=== PATIENT | male | born 1950 | race Caucasian/White ===

== ENCOUNTER 2023-09-19 11:48 | Outpatient (OUT) | payer MEDICARE, OTHER, SELFPAY ==
[2023-09-19 12:26] LABS: Basophils Absolute Auto 0.1 10^3/uL (0.0-0.1); Basophils Percent Auto 1.2 % (0.2-2.0); Eosinophils Absolute Auto 0.4 10^3/uL (0.0-0.7); Eosinophils Percent Auto 6.8 % (0.9-7.0); Hematocrit 43.1 % (42.0-54.0); Hemoglobin 13.2 g/dL (14.0-18.0); Lymphocytes Absolute Auto 1.8 10^3/uL (1.2-3.8); Lymphocytes Percent Auto 29.6 % (20.5-60.0); Mean Corpuscular HGB Conc 30.6 g/dL (29.9-35.2); Mean Corpuscular Hemoglobin 27.6 pg (25.9-34.0); Mean Corpuscular Volume 90.2 fL (80.0-94.0); Mean Platelet Volume 9.7 fL (9.5-13.5); Monocytes Absolute Auto 0.6 10^3/uL (0.3-0.8); Monocytes Percent Auto 10.3 % (1.7-12.0); Neutrophils Absolute Auto 3.1 10^3/uL (1.4-6.5); Neutrophils Percent Auto 52.1 % (43.0-75.0); Platelet Count 245 10^3/uL (150-450); Red Blood Count 4.78 10^6/uL (4.70-6.10); Red Cell Distribution Width 12.5 % (11.0-15.0); White Blood Count 5.9 10^3/uL (4.0-11.0)
[2023-09-19 13:07] LABS: Estimated Average Glucose 123 mg/dL; Glycohemoglobin A1C 5.9 % (4.5-6.2)
[2023-09-19 13:17] LABS: Anion Gap 7.8; Carbon Dioxide 31.6 mmol/L (21.0-32.0); Chloride 99 mmol/L (98-107); Glucose 104 mg/dL (74-106); Potassium 4.4 mmol/L (3.5-5.1); Sodium 134 mmol/L (136-145)
[2023-09-19 13:18] LABS: Alanine Aminotransferase 34 U/L (16-63); Alkaline Phosphatase 82 U/L (46-116); Aspartate Amino Transferase 20 U/L (15-37); BUN Creatinine Ratio 15.8; Bilirubin Direct 0.1 mg/dL (0.0-0.2); Bilirubin Total 0.6 mg/dL (0.2-1.0); Estimated GFR (African America >60 (>=60); Estimated GFR (Non-African Ame >60 (>=60)
[2023-09-19 13:19] LABS: Albumin Level 3.5 g/dL (3.4-5.0); Chol HDL Ratio 2.1; Cholesterol 135 mg/dL (<=200); Globulin 3.5 g/dL; HDL Cholesterol 63 mg/dL (40-60); Triglycerides 47 mg/dL (<=150); VLDL CHOLESTEROL 9.4 mg/dL
[2023-09-19 13:32] LABS: Prostate Specific Antigen Scrn 3.68 ng/mL (<=4.00)
== END 2023-09-19 11:49 | disposition home or self-care (01) ==
LOC: LAB 11:53
PROVIDERS: PCP Family Medicine; Visit Provider Family Medicine
DX: E83.42 Hypomagnesemia (principal); I10 Essential (primary) hypertension; Z79.899 Other long term (current) drug therapy; E78.5 Hyperlipidemia, unspecified; Z12.5 Encounter for screening for malignant neoplasm of prostate; R73.03 Prediabetes
CPT/HCPCS: 36415; 80048; 80061; 80076; 83036; 83735; 85025; G0103

== ENCOUNTER 2024-10-01 07:02 | Outpatient (OUT) | payer MEDICARE, OTHER, SELFPAY ==
--- OUTSIDE RECORDS SUMMARY | 2024-10-01 07:06 | XMS_ITS | CCD ---
Author Organization [facility] Care Team Providers Care Real Estate Transaction Coordinator Name Role Phone Ayad Lawrence Unavailable Carter Fitzpatrick Primary Care Provider [phone] No, Referral Unavailable Unavailable Jose Cruz RUSSELL, Wai Dorantes Unavailable AMARI, DR CARTER Quintanilla Admitting Unavailable NADERER, DR CARTER Quintanilla Attending Unavailable NADERER, DR CARTER Quintanilla Consulting Unavailable NADERER, DR CARTER Quintanilla Primary Care Unavailable ALLEN ., DR ETHAN Nunes Admitting Unavailable ALLEN ., DR ETHAN Nunes Attending Unavailable NADERER, DR CARTER Quintanilla Primary Care Unavailable NADERER, DR CARTER Quintanilla Consulting Unavailable LAKSHMIPATHY ., CARLOS Attending Ofelia vailable ALLEN ., DR ETHAN Nunes Consulting Unavailable LAKSHMIPATHY ., CARLOS Admitting Ofelia vailable NADERER, DR CARTER Quintanilla Primary Care Unavailable LAKSHMIPATHY ., CARLOS Consulting Ofelia vailable FAWWAD, BECKETT H Admitting Unavailable FAWWAD, BECKETT H Attending Unavailable PARKERSBURG, DR MARSHAL Tanner Consulting Unavailable NADERER, DR CARTER Quintanilla Primary Care Unavailable FAWWAD, BECKETT H Consulting Unavailable ALLEN ., DR ETHAN Nunes Attending Unavailable ALLEN ., DR ETHAN Nunes Admitting Unavailable ALLEN ., DR ETHAN Nunes Consulting Unavailable NADEREVashti, DR CARTER Quintanilla Primary Care Unavailable ALLEN ., DR ETHAN Nunes Attending Unavailable ALLEN ., DR ETHAN Nunes Consulting Unavailable ALLEN ., DR ETHAN Nunes Admitting Unavailable NADERER, DR CARTER Quintanilla Primary Care Unavailable ALLEN ., DR ETHAN Nunes Attending Unavailable ALLEN ., DR ETHAN Nunes Admitting Unavailable NADERER, DR CARTER Quintanilla Primary Care Unavailable LAKSHMIPATHY ., CARLOS Admitting Ofelia vailable LAKSHMIPATHY ., CARLOS Attending Ofelia vailable LAKSHMIPATHY ., CARLOS Consulting Ofelia vailable NADEREVashti, DR CARTER Quintanilla Primary Care Unavailable ALLEN ., DR ETHAN Nunes Admitting Unavailable ALLEN ., DR ETHAN Nunes Attending Unavailable ALLEN ., DR ETHAN Nunes Consulting Unavailable NADERER, DR CARTER Quintanilla Primary Care Unavailable ALLEN ., DR ETHAN Nunes Admitting Unavailable ALLEN ., DR ETHAN Nunes Attending Unavailable ALLEN ., DR ETHAN Nunes Consulting Unavailable NADERER, DR CARTER Quintanilla Primary Care Unavailable POMPABRANDON CHARLTON Consulting Unavailable ALLEN ., DR ETHAN Nunes Consulting Unavailable ALLEN ., DR ETHAN Nunes Attending Unavailable ALLEN ., DR ETHAN Nunes Admitting Unavailable NADERER, DR CARTER Quintanilla Primary Care Unavailable TAL URIAS Consulting Unavailable LAKSHMIPATHY ., NARENDLALITOATH Admitting Ofelia vailable LAKSHMIPATHY ., CARLOS Attending Ofelia vailable LAKSHMIPATHY ., CARLOS Consulting Ofelia vailable NADCHARLIE, DR CARTER Quintanilla Primary Care Unavailable BRANDON POMPA Consulting Unavailable ALLEN ., DR ETHAN Nunes Attending Unavailable ALLEN ., DR ETHAN Nunes Admitting Unavailable NADERER, DR CARTER Quintanilla Primary Care Unavailable ALLEN ., DR ETHAN Nunes Attending Unavailable ALLEN ., DR ETHAN Nunes Consulting Unavailable ALLEN ., DR ETHAN Nunes Admitting Unavailable NADERER, DR CARTER Quintanilla Primary Care Unavailable NADERER, DR CARTER Quintanilla Primary Care Unavailable LAKSHMIPATHY ., NARSASHA Admitting Ofelia vailable LAKSHMIPATHY ., CARLOS Attending Ofelia vailable ALLEN ., DR ETHAN Nunes Attending Unavailable ALLEN ., DR ETHAN Nunes Consulting Unavailable ALLEN ., DR ETHAN Nunes Admitting Unavailable NADERER, DR CARTER Quintanilla Primary Care Unavailable NADERER, DR CARTER Quintanilla Admitting Unavailable NADERER, DR CARTER Quintanilla Attending Unavailable WEST, DR MARSHAL Tanner Consulting Unavailable NADERER, DR CARTER Quintanilla Primary Care Unavailable ZIEBER, DR JONO Kingston Consulting Unavailable NADERER, DR CARTER Quintanilla Consulting Unavailable NADERER, DR CARTER Quintanilla Primary Care Unavailable GRECHNY ., ELIU MAHONEY Consulting Unavailabl e MARKER ., DR SALAS Admitting Unavailable MARKER ., DR SALAS Attending Unavailable MARKER ., DR SALAS Consulting Unavailable SHILOH, LAITH Consulting Unavailable Jass, Marshal Consulting Unavailable LUDMILA, DR MAICOL Kingston Consulting Unavailable LUDMILA, DR MAICOL Kingston Admitting Unavailable LUDMILA, DR MAICOL Kingston Attending Unavailable NADERER, DR CARTER Quintanilla Primary Care Unavailable JACOB DUKE Consulting Unavailable TORRES, DR MAICOL Kingston Admitting Unavailable LUDMILA, DR MAICOL Kingston Consulting Unavailable LUDMILA, DR MAICOL Kingston Attending Unavailable NADERER, DR CARTER Quintanilla Primary Care Unavailable LUCIAN NG Consulting Unavailable ANDREWS THOMPSON Consulting Unavailable NADERER, DR CARTER Quintanilla Admitting Unavailable NADERER, DR CARTER Quintanilla Attending Unavailable NADERER, DR CARTER Quintanilla Primary Care Unavailable NADERER, DR CARTER Quintanilla Consulting Unavailable ALLEN ., DR ETHAN Nunes Admitting Unavailable ALLEN ., DR ETHAN Nunes Attending Unavailable NADERER, DR CARTER Quintanilla Primary Care Unavailable NADERER, DR CARTER Quintanilla Consulting Unavailable ALLEN ., DR ETHAN Nunes Consulting Unavailable No, Referral Unavailable Unavailable Wai Billingsley MD Unavailable [phone] NADCHARLIE, CARTER Quintanilla Primary Care Unavailable AUBREY KO Attending Unavailable WAI BILLINGSLEY Attending Unavailable WAI BILLINGSLEY Referring Unavailable AMARI, CARTER Quintanilla Primary Care Unavailable WAI BILLINGSLEY Referring Unavailable AMARI, CARTER Quintanilla Primary Care Unavailable WAI BILLINGSLEY Referring Unavailable KHUSHBOO LACKEY Attending Unavailable NADEREVashti, CARTER Quintanilla Primary Care Unavailable NADEREVashti, CARTER Quintanilla Primary Care Unavailable WAI BILLINGSLEY Referring Unavailable Carter Fitzpatrick Primary Care Provider Carter Fitzpatrick MD Primary Care Provider [phone] CARTER FITZPATRICK Attending Unavailable CINTHIA PRECIADO Attending Unavailable NADEREVashti, CARTER Attending Unavailable Carter Fitzpatrick MD Primary Care Provider [phone] Allergies Allergy Classification Reported Allergen(s) Allergy Type Date of Onset Reaction(s) Facility (1 source) penicillAMINE Drug Allergy Unknown [facility] Other (19 sources) Penicillin; Translations: [PENICILLIN] Drug Allergy 11-01-20 17 Unknown [facility] (19 sources) Thiazides; Translations: [THIAZIDES] Drug Intolerance 02-04-20 19 GI Upset [facility] Work Phone: (2 sources) Penicillins Drug allergy (disorder) 11-17-20 16 [facility] (2 sources) cefdinir Drug Allergy 03-26-20 24 [facility] (2 sources) Penicillin G Drug Allergy 11-01-20 17 Hives, Unknown [facility] (2 sources) Other Propensity to adverse reactions 02-04-20 19 GI intolerance [facility] Medications Current Medications Medication Drug Class(es) Dates Sig (Normalized) Sig (Original) amLODIPine 2.5 mg oral tablet (20 sources) Dihydropyridine Calcium Channel Edwar Start: 12-30-2021 End: 09-17-2024 take 1 tablet by mouth in the morning amLODIPine (Norvasc) 2.5 MG tablet Take 2.5 mg by mouth in the morning. 12/17/2023 Active amLODIPine Besyl ate 2.5 MG Oral for 60 Active Comment on above: Take 1 tablet by césar th once daily. Take 1 tablet by césar th once daily Aspirin (4 sources) Platelet Aggregation Inhibitor, Nonsteroidal Anti-inflammatory Drug aspirin (ASPIR-81 OR AL) Take by mouth. Active aspirin (ASPIR-8 1 ORAL) Take by mouth. 0 Active Comment on above: Take by mouth. atorvastatin 10 mg oral tablet (20 sources) HMG-CoA Reductase Inhibitor Start: 03-04-20 take 1 tablet by mouth at bedtime atorvastatin (Lipitor) 10 MG tablet Indications: Dyslipidemia ([facility]) Take 1 tablet (10 mg) by mouth at bedtime 90 tablet 3 03/04/2024 Active Comment on above: Take 10 mg by mouth once daily. LORazepam 0.5 mg oral tablet (20 sources) Benzodiazepine Start: 09-18-20 take 1 tablet by mouth three times daily as needed LORazepam (Ativan) 0.5 MG tablet Indications: BAN (generalized anxiety disorder) ([facility]) Take 1 tablet by mouth three times daily as needed 90 tablet 2 09/18/2024 Active Start: 07-04-2024 End: 09-18-2024 take 1 tablet by mouth three times daily as needed LORazepam (Ativan) 0.5 MG tablet Indications: BAN (generalized anxiety disorder) ([facility]) Take 1 tablet by mouth three times daily as needed 90 tablet 1 07/04/2024 09/18/2024 Discontinued Comment on above: Take 0.5 mg by mouth three times daily as needed. 0.25mg in the morning and afternoon and 0.5mg in the evening lutein 20 mg oral capsule (2 sources) take 1 capsule by mouth once daily Lutein 20 MG capsule Take 20 mg by mouth Daily Active Magnesium glycinate (2 sources) Magnesium Glycin ate powder 200 mg Daily Active 24 hr metoprolol succinate 50 mg extended release oral tablet (20 sources) beta-Adrenergic Edwar Start: 10-29-2023 take 1 tablet by mouth twice daily metoprolol succinate XL (Toprol-XL) 50 MG 24 hr tablet Indications: Hypertension, unspecified type (CMS/HCC) Take 1 tablet by mouth twice daily 180 tablet 3 10/29/2023 Active Start: 11-23-2022 End: 02-21-2023 take 1 tablet by mouth twice daily metoprolol succinate XL (Toprol-XL) 50 MG 24 hr tablet Indications: Hypertension, unspecified type (CMS/HCC) Take 1 tablet by mouth twice daily 180 tablet 3 10/29/2023 Active Start: 11-16-2022 End: 11-16-2022 take 2 tablets by mouth twice daily metoprolol succinate ER (TOPROL XL) 25 mg 24 hr tablet Take 2 tablets by mouth twice daily. Taking 1 1/2 in morning and 25 mg at night 0 11/16/2022 Active Metoprolol Succi smiley ER 25 MG Oral for 90 Active Comment on above: Take 25 mg by mouth twice daily. Taking 1 1/2 in morning and 25 mg at night Take 2 tablets by mo uth twice daily. Taking 1 1/2 in morning and 25 mg at night Take 1 tablet by césar th twice daily. Multiple Vitamin (multivitamin) tablet (2 sources) take 1 tablet by mouth once daily Multiple Vitamin (multivitamin) tablet Take 1 tablet by mouth Daily Active multivitamin tablet (18 sources) take 1 tablet by mouth once daily multivitamin tablet Take 1 tablet by mouth once daily. With 18 mg iron Active take 1 tablet by mouth once leslie y multivitamin tablet Take 1 tablet by mouth once daily. With 18 mg iron 0 Active Comment on above: Take 1 tablet by césar th once daily. With 18 mg iron 125 ml sodium chloride 9 mg/ml prefilled syringe (20 sources) Start: 11-06-2022 End: 10-23-2024 sodium chloride 0.9 % (flush) 10 mL (BD POSIFLUSH) ZEAXANTHIN, BULK, MISC (18 sources) ZEAXANTHIN, BULK , MISC 20 mg once daily. Active ZEAXANTHIN, BULK , MISC 20 mg once daily. 0 Active Comment on above: 20 mg once daily. Completed/Discontinued Medications Medication Drug Class(es) Dates Sig (Normalized) Sig (Original) perflutren lipid microspheres 1.3 mL in NaCl (PF) 0.9% 10 mL injection (DEFINITY) (20 sources) Start: 07-25-2023 End: 12-27-2023 perflutren lipid microspheres 1.3 mL in NaCl (PF) 0.9% 10 mL injection (DEFINITY) Start: 07-25-2023 End: 10-23-2024 perflutren lipid microsphere s 1.3 mL in NaCl (PF) 0.9% 10 mL injection (DEFINITY) Start: 11-15-2022 End: 12-27-2023 perflutren lipid microsphere s 1.3 mL in NaCl (PF) 0.9% 10 mL injection (DEFINITY) Start: 11-15-2022 End: 02-14-2024 perflutren lipid microsphere s 1.3 mL in NaCl (PF) 0.9% 10 mL injection (DEFINITY) Start: 11-06-2022 End: 12-27-2023 perflutren lipid microsphere s 1.3 mL in NaCl (PF) 0.9% 10 mL injection (DEFINITY) Start: 11-06-2022 End: 02-05-2024 perflutren lipid microsphere s 1.3 mL in NaCl (PF) 0.9% 10 mL injection (DEFINITY) Problems Active Problems Problem Classification Problem Date Documented Da te Episodic/Chronic Anxiety disorders (6 sources) Anxiety disorder, unspecified; Translations: [Generalized anxiety disorder] Onset: 11-07-2022 03-04-2024 Chronic Cardiac dysrhythmias (1 source) Unspecified atrial fibrillation; Translations: [UNSPECIFIED ATRIAL FIBRILLATION] Onset: 10-31-2022 Chronic Disorders of lipid metabolism (4 sources) Hyperlipidemia, unspecified; Translations: [Pure hypercholesterolemi a, unspecified] Onset: 10-31-2022 03-04-2024 Chronic Essential hypertension (6 sources) Essential hypertension; Translations: [Essential (primary) hypertension] Onset: 11-07-2022 Chronic Headache; including migraine (3 sources) Migraine, unspecified, not intractable, without status migrainosus; 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] Onset: 09-25-2022 03-26-2024 Chronic Headache; including migraine (1 source) Headache; including migraine; Translations: [HEADACHE UNSPECIFIED] Onset: 11-05-2022 Heart valve disorders (4 sources) Mitral valve regurgitation; Translations: [Nonrheumatic mitral (valve) insufficiency] Onset: 12-27-2023 Chronic Other aftercare (5 sources) Other strategic communications manager (current) drug therapy; Translations: [OTH LONGTERM CURRENT DRUG THERAPY] Onset: 11-07-2022 Episodic Other aftercare (1 source) Long-term current use of drug therapy; Translations: [Other strategic communications manager (current) drug therapy] Onset: 09-08-2024 09-08-2024 Episodic Other connective tissue disease (1 source) Myalgia, unspecified site; Translations: [MYALGIA UNSPECIFIED SITE] Onset: 01-17-2023 Episodic Other nervous system disorders (1 source) Polyneuropathy; Translations: [Polyneuropathy, unspecified] Chronic Other nervous system disorders (1 source) Ulnar neuropathy; Translations: [Lesion of ulnar nerve, bilateral upper limbs] Chronic Other nervous system disorders (5 sources) Other chronic pain; Translations: [OTHER CHRONIC PAIN] Onset: 01-17-2023 Chronic Other nervous system disorders (1 source) Other specified mononeuropathies; Translations: [OTHER SPECIFIED MONONEUROPATHIES] Onset: 01-25-2023 Chronic Other non-traumatic joint disorders (4 sources) Pain in left hip; Translations: [PAIN IN LEFT HIP] Onset: 01-11-2023 Episodic Other nutritional; endocrine; and metabolic disorders (2 sources) Hypomagnesemia; Translations: [Hypomagnesemia] Onset: 03-04-2024 03-04-2024 Chronic Other screening for suspected conditions (not mental disorders or infectious disease) (2 sources) Encounter for screening for malignant neoplasm of prostate; Translations: [Patient encounter status] Onset: 06-24-2022 09-08-2024 Episodic Residual codes; unclassified (2 sources) Obstructive sleep apnea syndrome; Translations: [Obstructive sleep apnea (adult) (pediatric)] Onset: 03-04-2024 03-04-2024 Chronic Residual codes; unclassified (2 sources) Hypersomnia; Translations: [Hypersomnia, unspecified] Onset: 03-26-2024 03-26-2024 Chronic Residual codes; unclassified (1 source) Treatment not available; Translations: [Procedure and treatment not carried out for other reasons] Episodic Spondylosis; intervertebral disc disorders; other back problems (10 sources) Lumbar spondylosis; Translations: [Spondylosis without myelopathy or radiculopathy, lumbar region] Onset: 10-21-2022 Chronic Spondylosis; intervertebral disc disorders; other back problems (8 sources) Chronic low back pain; Translations: [Lumbago with sciatica, left side] Onset: 09-12-2022 Episodic Unclassified (4 sources) LOW BACK PAIN, UNSPECIFIED; Translations: [LOW BACK PAIN, UNSPECIFIED] Onset: 10-01-2022 Unclassified (1 source) CONTACT W/AND (SUSP) EXPOS COVID-19; Translations: [CONTACT W/AND (SUSP) EXPOS COVID-19] Onset: 11-29-2022 Past or Other Problems Problem Classification Problem Date Documented Date Episodic/Chronic Abdominal hernia (2 sources) Gastroesophageal reflux disease with hiatal hernia; Translations: [Diaphragmatic hernia without obstruction or gangrene] Onset: 03-04-2024 03-04-2024 Episodic Cardiac dysrhythmias (20 sources) Palpitations; Translations: [Palpitations] Onset: 04-22-2019 04-22-2019 Episodic Conditions associated with dizziness or vertigo (4 sources) Dizziness and giddiness; Translations: [DIZZINESS AND GIDDINESS] Onset: 11-01-2022 Episodic Diabetes mellitus without complication (2 sources) Prediabetes; Translations: [Prediabetes] Onset: 03-04-2024 03-04-2024 Episodic Headache; including migraine (2 sources) Headache; Translations: [Head ache] Onset: 03-04-2024 03-04-2024 Episodic Malaise and fatigue (3 sources) Weakness; Translations: [Right hemiparesis] Onset: 11-05-2022 03-04-2024 Episodic Nonspecific chest pain (1 source) Other chest pain; Translations: [OTHER CHEST PAIN] Onset: 09-25-2022 Episodic Other circulatory disease (1 source) Personal history of transient ischemic attack (TIA), and cerebral infarction without residual deficits; Translations: [PERS HX TIA AND CI NO RESID DEFICIT] Onset: 10-31-2022 Episodic Other connective tissue disease (1 source) Facial weakness; Translations: [FACIAL WEAKNESS] Onset: 11-05-2022 Episodic Other connective tissue disease (4 sources) Trochanteric bursitis, left hip; Translations: [TROCHANTERIC BURSITIS LEFT HIP] Onset: 10-18-2022 Episodic Other nervous system disorders (4 sources) Anesthesia of skin; Translations: [ANESTHESIA OF SKIN] Onset: 11-05-2022 Episodic Other nervous system disorders (4 sources) Paresthesia of skin; Translations: [PARESTHESIA OF SKIN] Onset: 09-21-2022 Episodic Other nervous system disorders (2 sources) Facial paresthesia; Translations: [Paresthesia of skin] Onset: 03-26-2024 03-26-2024 Episodic Other non-traumatic joint disorders (2 sources) Chronic pain of left upper limb; Translations: [Pain in left shoulder] Onset: 03-04-2024 03-04-2024 Episodic Unclassified (1 source) LOW BACK PAIN, UNSPECIFIED; Translations: [LOW BACK PAIN, UNSPECIFIED] Onset: 09-26-2022 Results Test Name Value Interpretation Reference Range Facility [facility] 12-27-2023 CNOV Office Visit (NADIA ) MARSHAL GARRISON ([id number]) 1950 M Date Time Provider Department 12/27/23 3:00 PM WAI BILLINGSLEY During your visit today, we recorded the following information about you: Pulse Blood pressure Weight Height 64/minute 152/72 80.3 kg 1.83 m Wai Billingsley MD 12/27/2023 5:04 PM [facility] Department of Cardiovascular Medicine SECTION OF CARDIOVASCULAR IMAGING OUTPATIENT VISIT DATE December 27, 2023 OUTPATIENT VISIT TYPE ESTABLISHED PRIMARY CARE PHYSICIAN: Carter Fitzpatrick MD ([facility]) [address] [place] [address] REFERRING PHYSICIAN: Katerin Billingsley [id number] [facility] [id number] CHIEF COMPLAINT: Follow up HISTORY OF PRESENT ILLNESS: Mr. Garrison is a 73 year old male who presents today for follow-up visit . Since his last visit, he states that he is doing well. He is remodeling his house. He denies chest pain, shortness of breath, orthopnea, cough, edema, palpitations, PND, lightheadedness or syncope. PAST CARDIAC HISTORY: He has been seen in the past for mitral regurgitation. Katerin Billingsley MD PAST MEDICAL HISTORY Diagnosis Date Anxiety Chest pain negative stress in 2016 Hyperlipidemia Hypertension Palpitations Panic attacks Sleep apnea on CPAP PAST SURGICAL HISTORY Procedure Laterality Date NONE SOCIAL HISTORY Social History Tobacco Use Smoking status: Former Packs/day: 1.00 Years: 5.00 Additional pack years: 0.00 Total pack years: 5.00 Types: Cigarettes Quit date: 11/19/1977 Years since quittin.1 Smokeless tobacco: Never Substance Use Topics Alcohol use: Not Currently Drug use: No FAMILY HISTORY Problem Relation Age of Onset Colon Cancer Mother Ischemic Heart Disease Father 65 s/p CABG x 4 Alzheimer's Disease Father Hyperlipidemia Brother Hypertension Brother Heart disease Brother heart infection Ischemic Heart Disease Brother 71 s/p CABG ALLERGIES: ALLERGIES Allergen Reactions Hctz [Thiazides] GI Upset Nausea Penicillin Unknown MEDICATIONS: aspirin (ASPIR-81 ORAL)Take by mouth.Disp: Rfl: amLODIPine (NORVASC) 2.5 mg tabletTake 1 tablet by mouth once dailyDisp: 90 tabletRfl: 0 metoprolol succinate ER (TOPROL XL) 50 mg 24 hr tabletTake 1 tablet by mouth twice daily.Disp: 180 tabletRfl: 0 LORazepam (ATIVAN) 0.5 mgTake 0.5 mg by mouth three times daily as needed. 0.25mg in the morning and afternoon and 0.5mg in the evening Disp: Rfl: atorvastatin (LIPITOR) 10 mg tabletTake 10 mg by mouth once daily.Disp: Rfl: ZEAXANTHIN, BULK, MISC20 mg once daily.Disp: Rfl: multivitamin tabletTake 1 tablet by mouth once daily. With 18 mg iron Disp: Rfl: REVIEW OF SYSTEMS: See HPI. PHYSICAL EXAMINATION: BP 152/72 Pulse 64 Ht 183 cm (6' 0.05 ) Wt 80.3 kg (177 lb) SpO2 97% BMI 23.97 kg/m? General: Well appearing, in no acute distress, speaking in complete sentences. Neck: No jugular venous distention, no carotid bruits, carotids have a normal upstroke, no palpable thyromegaly. Lungs: Clear to auscultation bilaterally, no wheezing or rhonchi. Heart: Regular rhythm, PMI not displaced, S1, S2 normal, no S3, no S4, no heaves, no rub and 3/6 mid to late systolic apical murmur. Abdomen: Soft, nontender, bowel sounds normal, no palpable organomegaly, no bruits. Extremities: No peripheral edema . Grade 2/4 distal pulses bilaterally. Neuro: Oriented to person, place and time, alert, cooperative, gait coordinated. CARDIOVASCULAR MEDICINE TESTING: I have personally reviewed the Echocardiogram. Last ECHO Result Conclusion ECHO Collected: 12/27/2023 1:06 PM (Final result) Impression: CONCLUSIONS: - Exam indication: Mitral Valve Prolapse - The left ventricle is normal in size. Left ventricular systolic function is normal. EF = 56 ? 5% (2D biplane) Normal left ventricular diastolic function. - The right ventricle is normal in size. Right ventricular systolic function is normal. - Mild (1-2+) MR due to anterior leaflet prolapse with posteriorly direct jet. - Estimated right ventricular systolic pressure is 22 mmHg consistent with normal pulmonary artery pressures. Estimated right atrial pressure is 3 mmHg based on IVC assessment. - Exam was compared with the prior echocardiographic exam performed on 11/16/2022. No significant changes. * * * Final * * * Last EKG Result Conclusion ECG COMPLETE Collected: 03/05/2023 1:18 PM (Final result) Impression: NORMAL SINUS RHYTHM NORMAL ECG Confirmed by BILLIE CALLES MD ([id number]) on 03/07/2023 9:46:24 AM IMPRESSION: Mr. Garrison is a 73 year old male with multiple + stable mild to moderate mitral regurgitation. Active (more content not included)... Normal [facility] ECHOon 12-27-2023 Echocardiography Echocardiography Report: Transthoracic Echo [facility] [id number] Date of service: 12/27/2023 1:06:51 PM RESOURCE OFFICER Ordering physician: WAI BILLINGSLEY Indication: Mitral Valve Prolapse Technologist: Mckenna Olivas Fellow: Paul Lock MD Interpreting physician: Andrews Foreman MD PATIENT: Name: MARSHAL GARRISON : 1950 Age: 73 years Gender: M Primary rhythm: sinus. Height: 182.90 cm BSA: 2.05 m Weight: 82.56 kg BMI: 24.7 kg/m Heart rate 66 bpm Blood pressure 150/69 mmHg Color Doppler was utilized to interrogate the cardiac valves assessed and spectral Doppler was utilized to determine the flow velocities and pressure gradients reported in this exam. MEASUREMENTS: Value Indexed Normal Max aortic dimension 3.2 cm Ao < 3.8 Left atrial volume 52 ml (biplane A-L) 25 ml/m Pro <= 34 LV ID (diastole) 4.1 cm (2D) 2.00 cm/m LV ID (systole) 2.5 cm (2D) 1.24 cm/m IVS, leaflet tips 0.9 cm (2D) Posterior wall thickness 0.9 cm (2D) Left ventricular mass 115 g (2D) 56 g/m LV stroke volume 46 ml (2D biplane) LV end diastolic volume 82 ml (2D biplane) 40.1 ml/m 34<=EDVi<75 LV end systolic volume 36 ml (2D biplane) 17.5 ml/m Ejection Fraction 56 % (2D biplane) EF > 52 FINDINGS: LEFT VENTRICLE The left ventricle is normal in size. Left ventricular systolic function is normal. Normal left ventricular diastolic function. Mitral annular lateral E/e': 6.3. Mitral annular septal E/e': 8.1. Wall Motion: All scored segments are normal. RIGHT VENTRICLE The right ventricle is normal in size. Right ventricular systolic function is normal. RV systolic tissue Doppler velocity is 19.4 cm/s. Tricuspid annular displacement is 2.4 cm. Estimated right ventricular systolic pressure is 22 mmHg consistent with normal pulmonary artery pressures. Estimated right atrial pressure is 3 mmHg based on IVC assessment. LEFT ATRIUM The left atrial cavity is normal in size. Pulmonary Veins: The pulmonary venous pattern showed normal systolic flow. RIGHT ATRIUM The right atrial cavity is normal in size. Inferior Vena Cava: The inferior vena cava appears normal measuring 1.4 cm. The vessel decreases greater than 50 percent with inspiration. MITRAL VALVE There is mild (1+ - 2+) mitral valve regurgitation due to prolapse. There is a posteriorly directed regurgitant jet. There is mild thickening. There is mild prolapse of the anterior mitral leaflet. Regurgitant orifice area (PISA) is 0.11 cm . The pressure half time is 59 msec. The peak mitral E/A ratio is 1.10. The average mitral E/e' ratio is 7.2. The mitral flow deceleration time is 204 msec. TRICUSPID VALVE The tricuspid valve leaflets are structurally normal. There is trace (trace - 1+) tricuspid valve regurgitation. The hepatic venous pattern showed normal systolic flow. AORTIC VALVE The aortic valve cusps are structurally normal. There is trace aortic valve regurgitation. Tricuspid aortic valve. PULMONIC VALVE The pulmonic valve cusps are structurally normal. There is trace pulmonic valve regurgitation. AORTA The visualized aorta is normal in size. Measurements - Sinus: 3.2 cm. Mid ascending aorta 2.9 cm. PULMONARY ARTERIES The pulmonary arteries are normal. INTERVENTRICULAR SEPTUM There is no flow through the interventricular septum as detected by Doppler. PERICARDIUM There is no pericardial effusion. CONCLUSIONS: - Exam indication: Mitral Valve Prolapse - The left ventricle is normal in size. Left ventricular systolic function is normal. EF = 56 5% (2D biplane) Normal left ventricular diastolic function. - The right ventricle is normal in size. Right ventricular systolic function is normal. - Mild (1-2+) MR due to anterior leaflet prolapse with posteriorly direct jet. - Estimated right ventricular systolic pressure is 22 mmHg consistent with normal pulmonary artery pressures. Estimated right atrial pressure is 3 mmHg based on IVC assessment. - Exam was compared with the prior echocardiographic exam performed on 11/16/2022. No significant changes. * * * Final * * * [employer] Medical Image : [id number] Normal [facility] CNOVon 03-05-2023 CNOV Office Visit (CARIMN ) MARSHAL GARRISON ([id number]) 1950 M Date Time Provider Department 03/05/23 2:00 PM KHUSHBOO LACKEY During your visit today, we recorded the following information about you: Pulse Blood pressure Weight Height 76/minute 150/69 82.6 kg 1.829 m Khushboo Lackey APRN.WET END TESTER 03/05/2023 1:48 PM Signed [facility] Department of Cardiovascular Medicine SECTION OF CARDIOVASCULAR IMAGING OUTPATIENT VISIT DATE February 28, 2023 OUTPATIENT VISIT TYPE ESTABLISHED PRIMARY CARE PHYSICIAN: Carter Fitzpatrick MD ([facility]) [address] [place] [address] REFERRING PHYSICIAN: Katerin Billingsley [address] [address] CHIEF COMPLAINT: Follow up HISTORY OF PRESENT ILLNESS: Mr. Garrison is a 72 year old male who presents today for follow-up visit. Since his last visit, he states that he feels tired but well and he denies any chest pain, shortness of breath, PND, orthopnea, palpitations, presyncope, syncope, dizziness, or peripheral edema. PAST CARDIAC HISTORY: He has been seen in the past for hypertension and MVP.. He was last seen on 11/16/[address] Billingsley.. PAST MEDICAL HISTORY Diagnosis Date Anxiety Chest pain negative stress in 2016 Hyperlipidemia Hypertension Palpitations Panic attacks Sleep apnea on CPAP PAST SURGICAL HISTORY Procedure Laterality Date NONE SOCIAL HISTORY Social History Tobacco Use Smoking status: Former Packs/day: 1.00 Years: 5.00 Pack years: 5.00 Types: Cigarettes Quit date: 11/19/1977 Years since quittin.3 Smokeless tobacco: Never Substance Use Topics Alcohol use: Not Currently Drug use: No FAMILY HISTORY Problem Relation Age of Onset Colon Cancer Mother Ischemic Heart Disease Father 65 s/p CABG x 4 Alzheimer's Disease Father Hyperlipidemia Brother Hypertension Brother Heart disease Brother heart infection Ischemic Heart Disease Brother 71 s/p CABG ALLERGIES: ALLERGIES Allergen Reactions Hctz [Thiazides] GI Upset Nausea Penicillin Unknown MEDICATIONS: amLODIPine (NORVASC) 2.5 mg tabletTake 1 tablet by mouth once daily.Disp: 90 tabletRfl: 3 metoprolol succinate ER (TOPROL XL) 50 mg 24 hr tabletTake 1 tablet by mouth twice daily.Disp: 180 tabletRfl: 0 LORazepam (ATIVAN) 0.5 mgTake 0.5 mg by mouth three times daily as needed. 0.25mg in the morning and afternoon and 0.5mg in the evening Disp: Rfl: atorvastatin (LIPITOR) 10 mg tabletTake 10 mg by mouth once daily.Disp: Rfl: ZEAXANTHIN, BULK, MISC20 mg once daily.Disp: Rfl: multivitamin tabletTake 1 tablet by mouth once daily. With 18 mg iron Disp: Rfl: REVIEW OF SYSTEMS: Positive in Red GENERAL: Negative for: Weight loss or gain, Fever or Chills, Weakness and Sleep difficulties. HEENT: Negative for: Headache, Impaired Vision, Glasses, Hearing Impairment, Ringing in Ears, Nosebleeds, Poor Dental Care, Bleeding Gums and Dentures. NECK: Negative for: Swelling, Pain, Stiffness RESPIRATORY: Negative for: Cough, Blood in Sputum, Shortness of breath, Wheezing, Apnea GASTROINTESTINAL: Negative for: Trouble swallowing, Heartburn, Change in bowel habits, Blood in stool, Dark black stools MUSCULOSKELETAL: Negtive for: Muscle or joint pain, stiffness, Joint swelling. Back pain NEUROLOGIC/PSYCHIATRIC : Negative for: Weakness, Paralysis, Numbness, Tingling, Tremor, Nervousness or anxiety, Depressed mood, Memory loss SKIN: Negative for: Rash, Itching HEMATOLOGICAL/LYMPHATI C: Negative for: Easy bruising, Easy bleeding ENDOCRINE: Negative for: Heat or Cold Intolerance, Excessive Sweating, Frequent Urination, Frequent Thirst PHYSICAL EXAMINATION: BP 150/69 Pulse 76 Ht 182.9 cm (6') Wt 82.6 kg (182 lb) SpO2 98% BMI 24.68 kg/m? General: Well appearing., In no acute distress. Skin: Warm, dry Eyes: Non-icteric sclerae Neck: no jugular venous distention, Lungs: Clear to auscultation bilaterally, no wheezing or rhonchi Heart: Regular rhythm, no murmur Abdomen: Soft, nontender Extremities: No peripheral edema, 2+ distal pulses bilaterally Neuro: Oriented to person, place and time, alert, cooperative CARDIOVASCULAR MEDICINE TESTING: Last ECHO Result Conclusion ECHO Collected: 11/16/2022 10:46 AM (Final result) Impression: CONCLUSIONS: - Technically difficult exam due to body habitus. - Exam indication: Palpitations - The left ventricle is normal in size. Left ventricular systolic function is normal. EF = 63 ? 5% (2D biplane) - The right ventricle is normal in size. Right ventricular systolic function is normal. - Mild mitral valve prolapse, with 1-2+ posterior and laterally directed jet of MR. Could be slightly underestimated based on short axis views, but does not appear to be more than 2+ in sev (more content not included)... Normal [facility] ECG COMPLETEon 03-05-2023 ECG COMPLETE Ventricular Rate : 7 2 BPM Atrial Rate : 72 BPM P-R Interval : 172 ms QRS Duration : 88 ms Q-T Interval : 380 ms QTC Calculation(Bazett) : 416 ms Calculated P Electra : 47 degrees Calculated R Electra : 37 degrees Calculated T Electra : 71 degrees NORMAL SINUS RHYTHM NORMAL ECG Confirmed by BILLIE CALLES MD ([id number]) on 03/07/2023 9:46:24 AM NAME : MARSHAL GARRISON PID : [id number] : 1950 Gender : Male Race : ORD : [id number] Procedure Date : Mar 05 2023 13:18:35 Edit Date : Mar 07 2023 09:46:27 Diagnosis: NORMAL SINUS RHYTHM NORMAL ECG Confirmed by BILLIE CALLES MD ([id number]) on 03/07/2023 9:46:24 AM Test Reason : Location : 314 : J14 J1-4 Overread By : BILLIE CALLES MD Edited By : BILLIE CALLES MD Referred By : WAI BILLINGSLEY Acquired by : MENA CEJA [facility] CNOVon 01-16-2023 CNOV Office Visit (SPNMMN ) MARSHAL GARRISON ([id number]) 1950 M Date Time Provider Department 01/16/23 12:00 PM AUBREY KO SPNMMN During your visit today, we recorded the following information about you: Pulse Respiration Blood pressure Weight 71/minute 16/minute 144/57 82.6 kg Height 1.829 m Aubrey Ko MD 01/16/2023 1:35 PM Signed [facility] Low Back Pain - Chronic (> 12 weeks) Initial Exam SUBJECTIVE HISTORY OF PRESENT ILLNESS: Marshal Garrison is a 72 year old male who presents with a chief complaint of low back pain. Chronic axial low back pain dating back multiple years Followed by pain management physician at [facility] S/P bilateral L2, L3, L4 MB and L5 DR RFA approximately 8 weeks ago Significant improvement in axial low back pain following his RFA Following RFA, biggest area of concern was his left low back/buttock which was present prior to RFAB but not any better. 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 Left lower limb pain has mostly resolved, isolated to buttock currently Pain worse with ambulation, climbing stairs, sitting Pain improves with rest and lying down Does not take any medications for pain Denies lower limb weakness Reports chronic bilateral foot numbness/neuropathy Denies radicular leg pain, no issues with balance, no bowel/bladder dysfunction PAIN EVALUATION 01/16/2023 1141 Pain Level: 7 Pain Location: Back-Lower Description: Aching;Sharp Duration Amount of Time: 6 Duration Units: Months Frequency: Intermittent Intervention/Comfort measure: Medication;Therapeutic techniques-CPRP;Exerci se;Emotional Support/Reassurance;He at;Reposition Prior Therapy: Physical therapy prior to RFA, no benefit Trying HEP at home with some benefit Litigation: No Workers' Compensation: No YELLOW AND BLUE FLAGS No-Neg Attitude; Back Pain is Disabling No-Avoiding Activity (for Fear of Pain) No-Depression or Anxiety Disorders No-Social Problems No-Substance Use Disorder No-Job Dissatisfaction No-Financial Disincentives ACTIVE PROBLEM LIST Palpitations PAST MEDICAL HISTORY Diagnosis Date Anxiety Chest pain negative stress in 2016 Hyperlipidemia Hypertension Palpitations Panic attacks Sleep apnea on CPAP PAST SURGICAL HISTORY Procedure Laterality Date NONE Social History Tobacco Use Smoking status: Former Packs/day: 1.00 Years: 5.00 Pack years: 5.00 Types: Cigarettes Quit date: 11/19/1977 Years since quittin.1 Smokeless tobacco: Never Substance Use Topics Alcohol use: Not Currently Drug use: No FAMILY HISTORY Problem Relation Age of Onset Colon Cancer Mother Ischemic Heart Disease Father 65 s/p CABG x 4 Alzheimer's Disease Father Hyperlipidemia Brother Hypertension Brother Heart disease Brother heart infection Ischemic Heart Disease Brother 71 s/p CABG ALLERGIES Allergen Reactions Hctz [Thiazides] GI Upset Nausea Penicillin Unknown CURRENT MEDICATIONS: amLODIPine (NORVASC) 2.5 mg tabletTake 1 tablet by mouth once daily.Disp: 90 tabletRfl: 3 metoprolol succinate ER (TOPROL XL) 50 mg 24 hr tabletTake 1 tablet by mouth twice daily.Disp: 180 tabletRfl: 0 LORazepam (ATIVAN) 0.5 mgTake 0.5 mg by mouth three times daily as needed. 0.25mg in the morning and afternoon and 0.5mg in the evening Disp: Rfl: atorvastatin (LIPITOR) 10 mg tabletTake 10 mg by mouth once daily.Disp: Rfl: ZEAXANTHIN, BULK, MISC20 mg once daily.Disp: Rfl: multivitamin tabletTake 1 tablet by mouth once daily. With 18 mg iron Disp: Rfl: REVIEW OF SYSTEMS: Denies bowel/bladder incontinence, denies fever, denies night pain, denies unintentional weight loss, denies clumsiness of feet/tripping/fallings . Denies any constitutional or myelopathic symptomatology. OBJECTIVE: PHYSICAL EXAM BP 144/57 Pulse 71 Resp 16 Ht 182.9 cm (6') Wt 82.6 kg (182 lb) SpO2 97% BMI 24.68 kg/m? General: Pleasant individual in NAD Mental Status: Oriented to person place and time. Displays appropriate mood and affect. GAIT: Independent with ambulation, gait pattern is normal Gross Motor: Able to stand on tip toes and heels, balance intact Strength Testing: Bilateral upper and lower extremity strength is normal and symmetric. No atrophy or tone abnormalities are noted. Sensation: No loss of sensation is noted Peripheral Vascular: No obvious extremity swelling in all 4 extremities. Appearance of Skin: Skin inspection of the trunk, bilateral upper and lower extremities is unremarkable Neuro: Bilateral upper and lower extremity coordination an (more content not included)... Normal [facility] CBC AUTO DIFFon 12-29-2022 BASO # 0.1 103/ul Normal 0.0-0.[address] [facility] Comment on above: Performed By: #### C BC #### [facility] [address] [address] [address] Abhay Farr Basophils/100 WBC (Bld) 0.6 % Normal 0.2-2.[address] [facility] Comment on above: Performed By: #### C BC #### [facility] [address] [place] [address] Dr. Abhay Farr EO # 0.2 103/ul Normal 0.0-0.[address] [facility] Comment on above: Performed By: #### C BC #### [facility] [address] [place] [address] Dr. Abhay Farr Eosinophils/100 WBC (Bld) 2.5 % Normal 0.9-7.[address] [facility] Comment on above: Performed By: #### C BC #### [facility] [address] [place] [address] Dr. Abhay Farr Erythrocyte distribution width (RBC) [Ratio] 12.6 % Normal 11.0-15.[address] [facility] Comment on above: Performed By: #### C BC #### [facility] [address] [place] [address] Dr. Abhay Farr Hematocrit (Bld) [Volume fraction] 43.1 % Normal 42.0-54.[address] [facility] Comment on above: Performed By: #### C BC #### [facility] [address] [place] [address] Dr. Abhay Farr Hemoglobin (Bld) [Mass/Vol] 13.6 g/dL Critically low 14.0-18.[address] [facility] Comment on above: Performed By: #### C BC #### [facility] [address] [place] [address] Dr. Abhay Farr IG # 0.02 10e3/ul Normal 0.00-0.[address] [facility] Comment on above: Performed By: #### C BC #### [facility] [address] [place] [address] Dr. Abhay Farr IG % 0.2 % Normal 0.0-0.[address] [facility] Comment on above: Performed By: #### C BC #### [facility] [address] [place] [address] Dr. Abhay Farr LYMPH # 2.0 103/ul Normal 1.2-3.[address] [facility] Comment on above: Performed By: #### C BC #### [facility] [address] [place] [address] Dr. Abhay Farr Lymphocytes/100 WBC (Bld) 24.4 % Normal 20.5-60.[address] [facility] Comment on above: Performed By: #### C BC #### [facility] [address] [place] [address] Dr. Abhay Farr MANUAL DIFF REQ NO Normal [facility] Comment on above: Performed By: #### C BC #### [facility] [address] [place] [address] Dr. Abhay Farr MCH (RBC) [Entitic mass] 27.9 pg Normal 25.9-34.[address] [facility] Comment on above: Performed By: #### C BC #### [facility] [address] [place] [address] Dr. Abhay Farr MCHC (RBC) [Mass/Vol] 31.6 g/dL Normal 29.9-35.[address] [facility] Comment on above: Performed By: #### C BC #### [facility] [address] [place] [address] Dr. Abhay Farr MCV (RBC) [Entitic vol] 88.5 fL Normal 80.0-94.[address] [facility] Comment on above: Performed By: #### C BC #### [facility] [address] [place] [address] Dr. Abhay Farr MONO # 0.8 103/ul Normal 0.3-0.[address] [facility] Comment on above: Performed By: #### C BC #### [facility] [address] [place] [address] Dr. Abhay Farr Monocytes/100 WBC (Bld) 9.5 % Normal 1.7-12.[address] [facility] Comment on above: Performed By: #### C BC #### [facility] [address] [place] [address] Dr. Abhay Farr NEUT # 5.1 103/ul Normal 1.4-6.[address] [facility] Comment on above: Performed By: #### C BC #### [facility] [address] [place] [address] Dr. Abhay Farr Neutrophils/100 WBC (Bld) 62.8 % Normal 43.0-75.[address] [facility] Comment on above: Performed By: #### C BC #### [facility] [address] [place] [address] Dr. Abhay Farr Platelet mean volume (Bld) [Entitic vol] 9.2 fL Critically low 9.5-13.[address] [facility] Comment on above: Performed By: #### C BC #### [facility] [address] [place] [address] Dr. Abhay Farr PLT 272 103/ul Normal 150-450 [facility] Comment on above: Performed By: #### C BC #### [facility] [address] [place] [address] Dr. Abhay Farr RBC 4.87 106/ul Normal 4.70-6.10 [facility] Comment on above: Performed By: #### C BC #### [facility] [address] [place] [address] Dr. Abhay Farr WBC 8.0 103/ul Normal 4.0-11.0 [facility] Comment on above: Performed By: #### C BC #### [facility] [address] [place] [address] Dr. Abhay Farr MAGNESIUMon 12-29-2022 Magnesium [Mass/Vol] 2.0 mg/dL Normal 1.8-2.[address] [facility] Comment on above: Performed By: #### M G, BMP #### [facility] [address] [address] [address] Abhay Farr PROF CHEM 8 (BAS METB)on Anion gap [Moles/Vol] 11.4 mmol/L Normal [facility] Comment on above: Performed By: #### M G, BMP #### [facility] [address] [place] [address] Dr. Abhay Farr Calcium [Mass/Vol] 8.9 mg/dL Normal 8.5-10.1 [facility] Comment on above: Performed By: #### M G, BMP #### [facility] [address] [place] [address] Dr. Abhay Farr Chloride [Moles/Vol] 98 mmol/L Normal 98-[address] [facility] Comment on above: Performed By: #### Festus Kim, BMP #### [facility] [address] [place] [address] Dr. Abhay Farr CO2 [Moles/Vol] 30.1 mmol/L Normal 21.0-32.0 [facility] Comment on above: Performed By: #### Festus Kim, BMP #### [facility] [address] [place] [address] Dr. Abhay Farr Creatinine [Mass/Vol] 0.94 mg/dL Normal 0.70-1.[address] [facility] Comment on above: Performed By: #### Festus Kim, BMP #### [facility] [address] [place] [address] Dr. Abhay Farr EGFR-AF IRANIAN >60 Normal >=60 [facility] Comment on above: Performed By: #### Festus G, BMP #### [facility] [address] [place] [address] Dr. Abhay Farr EGFR-NON AF IRANIAN >60 Normal >=[address] [facility] Comment on above: Performed By: #### Festus G, BMP #### [facility] [address] [place] [address] Dr. Abhay Farr Glucose [Mass/Vol] 108 mg/dL Critically high 74-106 T [facility] Comment on above: Performed By: #### M G, BMP #### [facility] [address] [place] [address] Dr. Abhay Farr Potassium [Moles/Vol] 4.5 mmol/L Normal 3.5-5.[address] [facility] Comment on above: Performed By: #### M G, BMP #### [facility] [address] [place] [address] Dr. Abhay Farr Sodium [Moles/Vol] 135 mmol/L Critically low 136-145 Th [facility] Comment on above: Performed By: #### M G, BMP #### [facility] [address] [place] [address] Dr. Abhay Farr Urea nitrogen [Mass/Vol] 15.0 mg/dL Normal 7.0-18.[address] [facility] Comment on above: Performed By: #### M G, BMP #### [facility] [address] [place] [address] Dr. Abhay Farr Urea nitrogen/Creatinine [Mass ratio] 16.0 mg/mg Normal [facility] Comment on above: Performed By: #### M G, BMP #### [facility] [address] [place] [address] Dr. Abhay Farr Covid-19 PCR ([facility])on SARS-CoV-2 (COVID-19) RNA FARIHA+probe Ql (Unsp spec) Not detected Normal NOT DETECTED [facility] Comment on above: Result Comment: This test is not yet approved or cleared by the [place] FDA. When there are no FDA-approved or cleared tests available, and other criteria are met, FDA can make tests available under an emergency access mechanism called an Emergency Use Authorization (EUA). The EUA for this test is supported by the [place] of Health and Human Service's (HHS's) declaration that circumstances exist to justify the emergency use of in vitro diagnostics for the detection and/or diagnosis of the virus that causes COVID-19. This EUA will remain in effect (meaning this test can be used) for the duration of the COVID-19 declaration justifying emergency of IVDs, unless it is terminated or revoked by FDA (after which the test may no longer be used). When diagnostic testing is negative, the possibility of a false negative should be considered in the context of a patient's recent exposures and the presence of clinical signs and symptoms consistent with SARS-CoV-2. Performed By: #### C VDTB #### [facility] [address] [place] [address] Dr. Abhay Farr ECG COMPLETEon 11-17-2022 Atrial Rate 76 BPM [facility] Calculated P Electra 63 degrees [facility] Calculated R Electra 38 degrees [facility] Calculated T Electra 65 degrees [facility] P-R Interval 174 ms [facility] QRS Duration 84 ms [facility] QT Interval 362 ms [facility] QTC Calculation (Bazett) 407 ms [facility] Ventricular Rate 76 BPM [facility] ECHOon 11-16-2022 [facility] CBC AUTO DIFFon 11-05-2022 BASO # 0.1 103/ul Normal 0.0-0.[address] [facility] Comment on above: Performed By: #### C BC #### [facility] [address] [place] [address] Dr. Abhay Farr Basophils/100 WBC (Bld) 0.8 % Normal 0.2-2.0 [facility] Comment on above: Performed By: #### C BC #### [facility] [address] [place] [address] Dr. Abhay Farr EO # 0.4 103/ul Normal 0.0-0.7 [facility] Comment on above: Performed By: #### C BC #### [facility] [address] [place] [address] Dr. Abhay Farr Eosinophils/100 WBC (Bld) 4.8 % Normal 0.9-7.0 [facility] Comment on above: Performed By: #### C BC #### [facility] [address] [place] [address] Dr. Abhay Farr Erythrocyte distribution width (RBC) [Ratio] 12.9 % Normal 11.0-15.[address] [facility] Comment on above: Performed By: #### C BC #### [facility] [address] [place] [address] Dr. Abhay Farr Hematocrit (Bld) [Volume fraction] 42.6 % Normal 42.0-54.[address] [facility] Comment on above: Performed By: #### C BC #### [facility] [address] [place] [address] Dr. Abhay Farr Hemoglobin (Bld) [Mass/Vol] 13.7 g/dL Critically low 14.0-18.[address] [facility] Comment on above: Performed By: #### C BC #### [facility] [address] [place] [address] Dr. Abhay Farr IG # 0.01 10e3/ul Normal 0.00-0.[address] [facility] Comment on above: Performed By: #### C BC #### [facility] [address] [place] [address] Dr. Abhay Farr IG % 0.1 % Normal 0.0-0.[address] [facility] Comment on above: Performed By: #### C BC #### [facility] [address] [place] [address] Dr. Abhay Farr LYMPH # 2.0 103/ul Normal 1.2-3.8 [facility] Comment on above: Performed By: #### C BC #### [facility] [address] [place] [address] Dr. Abhay Farr Lymphocytes/100 WBC (Bld) 27.5 % Normal 20.5-60.[address] [facility] Comment on above: Performed By: #### C BC #### [facility] [address] [place] [address] Dr. Abhay Farr MANUAL DIFF REQ NO Normal [facility] Comment on above: Performed By: #### C BC #### [facility] [address] [place] [address] Dr. Abhay Farr MCH (RBC) [Entitic mass] 27.5 pg Normal 25.9-34.[address] [facility] Comment on above: Performed By: #### C BC #### [facility] [address] [place] [address] Dr. Abhay Farr MCHC (RBC) [Mass/Vol] 32.2 g/dL Normal 29.9-35.2 [facility] Comment on above: Performed By: #### C BC #### [facility] [address] [place] [address] Dr. Abhay Farr MCV (RBC) [Entitic vol] 85.4 fL Normal 80.0-94.[address] [facility] Comment on above: Performed By: #### C BC #### [facility] [address] [place] [address] Dr. Abhay Farr MONO # 0.7 103/ul Normal 0.3-0.[address] [facility] Comment on above: Performed By: #### C BC #### [facility] [address] [place] [address] Dr. Abhay Farr Monocytes/100 WBC (Bld) 9.5 % Normal 1.7-12.[address] [facility] Comment on above: Performed By: #### C BC #### [facility] [address] [place] [address] Dr. Abhay Farr NEUT # 4.2 103/ul Normal 1.4-6.[address] [facility] Comment on above: Performed By: #### C BC #### [facility] [address] [place] [address] Dr. Abhay Farr Neutrophils/100 WBC (Bld) 57.3 % Normal 43.0-75.0 [facility] Comment on above: Performed By: #### C BC #### [facility] [address] [place] [address] Dr. Abhay Farr Platelet mean volume (Bld) [Entitic vol] 8.9 fL Critically low 9.5-13.5 [facility] Comment on above: Performed By: #### C BC #### [facility] [address] [place] [address] Dr. Abhay Farr PLT 252 103/ul Normal 150-450 [facility] Comment on above: Performed By: #### C BC #### [facility] [address] [place] [address] Dr. Abhay Farr RBC 4.99 106/ul Normal 4.70-6.[address] [facility] Comment on above: Performed By: #### C BC #### [facility] [address] [place], [place] [address] Dr. Abhay Farr WBC 7.3 103/ul Normal 4.0-11.[address] [facility] Comment on above: Performed By: #### C BC #### [facility] [address] [place], [place] [address] STROKE HEAD WOon 11-05-[address] STROKE HEAD WO EXAM: CT STROKE HEAD WO CLINICAL INDICATION: Altered mental status COMPARISON: None TECHNIQUE: Axial CT images of the brain were obtained without contrast. Dose reduction techniques were achieved by using automated exposure control and/or adjustment of mA and/or kV according to patient size and/or use of iterative reconstruction technique. FINDINGS: Brain parenchyma: No mass effect or midline shift is seen. Reddy-white differentiation is maintained. No findings suspicious for intracranial hemorrhage. No findings suggesting acute stroke. Periventricular hypoattenuation / patchy white matter hypodensities are statistically most often related to small vessel ischemic disease. Stable chronic lacunar infarct noted within the right basal ganglia region. Ventricles and extra-axial spaces: Ventricles are concordant with sulci. No findings suggesting hydrocephalus. Visualized paranasal sinuses: No findings suggesting acute sinusitis. Mastoid air cells: Clear. Included portions of the orbits:Included portions of the orbits with no evidence of fracture or other acute pathology. Bones: No fracture is seen. Impression: No intracranial hemorrhage. No mass effect or midline shift. Stable chronic lacunar infarct within the right basal ganglia region. No findings suspicious for acute stroke by noncontrast head CT. If there is high suspicion for acute intracranial pathology, please note that magnetic resonance imaging or other additional evaluation may be more sensitive than noncontrast head CT. Findings relayed to Dr. Torres over telephone by Dr. Duke at 11:27 PM on 11/04/2022. Electronically authenticated by: JACOB DUKE Date: 2022-11-04 23:27 Normal [facility] PROF 14(COMP METB)on 022 Albumin [Mass/Vol] 3.6 g/dL Normal 3.4-5.0 [facility] Comment on above: Performed By: #### U MICRO, ERUR #### [facility] [address] [place] [address] [address] Abhay Farr Albumin/Globulin [Mass ratio] 1.0 {ratio} Normal [facility] Comment on above: Performed By: #### U MICRO, ERUR #### [facility] [address] [place] [address] [address] Abhay Farr ALP [Catalytic activity/Vol] 92 U/L Normal 46-[address] [facility] Comment on above: Performed By: #### U MICRO, ERUR #### [facility] [address] [place] [address] [address] Abhya Farr ALT [Catalytic activity/Vol] 53 U/L Normal 16-[address] [facility] Comment on above: Performed By: #### U MICRO, ERUR #### [facility] [address] [place] [address] [address] Abhay Farr Anion gap [Moles/Vol] 10.1 mmol/L Normal [facility] Comment on above: Performed By: #### U MICRO, ERUR #### [facility] [address] [place] [address] [address] Abhay Farr AST [Catalytic activity/Vol] 24 U/L Normal 15-[address] [facility] Comment on above: Performed By: #### U MICRO, ERUR #### [facility] [address] [place] [address] [address] Abhay Farr Bilirubin [Mass/Vol] 0.5 mg/dL Normal 0.2-1.[address] [facility] Comment on above: Performed By: #### U MICRO, ERUR #### [facility] [address] [place] [address] [address] Abhay Farr Calcium [Mass/Vol] 8.9 mg/dL Normal 8.5-10.1 [facility] Comment on above: Performed By: #### U MICRO, ERUR #### [facility] [address] [place] [address] [address] Abhay Farr Chloride [Moles/Vol] 98 mmol/L Normal 98-[address] [facility] Comment on above: Performed By: #### U MICRO, ERUR #### [facility] [address] [place] [address] [address] Abhay Farr CO2 [Moles/Vol] 27.7 mmol/L Normal 21.0-32.0 [facility] Comment on above: Performed By: #### U MICRO, ERUR #### [facility] [address] [place] [address] [address] Abhay Farr Creatinine [Mass/Vol] 0.91 mg/dL Normal 0.70-1.[address] [facility] Comment on above: Performed By: #### U MICRO, ERUR #### [facility] [address] [place] [address] [address] Abhay Farr EGFR-AF IRANIAN >60 Normal >=60 [facility] Comment on above: Performed By: #### U MICRO, ERUR #### [facility] [address] [place] [address] [address] Abhay Farr EGFR-NON AF IRANIAN >60 Normal >=[address] [facility] Comment on above: Performed By: #### U MICRO, ERUR #### [facility] [address] [place] [address] [address] Abhay Farr Globulin (S) [Mass/Vol] 3.6 g/dL Normal [facility] Comment on above: Performed By: #### U MICRO, ERUR #### [facility] [address] [place] [address] [address] Abhay Farr Glucose [Mass/Vol] 108 mg/dL Critically high 74-106 [facility] Comment on above: Performed By: #### U MICRO, ERUR #### [facility] [address] [place] [address] [address] Abhay Farr Potassium [Moles/Vol] 3.8 mmol/L Normal 3.5-5.[address] [facility] Comment on above: Performed By: #### U MICRO, ERUR #### [facility] [address] [address] [address] Abhay Farr Protein [Mass/Vol] 7.2 g/dL Normal 6.4-8.2 [facility] Comment on above: Performed By: #### U MICRO, ERUR #### [facility] [address] [place], [place] [address] Dr. Abhay Farr Sodium [Moles/Vol] 132 mmol/L Critically low 136-145 [facility] Comment on above: Performed By: #### U MICRO, ERUR #### [facility] [address] [place], [place] [address] Dr. Abhay Farr Urea nitrogen [Mass/Vol] 13.0 mg/dL Normal 7.0-18.[address] [facility] Comment on above: Performed By: #### U MICRO, ERUR #### [facility] [address] [place], [place] [address] Dr. Abhay Farr Urea nitrogen/Creatinine [Mass ratio] 14.3 mg/mg Normal [facility] Comment on above: Performed By: #### U MICRO, ERUR #### [facility] [address] [address] [address] Abhay Farr MRI BRAIN WO W CONon 022 MRI BRAIN WO W CON EXAMINATION: MRI BRA IN WO W CON HISTORY: Asthenia ; follow-up right side weakness COMPARISON: CT head 10/28/2022, 09/21/2022 TECHNIQUE: A variety of imaging planes and parameters were utilized for visualization of suspected pathology. Images were performed without and with Dotarem contrast. FINDINGS: CEREBRUM: Metallic musa artifact within anterior right cerebrum from a subcutaneous small metallic foreign body overlying right frontal bone. Multiple small T2 hyperintensities within the deep white matter favoring chronic small vessel ischemic changes. No edema, hemorrhage, mass, acute infarction, or inappropriate atrophy. CEREBELLUM: No edema, hemorrhage, mass, acute infarction, or inappropriate atrophy. BRAINSTEM: No edema, hemorrhage, mass, acute infarction, or inappropriate atrophy. CSF SPACES: Ventricles, cisterns, and sulci are appropriate for age. No hydrocephalus, subarachnoid hemorrhage, or mass. SKULL: No mass or other significant visible lesion. SINUSES: Limited views demonstrate no significant mucosal thickening or fluid. ORBITS: Limited views are unremarkable. OTHER: No abnormal meningeal or parenchymal enhancement. IMPRESSION: 1. No evidence of acute or subacute ischemia. 2. Age consistent mild atrophy and mild chronic small vessel ischemic changes. Electronically authenticated by: JONO TRINIDAD Date: 2022-11-03 08:[address] [facility] US CAROTID ART BILon 11-02-2 022 US CAROTID ART ARNIE EXAMINATION: US CAROTID ART ARNIE HISTORY: Dizziness and giddiness COMPARISON: No relevant comparison available. TECHNIQUE: Duplex Doppler ultrasound analysis of carotid and vertebral arteries. . Bilateral carotid arterial duplex examination was performed using B-mode, color flow and spectral analysis. Carotid stenosis is reported according to validated velocity parameters, similar to NASCET criteria. FINDINGS: RIGHT CAROTID ARTERY Minimal atherosclerotic plaque Subclavian: PSV: 94.4 cm/s cm/s EDV: 11.6 cm/s cm/s CCA: Prox: PSV: 126.3 cm/s cm/s EDV: 9.8 cm/s cm/s Mid: PSV: 119.8 cm/s cm/s EDV: 11.1 cm/s cm/s Distal: PSV: 101.7 cm/s cm/s EDV: 11.1 cm/s cm/s BULB: PSV: 59.2 cm/s cm/s EDV: 13.1 cm/s cm/s ICA: Prox: PSV: 90.8 cm/s cm/s EDV: 13.8 cm/s cm/s Mid: PSV: 86.4 cm/s cm/s EDV: 14.9 cm/s cm/s Distal: PSV: 97.8 cm/s cm/s EDV: 17.6 cm/s cm/s ECA: PSV: 128.6 cm/s cm/s EDV: 7.4 cm/s cm/s VERTEBRAL: PSV: 52.3 cm/s cm/s EDV: 9.5 cm/s cm/s ICA/CCA ratio: PSV: 1.0 EDV: 1.6 LEFT CAROTID ARTERY Minimal atherosclerotic plaque Subclavian: PSV: 111.3 cm/s cm/s EDV: 11.5 cm/s CCA: Prox: PSV: 143.2 cm/s cm/s EDV: 13.9 cm/s Mid: PSV: 117.3 cm/s cm/s EDV: 15.5 cm/s Distal: PSV: 91.3 cm/s cm/s EDV: 13.7 cm/s BULB: PSV: 81.0 cm/s cm/s EDV: 12.4 cm/s ICA: Prox: PSV: 127.0 cm/s cm/s EDV: 20.4 cm/s Mid: PSV: 117.3 cm/s cm/s EDV: 23.6 cm/s Distal: PSV: 125.4 cm/s cm/s EDV: 30.1 cm/s ECA: PSV: 128.1 cm/s cm/s EDV: 6.9 cm/s VERTEBRAL: PSV: 60.0 cm/s cm/s EDV: 8.4 cm/s ICA/CCA ratio: PSV: 1.4 EDV: 1.5 IMPRESSION: 0-49% flow stenosis bilateral internal carotid arteries Spectral Doppler US Thresholds (Reference: David EG, et al. Radiology 2000; 214:247-252) Stenosis (%) PSV (cm/sec) VICA/VCCA 0-49 <150 <2.5 50-69 150-225 2.5-4.0 >70 >225 >4.0 Electronically authenticated by: MARSHAL VELÁSQUEZ Date: 2022-11-02 09:[address] [facility] CT STROKE HEAD WOon 10-29-[address] STROKE HEAD WO INDICATION: 71 years old; Male. Weakness. TECHNIQUE: CT Head (ax/cor/sag reformats). Ionizing radiation dose reduced via iterative reconstruction/FBP blend and body size kV/mA adjustment. Comparison: CT dated 09/21/2022. FINDINGS: POSTOPERATIVE CHANGES: None. BRAIN PARENCHYMA: No focal lesion. No mass effect. No midline shift or herniation. There is low-density in the anterior limb of the right internal capsule which is unchanged as compared to the prior study. No intraparenchymal or extra-axial hemorrhage is seen. Patchy low-density throughout the white matter without mass effect consistent with small vessel ischemic change. VENTRICLES/EXTRA-AXIAL SPACES: Multiple for patient's age. SINUSES/MASTOIDS: Lizeth sinuses are clear. Mastoid air cells are clear. MSK: No skull fractures. OTHER: No hyperdense intraluminal thrombus is seen. Vascular calcifications are noted in the anterior and posterior circulation. IMPRESSION: 1. No acute intracranial abnormality. No hemorrhage or mass effect. 2. Old lacunar infarction anterior limb right internal capsule unchanged from prior study. 3. Small vessel ischemic changes. 4. Vascular calcification. Recommend follow-up with MRI including diffusion imaging. A telephone call regarding the findings in examination was made to and acknowledged by Dr. Torres in the emergency department at 10:38 PM on 10/28/2022. Electronically authenticated by: ANDREWS THOMPSON Date: 2022-10-28 22:41 Normal [facility] XR CHEST 1 Von 10-29-2022 XR CHEST 1 V EXAMINATION: XR CHES T 1 V, , 10/28/2022 9:43 PM EST INDICATION: CHEST PAIN, UNSPECIFIED HISTORY: Ordering Provider Reason for Exam: Technologist Note: Additional: COMPARISON: Chest x-ray dated 09/21/2022. TECHNIQUE: Chest x-ray: One view. FINDINGS: No pneumothorax, pleural effusion or focal airspace consolidation. Mild left lung base atelectasis is seen. Heart is normal in size. Bony thorax is unremarkable. IMPRESSION: Mild left lung base atelectasis. Electronically authenticated by: LUCIAN NG Date: 2022-10-28 22:[address] [facility] CBC AUTO DIFFon 10-28-2022 BASO # 0.1 103/ul Normal 0.0-0.[address] [facility] Comment on above: Performed By: #### C BC #### [facility] [address] [place] [address] Dr. Abhay Farr Basophils/100 WBC (Bld) 0.7 % Normal 0.2-2.[address] [facility] Comment on above: Performed By: #### C BC #### [facility] [address] [place] [address] Dr. Abhay Farr EO # 0.4 103/ul Normal 0.0-0.[address] [facility] Comment on above: Performed By: #### C BC #### [facility] [address] [address] [address] Abhay Farr Eosinophils/100 WBC (Bld) 4.2 % Normal 0.9-7.[address] [facility] Comment on above: Performed By: #### C BC #### [facility] [address] [place] [address] Dr. Abhay Farr Erythrocyte distribution width (RBC) [Ratio] 12.9 % Normal 11.0-15.[address] [facility] Comment on above: Performed By: #### C BC #### [facility] [address] [place] [address] Dr. Abhay Farr Hematocrit (Bld) [Volume fraction] 42.4 % Normal 42.0-54.[address] [facility] Comment on above: Performed By: #### C BC #### [facility] [address] [place] [address] Dr. Abhay Farr Hemoglobin (Bld) [Mass/Vol] 13.4 g/dL Critically low 14.0-18.[address] [facility] Comment on above: Performed By: #### C BC #### [facility] [address] [place] [address] Dr. Abhay Farr IG # 0.03 10e3/ul Normal 0.00-0.[address] [facility] Comment on above: Performed By: #### C BC #### [facility] [address] [place] [address] Dr. Abhay Farr IG % 0.3 % Normal 0.0-0.[address] [facility] Comment on above: Performed By: #### C BC #### [facility] [address] [place] [address] Dr. Abhay Farr LYMPH # 2.3 103/ul Normal 1.2-3.[address] [facility] Comment on above: Performed By: #### C BC #### [facility] [address] [place] [address] Dr. Abhay Farr Lymphocytes/100 WBC (Bld) 26.4 % Normal 20.5-60.[address] [facility] Comment on above: Performed By: #### C BC #### [facility] [address] [place] [address] Dr. Abhay Farr MANUAL DIFF REQ NO Normal [facility] Comment on above: Performed By: #### C BC #### [facility] [address] [place] [address] Dr. Abhay Farr MCH (RBC) [Entitic mass] 27.3 pg Normal 25.9-34.[address] [facility] Comment on above: Performed By: #### C BC #### [facility] [address] [address] [address] Abhay Farr MCHC (RBC) [Mass/Vol] 31.6 g/dL Normal 29.9-35.[address] [facility] Comment on above: Performed By: #### C BC #### [facility] [address] [address] [address] Abhay Farr MCV (RBC) [Entitic vol] 86.5 fL Normal 80.0-94.[address] [facility] Comment on above: Performed By: #### C BC #### [facility] [address] [address] [address] Abhay Farr MONO # 0.8 103/ul Normal 0.3-0.[address] [facility] Comment on above: Performed By: #### C BC #### [facility] [address] [place] [address] Dr. Abhay Farr Monocytes/100 WBC (Bld) 9.5 % Normal 1.7-12.[address] [facility] Comment on above: Performed By: #### C BC #### [facility] [address] [address] [address] Abhay Farr NEUT # 5.1 103/ul Normal 1.4-6.[address] [facility] Comment on above: Performed By: #### C BC #### [facility] [address] [place] [address] Dr. Abhay Farr Neutrophils/100 WBC (Bld) 58.9 % Normal 43.0-75.[address] [facility] Comment on above: Performed By: #### C BC #### [facility] [address] [place] [address] Dr. Abhay Farr Platelet mean volume (Bld) [Entitic vol] 10.2 fL Normal 9.5-13.5 [facility] Comment on above: Performed By: #### C BC #### [facility] [address] [place] [address] Dr. Abhay Farr PLT 160 103/ul Normal 150-450 [facility] Comment on above: Result Comment: no p lt clumps found Performed By: #### C BC #### [facility] [address] [place] [address] Dr. Abhay Farr RBC 4.90 106/ul Normal 4.70-6.[address] [facility] Comment on above: Performed By: #### C BC #### [facility] [address] [place] [address] Dr. Abhay Farr WBC 8.7 103/ul Normal 4.0-11.[address] [facility] Comment on above: Performed By: #### C BC #### [facility] [address] [place] [address] Dr. Abhay Farr PROF 14(COMP METB)on 022 Albumin [Mass/Vol] 3.6 g/dL Normal 3.4-5.0 [facility] Comment on above: Performed By: #### U MICRO, ERUR #### [facility] [address] [place] [address] Dr. Abhay Farr Albumin/Globulin [Mass ratio] 1.0 {ratio} Normal [facility] Comment on above: Performed By: #### U MICRO, ERUR #### [facility] [address] [place] [address] Dr. Abhay Farr ALP [Catalytic activity/Vol] 88 U/L Normal 46-[address] [facility] Comment on above: Performed By: #### U MICRO, ERUR #### [facility] [address] [place] [address] Dr. Abhay Farr ALT [Catalytic activity/Vol] 47 U/L Normal 16-[address] [facility] Comment on above: Performed By: #### U MICRO, ERUR #### [facility] [address] [place] [address] Dr. Abhay Farr Anion gap [Moles/Vol] 11.5 mmol/L Normal [facility] Comment on above: Performed By: #### U MICRO, ERUR #### [facility] [address] [place] [address] Dr. Abhay Farr AST [Catalytic activity/Vol] 24 U/L Normal 15-[address] [facility] Comment on above: Performed By: #### U MICRO, ERUR #### [facility] [address] [address] [address] Abhay Farr Bilirubin [Mass/Vol] 0.6 mg/dL Normal 0.2-1.[address] [facility] Comment on above: Performed By: #### U MICRO, ERUR #### [facility] [address] [address] [address] Abhay Farr Calcium [Mass/Vol] 9.1 mg/dL Normal 8.5-10.1 [facility] Comment on above: Performed By: #### U MICRO, ERUR #### [facility] [address] [address] [address] Abhay Farr Chloride [Moles/Vol] 97 mmol/L Critically low 98-[address] [facility] Comment on above: Performed By: #### U MICRO, ERUR #### [facility] [address] [address] [address] Abhay Farr CO2 [Moles/Vol] 27.6 mmol/L Normal 21.0-32.0 [facility] Comment on above: Performed By: #### U MICRO, ERUR #### [facility] [address] [address] [address] Abhay Farr Creatinine [Mass/Vol] 0.95 mg/dL Normal 0.70-1.[address] [facility] Comment on above: Performed By: #### U MICRO, ERUR #### [facility] [address] [address] [address] Abhay Farr EGFR-AF IRANIAN >60 Normal >=60 [facility] Comment on above: Performed By: #### U MICRO, ERUR #### [facility] [address] [address] [address] Abhay Farr EGFR-NON AF IRANIAN >60 Normal >=[address] [facility] Comment on above: Performed By: #### U MICRO, ERUR #### [facility] [address] [address] [address] Abhay Farr Globulin (S) [Mass/Vol] 3.5 g/dL Normal [facility] Comment on above: Performed By: #### U MICRO, ERUR #### [facility] [address] [address] [address] Abhay Farr Glucose [Mass/Vol] 109 mg/dL Critically high 74-106 T [facility] Comment on above: Performed By: #### U MICRO, ERUR #### [facility] [address] [address] [address] Abhay Farr Potassium [Moles/Vol] 4.1 mmol/L Normal 3.5-5.[address] [facility] Comment on above: Performed By: #### U MICRO, ERUR #### [facility] [address] [address] [address] Abhay Farr Protein [Mass/Vol] 7.1 g/dL Normal 6.4-8.2 [facility] Comment on above: Performed By: #### U MICRO, ERUR #### [facility] [address] [address] [address] Abhay Farr Sodium [Moles/Vol] 132 mmol/L Critically low 136-145 Th [facility] Comment on above: Performed By: #### U MICRO, ERUR #### [facility] [address] [address] [address] Abhay Farr Urea nitrogen [Mass/Vol] 19.0 mg/dL Critically high 7.0-18.[address] [facility] Comment on above: Performed By: #### U MICRO, ERUR #### [facility] [address] [address] [address] Abhay Farr Urea nitrogen/Creatinine [Mass ratio] 20.0 mg/mg Normal [facility] Comment on above: Performed By: #### U MICRO, ERUR #### [facility] [address] [place] [address] Dr. Abhay Farr TROPONIN, HIGH SENSITIVITYon 10-28-2022 HSTROP 5.0 pg/mL Normal 4.0-76.[address] [facility] Comment on above: Result Comment: CUT- OFF POINTS HAVE BEEN ESTABLISHED BASED ON THE FOURTH UNIVERSAL DEFINITIONS OF MYOCARDIAL INFARCTION. THE UPPER REFERENCE LIMIT (URL) OF TROPONIN, DEFINED THE 99TH PERCENTILE OF cTnI DISTRIBUTION IN A REFERENCE POPULATION, HAS BEEN CONFIRMED THE DECISION THRESHOLD FOR ME DIAGNOSIS. Performed By: #### U MICRO, ERUR #### [facility] [address] [place] [address] Dr. Abhay Farr Covid-19 PCR ([facility])on SARS-CoV-2 (COVID-19) RNA FARIHA+probe Ql (Unsp spec) Not detected Normal NOT DETECTED [facility] Comment on above: Result Comment: When diagnostic testing is negative, the possibility of a false negative should be considered in the context of a patient's recent exposures and the presence of clinical signs and symptoms consistent with SARS-CoV-2. This test is not yet approved or cleared by the [place] FDA. When there are no FDA-approved or cleared tests available, and other criteria are met, FDA can make tests available under an emergency access mechanism called an Emergency Use Authorization (EUA). The EUA for this test is supported by the [place] of Health and Human Service's declaration that circumstances exist to justify the emergency use of in vitro diagnostics for the detection and/or diagnosis of the virus that causes COVID-19. This EUA will remain in effect for the duration of the COVID-19 declaration justifying emergency of IVDs, unless it is terminated or revoked by the FDA (after which the test may no longer be used). Performed By: #### M G, BMP #### [facility] [address] [place] [address] Dr. Abhay Farr CBC AUTO DIFFon 09-22-2022 BASO # 0.1 103/ul Normal 0.0-0.[address] [facility] Comment on above: Performed By: #### C BC #### [facility] [address] [place] [address] Dr. Abhay Farr Basophils/100 WBC (Bld) 0.6 % Normal 0.2-2.0 [facility] Comment on above: Performed By: #### C BC #### [facility] [address] [place] [address] Dr. Abhay Farr EO # 0.1 103/ul Normal 0.0-0.[address] [facility] Comment on above: Performed By: #### C BC #### [facility] [address] [place] [address] Dr. Abhay Farr Eosinophils/100 WBC (Bld) 1.4 % Normal 0.9-7.[address] [facility] Comment on above: Performed By: #### C BC #### [facility] [address] [place] [address] Dr. Abhay Farr Erythrocyte distribution width (RBC) [Ratio] 12.5 % Normal 11.0-15.[address] [facility] Comment on above: Performed By: #### C BC #### [facility] [address] [place] [address] Dr. Abhay Farr Hematocrit (Bld) [Volume fraction] 39.2 % Critically low 42.0-54.[address] [facility] Comment on above: Performed By: #### C BC #### [facility] [address] [place] [address] Dr. Abhay Farr Hemoglobin (Bld) [Mass/Vol] 12.6 g/dL Critically low 14.0-18.[address] [facility] Comment on above: Performed By: #### C BC #### [facility] [address] [place] [address] Dr. Abhay Farr IG # 0.02 10e3/ul Normal 0.00-0.[address] [facility] Comment on above: Performed By: #### C BC #### [facility] [address] [place] [address] Dr. Abhay Farr IG % 0.3 % Normal 0.0-0.5 [facility] Comment on above: Performed By: #### C BC #### [facility] [address] [place] [address] Dr. Abhay Farr LYMPH # 1.4 103/ul Normal 1.2-3.8 [facility] Comment on above: Performed By: #### C BC #### [facility] [address] [place] [address] Dr. Abhay Farr Lymphocytes/100 WBC (Bld) 18.7 % Critically low 20.5-60.[address] [facility] Comment on above: Performed By: #### C BC #### [facility] [address] [place] [address] Dr. Abhay Farr MANUAL DIFF REQ NO Normal [facility] Comment on above: Performed By: #### C BC #### [facility] [address] [place] [address] Dr. Abhay Farr MCH (RBC) [Entitic mass] 27.5 pg Normal 25.9-34.[address] [facility] Comment on above: Performed By: #### C BC #### [facility] [address] [place] [address] Dr. Abhay Farr MCHC (RBC) [Mass/Vol] 32.1 g/dL Normal 29.9-35.[address] [facility] Comment on above: Performed By: #### C BC #### [facility] [address] [place] [address] Dr. Abhay Farr MCV (RBC) [Entitic vol] 85.4 fL Normal 80.0-94.[address] [facility] Comment on above: Performed By: #### C BC #### [facility] [address] [place] [address] Dr. Abhay Farr MONO # 0.7 103/ul Normal 0.3-0.[address] [facility] Comment on above: Performed By: #### C BC #### [facility] [address] [place] [address] Dr. Abhay Farr Monocytes/100 WBC (Bld) 8.8 % Normal 1.7-12.[address] [facility] Comment on above: Performed By: #### C BC #### [facility] [address] [place] [address] Dr. Abhay Farr NEUT # 5.4 103/ul Normal 1.4-6.5 [facility] Comment on above: Performed By: #### C BC #### [facility] [address] [place] [address] Dr. Abhay Farr Neutrophils/100 WBC (Bld) 70.2 % Normal 43.0-75.[address] [facility] Comment on above: Performed By: #### C BC #### [facility] [address] [address] [address] Abhay Farr Platelet mean volume (Bld) [Entitic vol] 9.2 fL Critically low 9.5-13.[address] [facility] Comment on above: Performed By: #### C BC #### [facility] [address] [address] [address] Abhay Farr PLT 249 103/ul Normal 150-[address] [facility] Comment on above: Performed By: #### C BC #### [facility] [address] [address] [address] Abhay Farr RBC 4.59 106/ul Critically low 4.70-6.10 [facility] Comment on above: Performed By: #### C BC #### [facility] [address] [place] [address] Dr. Abhay Farr WBC 7.7 103/ul Normal 4.0-11.[address] [facility] Comment on above: Performed By: #### C BC #### [facility] [address] [place] [address] Dr. Abhay Farr PROF 14(COMP METB)on 022 Albumin [Mass/Vol] 3.3 g/dL Critically low 3.4-5.0 [facility] Comment on above: Performed By: #### U MICRO, ERUR #### [facility] [address] [place] [address] Dr. Abhay Farr Albumin/Globulin [Mass ratio] 1.1 {ratio} Normal [facility] Comment on above: Performed By: #### U MICRO, ERUR #### [facility] [address] [place] [address] Dr. Abhay Farr ALP [Catalytic activity/Vol] 77 U/L Normal 46-116 [facility] Comment on above: Performed By: #### U MICRO, ERUR #### [facility] [address] [place] [address] Dr. Abhay Farr ALT [Catalytic activity/Vol] 52 U/L Normal 16-[address] [facility] Comment on above: Performed By: #### U MICRO, ERUR #### [facility] [address] [address] [address] Abhay Farr Anion gap [Moles/Vol] 7.6 mmol/L Normal [facility] Comment on above: Performed By: #### U MICRO, ERUR #### [facility] [address] [address] [address] Abhay Farr AST [Catalytic activity/Vol] 18 U/L Normal 15-37 [facility] Comment on above: Performed By: #### U MICRO, ERUR #### [facility] [address] [address] [address] Abhay Farr Bilirubin [Mass/Vol] 0.4 mg/dL Normal 0.2-1.[address] [facility] Comment on above: Performed By: #### U MICRO, ERUR #### [facility] [address] [place] [address] Dr. Abhay Farr Calcium [Mass/Vol] 8.2 mg/dL Critically low 8.5-10.1 [facility] Comment on above: Performed By: #### U MICRO, ERUR #### [facility] [address] [address] [address] Abhay Farr Chloride [Moles/Vol] 101 mmol/L Normal 98-[address] [facility] Comment on above: Performed By: #### U MICRO, ERUR #### [facility] [address] [place] [address] Dr. Abhay Farr CO2 [Moles/Vol] 28.4 mmol/L Normal 21.0-32.0 [facility] Comment on above: Performed By: #### U MICRO, ERUR #### [facility] [address] [address] [address] Abhay Farr Creatinine [Mass/Vol] 0.79 mg/dL Normal 0.70-1.[address] [facility] Comment on above: Performed By: #### U MICRO, ERUR #### [facility] [address] [place] [address] Dr. Abhay Farr EGFR-AF IRANIAN >60 Normal >=60 [facility] Comment on above: Performed By: #### U MICRO, ERUR #### [facility] [address] [address] [address] Abhay Farr EGFR-NON AF IRANIAN >60 Normal >=[address] [facility] Comment on above: Performed By: #### U MICRO, ERUR #### [facility] [address] [address] [address] Abhay Farr Globulin (S) [Mass/Vol] 3.1 g/dL Normal [facility] Comment on above: Performed By: #### U MICRO, ERUR #### [facility] [address] [address] [address] Abhay Farr Glucose [Mass/Vol] 104 mg/dL Normal 74-106 [facility] Comment on above: Performed By: #### U MICRO, ERUR #### [facility] [address] [place] [address] Dr. Abhay Farr Potassium [Moles/Vol] 4.0 mmol/L Normal 3.5-5.[address] [facility] Comment on above: Performed By: #### U MICRO, ERUR #### [facility] [address] [address] [address] Abhay Farr Protein [Mass/Vol] 6.4 g/dL Normal 6.4-8.[address] [facility] Comment on above: Performed By: #### U MICRO, ERUR #### [facility] [address] [place] [address] Dr. Abhay Farr Sodium [Moles/Vol] 133 mmol/L Critically low 136-145 [facility] Comment on above: Performed By: #### U MICRO, ERUR #### [facility] [address] [address] [address] Abhay Farr Urea nitrogen [Mass/Vol] 20.0 mg/dL Critically high 7.0-18.[address] [facility] Comment on above: Performed By: #### U MICRO, ERUR #### [facility] [address] [place] [address] Dr. Abhay Farr Urea nitrogen/Creatinine [Mass ratio] 25.3 mg/mg Normal [facility] Comment on above: Performed By: #### U MICRO, ERUR #### [facility] [address] [place] [address] Dr. Abhay Farr PROTIMEon 09-22-2022 INR Coag (PPP) [Relative time] 0.97 {INR} Normal [facility] Comment on above: Performed By: #### M G, BMP #### [facility] [address] [place] [address] Dr. Abhay Farr INR GUIDELINES SEE BELOW Normal [facility] Comment on above: Result Comment: YOLANDE RED INR: 2.0 - 3.0 CONDITIONS NOT LISTED BELOW 2.5 - 3.5 FOR PROSTHETIC HEART VALVE REPLACEMENT 2.5 - 3.5 RECURRENT THROMBOSIS Performed By: #### M G, BMP #### [facility] [address] [place] [address] Dr. Abhay Farr PT Coag (PPP) [Time] 10.5 s Normal 9.0-11.6 [facility] Comment on above: Performed By: #### M G, BMP #### [facility] [address] [place] [address] Dr. Abhay Farr PTTon 09-22-2022 aPTT Coag (Bld) [Time] 26.8 s Normal 22.3-36.2 [facility] Comment on above: Performed By: #### M G, BMP #### [facility] [address] [place] [address] Dr. Abhay Farr TROPONIN, HIGH SENSITIVITYon 09-22-2022 HSTROP 8.2 pg/mL Normal 4.0-76.1 [facility] Comment on above: Result Comment: CUT- OFF POINTS HAVE BEEN ESTABLISHED BASED ON THE FOURTH UNIVERSAL DEFINITIONS OF MYOCARDIAL INFARCTION. THE UPPER REFERENCE LIMIT (URL) OF TROPONIN, DEFINED THE 99TH PERCENTILE OF cTnI DISTRIBUTION IN A REFERENCE POPULATION, HAS BEEN CONFIRMED THE DECISION THRESHOLD FOR ME DIAGNOSIS. Performed By: #### U MICRO, ERUR #### [facility] [address] [place] [address] Dr. Abhay Farr TSHon 09-22-2022 TSH 2.215 uIU/mL Normal 0.358-3.740 [facility] Comment on above: Performed By: #### U MICRO, ERUR #### [facility] [address] [address] [address] STROKE HEAD WOon 09-21-[address] STROKE HEAD WO NONCONTRAST CT SCAN OF THE HEAD CT STROKE HEAD WO HISTORY:: 71-year-old male with numbness and tingling to the right side of his face with speech difficulty and a headache. Facial numbness lasting for 15 minutes. The headache was 1 hour ago but has resolved. TECHNIQUE: Multiple axial images are taken from the level the vertex down to the base of the skull without the use of IV contrast. Images were then reconstructed in the sagittal and coronal planes. This exam was performed according to our departmental dose-optimization program which includes use of Automated Exposure Control, adjustment of the mA and/or kV according to patient size and/or use of iterative reconstruction technique. COMPARISON: None. FINDINGS: Brain Parenchyma: There is global, diffuse atrophy with periventricular decreased white matter attenuation. No intracranial mass. No intracranial hemorrhage. Posterior fossa: Normal. Midline shift: None Extra-axial fluid collection: None Ventricles: Normal. Mastoid air cells: Normal. Sinuses: Normal. Cranium: No depressed skull fracture. Soft tissues: Normal. Orbits: Normal. IMPRESSION: 1. Chronic small vessel ischemic change. 2. In the setting of hyperacute stroke, findings may not be readily visualized on a noncontrast CT. Please correlate clinically. If there is any clinical concern for hyperacute stroke, MRI with diffusion-weighted imaging would help better delineate. Electronically authenticated by: LAITH MATAMOROS Date: 2022-09-21 21:23 Normal [facility] ER URINE PROFILEon 2 Bilirubin Ql (U) Negative Normal NEGATIVE [facility] Comment on above: Performed By: #### U MICRO, ERUR #### [facility] [address] [address] [address] Abhay Farr Clarity (U) CLEAR Normal CLEAR [facility] Comment on above: Performed By: #### U MICRO, ERUR #### [facility] [address] [address] [address] Abhay Farr Color (U) LT. YELLOW Normal YELLOW [facility] Comment on above: Performed By: #### U MICRO, ERUR #### [facility] [address] [address] [address] Abhay HANNA A micrscopic examination will be performed if indicated. Normal [facility] Comment on above: Performed By: #### U MICRO, ERUR #### [facility] [address] [address] [address] Abhay Farr Glucose Ql (U) Negative Normal NEGATIVE [facility] Comment on above: Performed By: #### U MICRO, ERUR #### [facility] [address] [address] [address] Abhay Farr Hemoglobin Ql (U) TRACE-INTACT Abnormal NEGATIVE [facility] Comment on above: Performed By: #### U MICRO, ERUR #### [facility] [address] [place] [address] Dr. Abhay Farr Ketones Ql (U) Negative Normal NEGATIVE [facility] Comment on above: Performed By: #### U MICRO, ERUR #### [facility] [address] [place] [address] Dr. Abhay Farr LEUKOCYTES Negative Normal NEGATIVE [facility] Comment on above: Performed By: #### U MICRO, ERUR #### [facility] [address] [address] [address] Abhay Farr Nitrite Ql (U) Negative Normal NEGATIVE [facility] Comment on above: Performed By: #### U MICRO, ERUR #### [facility] [address] [address] [address] Abhay Farr pH (U) 5.5 [pH] Normal 5-[address] [facility] Comment on above: Performed By: #### U MICRO, ERUR #### [facility] [address] [address] [address] Abhay Farr SPEC GRAVITY 1.010 Normal 1.005-<=1.025 [facility] Comment on above: Performed By: #### U MICRO, ERUR #### [facility] [address] [place] [address] Dr. Abhay Farr UA PROTEIN Negative Normal NEGATIVE/ TRACE [facility] Comment on above: Performed By: #### U MICRO, ERUR #### [facility] [address] [address] [address] Abhay Farr UR MICRO IND INDICATED Normal [facility] Comment on above: Performed By: #### U MICRO, ERUR #### [facility] [address] [address] [address] Abhay Farr Urobilinogen Qn (U) 0.2 {Rafy'U}/dL Normal 0.2 - 1. 0 [facility] Comment on above: Performed By: #### U MICRO, ERUR #### [facility] [address] [address] [address] Abhay Farr URINE MICROSCOPIC ONLYon BACTERIA TRACE Abnormal NONE SEEN [facility] Comment on above: Performed By: #### U MICRO, ERUR #### [facility] [address] [place] [address] Dr. Abhay Farr Bacteria identified Cx Nom (U) NOT INDICATED Normal [facility] Comment on above: Performed By: #### U MICRO, ERUR #### [facility] [address] [place] [address] Dr. Abhay Farr CAST NONE SEEN Normal NONE SEEN [facility] Comment on above: Performed By: #### U MICRO, ERUR #### [facility] [address] [place] [address] Dr. Abhay Farr Crystals LM Nom (Urine sed) NONE SEEN Normal NONE SEEN [facility] Comment on above: Performed By: #### U MICRO, ERUR #### [facility] [address] [place] [address] Dr. Abhay Farr Epithelial cells LM Ql (Urine sed) NONE SEEN Normal NONE SEEN /RARE [facility] Comment on above: Performed By: #### U MICRO, ERUR #### [facility] [address] [place] [address] Dr. Abhay Farr MUCOUS NONE SEEN Normal NONE SEEN [facility] Comment on above: Performed By: #### U MICRO, ERUR #### [facility] [address] [place] [address] Dr. Abhay Farr RBC NONE SEEN Abnormal 0-2 [facility] Comment on above: Performed By: #### U MICRO, ERUR #### [facility] [address] [place] [address] Dr. Abhay Farr WBC NONE SEEN Normal NONE SEEN [facility] Comment on above: Performed By: #### U MICRO, ERUR #### [facility] [address] [place] [address] Dr. Abhay Farr XR CHEST 1 Von 09-21-2022 XR CHEST 1 V EXAM: XR CHEST 1 V HISTORY: Altered mental status COMPARISON: Chest x-rays 04/05/2021 TECHNIQUE: Portable chest FINDINGS: The lung parenchyma is free of consolidation or infiltrate. No pneumothorax or pleural effusion. The cardiac, mediastinal and hilar contours are unremarkable. No acute osseous abnormality. IMPRESSION: No acute abnormality Electronically authenticated by: MARSHAL SALAS Date: 2022-09-21 21:44 Normal [facility] XR LSPINE 2_3 VIEWSon 2021 XR LSPINE 2_3 VIEWS EXAMINATION: XR LSPI NE 2_3 VIEWS HISTORY: Low back pain COMPARISON: 10/18/2021 FINDINGS: BONES: Normal alignment with no acute fracture or spondylolisthesis. Minimal degenerative spondylosis. [id number] facet osteoarthropathy most significant at L5-S1 DISC SPACES: Moderate to severe disc space narrowing L5-S1 with endplate sclerosis and vacuum disc PARASPINOUS: Negative. No paraspinous abnormality is seen. OTHER: Negative. IMPRESSION: Degenerative changes most significant at L5-S1 Electronically authenticated by: MARSHAL VELÁSQUEZ Date: 2022-08-15 18:09 Normal [facility] CBC AUTO DIFFon 06-20-2022 BASO # 0.1 103/ul Normal 0.0-0.[address] [facility] Comment on above: Performed By: #### M G, BMP #### [facility] [address] [place] [address] Dr. Abhay Farr Basophils/100 WBC (Bld) 0.9 % Normal 0.2-2.[address] [facility] Comment on above: Performed By: #### M G, BMP #### [facility] [address] [place] [address] Dr. Abhay Farr EO # 0.3 103/ul Normal 0.0-0.7 [facility] Comment on above: Performed By: #### M G, BMP #### [facility] [address] [place] [address] Dr. Abhay Farr Eosinophils/100 WBC (Bld) 3.8 % Normal 0.9-7.0 [facility] Comment on above: Performed By: #### M G, BMP #### [facility] [address] [place] [address] Dr. Abhay Farr Erythrocyte distribution width (RBC) [Ratio] 12.5 % Normal 11.0-15.0 [facility] Comment on above: Performed By: #### M G, BMP #### [facility] [address] [place] [address] Dr. Abhay Farr Hematocrit (Bld) [Volume fraction] 43.2 % Normal 42.0-54.[address] [facility] Comment on above: Performed By: #### M G, BMP #### [facility] [address] [place] [address] Dr. Ahbay Farr Hemoglobin (Bld) [Mass/Vol] 13.5 g/dL Critically low 14.0-18.[address] [facility] Comment on above: Performed By: #### M G, BMP #### [facility] [address] [place] [address] Dr. Abhay Farr IG # 0.01 10e3/ul Normal 0.00-0.03 [facility] Comment on above: Performed By: #### M G, BMP #### [facility] [address] [place] [address] Dr. Abhay Farr IG % 0.1 % Normal 0.0-0.5 [facility] Comment on above: Performed By: #### M G, BMP #### [facility] [address] [place] [address] Dr. Abhay Farr LYMPH # 1.9 103/ul Normal 1.2-3.8 [facility] Comment on above: Performed By: #### M G, BMP #### [facility] [address] [place] [address] Dr. Abhay Farr Lymphocytes/100 WBC (Bld) 24.8 % Normal 20.5-60.0 [facility] Comment on above: Performed By: #### M G, BMP #### [facility] [address] [place] [address] Dr. Abhay Farr MANUAL DIFF REQ NO Normal [facility] Comment on above: Performed By: #### M G, BMP #### [facility] [address] [place] [address] Dr. Abhay Farr MCH (RBC) [Entitic mass] 27.3 pg Normal 25.9-34.0 [facility] Comment on above: Performed By: #### M G, BMP #### [facility] [address] [place] [address] Dr. Abhay Farr MCHC (RBC) [Mass/Vol] 31.3 g/dL Normal 29.9-35.2 [facility] Comment on above: Performed By: #### M G, BMP #### [facility] [address] [place] [address] Dr. Abhay Farr MCV (RBC) [Entitic vol] 87.4 fL Normal 80.0-94.[address] [facility] Comment on above: Performed By: #### M G, BMP #### [facility] [address] [place] [address] Dr. Abhay Farr MONO # 0.6 103/ul Normal 0.3-0.8 [facility] Comment on above: Performed By: #### M G, BMP #### [facility] [address] [place] [address] Dr. Abhay Farr Monocytes/100 WBC (Bld) 8.0 % Normal 1.7-12.0 [facility] Comment on above: Performed By: #### M G, BMP #### [facility] [address] [place] [address] Dr. Abhay Farr NEUT # 4.7 103/ul Normal 1.4-6.5 [facility] Comment on above: Performed By: #### M G, BMP #### [facility] [address] [address] [address] Abhay Farr Neutrophils/100 WBC (Bld) 62.4 % Normal 43.0-75.[address] [facility] Comment on above: Performed By: #### M G, BMP #### [facility] [address] [address] [address] Abhay Farr Platelet mean volume (Bld) [Entitic vol] 9.9 fL Normal 9.5-13.[address] [facility] Comment on above: Performed By: #### M G, BMP #### [facility] [address] [place] [address] Dr. Abhay Farr PLT 265 103/ul Normal 150-[address] [facility] Comment on above: Performed By: #### M G, BMP #### [facility] [address] [place] [address] Dr. Abhay Farr RBC 4.94 106/ul Normal 4.70-6.[address] [facility] Comment on above: Performed By: #### M G, BMP #### [facility] [address] [place] [address] Dr. Abhay Farr WBC 7.5 103/ul Normal 4.0-11.[address] [facility] Comment on above: Performed By: #### M G, BMP #### [facility] [address] [place] [address] Dr. Abhay Farr LIPID PROFILEon 06-20-2022 CHOL-HDL RATIO NORM SEE BELOW Normal [facility] Comment on above: Result Comment: 3.3 - 4.4 LOW RISK 4.4 - 7.1 AVERAGE RISK 7.1 - 11.0 MODERATE RISK >11.0 HIGH RISK Performed By: #### M G, BMP #### [facility] [address] [place] [address] Dr. Abhay Farr Cholesterol [Mass/Vol] 129 mg/dL Normal <=[address] [facility] Comment on above: Performed By: #### M G, BMP #### [facility] [address] [place] [address] Dr. Abhay Farr Cholesterol in HDL [Mass/Vol] 60 mg/dL Normal 40-[address] [facility] Comment on above: Performed By: #### M G, BMP #### [facility] [address] [address] [address] Abhay Farr Cholesterol in LDL [Mass/Vol] 58.2 mg/dL Normal [facility] Comment on above: Performed By: #### M G, BMP #### [facility] [address] [address] [address] Abhay Farr Cholesterol.total/Cho lesterol in HDL [Mass ratio] 2.2 {ratio} Normal [facility] Comment on above: Performed By: #### M G, BMP #### [facility] [address] [place] [address] Dr. Abhay Farr HDL NORMAL > or = 60 mg/dl - LO W CARDIOVASCULAR RISK <40 mg/dl - HIGH CARDIOVASCULAR RISK Normal [facility] Comment on above: Performed By: #### Festus G, BMP #### [facility] [address] [place] [address] Dr. Abhay Farr LDL CALC NORMAL SEE BELOW Normal [facility] Comment on above: Result Comment: <100 mg/dl OPTIMAL 100 - 129 mg/dl NEAR OR ABOVE OPTIMAL 130 - 159 mg/dl BORDERLINE HIGH 160 - 189 mg/dl HIGH >190 mg/dl VERY HIGH Performed By: #### M G, BMP #### [facility] [address] [place] [address] Dr. Abhay Farr Triglyceride [Mass/Vol] 54 mg/dL Normal <=[address] [facility] Comment on above: Performed By: #### M G, BMP #### [facility] [address] [place] [address] Dr. Abhay Farr VLDL CALC 10.8 mg/dL Normal [facility] Comment on above: Performed By: #### M G, BMP #### [facility] [address] [place] [address] Dr. Abhay Farr PROF CHEM 8 (BAS METB)on Anion gap [Moles/Vol] 10.7 mmol/L Normal [facility] Comment on above: Performed By: #### M G, BMP #### [facility] [address] [address] [address] Abhay Farr Calcium [Mass/Vol] 9.0 mg/dL Normal 8.5-10.[address] [facility] Comment on above: Performed By: #### M G, BMP #### [facility] [address] [address] [address] Abhay Farr Chloride [Moles/Vol] 102 mmol/L Normal 98-107 [facility] Comment on above: Performed By: #### M G, BMP #### [facility] [address] [place] [address] Dr. Abhay Farr CO2 [Moles/Vol] 29.4 mmol/L Normal 21.0-32.0 [facility] Comment on above: Performed By: #### M G, BMP #### [facility] [address] [place] [address] Dr. Abhay Farr Creatinine [Mass/Vol] 1.09 mg/dL Normal 0.70-1.30 [facility] Comment on above: Performed By: #### M G, BMP #### [facility] [address] [place] [address] Dr. Abhay Farr EGFR-AF IRANIAN >60 Normal >=60 [facility] Comment on above: Performed By: #### M G, BMP #### [facility] [address] [place] [address] Dr. Abhay Farr EGFR-NON AF IRANIAN >60 Normal >=60 [facility] Comment on above: Performed By: #### M G, BMP #### [facility] [address] [place] [address] Dr. Abhay Farr Glucose [Mass/Vol] 102 mg/dL Normal 74-[address] [facility] Comment on above: Performed By: #### M G, BMP #### [facility] [address] [place] [address] Dr. Abhay Farr Potassium [Moles/Vol] 4.1 mmol/L Normal 3.5-5.1 [facility] Comment on above: Performed By: #### M G, BMP #### [facility] [address] [address] [address] Abhay Farr Sodium [Moles/Vol] 138 mmol/L Normal 136-145 [facility] Comment on above: Performed By: #### M G, BMP #### [facility] [address] [address] [address] Abhay Farr Urea nitrogen [Mass/Vol] 18.0 mg/dL Normal 7.0-18.[address] [facility] Comment on above: Performed By: #### M G, BMP #### [facility] [address] [address] [address] Abhay Farr Urea nitrogen/Creatinine [Mass ratio] 16.5 mg/mg Normal [facility] Comment on above: Performed By: #### M G, BMP #### [facility] [address] [place] [address] Dr. Abhay Rose 06-20-2022 AST [Catalytic activity/Vol] 18 U/L Normal 15-[address] [facility] Comment on above: Performed By: #### A LT, BMP, AST, LIPID #### [facility] [address] [address] [address] Abhay Condon 06-20-2022 ALT [Catalytic activity/Vol] 37 U/L Normal 16-[address] [facility] Comment on above: Performed By: #### M G, BMP #### [facility] [address] [place] [address] Dr. Abhay Farr Vital Signs Date Time Vital Sign Value Performing Clinician Faci lity 12-27-2023 14:37-0500 Diastolic blood pressure 72 mm[Hg] Wai Billingsley MD Work Phone: [facility] 12-27-2023 14:37-0500 Heart rate 64 /min Wai Billingsley MD Work Phone: [facility] 12-27-2023 14:37-0500 Systolic blood pressure 152 mm[Hg] Wai Billingsley MD Work Phone: [facility] 12-27-2023 14:33-0500 Body height 183 cm Wai Billingsley MD Work Phone: [facility] 12-27-2023 14:33-0500 Body weight 80.29 kg Wai Billingsley MD Work Phone: [facility] 12-27-2023 14:33-0500 SaO2% (BldA) [Mass fraction] 97 % Wai Billingsley MD Work Phone: [facility] 03-05-2023 13:36-0400 Body height 182.9 cm Khushboo Laffey [employer].WET END TESTER Work Phone: [facility] 03-05-2023 13:36-0400 Body weight 82.56 kg Khushboo Laffey [employer] MECH[employer]IC.WET END TESTER Work Phone: [facility] 03-05-2023 13:36-0400 Diastolic blood pressure 69 mm[Hg] Khushboo Laffey [employer] MECH[employer]IC.WET END TESTER Work Phone: [facility] 03-05-2023 13:36-0400 Heart rate 76 /min Khushboo Laffey [employer] MECH[employer]IC.WET END TESTER Work Phone: [facility] 03-05-2023 13:36-0400 SaO2% (BldA) [Mass fraction] 98 % Khushboo Laffey [employer] MECH[employer]IC.WET END TESTER Work Phone: [facility] 03-05-2023 13:36-0400 Systolic blood pressure 150 mm[Hg] Khushboo Laffey [employer] MECH[employer]IC.WET END TESTER Work Phone: [facility] 01-16-2023 11:43-0500 Body height 182.9 cm Aubrey Ko MD Work Phone: [facility] 01-16-2023 11:43-0500 Body weight 82.56 kg Aubrey Ko MD Work Phone: [facility] 01-16-2023 11:43-0500 Diastolic blood pressure 57 mm[Hg] Aubrey Ko MD Work Phone: [facility] 01-16-2023 11:43-0500 Heart rate 71 /min Aubrey Ko MD Work Phone: [facility] 01-16-2023 11:43-0500 Respiratory rate 16 /min Aubrey Ko MD Work Phone: [facility] 01-16-2023 11:43-0500 SaO2% (BldA) [Mass fraction] 97 % Aubrey Ko MD Work Phone: [facility] 01-16-2023 11:43-0500 Systolic blood pressure 144 mm[Hg] Aubrey Ko MD Work Phone: [facility] 11-16-2022 12:12-0500 Body height 182.9 cm Wai Billingsley MD Work Phone: [facility] 11-16-2022 12:12-0500 Body weight 78.02 kg Wai Billingsley MD Work Phone: [facility] 11-16-2022 12:12-0500 Diastolic blood pressure 76 mm[Hg] Wai Billingsley MD Work Phone: [facility] 11-16-2022 12:12-0500 Heart rate 90 /min Wai Billingsley MD Work Phone: [facility] 11-16-2022 12:12-0500 SaO2% (BldA) [Mass fraction] 97 % Wai Billingsley MD Work Phone: [facility] 11-16-2022 12:12-0500 Systolic blood pressure 119 mm[Hg] Wai Billingsley MD Work Phone: [facility] 11-06-2022 12:24-0500 Body weight 81.19 kg Denice Black MITA.WET END TESTER Work Phone: [facility] 11-06-2022 12:24-0500 Diastolic blood pressure 74 mm[Hg] Denice Black [employer] MECH[employer]IC.WET END TESTER Work Phone: [facility] 11-06-2022 12:24-0500 Heart rate 81 /min Denice Black [employer] MECH[employer]IC.WET END TESTER Work Phone: [facility] 11-06-2022 12:24-0500 SaO2% (BldA) [Mass fraction] 99 % Denice Carey APRN.WET END TESTER Work Phone: [facility] 11-06-2022 12:24-0500 Systolic blood pressure 150 mm[Hg] Denice Carey APRN.WET END TESTER Work Phone: [facility] Encounters Encounter Date Encounter Type Care Provider Facility Start: 09-17-2024 End: 09-18-2024 Refill Carter Fitzpatrick MD Work Phone: [facility] Comment on above: BAN (generalized anx iety disorder) ([facility] Start: 09-16-2024 End: 09-17-2024 Refill Wai Billingsley MD Work Phone: Cardiology Comment on above: Refill Request Start: 09-08-2024 End: 09-08-2024 Bamboo flowsheet Carter Fitzpatrick MD Work Phone: [facility] Start: 09-08-2024 End: 09-08-2024 Bamboo flowsheet Carter Fitzpatrick MD Work Phone: [facility] Start: 09-08-2024 End: 09-08-2024 ambulatory CARTER FITZPATRICK Not Available Start: 06-23-2024 Refill Wai shukla MD Work Phone: Cardiology Comment on above: Refill Request Start: 03-26-2024 End: 03-26-2024 ambulatory CINTHIA PRECIADO Not Available Start: 03-04-2024 End: 03-04-2024 Refill Denice Carey APRN.WET END TESTER Work Phone: Cardiology Comment on above: Refill Request Start: 12-27-2023 End: 12-28-2023 ambulatory WAI BILLINGSLEY Facility:[facility] Start: 12-27-2023 End: 12-27-2023 Patient encounter procedure Wai Billingsley MD Work Phone: Cardiology Comment on above: Mitral valve insuffi ciency, unspecified etiology (Primary Dx) Start: 12-16-2023 Refill Denice SAGASTUME RN.WET END TESTER Work Phone: Cardiology Comment on above: Refill Request Start: 07-19-2023 Orders Only Wai shukla MD Work Phone: Cardiology Comment on above: Mitral valve insuffi ciency, unspecified etiology (Primary Dx) Start: 03-05-2023 End: 03-06-2023 ambulatory WAI BILLINGSLEY Facility:[facility] Start: 03-05-2023 End: 03-05-2023 Patient encounter procedure Khushboo Lackey APRN.WET END TESTER Work Phone: Cardiology Comment on above: Essential hypertensi on (Primary Dx); Palpitations; Mitral valve insufficiency, unspecified etiology Start: 02-20-[address] CARTER FITZPATRICK Facil ity:[facility] Start: 02-13-2023 ambulatory NARENDRANATH LAKSHMIPATHY . Facility:[facility] Start: 01-23-2023 End: 01-24-2023 ambulatory NARENDRANATH LAKSHMIPATHY . 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 Facility:[facility] Start: 12-29-2022 End: 12-30-[address] CARTER FITZPATRICK Facility:[facility] Start: 12-07-2022 ambulatory Wai shukla MD Work Phone: Cardiology Comment on above: 81 aspirin and fluox etine Start: 12-05-2022 Refill Denice SAGASTUME RN.WET END TESTER Work Phone: Cardiology Comment on above: Refill Request Start: 11-29-2022 Encounter for preprocedural laboratory examination DR ETHAN ALLEN . [facility] Start: 11-28-2022 End: 11-28-[address] ETHAN ALLEN . Facility:[facility] Start: 11-24-2022 End: [address] ETHAN ALLEN . Facility:[facility] Start: 11-24-2022 End: 2022 Encounter for preprocedural laboratory examination DR ETHAN ALLEN . Facility:[facility] Start: 11-16-2022 End: 11-16-2022 Orders Only Wai Billingsley MD Work Phone: Cardiology Comment on above: Palpitations (Primar y Dx) Start: 11-15-2022 Telephone encounter Khushboo Lackey APRN.WET END TESTER Work Phone: Cardiology Comment on above: Results (Holter Resu lts) Palpitations (Primar y Dx) Start: 11-06-2022 End: 11-06-2022 Patient encounter procedure Denice Carey APRN.WET END TESTER Work Phone: Cardiology Comment on above: Palpitations (Primar y Dx); Essential hypertension Palpitations (Primar y Dx) Start: 11-06-2022 End: 11-06-2022 ambulatory [facility] Work Phone: Cardiology Comment on above: Holter Monitor Appli cation (48 hour ) Start: 11-05-2022 End: 11-05-[address] MAICOL TORRES Facility:[facility] Start: 11-01-2022 End: 11-02-[address] CARTER FITZPATRICK Facility:[facility] Start: 10-31-[address] ETHAN ALLEN . Faci lity:[facility] Start: 10-30-2022 End: 10-30-2022 ambulatory Alvarez Berry APRN.WET END TESTER Work Phone: Telemedicine Comment on above: Treatment not availa ble (Primary Dx) Start: 10-30-2022 End: 10-30-2022 Telemedicine consultation with patient Alvarez Berry [employer] MECH[employer]IC.WET END TESTER Work Phone: [facility] Start: 10-28-2022 End: 10-29-[address] MAICOL TORRES Facility:[facility] Start: 10-27-2022 End: 10-28-[address] ETHAN ALLEN . Facility:[facility] Start: 10-18-2022 End: 10-19-2022 ambulatory BRANDON POMPA Facility:[facility] Start: 10-03-2022 End: 10-03-[address] ETHAN ALLEN . Facility:[facility] Start: 09-26-2022 End: 09-27-[address] ETHAN ALLEN . Facility:[facility] Start: 09-21-2022 End: 09-22-[address] CARTER FITZPATRICK Facility:[facility] Start: 09-19-2022 End: 09-19-[address] ETHAN ALLEN . Facility:[facility] Start: 09-12-2022 End: 09-13-[address] ETHAN ALLEN . Facility:[facility] Start: 08-15-2022 End: 08-16-2022 ambulatory BECKETT H FAY Facility:[facility] Start: 06-20-2022 End: 06-21-[address] CARTER FITZPATRICK Facility:[facility] Start: 12-16-2021 End: 12-16-2021 ambulatory Ayad Lawrence Other [employer] Other Start: 12-16-2021 Telephone encounter Ayad Lawrence [employer] Artist Procedures Date Procedure Procedure Detail Performing Clinician Start: 06-20-[address] CARTER CATHERINE Comment on above: Performed By: #### M G, BMP #### [facility] [address] [place] [address] Dr. Abhay Farr Start: 05-12-2019 Lipid 1996 panel - S isabella or Plasma Denice Carey [employer] MECH[employer]IC.WET END TESTER Work Phone: Start: 02-24-2019 Colonoscopy Alvarez auguste [employer] MECH[employer]IC.WET END TESTER Work Phone: Plan of Treatment Date Care Activity Detail Author Start: 02-24-2029 Screening for malign ant neoplasm of colon [facility] Start: 09-08-2025 Medicare Annual Well ness (AWV) Medicare Annual Wellness (AWV) [facility] Start: 04-21-2025 End: 04-21-2025 Patient encounter procedure 04/21/2025 12:30 PM EDT Office Visit [facility] [address] [place] [phone] Cinthia Preciado, [address] [place] [address] [facility] [address] [address] Start: 03-09-2025 End: 03-09-2025 Patient encounter procedure 03/09/2025 10:30 AM EDT Office Visit [facility] [address] [place] [phone] Carter Fitzpatrick MD [address] [place] [phone] [facility] Start: 09-08-2024 End: 09-08-2024 Patient encounter procedure 09/08/2024 10:00 AM EDT Office Visit [facility] [address] [place] [phone] Carter Fitzpatrick MD [address] [place] [phone] Arrived [facility] Comment on above: Arrived Start: 07-20-2024 Covid-19 Vaccine () Covid-19 Vaccine () [facility] Start: 07-20-2024 Influenza vaccination C [facility] Start: 05-12-2024 Lipid panel Lipid Screening [facility] Start: 05-12-2024 LIPID SCREEN LIPID SCREEN [facility] Start: 2023 RSV Vaccine (1 - 1-d ose 75+ series) RSV Vaccine (1 - 1-dose 75+ series) [facility] Start: 11-19-2023 Advance Directive Discussion Advance Directive Discussion [facility] Start: 11-19-2023 Behavioral Health Screening Behavioral Health Screening [facility] Start: 11-19-2023 Depression Assessment Depression Ass essment [facility] Start: 11-16-2023 BP CONTROLLED (<130/80) BP CONTROLLE D (<130/80) [facility] Start: 07-20-2023 Covid-19 Vaccine () Covid-19 Vaccine () [facility] Start: 07-20-2023 Influenza vaccination C [facility] Start: 11-19-2022 ADVANCE DIRECTIVE DISCUSSION ADVANCE DIRECTIVE DISCUSSION [facility] Start: 11-19-2022 DEPRESSION ASSESSMENT DEPRESSION ASS ESSMENT [facility] Start: 11-06-2022 End: 11-06-2023 HOLTER MONITOR 48 HOUR HOLTER MONITOR 48 HOUR ECG Routine Palpitations Expected: 11/06/2022, Expires: 11/06/2023 [facility] Work Phone: Comment on above: Expected: 11/06/2022 , Expires: 11/06/2023 Start: 07-20-2022 Influenza vaccination INFLUENZA (#1) [facility] Start: 02-24-2022 Diabetes Screening Diabetes Screenin g [facility] Start: 02-03-2022 DIABETES SCREEN DIABETES SCREEN [facility] Start: 11-29-2021 COVID-19 VACCINE (4 - Booster for Pfizer series) COVID-19 VACCINE (4 - Booster for Pfizer series) [facility] Start: 11-29-2021 COVID-19 VACCINE (4 - Pfizer series) COVID-19 VACCINE (4 - Pfizer series) [facility] Start: 11-19-2021 ADVANCE DIRECTIVE DISCUSSION ADVANCE DIRECTIVE DISCUSSION [facility] Start: 11-19-2021 DEPRESSION ASSESSMENT DEPRESSION ASS ESSMENT [facility] Start: 04-08-2021 Screening for malign ant neoplasm of colon [facility] Start: 02-25-2020 Colonoscopy COLONOSCOPY [facility] Start: 02-25-2020 COLORECTAL CANCER SCREENING COLORECTAL CANCER SCREENING [facility] Start: 02-25-2020 Screening for malign ant neoplasm of colon [facility] Start: 2013 Pneumococcal Vaccine : 65+ (1 of 1 - PCV) Pneumococcal Vaccine: 65+ (1 of 1 - PCV) [facility] Start: 2013 Pneumococcal Vaccine : 65+ Years (1 of 1 - PCV) Pneumococcal Vaccine: 65+ Years (1 of 1 - PCV) [facility] Start: 2013 PNEUMOCOCCAL: 65+ (1 - PCV) PNEUMOCOCCAL: 65+ (1 - PCV) [facility] Start: 2008 RSV Vaccine (1 - 1-d ose 60+ series) RSV Vaccine (1 - 1-dose 60+ series) [facility] Start: 1998 SHINGRIX VACCINE (1 of 2) MICHEL GRIX VACCINE (1 of 2) [facility] Start: 1993 COLOGUARD (FIT-DNA) COLOGUARD (FIT-D NA) [facility] Start: [address] COLONOGRAPHY [facility] Start: 1993 FECAL OCCULT BLOOD FECAL OCCULT BLOO D [facility] Start: 1993 Screening for malign ant neoplasm of colon [facility] Start: 1993 SIGMOIDOSCOPY SIGMOIDOSCOPY [facility] Start: 1967 Urine microalbumin profile [facility] Start: 1966 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 SELVIN DISEASE VISIT ANNUAL PCP TEAM CHRONIC DISEASE VISIT [facility] Start: 1966 Anxiety Screening Anxiety Screening [facility] Start: 1966 BP CONTROLLED (<130/80) BP CONTROLLE D (<130/80) [facility] Start: 1966 Depression Screening Depression Scre ening [facility] Start: 1966 HEPATITIS C SCREENING HEPATITIS C SC [facility] Start: 1966 Hepatitis C screening Hepatitis C Sc [facility] Start: 1948 ABDOMINAL AORTIC ANE URYSM SCREENING ABDOMINAL AORTIC ANEURYSM SCREENING [facility] Start: 1948 Abdominal aortic ane urysm screening Abdominal Aortic Aneurysm Screening [facility] Start: 1948 Medicare Annual Well ness (AWV) Medicare Annual Wellness (AWV) [facility] Start: 1948 Screening for malign ant neoplasm of colon [facility] End: 11-06-2023 ECG COMPLETE ECG COMPLETE ECG Routine Palpitations 1 Occurrences starting 11/06/2022 until 11/06/2023 [facility] Work Phone: Comment on above: 1 Occurrences starti ng 11/06/2022 until 11/06/2023 End: 11-16-2023 ECG COMPLETE ECG COMPLETE ECG Routine Palpitations 1 Occurrences starting 11/16/2022 until 11/16/2023 [facility] Work Phone: Comment on above: 1 Occurrences starti ng 11/16/2022 until 11/16/2023 End: 12-27-2024 ECG COMPLETE ECG COMPLETE ECG Routine Mitral valve insufficiency, unspecified etiology 1 Occurrences starting 12/27/2023 until 12/27/2024 [facility] Work Phone: Comment on above: 1 Occurrences starti ng 12/27/2023 until 12/27/2024 End: 11-06-2023 Echocardiography ECHO Cardiology Routine Palpitations 1 Occurrences starting 11/06/2022 until 11/06/2023 [facility] Work Phone: Comment on above: 1 Occurrences starti ng 11/06/2022 until 11/06/2023 End: 07-19-2024 Echocardiography ECHO Cardiology Routine Mitral valve insufficiency, unspecified etiology 1 Occurrences starting 07/25/2023 until 07/19/2024 [facility] Work Phone: Comment on above: 1 Occurrences starti ng 07/25/2023 until 07/19/2024 End: 12-27-2024 Echocardiography ECHO Cardiology Routine Mitral valve insufficiency, unspecified etiology 1 Occurrences starting 12/27/2023 until 12/27/2024 [facility] Work Phone: Comment on above: 1 Occurrences starti ng 12/27/2023 until 12/27/2024 [facility] Immunizations Immunization Date Immunization Notes Care Provider Trey mendoza 08-21-2020 influenza virus vacc ine, unspecified formulation Denice Carey APRN.WET END TESTER Work Phone: [facility] Payers Date Payer Category Payer Private Health Insurance [facility] [place] [id number] 5 2019 Unknown [facility] MEDICARE SUPPLEMENT [id number] 2019-Present [phone] [address] [place] [address] Indemnity [id number] 2013 Medicare [id number] [id number] .[id number] 1959 Medicare [id number] [id number] 1959 Unknown [id number] 2.16.840.1.986406.19 1948 Unknown [id number] 2.16.840.1.875835.3.579 .2.593 1948 Unknown [id number] 2.16.840.1.314872.3.579 .2.593 1948 Unknown [id number] 2.16.840.1.989186.3.579 .2.593 1948 Unknown [id number] 2.16.840.1.514246.3.579 .2.593 1948 Unknown [id number] 2.16.840.1.748638.3.579 .2.593 1948 Unknown [id number] 2.16.840.1.095340.3.579 .2.593 1948 Unknown [id number] 2.16.840.1.604702.3.579 .2.593 1948 Unknown [id number] 2.16.840.1.439858.3.579 .2.593 1948 Unknown [id number] 2.16.840.1.045402.3.579 .2.593 1948 Unknown [id number] 2.16.840.1.133427.3.579 .2.593 1948 Unknown [id number] 2.16.840.1.705241.3.579 .2.593 1948 Unknown [id number] 2.16.840.1.659554.3.579 .2.593 1948 Unknown [id number] 2.16.840.1.472698.3.579 .2.593 1948 Unknown [id number] 2.16.840.1.797959.3.579 .2.593 1948 Unknown [id number] 2.16.840.1.172413.3.579 .2.593 1948 Unknown [id number] 2.16.840.1.235810.3.579 .2.593 1948 Unknown [id number] 2.16.840.1.929630.3.579 .2.593 1948 Unknown [id number] 2.16.840.1.978546.3.579 .2.593 1948 Unknown [id number] 2.16.840.1.150812.3.579 .2.593 1948 Unknown [id number] 2.16.840.1.704904.3.579 .2.593 1948 Unknown [id number] 2.16.840.1.597931.3.579 .2.593 1948 Unknown [id number] 2.16.840.1.008416.3.579 .2.593 1948 Unknown [id number] 2.16.840.1.218306.3.579 .2.1259 1948 Unknown [id number] 2.16.840.1.480138.3.579 .2.1259 1948 Unknown [id number] 2.16.840.1.505947.3.579 .2.1259 Social History Date Type Detail Facility Start: 01-16-2023 End: 09-08-2024 Sex Assigned At [facility] Start: 11-01-2017 End: 11-16-2022 Tobacco smoking status NHIS Ex-smoker [facility] Work Phone: Start: 11-19-1972 End: 11-19-1977 History of tobacco use Current smoker [facility] Work Phone: Start: 11-19-1972 End: 11-19-1977 History of tobacco use Cigarette Smoker [facility] Work Phone: Start: 11-01-2017 End: 09-08-2024 Cigarettes smoked current (pack per day) - Reported 1 [facility] Start: 11-01-2017 End: 03-04-2024 Tobacco use and exposure Smokeless tobacco non-user [facility] Work Phone: Start: 12-20-2020 Alcohol intake Current non-drinker of alcohol (finding) [facility] Start: 1950 Sex Assigned At Not on file [facility] Start: 11-16-2022 End: 12-27-2023 Alcohol intake Ex-drinker (finding) [facility] National Score (1-10 0), lower number is lower risk 88 [facility] Start: 07-07-2021 Sexual orientation Heterosexual (finding) [facility] Start: 03-04-2024 Tobacco smoking status OHIS Never smoked tobacco [facility] Start: 03-26-2024 End: 09-08-2024 Alcoholic beverage intake Lifetime non-drinker (finding) [facility] Start: 03-26-2024 Alcohol Comment caffeine: none [facility] Clinical Notes 09-12-2022 to 09-16-2024 Telephone Encounter - Coco Samaniego - 09/16/2024 11:12 AM EDTTelephone Encounter - Coco Samaniego - 09/16/2024 11:12 AM EDTTelephone Encounter - Vidya Pedersen - 06/23/2024 8:55 AM EDT Note Date & Type Note Facility 09-16-2024 Telephone encounter Note Call from pharmacy requesting refill. Requested Prescriptions Pending Prescriptions Disp Refills amLODIPine (NORVASC) 2.5 mg tablet [Pharmacy Med Name: amLODIPine Besylate 2.5 MG Oral Tablet] 90 tablet 0 Sig: Take 1 tablet by mouth once daily Patient last seen 12/27/23 Coco Samaniego [facility] 09-16-2024 Miscellaneous Notes Call from pharmacy requesting refill. Requested Prescriptions Pending Prescriptions Disp Refills amLODIPine (NORVASC) 2.5 mg tablet [Pharmacy Med Name: amLODIPine Besylate 2.5 MG Oral Tablet] 90 tablet 0 Sig: Take 1 tablet by mouth once daily Patient last seen 12/27/23 Coco Samaniego documented in this encounter [facility] 06-23-2024 Telephone encounter Note Call from patient requesting refill. Requested Prescriptions Pending Prescriptions Disp Refills amLODIPine (NORVASC) 2.5 mg tablet 90 tablet 0 Sig: Take 1 tablet by mouth once daily. Patient last seen 12/27/2023 Vidya Pedersen [facility] 06-23-2024 Miscellaneous Notes Call from patient requesting refill. Requested Prescriptions Pending Prescriptions Disp Refills amLODIPine (NORVASC) 2.5 mg tablet 90 tablet 0 Sig: Take 1 tablet by mouth once daily. Patient last seen 12/27/2023 Vidya Pedersen documented in this encounter [facility] 12-27-2023 Note HNO ID: [id number] Author: WAI BILLINGSLEY MD Service: ? Author Type: Physician Type: Progress Notes Filed: 12/27/2023 17:04 Note Text: [facility] Department of Cardiovascular Medicine SECTION OF CARDIOVASCULAR IMAGING OUTPATIENT VISIT DATE December 27, 2023 OUTPATIENT VISIT TYPE ESTABLISHED PRIMARY CARE PHYSICIAN: Carter Fitzpatrick MD ([facility]) [address] [place] [address] REFERRING PHYSICIAN: Katerin Billingsley [address] [address] CHIEF COMPLAINT: Follow up HISTORY OF PRESENT ILLNESS: Mr. Garrison is a 73 year old male who presents today for follow-up visit . Since his last visit, he states that he is doing well. He is remodeling his house. He denies chest pain, shortness of breath, orthopnea, cough, edema, palpitations, PND, lightheadedness or syncope. PAST CARDIAC HISTORY: He has been seen in the past for mitral regurgitation. Katerin Billingsley MD PAST MEDICAL HISTORY Diagnosis Date Anxiety Chest pain negative stress in 2016 Hyperlipidemia Hypertension Palpitations Panic attacks Sleep apnea on CPAP PAST SURGICAL HISTORY Procedure Laterality Date NONE SOCIAL HISTORY Social History Tobacco Use Smoking status: Former Packs/day: 1.00 Years: 5.00 Additional pack years: 0.00 Total pack years: 5.00 Types: Cigarettes Quit date: 11/19/1977 Years since quittin.1 Smokeless tobacco: Never Substance Use Topics Alcohol use: Not Currently Drug use: No FAMILY HISTORY Problem Relation Age of Onset Colon Cancer Mother Ischemic Heart Disease Father 65 s/p CABG x 4 Alzheimer's Disease Father Hyperlipidemia Brother Hypertension Brother Heart disease Brother heart infection Ischemic Heart Disease Brother 71 s/p CABG ALLERGIES: ALLERGIES Allergen Reactions Hctz [Thiazides] GI Upset Nausea Penicillin Unknown MEDICATIONS: aspirin (ASPIR-81 ORAL)Take by mouth.Disp: Rfl: amLODIPine (NORVASC) 2.5 mg tabletTake 1 tablet by mouth once dailyDisp: 90 tabletRfl: 0 metoprolol succinate ER (TOPROL XL) 50 mg 24 hr tabletTake 1 tablet by mouth twice daily.Disp: 180 tabletRfl: 0 LORazepam (ATIVAN) 0.5 mgTake 0.5 mg by mouth three times daily as needed. 0.25mg in the morning and afternoon and 0.5mg in the evening Disp: Rfl: atorvastatin (LIPITOR) 10 mg tabletTake 10 mg by mouth once daily.Disp: Rfl: ZEAXANTHIN, BULK, MISC20 mg once daily.Disp: Rfl: multivitamin tabletTake 1 tablet by mouth once daily. With 18 mg iron Disp: Rfl: REVIEW OF SYSTEMS: See HPI. PHYSICAL EXAMINATION: BP 152/72 Pulse 64 Ht 183 cm (6' 0.05 ) Wt 80.3 kg (177 lb) SpO2 97% BMI 23.97 kg/m? General: Well appearing, in no acute distress, speaking in complete sentences. Neck: No jugular venous distention, no carotid bruits, carotids have a normal upstroke, no palpable thyromegaly. Lungs: Clear to auscultation bilaterally, no wheezing or rhonchi. Heart: Regular rhythm, PMI not displaced, S1, S2 normal, no S3, no S4, no heaves, no rub and 3/6 mid to late systolic apical murmur. Abdomen: Soft, nontender, bowel sounds normal, no palpable organomegaly, no bruits. Extremities: No peripheral edema . Grade 2/4 distal pulses bilaterally. Neuro: Oriented to person, place and time, alert, cooperative, gait coordinated. CARDIOVASCULAR MEDICINE TESTING: I have personally reviewed the Echocardiogram. Last ECHO Result Conclusion ECHO Collected: 12/27/2023 1:06 PM (Final result) Impression: CONCLUSIONS: - Exam indication: Mitral Valve Prolapse - The left ventricle is normal in size. Left ventricular systolic function is normal. EF = 56 ? 5% (2D biplane) Normal left ventricular diastolic function. - The right ventricle is normal in size. Right ventricular systolic function is normal. - Mild (1-2+) MR due to anterior leaflet prolapse with posteriorly direct jet. - Estimated right ventricular systolic pressure is 22 mmHg consistent with normal pulmonary artery pressures. Estimated right atrial pressure is 3 mmHg based on IVC assessment. - Exam was compared with the prior echocardiographic exam performed on 11/16/2022. No significant changes. * * * Final * * * Last EKG Result Conclusion ECG COMPLETE Collected: 03/05/2023 1:18 PM (Final result) Impression: NORMAL SINUS RHYTHM NORMAL ECG Confirmed by BILLIE CALLES MD ([id number]) on 03/07/2023 9:46:24 AM IMPRESSION: Mr. Garrison is a 73 year old male with multiple + stable mild to moderate mitral regurgitation. Active, asymptomatic. PLAN AND RECOMMENDATIONS: Continue same medications. Follow-up in 1 year with an echocardiogram. CONTACT INFORMATION: Katerin Billingsley MD [facility] 02-08-2024 History of Present illness Narrative Images from the original note were not included. [facility] Department of Cardiovascular Medicine SECTION OF CARDIOVASCULAR IMAGING OUTPATIENT VISIT DATE December 27, 2023 OUTPATIENT VISIT TYPE ESTABLISHED PRIMARY CARE PHYSICIAN: Carter Fitzpatrick MD ([facility]) [address] [place] [address] REFERRING PHYSICIAN: Katerin Billingsley [address] [facility] [address] CHIEF COMPLAINT: Follow up HISTORY OF PRESENT ILLNESS: Mr. Garrison is a 73 year old male who presents today for follow-up visit . Since his last visit, he states that he is doing well. He is remodeling his house. He denies chest pain, shortness of breath, orthopnea, cough, edema, palpitations, PND, lightheadedness or syncope. PAST CARDIAC HISTORY: He has been seen in the past for mitral regurgitation. Katerin Billingsley MD PAST MEDICAL HISTORY Diagnosis Date Anxiety Chest pain negative stress in 2016 Hyperlipidemia Hypertension Palpitations Panic attacks Sleep apnea on CPAP PAST SURGICAL HISTORY Procedure Laterality Date NONE SOCIAL HISTORY Social History Tobacco Use Smoking status: Former Packs/day: 1.00 Years: 5.00 Additional pack years: 0.00 Total pack years: 5.00 Types: Cigarettes Quit date: 11/19/1977 Years since quittin.1 Smokeless tobacco: Never Substance Use Topics Alcohol use: Not Currently Drug use: No FAMILY HISTORY Problem Relation Age of Onset Colon Cancer Mother Ischemic Heart Disease Father 65 s/p CABG x 4 Alzheimer's Disease Father Hyperlipidemia Brother Hypertension Brother Heart disease Brother heart infection Ischemic Heart Disease Brother 71 s/p CABG ALLERGIES: ALLERGIES Allergen Reactions Hctz [Thiazides] GI Upset Nausea Penicillin Unknown MEDICATIONS: aspirin (ASPIR-81 ORAL)^Take by mouth.^Disp: ^Rfl: amLODIPine (NORVASC) 2.5 mg tablet^Take 1 tablet by mouth once daily^Disp: 90 tablet^Rfl: 0 metoprolol succinate ER (TOPROL XL) 50 mg 24 hr tablet^Take 1 tablet by mouth twice daily.^Disp: 180 tablet^Rfl: 0 LORazepam (ATIVAN) 0.5 mg^Take 0.5 mg by mouth three times daily as needed. 0.25mg in the morning and afternoon and 0.5mg in the evening ^Disp: ^Rfl: atorvastatin (LIPITOR) 10 mg tablet^Take 10 mg by mouth once daily.^Disp: ^Rfl: ZEAXANTHIN, BULK, MISC^20 mg once daily.^Disp: ^Rfl: multivitamin tablet^Take 1 tablet by mouth once daily. With 18 mg iron ^Disp: ^Rfl: REVIEW OF SYSTEMS: See HPI. PHYSICAL EXAMINATION: BP 152/72 Pulse 64 Ht 183 cm (6' 0.05 ) Wt 80.3 kg (177 lb) SpO2 97% BMI 23.97 kg/m General: Well appearing, in no acute distress, speaking in complete sentences. Neck: No jugular venous distention, no carotid bruits, carotids have a normal upstroke, no palpable thyromegaly. Lungs: Clear to auscultation bilaterally, no wheezing or rhonchi. Heart: Regular rhythm, PMI not displaced, S1, S2 normal, no S3, no S4, no heaves, no rub and 3/6 mid to late systolic apical murmur. Abdomen: Soft, nontender, bowel sounds normal, no palpable organomegaly, no bruits. Extremities: No peripheral edema . Grade 2/4 distal pulses bilaterally. Neuro: Oriented to person, place and time, alert, cooperative, gait coordinated. CARDIOVASCULAR MEDICINE TESTING: I have personally reviewed the Echocardiogram. Last ECHO Result Conclusion ECHO Collected: 12/27/2023 1:06 PM (Final result) Impression: CONCLUSIONS: - Exam indication: Mitral Valve Prolapse - The left ventricle is normal in size. Left ventricular systolic function is normal. EF = 56 5% (2D biplane) Normal left ventricular diastolic function. - The right ventricle is normal in size. Right ventricular systolic function is normal. - Mild (1-2+) MR due to anterior leaflet prolapse with posteriorly direct jet. - Estimated right ventricular systolic pressure is 22 mmHg consistent with normal pulmonary artery pressures. Estimated right atrial pressure is 3 mmHg based on IVC assessment. - Exam was compared with the prior echocardiographic exam performed on 11/16/2022. No significant changes. * * * Final * * * Last EKG Result Conclusion ECG COMPLETE Collected: 03/05/2023 1:18 PM (Final result) Impression: NORMAL SINUS RHYTHM NORMAL ECG Confirmed by BILLIE CALLES MD ([id number]) on 03/07/2023 9:46:24 AM IMPRESSION: Mr. Garrison is a 73 year old male with multiple + stable mild to moderate mitral regurgitation. Active, asymptomatic. PLAN AND RECOMMENDATIONS: Continue same medications. Follow-up in 1 year with an echocardiogram. CONTACT INFORMATION: Katerin Billingsley MD documented in this encounter [facility] 03-05-2023 Note HNO ID: [id number] Author: Khushboo Lackey APRN.WET END TESTER Service: ? Author Type: Nurse Practitioner Type: Progress Notes Filed: 03/05/2023 1:48 PM Note Text: [facility] Department of Cardiovascular Medicine SECTION OF CARDIOVASCULAR IMAGING OUTPATIENT VISIT DATE February 28, 2023 OUTPATIENT VISIT TYPE ESTABLISHED PRIMARY CARE PHYSICIAN: Carter Fitzpatrick MD ([facility]) [address] [place] [address] REFERRING PHYSICIAN: Katerin Billingsley [address] [address] CHIEF COMPLAINT: Follow up HISTORY OF PRESENT ILLNESS: Mr. Garrison is a 72 year old male who presents today for follow-up visit. Since his last visit, he states that he feels tired but well and he denies any chest pain, shortness of breath, PND, orthopnea, palpitations, presyncope, syncope, dizziness, or peripheral edema. PAST CARDIAC HISTORY: He has been seen in the past for hypertension and MVP.. He was last seen on 11/16/[address] Billingsley.. PAST MEDICAL HISTORY Diagnosis Date Anxiety Chest pain negative stress in 2016 Hyperlipidemia Hypertension Palpitations Panic attacks Sleep apnea on CPAP PAST SURGICAL HISTORY Procedure Laterality Date NONE SOCIAL HISTORY Social History Tobacco Use Smoking status: Former Packs/day: 1.00 Years: 5.00 Pack years: 5.00 Types: Cigarettes Quit date: 11/19/1977 Years since quittin.3 Smokeless tobacco: Never Substance Use Topics Alcohol use: Not Currently Drug use: No FAMILY HISTORY Problem Relation Age of Onset Colon Cancer Mother Ischemic Heart Disease Father 65 s/p CABG x 4 Alzheimer's Disease Father Hyperlipidemia Brother Hypertension Brother Heart disease Brother heart infection Ischemic Heart Disease Brother 71 s/p CABG ALLERGIES: ALLERGIES Allergen Reactions Hctz [Thiazides] GI Upset Nausea Penicillin Unknown MEDICATIONS: amLODIPine (NORVASC) 2.5 mg tabletTake 1 tablet by mouth once daily.Disp: 90 tabletRfl: 3 metoprolol succinate ER (TOPROL XL) 50 mg 24 hr tabletTake 1 tablet by mouth twice daily.Disp: 180 tabletRfl: 0 LORazepam (ATIVAN) 0.5 mgTake 0.5 mg by mouth three times daily as needed. 0.25mg in the morning and afternoon and 0.5mg in the evening Disp: Rfl: atorvastatin (LIPITOR) 10 mg tabletTake 10 mg by mouth once daily.Disp: Rfl: ZEAXANTHIN, BULK, MISC20 mg once daily.Disp: Rfl: multivitamin tabletTake 1 tablet by mouth once daily. With 18 mg iron Disp: Rfl: REVIEW OF SYSTEMS: Positive in Red GENERAL: Negative for: Weight loss or gain, Fever or Chills, Weakness and Sleep difficulties. HEENT: Negative for: Headache, Impaired Vision, Glasses, Hearing Impairment, Ringing in Ears, Nosebleeds, Poor Dental Care, Bleeding Gums and Dentures. NECK: Negative for: Swelling, Pain, Stiffness RESPIRATORY: Negative for: Cough, Blood in Sputum, Shortness of breath, Wheezing, Apnea GASTROINTESTINAL: Negative for: Trouble swallowing, Heartburn, Change in bowel habits, Blood in stool, Dark black stools MUSCULOSKELETAL: Negtive for: Muscle or joint pain, stiffness, Joint swelling. Back pain NEUROLOGIC/PSYCHIATRIC: Negative for: Weakness, Paralysis, Numbness, Tingling, Tremor, Nervousness or anxiety, Depressed mood, Memory loss SKIN: Negative for: Rash, Itching HEMATOLOGICAL/LYMPHATIC: Negative for: Easy bruising, Easy bleeding ENDOCRINE: Negative for: Heat or Cold Intolerance, Excessive Sweating, Frequent Urination, Frequent Thirst PHYSICAL EXAMINATION: BP 150/69 Pulse 76 Ht 182.9 cm (6') Wt 82.6 kg (182 lb) SpO2 98% BMI 24.68 kg/m? General: Well appearing., In no acute distress. Skin: Warm, dry Eyes: Non-icteric sclerae Neck: no jugular venous distention, Lungs: Clear to auscultation bilaterally, no wheezing or rhonchi Heart: Regular rhythm, no murmur Abdomen: Soft, nontender Extremities: No peripheral edema, 2+ distal pulses bilaterally Neuro: Oriented to person, place and time, alert, cooperative CARDIOVASCULAR MEDICINE TESTING: Last ECHO Result Conclusion ECHO Collected: 11/16/2022 10:46 AM (Final result) Impression: CONCLUSIONS: - Technically difficult exam due to body habitus. - Exam indication: Palpitations - The left ventricle is normal in size. Left ventricular systolic function is normal. EF = 63 ? 5% (2D biplane) - The right ventricle is normal in size. Right ventricular systolic function is normal. - Mild mitral valve prolapse, with 1-2+ posterior and laterally directed jet of MR. Could be slightly underestimated based on short axis views, but does not appear to be more than 2+ in severity. - Exam was compared with the prior echocardiographic exam performed on 10/22/2017. Mild increase in MR. * * * Final * * * Last EKG Result Conclusion (more content not included)... [facility] 03-05-2023 History of Present illness Narrative Images from the original note were not included. [facility] Department of Cardiovascular Medicine SECTION OF CARDIOVASCULAR IMAGING OUTPATIENT VISIT DATE February 28, 2023 OUTPATIENT VISIT TYPE ESTABLISHED PRIMARY CARE PHYSICIAN: Carter Fitzpatrick MD ([facility]) [address] [place] [address] REFERRING PHYSICIAN: Katerin Billingsley [address] [facility] [address] CHIEF COMPLAINT: Follow up HISTORY OF PRESENT ILLNESS: Mr. Garrison is a 72 year old male who presents today for follow-up visit. Since his last visit, he states that he feels tired but well and he denies any chest pain, shortness of breath, PND, orthopnea, palpitations, presyncope, syncope, dizziness, or peripheral edema. PAST CARDIAC HISTORY: He has been seen in the past for hypertension and MVP.. He was last seen on 11/16/[address] Billingsley.. PAST MEDICAL HISTORY Diagnosis Date Anxiety Chest pain negative stress in 2016 Hyperlipidemia Hypertension Palpitations Panic attacks Sleep apnea on CPAP PAST SURGICAL HISTORY Procedure Laterality Date NONE SOCIAL HISTORY Social History Tobacco Use Smoking status: Former Packs/day: 1.00 Years: 5.00 Pack years: 5.00 Types: Cigarettes Quit date: 11/19/1977 Years since quittin.3 Smokeless tobacco: Never Substance Use Topics Alcohol use: Not Currently Drug use: No FAMILY HISTORY Problem Relation Age of Onset Colon Cancer Mother Ischemic Heart Disease Father 65 s/p CABG x 4 Alzheimer's Disease Father Hyperlipidemia Brother Hypertension Brother Heart disease Brother heart infection Ischemic Heart Disease Brother 71 s/p CABG ALLERGIES: ALLERGIES Allergen Reactions Hctz [Thiazides] GI Upset Nausea Penicillin Unknown MEDICATIONS: amLODIPine (NORVASC) 2.5 mg tablet^Take 1 tablet by mouth once daily.^Disp: 90 tablet^Rfl: 3 metoprolol succinate ER (TOPROL XL) 50 mg 24 hr tablet^Take 1 tablet by mouth twice daily.^Disp: 180 tablet^Rfl: 0 LORazepam (ATIVAN) 0.5 mg^Take 0.5 mg by mouth three times daily as needed. 0.25mg in the morning and afternoon and 0.5mg in the evening ^Disp: ^Rfl: atorvastatin (LIPITOR) 10 mg tablet^Take 10 mg by mouth once daily.^Disp: ^Rfl: ZEAXANTHIN, BULK, MISC^20 mg once daily.^Disp: ^Rfl: multivitamin tablet^Take 1 tablet by mouth once daily. With 18 mg iron ^Disp: ^Rfl: REVIEW OF SYSTEMS: Positive in Red GENERAL: Negative for: Weight loss or gain, Fever or Chills, Weakness and Sleep difficulties. HEENT: Negative for: Headache, Impaired Vision, Glasses, Hearing Impairment, Ringing in Ears, Nosebleeds, Poor Dental Care, Bleeding Gums and Dentures. NECK: Negative for: Swelling, Pain, Stiffness RESPIRATORY: Negative for: Cough, Blood in Sputum, Shortness of breath, Wheezing, Apnea GASTROINTESTINAL: Negative for: Trouble swallowing, Heartburn, Change in bowel habits, Blood in stool, Dark black stools MUSCULOSKELETAL: Negtive for: Muscle or joint pain, stiffness, Joint swelling. Back pain NEUROLOGIC/PSYCHIATRIC: Negative for: Weakness, Paralysis, Numbness, Tingling, Tremor, Nervousness or anxiety, Depressed mood, Memory loss SKIN: Negative for: Rash, Itching HEMATOLOGICAL/LYMPHATIC: Negative for: Easy bruising, Easy bleeding ENDOCRINE: Negative for: Heat or Cold Intolerance, Excessive Sweating, Frequent Urination, Frequent Thirst PHYSICAL EXAMINATION: BP 150/69 Pulse 76 Ht 182.9 cm (6') Wt 82.6 kg (182 lb) SpO2 98% BMI 24.68 kg/m General: Well appearing., In no acute distress. Skin: Warm, dry Eyes: Non-icteric sclerae Neck: no jugular venous distention, Lungs: Clear to auscultation bilaterally, no wheezing or rhonchi Heart: Regular rhythm, no murmur Abdomen: Soft, nontender Extremities: No peripheral edema, 2+ distal pulses bilaterally Neuro: Oriented to person, place and time, alert, cooperative CARDIOVASCULAR MEDICINE TESTING: Last ECHO Result Conclusion ECHO Collected: 11/16/2022 10:46 AM (Final result) Impression: CONCLUSIONS: - Technically difficult exam due to body habitus. - Exam indication: Palpitations - The left ventricle is normal in size. Left ventricular systolic function is normal. EF = 63 5% (2D biplane) - The right ventricle is normal in size. Right ventricular systolic function is normal. - Mild mitral valve prolapse, with 1-2+ posterior and laterally directed jet of MR. Could be slightly underestimated based on short axis views, but does not appear to be more than 2+ in severity. - Exam was compared with the prior echocardiographic exam performed on 10/22/2017. Mild increase in MR. * * * Final * * * Last EKG Result Conclusion ECG COMPLETE Collected: 03/05/2023 1:18 PM (Preliminary result) Impression: NORMAL SINUS RHYTHM NORMAL ECG Holter Monitor: 10/2022 IMPRESSION: Mr. Garrison is a 72 year old male with a history of hypertension, palpitations, and mitral valve prolapse/2+ mitral regurgitation who presents today for follow up visit. Today's ekg with normal sinus rhythm. At last visit Metoprolol was increased to 50 mg/bid and patient states he has had symptom improvement and has not had fast heart rate or heart pounding , today's BP 150, home BP in the 120s. Patient is feeling well overall. PLAN AND RECOMMENDATIONS: Continue current medications Use CPAP nightly Encouraged patient to eat heart healthy diet and get 150 minutes of aerobic exercise weekly Follow up with Dr. Billingsley per below- Future Appointments Date Time Provider Department Center 03/05/2023 2:00 PM Khushboo Lackey APRN.APOORVA [facility] 05/07/2023 12:45 PM [id number] MAIN [id number] [facility] 05/07/2023 1:30 PM ECHO J1-5 CARD MAIN CAFLMN [facility] 05/07/2023 2:45 PM MD NADIA [facility] I personally interviewed, confirmed and edited the above information if obtained by others. CONTACT INFORMATION: Khushboo Lackey, KALIN, STENOGRAPHIC COURT REPORTER Desk J1-[id number] [address] phone [phone] fax [facility] Cardiovascular Medicine, Section of Cardiac Imaging Heart and Vascular [place] documented in this encounter [facility] 01-23-2023 Note CONSULTATION CONSULTATION DATE: 01/23/2023 TO: Dr. Fitzpatrick HISTORY OF PRESENT ILLNESS: Patient returns today complaining of 5-7/10 pain, sharp in character in his left low back pain, left hip area, left buttock area. Describes also having sensitivity in light touch in this area as well. Pain, in general, seems to increase with activities such as standing, walking and performing transitioning maneuvers. He feels most comfortable in the semi-recumbent position. EXAM: Notable for the patient having dysesthesia and hypoesthesia overlying the distribution of the left lateral cutaneous branch of the iliohypogastric nerve. Patient had myofascial spasm of the lumbar paravertebral muscles as well as the gluteus richelle on the left side. 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 RECOMMENDATIONS: I recommend aquatic therapy for his pain with lumbar spondylosis where there is still a residual, and the myofascial spasm. I have gone over the details of proceeding with the patient. All of his questions were answered. He agrees to proceed with the outlined plan. [facility] 01-16-2023 Note HNO ID: [id number] Author: Aubrey Ko MD Service: ? Author Type: Physician Type: Progress Notes Filed: 01/16/2023 1:35 PM Note Text: Spine Care Path Low Back Pain - Chronic (> 12 weeks) Initial Exam SUBJECTIVE HISTORY OF PRESENT ILLNESS: Marshal Garrison is a 72 year old male who presents with a chief complaint of low back pain. Chronic axial low back pain dating back multiple years Followed by pain management physician at [facility] S/P bilateral L2, L3, L4 MB and L5 DR RFA approximately 8 weeks ago Significant improvement in axial low back pain following his RFA Following RFA, biggest area of concern was his left low back/buttock which was present prior to RFAB but not any better. 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 Left lower limb pain has mostly resolved, isolated to buttock currently Pain worse with ambulation, climbing stairs, sitting Pain improves with rest and lying down Does not take any medications for pain Denies lower limb weakness Reports chronic bilateral foot numbness/neuropathy Denies radicular leg pain, no issues with balance, no bowel/bladder dysfunction PAIN EVALUATION 01/16/2023 1141 Pain Level: 7 Pain Location: Back-Lower Description: Aching;Sharp Duration Amount of Time: 6 Duration Units: Months Frequency: Intermittent Intervention/Comfort measure: Medication;Therapeutic techniques-CPRP;Exercise;Emotio nal Support/Reassurance;Heat;Reposi tion Prior Therapy: Physical therapy prior to RFA, no benefit Trying HEP at home with some benefit Litigation: No Workers' Compensation: No YELLOW AND BLUE FLAGS No-Neg Attitude; Back Pain is Disabling No-Avoiding Activity (for Fear of Pain) No-Depression or Anxiety Disorders No-Social Problems No-Substance Use Disorder No-Job Dissatisfaction No-Financial Disincentives ACTIVE PROBLEM LIST Palpitations PAST MEDICAL HISTORY Diagnosis Date Anxiety Chest pain negative stress in 2016 Hyperlipidemia Hypertension Palpitations Panic attacks Sleep apnea on CPAP PAST SURGICAL HISTORY Procedure Laterality Date NONE Social History Tobacco Use Smoking status: Former Packs/day: 1.00 Years: 5.00 Pack years: 5.00 Types: Cigarettes Quit date: 11/19/1977 Years since quittin.1 Smokeless tobacco: Never Substance Use Topics Alcohol use: Not Currently Drug use: No FAMILY HISTORY Problem Relation Age of Onset Colon Cancer Mother Ischemic Heart Disease Father 65 s/p CABG x 4 Alzheimer's Disease Father Hyperlipidemia Brother Hypertension Brother Heart disease Brother heart infection Ischemic Heart Disease Brother 71 s/p CABG ALLERGIES Allergen Reactions Hctz [Thiazides] GI Upset Nausea Penicillin Unknown CURRENT MEDICATIONS: amLODIPine (NORVASC) 2.5 mg tabletTake 1 tablet by mouth once daily.Disp: 90 tabletRfl: 3 metoprolol succinate ER (TOPROL XL) 50 mg 24 hr tabletTake 1 tablet by mouth twice daily.Disp: 180 tabletRfl: 0 LORazepam (ATIVAN) 0.5 mgTake 0.5 mg by mouth three times daily as needed. 0.25mg in the morning and afternoon and 0.5mg in the evening Disp: Rfl: atorvastatin (LIPITOR) 10 mg tabletTake 10 mg by mouth once daily.Disp: Rfl: ZEAXANTHIN, BULK, MISC20 mg once daily.Disp: Rfl: multivitamin tabletTake 1 tablet by mouth once daily. With 18 mg iron Disp: Rfl: REVIEW OF SYSTEMS: Denies bowel/bladder incontinence, denies fever, denies night pain, denies unintentional weight loss, denies clumsiness of feet/tripping/fallings. Denies any constitutional or myelopathic symptomatology. OBJECTIVE: PHYSICAL EXAM BP 144/57 Pulse 71 Resp 16 Ht 182.9 cm (6') Wt 82.6 kg (182 lb) SpO2 97% BMI 24.68 kg/m? General: Pleasant individual in NAD Mental Status: Oriented to person place and time. Displays appropriate mood and affect. GAIT: Independent with ambulation, gait pattern is normal Gross Motor: Able to stand on tip toes and heels, balance intact Strength Testing: Bilateral upper and lower extremity strength is normal and symmetric. No atrophy or tone abnormalities are noted. Sensation: No loss of sensation is noted Peripheral Vascular: No obvious extremity swelling in all 4 extremities. Appearance of Skin: Skin inspection of the trunk, bilateral upper and lower extremities is unremarkable Neuro: Bilateral upper and lower extremity coordination and muscle stretch reflexes are physiologic and symmetric. Plantar response are downgoing. Spine Range of Motion: +pain with lumbar extension Provocative Maneuvers: Negative tenderness to PSIS Single leg extension testing positive for left buttock/SI joint pain MAYO testing negat (more content not included)... [facility] 01-16-2023 History of Present illness Narrative Spine Care Path Low Back Pain - Chronic (> 12 weeks) Initial Exam SUBJECTIVE HISTORY OF PRESENT ILLNESS: Marshal Garrison is a 72 year old male who presents with a chief complaint of low back pain. Chronic axial low back pain dating back multiple years Followed by pain management physician at [facility] S/P bilateral L2, L3, L4 MB and L5 DR RFA approximately 8 weeks ago Significant improvement in axial low back pain following his RFA Following RFA, biggest area of concern was his left low back/buttock which was present prior to RFAB but not any better. 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 Left lower limb pain has mostly resolved, isolated to buttock currently Pain worse with ambulation, climbing stairs, sitting Pain improves with rest and lying down Does not take any medications for pain Denies lower limb weakness Reports chronic bilateral foot numbness/neuropathy Denies radicular leg pain, no issues with balance, no bowel/bladder dysfunction PAIN EVALUATION 01/16/2023 1141 Pain Level: 7 Pain Location: Back-Lower Description: Aching;Sharp Duration Amount of Time: 6 Duration Units: Months Frequency: Intermittent Intervention/Comfort measure: Medication;Therapeutic techniques-CPRP;Exercise;Emotio nal Support/Reassurance;Heat;Reposi tion Prior Therapy: Physical therapy prior to RFA, no benefit Trying HEP at home with some benefit Litigation: No Workers' Compensation: No YELLOW & BLUE FLAGS No-Neg Attitude; Back Pain is Disabling No-Avoiding Activity (for Fear of Pain) No-Depression or Anxiety Disorders No-Social Problems No-Substance Use Disorder No-Job Dissatisfaction No-Financial Disincentives ACTIVE PROBLEM LIST Palpitations PAST MEDICAL HISTORY Diagnosis Date Anxiety Chest pain negative stress in 2016 Hyperlipidemia Hypertension Palpitations Panic attacks Sleep apnea on CPAP PAST SURGICAL HISTORY Procedure Laterality Date NONE Social History Tobacco Use Smoking status: Former Packs/day: 1.00 Years: 5.00 Pack years: 5.00 Types: Cigarettes Quit date: 11/19/1977 Years since quittin.1 Smokeless tobacco: Never Substance Use Topics Alcohol use: Not Currently Drug use: No FAMILY HISTORY Problem Relation Age of Onset Colon Cancer Mother Ischemic Heart Disease Father 65 s/p CABG x 4 Alzheimer's Disease Father Hyperlipidemia Brother Hypertension Brother Heart disease Brother heart infection Ischemic Heart Disease Brother 71 s/p CABG ALLERGIES Allergen Reactions Hctz [Thiazides] GI Upset Nausea Penicillin Unknown CURRENT MEDICATIONS: amLODIPine (NORVASC) 2.5 mg tablet^Take 1 tablet by mouth once daily.^Disp: 90 tablet^Rfl: 3 metoprolol succinate ER (TOPROL XL) 50 mg 24 hr tablet^Take 1 tablet by mouth twice daily.^Disp: 180 tablet^Rfl: 0 LORazepam (ATIVAN) 0.5 mg^Take 0.5 mg by mouth three times daily as needed. 0.25mg in the morning and afternoon and 0.5mg in the evening ^Disp: ^Rfl: atorvastatin (LIPITOR) 10 mg tablet^Take 10 mg by mouth once daily.^Disp: ^Rfl: ZEAXANTHIN, BULK, MISC^20 mg once daily.^Disp: ^Rfl: multivitamin tablet^Take 1 tablet by mouth once daily. With 18 mg iron ^Disp: ^Rfl: REVIEW OF SYSTEMS: Denies bowel/bladder incontinence, denies fever, denies night pain, denies unintentional weight loss, denies clumsiness of feet/tripping/fallings. Denies any constitutional or myelopathic symptomatology. OBJECTIVE: PHYSICAL EXAM BP 144/57 Pulse 71 Resp 16 Ht 182.9 cm (6') Wt 82.6 kg (182 lb) SpO2 97% BMI 24.68 kg/m General: Pleasant individual in NAD Mental Status: Oriented to person place and time. Displays appropriate mood and affect. GAIT: Independent with ambulation, gait pattern is normal Gross Motor: Able to stand on tip toes and heels, balance intact Strength Testing: Bilateral upper and lower extremity strength is normal and symmetric. No atrophy or tone abnormalities are noted. Sensation: No loss of sensation is noted Peripheral Vascular: No obvious extremity swelling in all 4 extremities. Appearance of Skin: Skin inspection of the trunk, bilateral upper and lower extremities is unremarkable Neuro: Bilateral upper and lower extremity coordination and muscle stretch reflexes are physiologic and symmetric. Plantar response are downgoing. Spine Range of Motion: +pain with lumbar extension Provocative Maneuvers: Negative tenderness to PSIS Single leg extension testing positive for left buttock/SI joint pain MAYO testing negative Gaenslen's maneuver positive on left Thigh thrust positive on left Left PSIS non tender to palpation Left GTB nontender to palpation, tender on the R but not area f pain Seated straight leg raise mildly positive for left buttock pain Slump testing positive for radicular leg pain Supine SLR is postive Data Review: MRI lumbar spine 10/21/21 independent reviewed-images and report Degenerative changes most significant at L4-5 and L5-S1 with mild foraminal stenosis at L4-5. No high grade central stenosis XR lumbar spine 08/15/22 No fractures or spondylolisthesis Moderate facet arthropathy at L5-S1 Moderate to severe disc space narrowing at L5-S1 with vacuum disc ASSESSMENT/PLAN DIAGNOSIS: M54.42, G89.29 Chronic bilateral low back pain with left-sided sciatica (primary encounter diagnosis) M54.16 Lumbar radiculitis M51.36 Degeneration of lumbar intervertebral disc 72 y/o male with chronic low back pain with radiation into the left buttock Hx of axial low back pain that has improved significantly with bilateral L2,L3, L4 MB and L5 DR GABRIEL 8 weeks ago Had an episode of 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 If no improvement after epidural steroid injection, would recommend obtaining updated MRI lumbar spine Patient would like to continue his care with his pain management team at [facility], however if he would like to transition care to [facility] for injections he was encouraged to contact our office The above plan and management options were discussed at length with patient. Patient is in agreement with the above and verbalized understanding. Patient instructed to call/seek urgent medical care with worsening of symptoms or change of neurological status. Patient provided with office contact. Todd Arce DO Spine Medicine Fellow Staff note: I saw and examined the patient with the fellow. I reviewed the fellow's note and agree with the fellow's documentation of the [place] historical and physical findings. I discussed the case with the fellow and agree with the plans as outlined in the note. Aubrey Ko MD documented in this encounter [facility] 01-11-2023 Note PAIN MANAGEMENT CONS ULTATION CONSULTATION DATE: 01/11/2023 TO: Dr. Fitzpatrick CHIEF COMPLAINT: Left hip pain. HISTORY OF PRESENT ILLNESS: Patient has undergone RFA of his left L4-5, L5-S1 facet joints with denervation at L2, 3, 4 and 5. He reports the pain had improved dramatically in certain areas, but has resumed pain in other areas. His main complaint now is pain in his left hip area, described at 5-7/10 pain, sharp in character, increased with activities such as climbing stairs. He also reports burning pain over the gluteal area as well, which increases with sometimes even light touch. He reports feeling most relief in the semi-recumbent position with the application of heat, at times. EXAM: Notable for patient having dysesthesia and hypoesthesia along the distribution of the lateral branch iliohypogastric nerve on the left side. Patient has tenderness overlying the left SI joint, positive left sided Gaenslen's maneuver and FABERs sign, as well as pelvic compression test. Had no signs consistent with radiculopathy involving his lower extremities. No clinical signs of myelopathy involving his lower extremities. IMPRESSION: Patient with pain, secondary to residual SI joint dysfunction on the left side, possible neuritis involving the iliohypogastric nerve on the left side as well and myofascial dysfunction. RECOMMENDATIONS: I have recommended to him to contact our office after follow up with the [facility] in regards to his above mentioned pain complaints, and we will follow up with the patient after his consultation there to discuss further options. [facility] 12-05-2022 Miscellaneous Notes SCr drawn in 09/2022 at OSH. Scanned into [employer]. Normal value. Refill provided. Roselia Nolasco APRN.CNP documented in this encounter [facility] 11-16-2022 History of Present illness Narrative Images from the original note were not included. Heart and Vascular [place] Dionicio Armando Department of Cardiovascular Medicine SECTION OF CARDIOVASCULAR IMAGING OUTPATIENT VISIT DATE November 16, 2022 OUTPATIENT VISIT TYPE ESTABLISHED PRIMARY CARE PHYSICIAN: Carter Fitzpatrick MD ([facility]) [address] [place] [address] REFERRING PHYSICIAN: Katerin Billingsley [address] [address] CHIEF COMPLAINT: Follow up HISTORY OF PRESENT ILLNESS: Mr. Garrison is a 71 year old male who presents today for follow-up visit. Since his last visit, he states that he is concerned about his HR that sometimes wakes him up. He has recorded some tracings with his watch. He is anxious with panic attacks. He is having a lot of back pain. BP sometimes is high. PAST CARDIAC HISTORY: He has been seen in the past for HTN, MVP and anxiety. Katerin Billingsley MD PAST MEDICAL HISTORY Diagnosis Date Anxiety Chest pain negative stress in 2016 Hyperlipidemia Hypertension Palpitations Panic attacks Sleep apnea on CPAP PAST SURGICAL HISTORY Procedure Laterality Date NONE SOCIAL HISTORY Social History Tobacco Use Smoking status: Former Packs/day: 1.00 Years: 5.00 Pack years: 5.00 Types: Cigarettes Quit date: 11/19/1977 Years since quittin.0 Smokeless tobacco: Never Substance Use Topics Alcohol use: Not Currently Drug use: No FAMILY HISTORY Problem Relation Age of Onset Colon Cancer Mother Ischemic Heart Disease Father 65 s/p CABG x 4 Alzheimer's Disease Father Hyperlipidemia Brother Hypertension Brother Heart disease Brother heart infection Ischemic Heart Disease Brother 71 s/p CABG ALLERGIES: ALLERGIES Allergen Reactions Hctz [Thiazides] GI Upset Nausea Penicillin Unknown MEDICATIONS: amLODIPine (NORVASC) 2.5 mg tablet^Take 1 tablet by mouth once daily.^Disp: 90 tablet^Rfl: 3 LORazepam (ATIVAN) 0.5 mg^Take 0.5 mg by mouth three times daily as needed. 0.25mg in the morning and afternoon and 0.5mg in the evening ^Disp: ^Rfl: metoprolol succinate ER (TOPROL XL) 25 mg 24 hr tablet^Take 25 mg by mouth twice daily. Taking 1 1/2 in morning and 25 mg at night ^Disp: ^Rfl: atorvastatin (LIPITOR) 10 mg tablet^Take 10 mg by mouth once daily.^Disp: ^Rfl: ZEAXANTHIN, BULK, MISC^20 mg once daily.^Disp: ^Rfl: multivitamin tablet^Take 1 tablet by mouth once daily. With 18 mg iron ^Disp: ^Rfl: REVIEW OF SYSTEMS: See HPI. PHYSICAL EXAMINATION: BP 119/76 Pulse 90 Ht 182.9 cm (6') Wt 78 kg (172 lb) SpO2 97% BMI 23.33 kg/m General: Well appearing, in no acute distress, speaking in complete sentences. Lungs: Clear to auscultation bilaterally, no wheezing or rhonchi. Heart: Regular rhythm, PMI not displaced, S1, S2 normal, no S3, no S4, no heaves, no rub and faint systolic apical murmur. Abdomen: Soft, nontender, bowel sounds normal, no palpable organomegaly, no bruits. Extremities: No peripheral edema . Grade 2/4 distal pulses bilaterally. Neuro: Oriented to person, place and time, alert, cooperative, gait coordinated. CARDIOVASCULAR MEDICINE TESTING: Echocardiogram: - The left ventricle is normal in size. Left ventricular systolic function is normal. EF = 63 5% (2D biplane) - The right ventricle is normal in size. Right ventricular systolic function is normal. - Mild mitral valve prolapse, with 1-2+ posterior and laterally directed jet of MR. Could be slightly underestimated based on short axis views, but does not appear to be more than 2+ in severity. - Exam was compared with the prior echocardiographic exam performed on 10/22/2017. Overall stable. I have personally reviewed the Electrocardiogram and Echocardiogram. Last EKG Result Conclusion ECG COMPLETE Collected: 11/16/2022 11:26 AM (Preliminary result) Impression: NORMAL SINUS RHYTHM NORMAL ECG IMPRESSION: Mr. Garrison is a 71 year old male with Hx of HTN, palpitations, MVP. Minimal changes in mitral regurgitation in 5 years. I reviewed the tracings obtained at home and it is normal sinus rhythm with maximal HR in the low 100's. Holter PAC and PVC's. PLAN AND RECOMMENDATIONS: Increase metoprolol to 50 mg bid. It will improve palpitations and BP. F/u in 3 months with mid level to assess response to treatment. CONTACT INFORMATION: Katerin Billingsley MD documented in this encounter [facility] 11-15-2022 Miscellaneous Notes Images from the original note were not included. Spoke with patient regarding Holter results (in Epic), advised patient to continue taking Metoprolol. He is feeling well from a cardiac standpoint. Answered patient's questions and encouraged to call with any further questions or concerns. Khushboo Lackey APRN.APOORVA Holter Monitor documented in this encounter [facility] 11-06-2022 History of Present illness Narrative HOLTER MONITOR APPLICATION Patient Name: Marshal Garrison [facility] Number: [id number] Chest is cleansed with alcohol Skin prep applied Electrodes place on chest and stress loops secured with tape Fresh battery inserted in monitor Holter monitor secured to patient with waist or shoulder straps Patient instructed 1.) Diary documentation 2.) Usage of event button 3.) Maintenance and care of monitor 4.) Safety issues with monitor 5.) Return unit in 24 hours or 48 hours 6.) Call with problems [phone] OR [phone] Patient expresses good verbal understanding of instructions Laine ADKINS documented in this encounter [facility] 11-06-2022 Instructions Denice Carey APRN.CNP - 11/06/2022 12:35 PM EST 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 Heart and Vascular [place] Dionicio Armando Department of Cardiovascular Medicine SECTION OF CARDIOVASCULAR IMAGING OUTPATIENT VISIT DATE November 06, 2022 OUTPATIENT VISIT TYPE ESTABLISHED PRIMARY CARE PHYSICIAN: Carter Fitzpatrick MD ([facility]) [address] [place] [address] REFERRING PHYSICIAN: Denice Carey [id number] Desk J1-5 [facility] [id number] CHIEF COMPLAINT: Increased heart rate HISTORY OF PRESENT ILLNESS: Mr. Garrison is a 71 year old male with a history of HTN, HPL, palpitations, MVP, anxiety, who presents today for follow-up visit. He follows with Dr. Billingsley and was last seen on 07/13/21 by myself. At that time, he was having some episodes of tachycardia associated with anxiety and panic. He presents today with his daughter. Since his last visit, he states that he has had issues with back pain. Few weeks ago, was supposed to have nerve block for disc compression in his low back. He noted having face numbness and tingling, this has occurred 3x over the past few weeks. He also notes right hand numbness as well. It subsided within half hour. The episodes occurred at night while trying to go to bed. He had an MRI of his head, and carotid US he notes was normal. He has had a couple episodes of his HR racing , Has watch readings that reassuringly shows no Afib. Not very mobile lately due to back issues. He is not taking any kind of antiinflammatory as he doesn't want to be taking a lot of medications. He remains with high anxiety due to the above issues. He is taking Lorazepam TID BP has been a bit elevated at home, lowest SBP 123 - 150 at the highest. He denies abdominal distention, chest pain, shortness of breath, orthopnea, cough, edema, PND, lightheadedness or syncope. PAST MEDICAL HISTORY Diagnosis Date Anxiety Chest pain negative stress in 2016 Hyperlipidemia Hypertension Palpitations Panic attacks Sleep apnea on CPAP PAST SURGICAL HISTORY Procedure Laterality Date NONE SOCIAL HISTORY Social History Tobacco Use Smoking status: Former Packs/day: 1.00 Years: 5.00 Pack years: 5.00 Types: Cigarettes Quit date: 11/19/1977 Years since quittin.9 Smokeless tobacco: Never Substance Use Topics Alcohol use: No Drug use: No FAMILY HISTORY Problem Relation Age of Onset Colon Cancer Mother Ischemic Heart Disease Father 65 s/p CABG x 4 Alzheimer's Disease Father Hyperlipidemia Brother Hypertension Brother Heart disease Brother heart infection Ischemic Heart Disease Brother 71 s/p CABG ALLERGIES: ALLERGIES Allergen Reactions Hctz [Thiazides] GI Upset Nausea Penicillin Unknown MEDICATIONS: amLODIPine (NORVASC) 2.5 mg tablet Take 1 tablet by mouth once daily. LORazepam (ATIVAN) 0.5 mg tab Take 0.5 mg by mouth three times daily as needed. 0.25mg in the morning and afternoon and 0.5mg in the evening metoprolol succinate ER (TOPROL XL) 25 mg 24 hr tablet Take 25 mg by mouth twice daily. Taking 1 1/2 in morning and 25 mg at night atorvastatin (LIPITOR) 10 mg tablet Take 10 mg by mouth once daily. ZEAXANTHIN, BULK, MISC 20 mg once daily. multivitamin tablet Take 1 tablet by mouth once daily. With 18 mg iron REVIEW OF SYSTEMS: Positives in bold GENERAL: Negative for: Weight loss or gain, Fever or Chills, Weakness and Sleep difficulties. HEENT: Negative for: Headache, Impaired Vision, Glasses, Hearing Impairment, Ringing in Ears, Nosebleeds, Poor dental care, Bleeding Gums, Dentures NECK: Negative for: Swelling, Pain, Stiffness RESPIRATORY: Negative for: Cough, Blood in Sputum, Shortness of breath, Wheezing, Apnea GASTROINTESTINAL: Negative for: Trouble swallowing, Heartburn, Change in bowel habits, Blood in stool, Dark black stools MUSCULOSKELETAL: Negative for: Muscle or joint pain, Stiffness , Joint swelling NEUROLOGIC/PSYCHIATRIC: Negative for: Weakness, Paralysis, Numbness, Tingling, Tremor, Nervousness, Depressed mood, Memory loss SKIN: Negative for: Rashes, Itching HEMATOLOGICAL/LYMPHATIC: Negative for: Easy bruising , Easy bleeding ENDOCRINE: Negative for: Heat or cold intolerance, Excessive sweating, Frequent urination, Frequent thirst PHYSICAL EXAMINATION: BP 150/74 Pulse 81 Wt 81.2 kg (179 lb) SpO2 99% BMI 23.62 kg/m General: Well appearing, in no acute distress, speaking in complete sentences. Skin: Warm, dry Eyes: Non-icteric sclerae Neck: No jugular venous distention, no carotid bruits, carotids have a normal upstroke, no palpable thyromegaly. Lungs: Clear to auscultation bilaterally, no wheezing or rhonchi. Heart: Regular rhythm, PMI not displaced, S1, S2 normal, no S3, no S4, no heaves, no rub and no murmur. Abdomen: Soft, nontender, bowel sounds normal, no palpable organomegaly, no bruits. Extremities: No peripheral edema . Grade 2/4 distal pulses bilaterally. Neuro: Oriented to person, place and time, alert, cooperative, gait coordinated. CARDIOVASCULAR MEDICINE TESTING: EKG 11/06/22 IMPRESSION: Mr. Garrison is a 71 year old male with history of HTN, HPL, palpitations, MVP, anxiety. He has had back issues since last following up in 2020. He was going to be getting a nerve block but he had noted right side facial numbness and numbness to his right hand happening 3x while he was trying to lay down to sleep. MRI head and carotid US was negative. He noted unrelated to those times, an increase in heart rate that is concerning to him. [employer] print outs show NSR and EKG today shows NSR. Otherwise no other cardiac complaints. He has heightened anxiety due to all of this and he has not been very active with his increased back pain. PLAN AND RECOMMENDATIONS: -Holter monitor to assess if any arrhythmias are present that have not yet been captured -Continue to monitor blood pressure, if consistently >130/80, can increase amlodipine to 5mg daily -Encouraged him to take antiinflammatory medication (Tylenol and/or Ibuprofen) to help alleviate some back pain -Encouraged follow up with PCP regarding increased overall anxiety -Advised him to reach out for any sooner questions or concerns I personally interviewed, confirmed and edited the above information if obtained by others. CONTACT INFORMATION: Denice Carey APRN.CNP documented in this encounter [facility] 10-30-2022 History of Present illness Narrative Patient reports he experienced right sided facial numbness along with right arm numbness recently. He went to ER and reports by the time he got there symptoms had improved and his work up was negative. He was told he probably needs MRI of head. He indicates he is S/S free at this point. Explained this is not appropriate level of care. As long as he is asymptomatic recommended he continue to try and reach out to PCP (who is outside [facility]). If he becomes symptomatic again, recommended he return to ER as what was likely a TIA could develop into CVA. documented in this encounter [facility] 10-18-2022 Note CONSULTATION PROCEDURE DATE: 10/18/2022 PREOPERATIVE DIAGNOSIS: Left greater trochanteric bursitis. POSTOPERATIVE DIAGNOSIS: Left greater trochanteric bursitis. PROCEDURE: Left greater trochanteric bursa injection. Subsequent to obtaining informed consent, the patient was placed in the upright standing forward flexion position. Alcohol prep was used to sterilize the site. A 25 gauge needle with 0.125% Marcaine and 20 mg of Kenalog was used and placed to rest inside the bursa. Negative heme. Medication was injected in a slow pattern and patient tolerated the procedure well. He will be followed up in the clinic. [facility] 10-18-2022 Note CONSULTATION CONSULTATION DATE: 10/18/2022 HISTORY OF PRESENT ILLNESS: This is a pleasant, 71-year-old gentleman who returns to the clinic status post #2 bilateral MBB of L2, L3 and L4, L5 completed on 10/03/2022. The patient reports moderate relief with this injection; however, state it was not as beneficial as his first one. He has increased functionality, as he is able to stand and walk for longer endurance with a more upright posture. Today, his pain is back to baseline. He describes it as a 7/10 across his belt line in the lower back, as well as his left hip and thigh. He reports all activities are aggravating factors. Lying down and the use of heat decreases his pain. He does take multivitamin and magnesium, as well as lorazepam three times a day for anxiety. Patient has not noticed any vasomotor changes. Patient's REVIEW OF SYSTEMS / PAST MEDICAL HISTORY / ALLERGIES and IMAGES have been reviewed and they are noted on the chart. PHYSICAL EXAM: VITAL SIGNS: Blood pressure 168/78, heart rate is 89. Temperature is 97.1. He is 6' tall and weighs 83.4 kg. GENERAL IMPRESSION: Pleasant, appropriate, no acute distress. is at chair side. FOCUSED EXAM -BACK: Range of motion is guarded in lateral rotation and flexion/extension. Paravertebral muscles are taut. Tahir's point mildly tender to the left with pain non-radiating. Upon compression of the lower lumbar facets, pain is reproduced along the L2, L3 and L4, L5 indicative of facet arthropathy, lumbar spondylosis. FABERs and compression tests are negative. MUSCULOSKELETAL: Slight muscle atrophy noted diffusely bilateral lower extremities. Patient walks with a steady gait, does not use an assistive device. Compression along the left greater trochanteric bursa produces a jump response and reproduces the pain symptomatology to that area. NEUROLOGICALLY: Patient is cognitively intact, slightly anxious. Intact bilateral reflexes +2. DIAGNOSIS: Left greater trochanteric bursitis, lumbar degenerative disc disease, lumbar spondylosis and spinal axial lower back pain. PLAN: Patient will receive a left greater trochanteric bursa injection in the office, which he does consent to. We will proceed with bilateral radiofrequency ablation of L2, L3 and L4, L5 under sedation. Patient does agree to this plan of care, and he will be followed up in the office thereafter. [facility] 09-26-2022 Note CONSULTATION CONSULTATION DATE: 09/26/2022 CHIEF COMPLAINT: Low back pain. HISTORY OF PRESENT ILLNESS: This is a very pleasant, 71-year-old gentleman who is here for a follow up subsequent to the initial diagnostic lumbar medial branch block at the level of L2-3 and 4-5, which afforded the patient 90+% improvement for a few hours. Subsequent to that, the pain is starting to return in a gradual manner. The patient reports the pain as a 6/10. Activities such as twisting, pushing, standing, walking, lifting aggravate the patient's pain. Sitting down, at times, can increase the pain; however, this is in a different area. Heat mitigates the patient's pain. The patient currently takes lorazepam 0.5 mg b.i.d. The patient has attended physical therapy in the past, stopped approximately three weeks ago. The patient's PAST MEDICAL HISTORY / SURGICAL HISTORY / REVIEW OF SYSTEMS are noted on the chart, along with the MEDICATION LIST / ALLERGIES and RADIOLOGICAL IMAGES. PHYSICAL EXAMINATION: Upon physical examination, this is a very pleasant, cooperative gentleman who does not appear to be any acute distress. The patient is accompanied by his . VITAL SIGNS: Stable and noted on to the chart at 161/70 with a heart rate of 80. At a height of 6', the patient weighs 182 pounds. HEAD: Atraumatic, normocephalic. NECK: No crepitus is noted. HEART: Regular rate. LUNGS: Normal expansion. Non-labored breathing. ABDOMEN: Soft, non-distended. BACK: Extension, compression, direct palpation aggravate the patient's pain concordant with facet arthropathy, lumbar spondylosis. EXTREMITIES: Atrophy of the lower extremities noted. PSYCHIATRICALLY: Affect is appropriate. The patient does suffer from anxiety. IMPRESSION: Chronic low back pain, lumbar spondylosis, lumbar degenerative disc disease. PLAN: We will schedule the patient for #2 diagnostic medial branch block under fluoroscopy. The patient also has an appointment at [facility] with regards to cardiac in October. [facility] 09-12-2022 Note CONSULTATION PROCEDURE DATE: 09/12/2022 PREOPERATIVE DIAGNOSIS: Lumbar paravertebral spasm. POSTOPERATIVE DIAGNOSIS: Lumbar paravertebral spasm. PROCEDURE: Lumbar trigger point injection x3. Subsequent to obtaining informed consent, the patient was placed in the prone position. Alcohol prep was used to sterilize the site. A 25 gauge needle was advanced and it comes to rest along the trigger points marked prior; two on the left hand side, one on the right hand side. Marcaine 0.125% along with Kenalog 10 mg is injected in equal doses for a total volume of 4 cc. Negative heme. The patient tolerates the procedure well without any overt complication. Post procedurally, reports having mitigation in his pain symptomatology. [facility] 09-12-2022 Note CONSULTATION CONSULTATION DATE: 09/12/2022 CHIEF COMPLAINT: Chronic low back pain. HISTORY OF PRESENT ILLNESS: This is a 71-year-old gentleman who was referred to us by Dr. Fitzpatrick. The patient has had chronic low back pain for 5+ years. The patient has an MRI which was reviewed in office today. The patient reports having pain in the posterior aspect of his buttocks and his thigh, left hand side greater than right. The patient describes the pain as a 5/10; a sharp, achy sensation. Any activities, twisting, pushing, sitting too long, walking, in and out of the car aggravate the patient's pain, as does bending and activities. Heat mitigates the patient's pain as does laying down. The patient suffers significantly from panic attacks. The patient takes lorazepam 0.5 mg on a b.i.d. basis. The patient has attended physical therapy for three weeks without any improvement. The patient's PAST MEDICAL HISTORY / SURGICAL HISTORY / REVIEW OF SYSTEMS are noted on the chart along with the MEDICATION LIST / ALLERGIES and RADIOLOGICAL IMAGES, including the MRI which was reviewed in office today, which shows narrowing along the L5-S1 foramen on the left hand side. Osteophytes are noted along the facets at this level, which encroach on to the foramen. PHYSICAL EXAMINATION: Upon physical examination, this is a pleasant, anxious, 71-year-old gentleman, who does not appear to be in acute distress. The patient maintains a very straightened posture. The patient is slow to move. The patient is guarded with his response. VITAL SIGNS: 151/69 with a heart rate of 79. At a height of 6', the patient weighs 84 kg. NECK: No overt cervical pathology is noted. HEART: No orthopnea is present. LUNGS: Unlabored breathing. ABDOMEN: Soft. BACK: Tenderness is noted along the posterior elements bilaterally. Extension, compression, direct palpation aggravate the patient's pain concordant with facet arthropathy, lumbar spondylosis. EXTREMITIES: No pedal edema is present. MUSCULOSKELETAL: Intact in the lower extremities at 4+/5 bilaterally. The left hand side toe extensors are slightly diminished; however, not significant. NEUROLOGICALLY: No clear cut dermatomal pattern is present. PSYCHIATRICALLY: The patient is very concerned about the medications and the dosage given, for which the patient has gone to the hospital in the past and was diagnosed with having panic attacks. IMPRESSION: Current working diagnosis on the patient is lumbar paravertebral spasm, lumbar spondylosis, lumbar degenerative disc with foraminal narrowing at the level of L5, significant anxiety and phobia. PLAN: We will perform lumbar trigger point injections in office today. The patient will be scheduled for the lumbar medial branch block at the level of L2- 3 and L4-5. We will decrease the Depo to 10 mg at this point. The patient will start magnesium glycinate 400 mg q.p.m. along with 5-HTP and NeuroCom. 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 CC: Carter Fitzpatrick M.D. [facility] Evaluation note No Information [place] Other Evaluation note Diagnosis Treatment not available- Primary Procedure not carried out for other reasons [facility] Diagnosis Palpitations [facility]* Diagnosis Palpitations- Primary Essential hypertension Unspecified essential hypertension [facility] Diagnosis Palpitations- Primary [facility]* Diagnosis Palpitations- Primary [facility]* Diagnosis Palpitations- Primary [facility] Diagnosis Palpitations- Primary [facility]* Diagnosis Chronic bilateral low back pain with left-sided sciatica- Primary Lumbar radiculitis Thoracic or lumbosacral neuritis or radiculitis, unspecified [facility]* Diagnosis Essential hypertension- Primary Unspecified essential hypertension Palpitations Mitral valve insufficiency, unspecified etiology [facility]* Diagnosis Mitral valve insufficiency, unspecified etiology- Primary [facility] Diagnosis Mitral valve insufficiency, unspecified etiology- Primary [facility]* Diagnosis Essential hypertension, benign (CMS/HCC)- Primary Essential hypertension, benign Dyslipidemia (CMS/HCC) Other and unspecified hyperlipidemia Generalized anxiety disorder (CMS/HCC) Generalized anxiety disorder DDD (degenerative disc disease), lumbar Degeneration of lumbar or lumbosacral intervertebral disc Essential hypertension, benign (CMS/HCC)- Primary Essential hypertension, benign Generalized anxiety disorder (CMS/HCC) Generalized anxiety disorder Degeneration of intervertebral disc of lumbar region with discogenic back pain Encounter for long-term (current) use of medications Encounter for long-term (current) use of other medications Dyslipidemia (CMS/HCC) Other and unspecified hyperlipidemia Hypomagnesemia Disorders of magnesium metabolism Prediabetes Other abnormal glucose Screening PSA (prostate specific antigen) Special screening for malignant neoplasm of prostate BAN (generalized anxiety disorder) (CMS/HCC) Generalized anxiety disorder [facility] - [facility]orted* Type Description Date Medical History hypertension Medical History hypercholesterolemia Medical History anxiety [place] Other reason for referral (narrative)* Outpatient Procedure (Routine) - Authorized Specialty Diagnoses / Procedures Referred By Malika jasso Referred To Contact [facility] Diagnoses Palpitations Procedures ECG COMPLETE ECG ROUTINE ECG W/LEAST 12 LDS W/I&R Wai Billingsley MD [address] [place] [address] [address] [place] [address] Referral ID Status Reason Start Date Expiration Date Visits Requested Visits Authorized [id number] Authorized Auto-Generat ed Referral 2 11/06/2023 1 1 * Outpatient Procedure (Routine) - Authorized Specialty Diagnoses / Procedures Referred By Malika jasso Referred To Contact [facility] Diagnoses Palpitations Procedures ECHO ECHO TTHRC R-T 2D W/WOM-MODE COMPL SPEC&COLR D Wai Billingsley MD [address] [place] [address] [id number] [place] [address] Referral ID Status Reason Start Date Expiration Date Visits Requested Visits Authorized [id number] Authorized Auto-Generat ed Referral 2 11/06/2023 1 1 [facility] for referral (narrative)* Outpatient Procedure (Routine) - Closed Specialty Diagnoses / Procedures Referred By Malika jasso Referred To Contact [facility] Diagnoses Palpitations Procedures ECHO ECHO TTHRC R-T 2D W/WOM-MODE COMPL SPEC&COLR D Wai Billingsley MD [address] [place] [address] [address] [address] [place] [address] Referral ID Status Reason Start Date Expiration Date V isits Requested Visits Authorized [id number] Closed Auto-Generate d Referral 11/15/2022 11/15/2023 1 1 * Outpatient Procedure (Routine) - Closed Specialty Diagnoses / Procedures Referred By Malika t Referred To Contact [facility] Diagnoses Palpitations Procedures ECG COMPLETE ECG ROUTINE ECG W/LEAST 12 LDS W/I&R Wai Billingsley MD [address] [place] [address] [address] [place] [address] Referral ID Status Reason Start Date Expiration Date V isits Requested Visits Authorized [id number] Closed Auto-Generate d Referral 11/15/2022 11/15/2023 1 1 [facility] for referral (narrative)* Outpatient Procedure (Routine) - Authorized Specialty Diagnoses / Procedures [facility] Diagnoses Palpitations Procedures ECG COMPLETE ECG ROUTINE ECG W/LEAST 12 LDS W/I&R Wai Billingsley MD [address] [place] [address] [address] [place] [address] Referral ID Status Reason Start Date Expiration Date Visits Requested Visits Authorized [id number] Authorized Auto-Generat ed Referral 11/16/2023 1 1 [facility] for referral (narrative)* Outpatient Procedure (Routine) - Pending Review Specialty Diagnoses / Procedures Referred By Contac t Referred To [facility] Diagnoses Mitral valve insufficiency, unspecified etiology Procedures ECHO ECHO TTHRC R-T 2D W/WOM-MODE COMPL SPEC&COLR D Wai Billingsley MD [address] [address] [phone] [place] [address] Referral ID Status Reason Start Date Expiration Date Visits Requested Visits Authorized [id number] Pending Review Auto-Generat ed Referral 07/25/2023 07/18/2024 1 1 [facility] for referral (narrative)* Outpatient Procedure (Routine) - Pending Review Specialty Diagnoses / Procedures Referred By Contac t Referred To Contact [facility] Diagnoses Mitral valve insufficiency, unspecified etiology Procedures ECHO ECHO TTHRC R-T 2D W/WOM-MODE COMPL SPEC&COLR D Wai Billingsley MD [address] [place] [address] [facility] [address] [place] [address] Referral ID Status Reason Start Date Expiration Date Visits Requested Visits Authorized [id number] Pending Review Auto-Generat ed Referral 12/27/2023 12/26/2024 1 1 * Outpatient Procedure (Routine) - Pending Review Specialty Diagnoses / Procedures Referred By Contac t Referred To Contact [facility] Diagnoses Mitral valve insufficiency, unspecified etiology Procedures ECG COMPLETE ECG ROUTINE ECG W/LEAST 12 LDS W/I&R Wai Billingsley MD [address] [place] [address] [phone] [place] [address] Referral ID Status Reason Start Date Expiration Date Visits Requested Visits Authorized [id number] Pending Review Auto-Generat ed Referral 12/27/2023 12/26/2024 1 1 * Transition of Care (Routine) - Ref Not Required Specialty Diagnoses / Procedures Referred By Gabrielamacie t Referred To Contact Procedures CARDIOVASCULAR MEDICINE OP FOLLOW UP APPT ORDER Wai Billingsley MD [address] [address] Referral ID Status Reason Start Date Expiration Date Visits Requested Visits Authorized [id number] Ref Not Required PCP Requested Referral 12/27/2023 12/26/2024 1 1 [facility] Summary Purpose Family History No Family History Records FoundNo Family History Records FoundNo Family History Records Found Advance Directives No Advanced Directives Records FoundNo Advanced Directives Records FoundNo Advanced Directives Records Found Additional Source Comments REASON FOR VISIT (unrecogniz ed section and content) Reason Comments TIA Reason Comments Holter Monitor Application 48 hour Reason Comments Results Holter Results Reason Onset Date Comments Refill Request 12/05/2022 Reason Comments New Patient Reason Comments Refill Request Reason Onset Date Comments Refill Request 03/04/2024 Reason Onset Date Comments Refill Request 06/23/2024 Reason Comments Med Refill Source Comments (unrecognize d section and content) In the event this informatio n is protected by the Federal Confidentiality of Alcohol and Drug Abuse Patient Records regulations: The Federal rules restrict any use of the information to criminally investigate or prosecute any alcohol or drug abuse patient.[facility] the event this information is protected by the Federal Confidentiality of Alcohol and Drug Abuse Patient Records regulations: The Federal rules restrict any use of the information to criminally investigate or prosecute any alcohol or drug abuse patient.[facility] the event this information is protected by the Federal Confidentiality of Alcohol and Drug Abuse Patient Records regulations: The Federal rules restrict any use of the information to criminally investigate or prosecute any alcohol or drug abuse patient.[facility] event this information is protected by the Federal Confidentiality of Alcohol and Drug Abuse Patient Records regulations: The Federal rules restrict any use of the information to criminally investigate or prosecute any alcohol or drug abuse patient.[facility] the event this information is protected by the Federal Confidentiality of Alcohol and Drug Abuse Patient Records regulations: The Federal rules restrict any use of the information to criminally investigate or prosecute any alcohol or drug abuse patient.[facility] the event this information is protected by the Federal Confidentiality of Alcohol and Drug Abuse Patient Records regulations: The Federal rules restrict any use of the information to criminally investigate or prosecute any alcohol or drug abuse patient.[facility] the event this information is protected by the Federal Confidentiality of Alcohol and Drug Abuse Patient Records regulations: The Federal rules restrict any use of the information to criminally investigate or prosecute any alcohol or drug abuse patient.[facility] the event this information is protected by the Federal Confidentiality of Alcohol and Drug Abuse Patient Records regulations: The Federal rules restrict any use of the information to criminally investigate or prosecute any alcohol or drug abuse patient.[facility] the event this information is protected by the Federal Confidentiality of Alcohol and Drug Abuse Patient Records regulations: The Federal rules restrict any use of the information to criminally investigate or prosecute any alcohol or drug abuse patient.[facility] the event this information is protected by the Federal Confidentiality of Alcohol and Drug Abuse Patient Records regulations: The Federal rules restrict any use of the information to criminally investigate or prosecute any alcohol or drug abuse patient.[facility] ColumbusIn the event this information is protected by the Federal Confidentiality of Alcohol and Drug Abuse Patient Records regulations: The Federal rules restrict any use of the information to criminally investigate or prosecute any alcohol or drug abuse patient.[facility] the event this information is protected by the Federal Confidentiality of Alcohol and Drug Abuse Patient Records regulations: The Federal rules restrict any use of the information to criminally investigate or prosecute any alcohol or drug abuse patient.[facility] Columbus[facility] the event this information is protected by the Federal Confidentiality of Alcohol and Drug Abuse Patient Records regulations: The Federal rules restrict any use of the information to criminally investigate or prosecute any alcohol or drug abuse patient.[facility] ColumbusIn the event this information is protected by the Federal Confidentiality of Alcohol and Drug Abuse Patient Records regulations: The Federal rules restrict any use of the information to criminally investigate or prosecute any alcohol or drug abuse patient.[facility] ColumbusIn the event this information is protected by the Federal Confidentiality of Alcohol and Drug Abuse Patient Records regulations: The Federal rules restrict any use of the information to criminally investigate or prosecute any alcohol or drug abuse patient.[facility]In the event this information is protected by the Federal Confidentiality of Alcohol and Drug Abuse Patient Records regulations: The Federal rules restrict any use of the information to criminally investigate or prosecute any alcohol or drug abuse patient.[facility] ColumbusIn the event this information is protected by the Federal Confidentiality of Alcohol and Drug Abuse Patient Records regulations: The Federal rules restrict any use of the information to criminally investigate or prosecute any alcohol or drug abuse patient.[facility] ColumbusIn the event this information is protected by the Federal Confidentiality of Alcohol and Drug Abuse Patient Records regulations: The Federal rules restrict any use of the information to criminally investigate or prosecute any alcohol or drug abuse patient.[facility] Care Teams (unrecognized sec tion and content) Real Estate Transaction Coordinator Relationship Specialty Start Date End Date Naderer, Carter A PCP - General Family Medicine 09/26/17 No, Referral Referring 04/22/19 Wai Billingsley MD [address] [address] Primary Staff Physician Cardiology 02/04/19 Real Estate Transaction Coordinator Relationship Specialty Start Date End Date Carter Fitzpatrick PCP - General Family Medicine 09/26/17 No, Referral Referring 04/22/19 Wai Billingsley MD [address] [address] Primary Staff Physician Cardiology 02/04/19 Real Estate Transaction Coordinator Relationship Specialty Start Date End Date Carter Fitzpatrick PCP - General Family Medicine 09/26/17 No, Referral Referring 04/22/19 Wai Billingsley MD [address] [address] Primary Staff Physician Cardiology 02/04/19 Real Estate Transaction Coordinator Relationship Specialty Start Date End Date Carter Fitzpatrick PCP - General Family Medicine 09/26/17 No, Referral Referring 04/22/19 Wai Billingsley MD [address] [address] Primary Staff Physician Cardiology 02/04/19 Real Estate Transaction Coordinator Relationship Specialty Start Date End Date Carter Fitzpatrick PCP - General Family Medicine 09/26/17 No, Referral Referring 04/22/19 Wai Billingsley MD [address] [address] Primary Staff Physician Cardiology 02/04/19 Real Estate Transaction Coordinator Relationship Specialty Start Date End Date Carter Fitzpatrick PCP - General Family Medicine 09/26/17 No, Referral Referring 04/22/19 Wai Billingsley MD [address] [address] Primary Staff Physician Cardiology 02/04/19 Real Estate Transaction Coordinator Relationship Specialty Start Date End Date Carter Fitzpatrick PCP - General Family Medicine 09/26/17 No, Referral Referring 04/22/19 Wai Billingsley MD [address] [address] Primary Staff Physician Cardiology 02/04/19 Real Estate Transaction Coordinator Relationship Specialty Start Date End Date Carter Fitzpatrick PCP - General Family Medicine 09/26/17 No, Referral Referring 04/22/19 Wai Billingsley MD [address] [address] Primary Staff Physician Cardiology 02/04/19 Real Estate Transaction Coordinator Relationship Specialty Start Date End Date Carter Fitzpatrick PCP - General Family Medicine 09/26/17 No, Referral Referring 04/22/19 aWi Billingsley MD [address] [address] Primary Staff Physician Cardiology 02/04/19 Real Estate Transaction Coordinator Relationship Specialty Start Date End Date Carter Fitzpatrick PCP - General Family Medicine 09/26/17 No, Referral Referring 04/22/19 Wai Billingsley MD [address] [place] [address] Primary Staff Physician Cardiology 02/04/19 Real Estate Transaction Coordinator Relationship Specialty Start Date End Date Carter Fitzpatrick PCP - General Family Medicine 09/26/17 No, Referral Referring 04/22/19 Wai Billingsley MD [address] [address] Primary Staff Physician Cardiology 02/04/19 Real Estate Transaction Coordinator Relationship Specialty Start Date End Date Carter Fitzpatrick PCP - General Family Medicine 09/26/17 No, Referral Referring 04/22/19 Wai Billingsley MD [address] [place] [id number] Primary Staff Physician Cardiology 02/04/19 Real Estate Transaction Coordinator Relationship Specialty Start Date End Date Carter Fitzpatrick PCP - General Family Medicine 09/26/17 No, Referral Referring 04/22/19 Wai Billingsley MD [address] [address] Primary Staff Physician Cardiology 02/04/19 Real Estate Transaction Coordinator Relationship Specialty Start Date End Date Carter Fitzpatrick PCP - General Family Medicine 09/26/17 No, Referral Referring 04/22/19 Wai Billingsley MD [address] [address] Primary Staff Physician Cardiology 02/04/19 Real Estate Transaction Coordinator Relationship Specialty Start Date End Date Carter Fitzpatrick PCP - General Family Medicine 09/26/17 No, Referral Referring 04/22/19 Wai Billingsley MD [address] [place] [address] Primary Staff Physician Cardiology 02/04/19 Real Estate Transaction Coordinator Relationship Specialty Start Date End Date Carter Fitzpatrick PCP - General Family Medicine 09/26/17 No, Referral Referring 04/22/19 Wai Billingsley MD [address] [place] [address] Primary Staff Physician Cardiology 02/04/19 Real Estate Transaction Coordinator Relationship Specialty Start Date End Date Carter Fitzpatrick MD [address] [place] [id number] PCP - General Family Medicine 03/04/24 Real Estate Transaction Coordinator Relationship Specialty Start Date End Date Carter Fitzpatrick MD PCP - General Family Medicine 09/26/17 No, Referral Referring 04/22/19 Wai Billingsley MD [address] [place] [address] Primary Staff Physician Cardiology 02/04/19 Real Estate Transaction Coordinator Relationship Specialty Start Date End Date Carter Fitzpatrick MD [address] [place] [id number] PCP - General Family Medicine 03/04/24 (unrecognized sect ion and content) No Status Records FoundNo Status Records FoundNo Status Records Found INFORMATION SOURCE (unrecogn ized section and content) DATE CREATED AUTHOR 02/07/2023 [facility] DATE CREATED AUTHOR AUTHOR'S ORGANIZ ATION 12/31/2023 [facility] DATE CREATED AUTHOR AUTHOR'S ORGANIZ ATION 09/09/2024 [facility] FOR RECORDS PERTAINING TO PATIENTS WHO ARE OR HAVE BEEN ENROLLED IN A CHEMICAL DEPENDENCY/SUBSTANCEABUSE PROGRAM, SOME INFORMATION MAY BE OMITTED. This clinical summary was aggregated from multiple sources. Caution should be exercised in using it in the provision of clinical care. This summary normalizes information from multiple sources, and as a consequence, information in this document may materially change the coding, format and clinical context of patient data. In addition, data may be omitted in some cases. CLINICAL DECISIONS SHOULD BE BASED ON THE PRIMARY CLINICAL RECORDS. [facility] [employer] [facility]. provides no warranty or guarantee of the accuracy or completeness of information in this document.
[2024-10-01 07:34] LABS: Basophils Absolute Auto 0.1 10^3/uL (0.0-0.1); Basophils Percent Auto 0.6 % (0.2-2.0); Eosinophils Absolute Auto 0.7 10^3/uL (0.0-0.7); Eosinophils Percent Auto 8.7 % (0.9-7.0); Hematocrit 42.7 % (42.0-54.0); Hemoglobin 13.5 g/dL (14.0-18.0); Immature Granulocytes Abs Auto 0.01 10^3/uL (0.00-0.03); Immature Granulocytes Pct Auto 0.1 % (0.0-0.5); Lymphocytes Absolute Auto 2.2 10^3/uL (1.2-3.8); Lymphocytes Percent Auto 27.8 % (20.5-60.0); Mean Corpuscular HGB Conc 31.6 g/dL (29.9-35.2); Mean Corpuscular Volume 88.6 fL (80.0-94.0); Mean Platelet Volume 9.7 fL (9.5-13.5); Monocytes Absolute Auto 0.8 10^3/uL (0.3-0.8); Monocytes Percent Auto 10.4 % (1.7-12.0); Neutrophils Absolute Auto 4.1 10^3/uL (1.4-6.5); Neutrophils Percent Auto 52.4 % (43.0-75.0); Platelet Count 263 10^3/uL (150-450); Red Blood Count 4.82 10^6/uL (4.70-6.10); Red Cell Distribution Width 12.5 % (11.0-15.0); White Blood Count 7.9 10^3/uL (4.0-11.0)
[2024-10-01 08:13] LABS: Estimated Average Glucose 123 mg/dL; Glycohemoglobin A1C 5.9 % (4.5-6.2)
[2024-10-01 08:16] LABS: Alanine Aminotransferase 34 U/L (16-63); Albumin Globulin Ratio 1.1; Albumin Level 3.4 g/dL (3.4-5.0); Alkaline Phosphatase 92 U/L (46-116); Anion Gap 13.2; Aspartate Amino Transferase 18 U/L (15-37); BUN Creatinine Ratio 15.5; Bilirubin Direct 0.1 mg/dL (0.0-0.2); Bilirubin Total 0.5 mg/dL (0.2-1.0); Calcium 8.7 mg/dL (8.5-10.1); Carbon Dioxide 28.4 mmol/L (21.0-32.0); Chloride 106 mmol/L (98-107); Chol HDL Ratio 2.2; Cholesterol 133 mg/dL (<=200); Estimated GFR (African America >60 (>=60 mL/min/1.73m^2); Estimated GFR (Non-African Ame >60 (>=60 mL/min/1.73m^2); Globulin 3.2 g/dL; Glucose 97 mg/dL (74-106); HDL Cholesterol 60 mg/dL (40-60); LDL Cholesterol Calculated 58.8 mg/dL; Magnesium 2.2 mg/dL (1.8-2.4); Potassium 4.6 mmol/L (3.5-5.1); Sodium 143 mmol/L (136-145); Total Protein 6.6 g/dL (6.4-8.2); Triglycerides 71 mg/dL (<=150); VLDL CHOLESTEROL 14.2 mg/dL
[2024-10-01 08:30] LABS: Prostate Specific Antigen Scrn 3.24 ng/mL (<=4.00)
== END 2024-10-01 07:03 | disposition home or self-care (01) ==
LOC: LAB 07:04
PROVIDERS: PCP Family Medicine; Visit Provider Family Medicine
DX: I10 Essential (primary) hypertension (principal); R73.03 Prediabetes; Z79.899 Other long term (current) drug therapy; E78.5 Hyperlipidemia, unspecified; Z12.5 Encounter for screening for malignant neoplasm of prostate; E83.42 Hypomagnesemia
CPT/HCPCS: 36415; 80048; 80061; 80076; 83036; 83735; 85025; G0103

== ENCOUNTER 2024-10-23 13:23 | Emergency (ER) | payer MEDICARE, OTHER, SELFPAY ==
[2024-10-23] VITALS (13 sets, daily range): BP systolic 131–154; BP diastolic 62–86; PULSE 68–71; TEMP 36.6; O2SAT 98–100; BMI 22.4
--- NOTE | 2024-10-23 13:26 | CT_ITS ---
The [address] [address] Patient Name: MARSHAL CHAVEZ MRN: [id number] date: 1950 Sex: M Assigned Patient Location: ER Current Patient Location: Accession/Order Number: [id number] Exam Date: 10/23/2024 14:46 Report Date: 10/23/2024 14:39 At the request of: DENZEL MURGUIA Procedure: CT angio neck EXAM: CT angio head, CT angio neck HISTORY: Visual changes COMPARISON: Noncontrast CT imaging of the head was performed the same day and reported separately. TECHNIQUE: Postcontrast CTA imaging of the head and neck was performed with coronal and sagittal reformats. Maximum intensity projection and 3-D reformats were performed on a separate workstation. NASCET criteria was utilized. This CT exam was performed using one or more of the following dose reduction techniques: Automated exposure control, adjustment of the MA and/or kV according to patient size, or use of iterative reconstruction technique. FINDINGS: Aortic arch: Imaged portion shows no evidence of aneurysm. No significant stenosis of the major origins of the major arch vessels. Right carotid system: No evidence of significant (50% or greater) stenosis or occlusion. Left carotid system: No evidence of significant (50% or greater) stenosis or occlusion. Vertebral arteries: Codominant. No evidence of significant (50% or greater) stenosis or occlusion. Anterior circulation: No evidence of aneurysm, significant stenosis, or occlusion. Vertebrobasilar system: No evidence of aneurysm, significant stenosis, or occlusion. Venous sinuses: Grossly patent. Additional findings: Visualized portion of the upper lungs are clear. No abnormal intracranial enhancement. Multilevel mild degenerative change of the cervical spine. CT/CT angio neck IMPRESSION: No significant stenosis, large vessel occlusion or aneurysm involving the neck or intracranial arterial vasculature. Electronically authenticated by: MANDEEP PROCTOR Date: 10/23/2024 14:39
--- NOTE | 2024-10-23 13:26 | CT_ITS ---
The [address] [address] Patient Name: MARSHAL CHAVEZ MRN: [id number] date: 1950 Sex: M Assigned Patient Location: ER Current Patient Location: Accession/Order Number: [id number] Exam Date: 10/23/2024 14:46 Report Date: 10/23/2024 14:39 At the request of: DENZEL MURGUIA Procedure: CT angio head EXAM: CT angio head, CT angio neck HISTORY: Visual changes COMPARISON: Noncontrast CT imaging of the head was performed the same day and reported separately. TECHNIQUE: Postcontrast CTA imaging of the head and neck was performed with coronal and sagittal reformats. Maximum intensity projection and 3-D reformats were performed on a separate workstation. NASCET criteria was utilized. This CT exam was performed using one or more of the following dose reduction techniques: Automated exposure control, adjustment of the MA and/or kV according to patient size, or use of iterative reconstruction technique. FINDINGS: Aortic arch: Imaged portion shows no evidence of aneurysm. No significant stenosis of the major origins of the major arch vessels. Right carotid system: No evidence of significant (50% or greater) stenosis or occlusion. Left carotid system: No evidence of significant (50% or greater) stenosis or occlusion. Vertebral arteries: Codominant. No evidence of significant (50% or greater) stenosis or occlusion. Anterior circulation: No evidence of aneurysm, significant stenosis, or occlusion. Vertebrobasilar system: No evidence of aneurysm, significant stenosis, or occlusion. Venous sinuses: Grossly patent. Additional findings: Visualized portion of the upper lungs are clear. No abnormal intracranial enhancement. Multilevel mild degenerative change of the cervical spine. CT/CT angio head IMPRESSION: No significant stenosis, large vessel occlusion or aneurysm involving the neck or intracranial arterial vasculature. Electronically authenticated by: MANDEEP PROCTOR Date: 10/23/2024 14:39
--- NOTE | 2024-10-23 13:26 | ECG_ITS ---
The [facility] Test Date: 2024-10-23 Pat Name: MARSHAL CHAVEZ Department: Room: - Gender: Male Illusionist: : 1950 Requested By: GUERA FITZPATRICK Order Number: [id number] Reading MD: BALAJI ELY Measurements Intervals [place] Rate: 69 P: 54 NH: 190 QRS: 57 QRSD: 76 T: 76 QT: 386 QTc: 405 Interpretive Statements 1100 Sinus rhythm 3114 Cannot rule out anterior myocardial infarction, age undetermined 9150 abnormal ECG Compared to ECG 11/04/2022 22:37:15 Myocardial infarct finding now present Electronically Signed On 10-23-2024 20:22:45 EST by BALAJI ELY
--- NOTE | 2024-10-23 13:26 | CT_ITS ---
The [address] [address] Patient Name: MARSHAL CHAVEZ MRN: [id number] date: 1950 Sex: M Assigned Patient Location: ER Current Patient Location: ER Accession/Order Number: [id number] Exam Date: 10/23/2024 14:46 Report Date: 10/23/2024 14:08 At the request of: DENZEL MURGUIA Procedure: CT stroke head/brain wo con EXAM: CT stroke head/brain wo con HISTORY: Visual changes COMPARISON: CT head 11/04/2022. TECHNIQUE: Axial noncontrast CT imaging of the head was performed with coronal and sagittal reformats. This CT exam was performed using one or more of the following dose reduction techniques: Automated exposure control, adjustment of the MA and/or kV according to patient size, or use of iterative reconstruction technique. FINDINGS: Calvarium/skull base: No evidence of acute fracture or destructive lesion. Paranasal sinuses: No air fluid levels. Brain: No acute intracranial hemorrhage. No acute large vascular territory infarct. 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 Parenchymal volume is stable. No mass lesion or mass effect. No hydrocephalus. CT/CT stroke head/brain wo con IMPRESSION: 1. No acute large vascular territory infarct or acute intracranial hemorrhage. If there is clinical concern for acute ischemia recommend MRI brain for further evaluation. 2. 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 Electronically authenticated by: MANDEEP PROCTOR Date: 10/23/2024 14:08
--- NOTE | 2024-10-23 13:28 | ED.GENADUL1 ---
HPI HPI - General Adult General Chief complaint: Eye Problems Stated complaint: might have had a mini stroke Time Seen by Provider: 10/23/24 13:24 Source: patient History of Present Illness HPI narrative: Patient is a 73-year-old male who presents to the emergency department at the recommendation of his triage register nurse for evaluation of visual change in the left eye over the last week. Patient states he has had floaters in the past similarly but they have resolved, he states this has been persistent for the last week. He describes it as a flashing light in the center of his vision in the left eye. He was seen by his triage register nurse just prior to arrival, his eyes were evaluated and dilated and the eye doctor did not find anything wrong. She sent the patient to the emergency department to be ruled out for CVA. Patient denies any headache, visual loss, chest pain, shortness of breath. He has a history of high blood pressure, high cholesterol and anxiety. He has no previous history of TIA or CVA. Related Data Home Medications ?Medication ?Instructions ?Recorded ?Confirmed amlodipine 2.5 mg tablet 2.5 mg PO DAILY 10/23/24 10/23/24 aspirin 81 mg chewable tablet 81 mg PO DAILY 10/23/24 10/23/24 atorvastatin 10 mg tablet 10 mg PO DAILY 10/23/24 10/23/24 lorazepam 0.5 mg tablet 0.5 mg PO Q12H 10/23/24 10/23/24 metoprolol succinate 50 mg 50 mg PO Q12H 10/23/24 10/23/24 tablet,extended release 24 hr Allergies Allergy/AdvReac Type Severity Reaction Status Date / Time Penicillins AdvReac Severe Unknown Verified 10/23/24 13:31 Opioid HPI Opioid Management Most Recent Opioid Data: No Data to Display Review of Systems ROS Constitutional Denies: fever or chills Eyes Reports: change in vision and seeing flashes Ears, nose, mouth, and throat Denies: throat pain Cardiovascular Denies: chest pain Respiratory Denies: shortness of breath or cough Gastrointestinal Denies: nausea or vomiting Musculoskeletal Denies: back pain or neck pain Integumentary/Breast Denies: rash Neurological Denies: headache, numbness in extremities or weakness in extremities Hematologic/Lymphatic Denies: easy bruising or easy bleeding PFSH PFSH Social History Little interest or pleasure in doing things: not at all Feeling down, depressed, or hopeless: not at all Exam Narrative Exam Narrative: Gen.: Awake, alert, in no distress Head: Normocephalic, atraumatic ENT: Moist mucous membranes Respiratory: No respiratory distress, lungs clear bilaterally Cardio: Regular rate and rhythm Extremities: Moves extremities equally Psych: Normal mood and affect Neuro: No focal neuro deficit Skin: Warm, dry, intact Constitutional Vital Signs, click to edit/add: Last Vital Signs Temp 97.9 F 10/23/24 13:32 Pulse 68 10/23/24 13:40 Resp 17 10/23/24 13:40 BP 131/62 10/23/24 15:01 Pulse Ox 98 10/23/24 14:56 O2 Del Method Room Air 10/23/24 13:32 Course Vital Signs Vital signs: Vital Signs Temperature 97.9 F 10/23/24 13:32 Pulse Rate 70 10/23/24 13:32 Respiratory Rate 18 10/23/24 13:32 Blood Pressure 154/86 H 10/23/24 13:32 Pulse Oximetry 99 10/23/24 13:32 Oxygen Delivery Method Room Air 10/23/24 13:32 Temperature 97.9 F 10/23/24 13:32 Pulse Rate 68 10/23/24 13:40 Respiratory Rate 17 10/23/24 13:40 Blood Pressure 131/62 10/23/24 15:01 Pulse Oximetry 98 10/23/24 14:56 Oxygen Delivery Method Room Air 10/23/24 13:32 Medical Decision Making MDM Narrative Medical decision making narrative: Patient was sent for stroke protocol CT of the brain in addition to CT angio of the head and neck. The studies are unremarkable. He has no visual loss, headache, peripheral paresthesias or weakness. He has no other focal medical complaints with stable vital signs in the ER. He has no EKG changes. I discussed the case with Dr. Palumbo for stroke interventional at [facility], he is in agreement that this likely represents an ophthalmic problem and not likely a CVA. Patient will be discharged home with ophthalmic referral to follow-up for further evaluation. Patient and family are in agreement with treatment plan. He has no focal neurodeficits in the ER. I did attempt to page the patient's primary care provider to make him aware of the treatment plan however we did not receive a call back. SHARED APC VISIT, PHYSICIAN ATTESTATION: [id number] I performed a substantive part of the MDM during the patient?s E/M visit. I personally evaluated and examined the patient. I personally made or approved the documented management plan and acknowledge its risk of complications. Medical Records Medical records reviewed: Yes I reviewed the patient's medical records Lab Data Lab results reviewed: Yes I reviewed the patient's lab results Labs: Lab Results 10/23/24 Range/Units 13:37 WBC 7.1 (4.0-11.0) 10^3/uL RBC 5.06 (4.70-6.10) 10^6/uL Hgb 14.1 (14.0-18.0) g/dL Hct 44.5 (42.0-54.0) % MCV 87.9 (80.0-94.0) fL MCH 27.9 (25.9-34.0) pg MCHC 31.7 (29.9-35.2) g/dL RDW 12.7 (11.0-15.0) % Plt Count 266 (150-450) 10^3/uL MPV 9.3 L (9.5-13.5) fL Neut % (Auto) 68.0 (43.0-75.0) % Lymph % (Auto) 19.9 L (20.5-60.0) % [place] % (Auto) 8.2 (1.7-12.0) % Eos % (Auto) 2.8 (0.9-7.0) % Baso % (Auto) 1.0 (0.2-2.0) % Neut # (Auto) 4.8 (1.4-6.5) 10^3/uL Lymph # (Auto) 1.4 (1.2-3.8) 10^3/uL [place] # (Auto) 0.6 (0.3-0.8) 10^3/uL Eos # (Auto) 0.2 (0.0-0.7) 10^3/uL Baso # (Auto) 0.1 (0.0-0.1) 10^3/uL Abs Immat Gran (auto) 0.01 (0.00-0.03) 10^3/uL Imm/Tot Granulo (auto) 0.1 (0.0-0.5) % PT 10.2 (9.0-11.6) sec INR 0.96 Sodium 138 (136-145) mmol/L Potassium 4.1 (3.5-5.1) mmol/L Chloride 102 (98-107) mmol/L Carbon Dioxide 31.5 (21.0-32.0) mmol/L Anion Gap 8.6 BUN 13.0 (7.0-18.0) mg/dL Creatinine 1.12 (0.70-1.30) mg/dL Est GFR ( Amer) >60 (>=60 mL/min/1.73m^2) Est GFR (Non-Af Amer) >60 (>=60 mL/min/1.73m^2) BUN/Creatinine Ratio 11.6 Glucose 115 H (74-106) mg/dL Calcium 8.9 (8.5-10.1) mg/dL Total Bilirubin 0.5 (0.2-1.0) mg/dL AST 20 (15-37) U/L ALT 37 (16-63) U/L Alkaline Phosphatase 94 (46-116) U/L Troponin I High Sens <4.0 L (4.0-76.1) pg/mL Total Protein 7.2 (6.4-8.2) g/dL Albumin 3.7 (3.4-5.0) g/dL Globulin 3.5 g/dL Albumin/Globulin Ratio 1.[address] scan - head: Attestation: I have reviewed the pertinent imaging results. Radiologist's impression: ITS Impressions Brain CT 10/23/24 13:26 IMPRESSION: 1. No acute large vascular territory infarct or acute intracranial hemorrhage. If there is clinical concern for acute ischemia recommend MRI brain for further evaluation. 2. 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 Electronically authenticated by: MANDEEP PROCTOR Date: 10/23/2024 14:08 Head CTA 10/23/24 13:26 IMPRESSION: No significant stenosis, large vessel occlusion or aneurysm involving the neck or intracranial arterial vasculature. Electronically authenticated by: MANDEEP PROCTOR Date: 10/23/2024 14:39 Neck CTA 10/23/24 13:26 IMPRESSION: No significant stenosis, large vessel occlusion or aneurysm involving the neck or intracranial arterial vasculature. Electronically authenticated by: MANDEEP PROCTOR Date: 10/23/2024 14:39 ECG Data Attestation: I personally reviewed and interpreted this ECG as follows: (Normal sinus rhythm at a rate of 69, no acute ST elevation or ectopy. EKG reviewed by attending physician) Discharge Plan Discharge Chief Complaint: Eye Problems Clinical Impression: Vision changes Patient Disposition: Home, Self-Care Time of Disposition Decision: 15:36 Condition: Good Prescriptions / Home Meds: No Action aspirin 81 mg tablet,chewable 81 mg PO DAILY amlodipine 2.5 mg tablet 2.5 mg PO DAILY atorvastatin 10 mg tablet 10 mg PO DAILY lorazepam 0.5 mg tablet 0.5 mg PO Q12H metoprolol succinate 50 mg tablet extended release 24 hr 50 mg PO Q12H Print Language: Indonesian Instructions: Blurred Vision (ED) Referrals: KUSUM ALMAGUER [Physician] - As soon as possible Carter Luna MD [Primary Care Provider] - 1 week
[2024-10-23 13:44] LABS: Basophils Absolute Auto 0.1 10^3/uL (0.0-0.1); Eosinophils Absolute Auto 0.2 10^3/uL (0.0-0.7); Eosinophils Percent Auto 2.8 % (0.9-7.0); Hematocrit 44.5 % (42.0-54.0); Hemoglobin 14.1 g/dL (14.0-18.0); Immature Granulocytes Abs Auto 0.01 10^3/uL (0.00-0.03); Immature Granulocytes Pct Auto 0.1 % (0.0-0.5); Lymphocytes Absolute Auto 1.4 10^3/uL (1.2-3.8); Lymphocytes Percent Auto 19.9 % (20.5-60.0); Mean Corpuscular HGB Conc 31.7 g/dL (29.9-35.2); Mean Corpuscular Hemoglobin 27.9 pg (25.9-34.0); Mean Corpuscular Volume 87.9 fL (80.0-94.0); Mean Platelet Volume 9.3 fL (9.5-13.5); Monocytes Absolute Auto 0.6 10^3/uL (0.3-0.8); Monocytes Percent Auto 8.2 % (1.7-12.0); Neutrophils Absolute Auto 4.8 10^3/uL (1.4-6.5); Platelet Count 266 10^3/uL (150-450); Red Blood Count 5.06 10^6/uL (4.70-6.10); Red Cell Distribution Width 12.7 % (11.0-15.0); White Blood Count 7.1 10^3/uL (4.0-11.0)
[2024-10-23 14:01] LABS: Troponin I High Sensitivity <4.0 pg/mL (4.0-76.1)
[2024-10-23 14:02] LABS: INR 0.96; Prothrombin Time 10.2 sec (9.0-11.6)
[2024-10-23 14:06] LABS: Alanine Aminotransferase 37 U/L (16-63); Albumin Globulin Ratio 1.1; Albumin Level 3.7 g/dL (3.4-5.0); Alkaline Phosphatase 94 U/L (46-116); Anion Gap 8.6; Aspartate Amino Transferase 20 U/L (15-37); BUN Creatinine Ratio 11.6; Bilirubin Total 0.5 mg/dL (0.2-1.0); Calcium 8.9 mg/dL (8.5-10.1); Carbon Dioxide 31.5 mmol/L (21.0-32.0); Chloride 102 mmol/L (98-107); Estimated GFR (African America >60 (>=60 mL/min/1.73m^2); Estimated GFR (Non-African Ame >60 (>=60 mL/min/1.73m^2); Globulin 3.5 g/dL; Glucose 115 mg/dL (74-106); Potassium 4.1 mmol/L (3.5-5.1); Sodium 138 mmol/L (136-145); Total Protein 7.2 g/dL (6.4-8.2)
== END 2024-10-23 15:48 | disposition home or self-care (01) ==
PROVIDERS: Physician Assistant; Emergency Provider Emergency Medicine; PCP Family Medicine
DX: H53.9 Unspecified visual disturbance (principal); I10 Essential (primary) hypertension; E78.00 Pure hypercholesterolemia, unspecified; F41.9 Anxiety disorder, unspecified
CPT/HCPCS: 36415; 70450; 70496; 70498; 80053; 84484; 85025; 85610; 93005; 99285; Q9967

== ENCOUNTER 2024-12-17 10:31 | Emergency (ER) | payer OTHER, SELFPAY ==
[2024-12-17 10:36] VITALS: BP 145/70; PULSE 105; TEMP 36.8; O2SAT 97; BMI 22.1
[2024-12-17 11:20] LABS: Influenza Virus A Antigen Positive; Influenza Virus B Antigen Negative; Internal Control Within Normal Limits; SARS-CoV-2 Ag NEGATIVE (NEGATIVE)
--- OUTSIDE RECORDS SUMMARY | 2024-12-17 11:34 | XMS_ITS | CCD ---
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 Name Role Phone Ayad Lawrence Unavailable Carter Fitzpatrick Primary Care Provider No, Referral Unavailable Unavailable Jose Cruz RUSSELL, Wai Dorantes Unavailable [phone] AMARI, DR CARTER Quintanilla Admitting Unavailable NADERER, [...] Admitting Unavailable FAWWAD, BECKETT H Attending Unavailable [place], DR MARSHAL Tanner Consulting Unavailable NADERER, DR CARTER Quintanilla Primary Care Unavailable FAWWAD, BECKETT H Consulting Unavailable ALLEN ., DR ETHAN Nunes Attending Unavailable ALLEN ., DR ETHAN Nunes Admitting Unavailable ALLEN ., DR ETHAN Nunes Consulting Unavailable NADEREVashit, DR CARTER Quintanilla Primary Care Unavailable ALLEN [...] Nunes Consulting Unavailable No, Referral Unavailable Unavailable Jose Cruz RUSSELL, Wai Dorantes Unavailable Amari, Carter Quintanilla Primary Care Provider Carter Fitzpatrick MD Primary Care Provider Carter Fitzpatrick MD Primary Care Provider [phone] WAI BILLINGSLEY Attending Unavailable WAI BILLINGSLEY Referring Unavailable NADCHARLIE, CARTER Quintanilla Primary Care Unavailable WAI BILLINGSLEY Referring Unavailable AMARI, CARTER Quintanilla Primary Care Unavailable AMARI, CARETR Attending Unavailable CINTHIA PRECIADO Attending Unavailable NADERER, CARTER Attending Unavailable NADEREVashti, CARTER Attending Unavailable Allergies Allergy Classification Reported Allergen(s) Allergy Type Date of Onset Reaction(s) Facility (1 source) penicillAMINE Drug Allergy Unknown [facility] Other (19 sources) Penicillin; Translations: [PENICILLIN] Drug Allergy 11-01-20 17 Unknown [facility] (19 sources) Thiazides; Translations: [THIAZIDES] Drug Intolerance 02-04-20 19 GI Upset [facility] Work Phone: (2 sources) Penicillins Drug allergy (disorder) 11-17-20 16 [facility] (6 sources) cefdinir Drug Allergy 03-26-20 24 [facility] (6 sources) Penicillin G Drug Allergy 11-01-20 17 Hives, Unknown [facility] (6 sources) Other Propensity to adverse reactions 02-04-20 19 GI intolerance [facility] Medications Current Medications Medication Drug Class(es) [...] atorvastatin (Lipitor) 10 MG tablet Indications: Dyslipidemia (CMS/HCC) Take 1 tablet (10 mg) by mouth at bedtime 90 tablet 3 03/04/2024 Active Comment on above: Take 10 mg by mouth once daily. LORazepam 0.5 mg oral tablet (20 sources) Benzodiazepine Start: 07-04-20 End: 09-18-20 take 1 tablet by mouth three times daily as needed LORazepam (Ativan) 0.5 MG tablet Indications: BAN (generalized anxiety disorder) (CMS/HCC) Take 1 tablet by mouth three times daily as needed 90 tablet 2 09/18/2024 Active Comment on above: Take 0.5 mg by mouth three times daily as needed. 0.25mg in the morning and afternoon and 0.5mg in the evening lutein 20 mg oral capsule (6 sources) take 1 capsule by mouth once daily Lutein 20 MG capsule Take 20 mg by mouth Daily Active Magnesium glycinate (6 sources) End: 11-03-20 Magnesium Glycinate powder 200 mg Daily 11/03/2024 Discontinued Magnesium Glycin ate powder 200 mg Daily Active 24 hr metoprolol succinate 50 mg extended release oral tablet (20 sources) beta-Adrenergic Edwar Start: 10-21-2024 take 1 tablet by mouth twice daily metoprolol succinate XL (Toprol-XL) 50 MG 24 hr tablet Indications: Hypertension, unspecified type (CMS/HCC) Take 1 tablet by mouth twice daily 180 tablet 10/21/2024 Active Start: 10-29-2023 take 1 tablet by césar th twice daily metoprolol succinate XL (Toprol-XL) 50 [...] at night Take 2 tablets by mo ut twice daily. Taking 1 1/2 in morning and 25 mg at night Take 1 tablet by césar th twice daily. Multiple Vitamin (multivitamin) tablet (6 sources) take 1 tablet by mouth once [...] Date Documented Da te Episodic/Chronic Anxiety disorders (14 sources) Anxiety disorder, unspecified; Translations: [Generalized anxiety disorder] Onset: 11-07-2022 03-04-2024 Chronic Cardiac dysrhythmias (1 source) Unspecified atrial fibrillation; Translations: [UNSPECIFIED ATRIAL FIBRILLATION] Onset: 10-31-2022 Chronic Disorders of lipid metabolism (10 sources) Hyperlipidemia, unspecified; Translations: [Pure hypercholesterolemi a, unspecified] Onset: 10-31-2022 03-04-2024 Chronic Essential hypertension (9 sources) Essential hypertension; Translations: [Essential (primary) hypertension] Onset: 11-07-2022 Chronic Headache; including migraine (7 sources) Migraine, unspecified, not intractable, without status migrainosus; 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] Onset: 09-25-2022 03-26-2024 Chronic Headache; including migraine (1 source) Headache; including migraine; Translations: [HEADACHE UNSPECIFIED] Onset: 11-05-2022 Heart valve disorders (4 sources) Mitral valve regurgitation; Translations: [Nonrheumatic mitral (valve) insufficiency] Onset: 12-27-2023 Chronic Other aftercare (5 sources) Other snf (current) drug therapy; Translations: [OTH USP CURRENT DRUG THERAPY] Onset: 11-07-2022 Episodic Other aftercare (5 sources) Long-term current use of drug therapy; Translations: [Other snf (current) drug therapy] Onset: 09-08-2024 09-08-2024 Episodic Other connective tissue disease (1 source) Myalgia, unspecified site; Translations: [MYALGIA UNSPECIFIED SITE] Onset: 01-17-2023 Episodic Other eye disorders (4 sources) Posterior vitreous degeneration of left eye; Translations: [Vitreous degeneration, left eye] Onset: 11-03-2024 11-03-2024 Chronic Other nervous system disorders (1 source) Polyneuropathy; [...] Episodic Other nutritional; endocrine; and metabolic disorders (6 sources) Hypomagnesemia; Translations: [Hypomagnesemia] Onset: 03-04-2024 03-04-2024 Chronic Other screening for suspected conditions (not mental disorders or infectious disease) (6 sources) Encounter for screening for malignant neoplasm of prostate; Translations: [Patient encounter status] Onset: 06-24-2022 09-08-2024 Episodic Residual codes; unclassified (6 sources) Obstructive sleep apnea syndrome; Translations: [Obstructive sleep apnea (adult) (pediatric)] Onset: 03-04-2024 03-04-2024 Chronic Residual codes; unclassified (6 sources) Hypersomnia; Translations: [Hypersomnia, unspecified] Onset: 03-26-2024 03-26-2024 Chronic Residual codes; unclassified (1 source) Treatment not available; Translations: [Procedure and treatment not carried out for other reasons] Episodic Spondylosis; intervertebral disc disorders; other back problems (14 sources) Lumbar spondylosis; Translations: [Spondylosis without myelopathy [...] Problem Date Documented Date Episodic/Chronic Abdominal hernia (6 sources) Gastroesophageal reflux disease with hiatal hernia; Translations: [Diaphragmatic hernia without obstruction or gangrene] Onset: 03-04-2024 03-04-2024 Episodic Cardiac dysrhythmias (20 sources) Palpitations; Translations: [Palpitations] Onset: 04-22-2019 04-22-2019 Episodic Conditions associated with dizziness or vertigo (4 sources) Dizziness and giddiness; Translations: [DIZZINESS AND GIDDINESS] Onset: 11-01-2022 Episodic Diabetes mellitus without complication (6 sources) Prediabetes; Translations: [Prediabetes] Onset: 03-04-2024 03-04-2024 Episodic Headache; including migraine (6 sources) Headache; Translations: [Head ache] Onset: 03-04-2024 03-04-2024 Episodic Malaise and fatigue (7 sources) Weakness; Translations: [Right hemiparesis] Onset: 11-05-2022 [...] Onset: 09-21-2022 Episodic Other nervous system disorders (6 sources) Facial paresthesia; Translations: [Paresthesia of skin] Onset: 03-26-2024 03-26-2024 Episodic Other non-traumatic joint disorders (6 sources) Chronic pain of left upper limb; Translations: [Pain in left shoulder] Onset: 03-04-2024 03-04-2024 Episodic Unclassified (1 source) LOW BACK PAIN, UNSPECIFIED; Translations: [LOW BACK PAIN, UNSPECIFIED] Onset: 09-26-2022 Results Test Name Value Interpretation Reference Range Facility ALL BASIC METABOLIC PANELon 10-01-2024 Anion gap [Moles/Vol] 13.2 mmol/L [facility] Calcium [Mass/Vol] 8.7 mg/dL 8.5 - 10. 1 mg/dL [facility] Chloride [Moles/Vol] 106 mmol/L 98 - 10 7 mmol/L [facility] CO2 [Moles/Vol] 28.4 mmol/L 21.0 - 32.0 mmol/L [facility] Creatinine [Mass/Vol] 1.03 mg/dL 0.70 - 1.30 mg/dL [facility] GFR/1.73 sq M.predicted CKD-EPI (S/P/Bld) [Vol rate/Area] >60 >=60 mL/min/1.73m 2 [facility] Glucose [Mass/Vol] 97 mg/dL 74 - 106 mg/dL [facility] Potassium [Moles/Vol] 4.6 mmol/L 3.5 - 5.1 mmol/L [facility] Sodium [Moles/Vol] 143 mmol/L 136 - 145 mmol/L [facility] TBH EGFR-NON AF BERMUDIAN >60 >=60 mL/min/1.73m 2 [facility] Urea nitrogen [Mass/Vol] 16 mg/dL 7.0 - 18.0 mg/dL [facility] Urea nitrogen/Creatinine [Mass ratio] 15.5 mg/mg [facility] ALL CBC WITH AUTO DIFFon BASOPHILS ABSOLUTE AUTO 0.1 [facility] Basophils/100 WBC (Bld) 0.6 % 0.2 - 2.0 % [facility] Eosinophils/100 WBC (Bld) 8.7 % High 0.9 - 7.0 % [facility] Erythrocyte distribution width (RBC) [Ratio] 12.5 % 11.0 - 15.0 % [facility] Hematocrit (Bld) [Volume fraction] 42.7 % 42.0 - 54.0 % [facility] Hemoglobin (Bld) [Mass/Vol] 13.5 g/dL Low 14.0 - 18.0 g/dL [facility] IMMATURE GRANULOCYTES ABS AUTO 0.01 [facility] Immature granulocytes/100 WBC (Bld) 0.1 % 0.0 - 0.5 % [facility] Interpretation and review of laboratory results Abnormal [facility] LYMPHOCYTES ABSOLUTE AUTO 2.2 [facility] Lymphocytes/100 WBC (Bld) 27.8 % 20.5 - 60.0 % [facility] MCH (RBC) [Entitic mass] 28 pg 25.9 - 34.0 pg [facility] MCHC (RBC) [Mass/Vol] 31.6 g/dL 29.9 - 35.2 g/dL [facility] MCV (RBC) [Entitic vol] 88.6 fL 80.0 - 94.0 fL [facility] MONOCYTES ABSOLUTE AUTO 0.8 [facility] Monocytes/100 WBC (Bld) 10.4 % 1.7 - 12.0 % [facility] NEUTROPHILS ABSOLUTE AUTO 4.1 [facility] Neutrophils/100 WBC (Bld) 52.4 % 43.0 - 75.0 % [facility] Platelet mean volume (Bld) [Entitic vol] 9.7 fL 9.5 - 13.5 fL [facility] TBH EO # 0.7 [facility] TB PLT 263 [facility] RBC 4.82 [facility] WBC 7.9 [facility] ALL LIPID PROFILE (FASTING)o n 10-01-2024 CHOL HDL RATIO 2.2 [facility] Comment on above: 3.3 - 4.4 LOW RISK 4.4 - 7.1 AVERAGE RISK 7.1 - 11.0 MODERATE RISK >11.0 [facility] Cholesterol [Mass/Vol] 133 mg/dL NINF - 200 mg/dL [facility] Cholesterol in HDL [Mass/Vol] 60 mg/dL 40 - 60 mg/dL [facility] Comment on above: > or =60 mg/dl - LOW CARDIOVASCULAR RISK <40 mg/dl - HIGH CARDIOVASCULAR RISK Magnesium [Mass/Vol] 58.8 mg/dL [facility] Comment on above: <100 mg/dl OPTIMAL 100-129 mg/dl NEAR OR ABOVE OPTIMAL 130-159 mg/dl BORDERLINE HIGH 160-189 mg/dl HIGH >190 mg/dl VERY HIGH Magnesium [Mass/Vol] 14.2 mg/dL [facility] Triglyceride [Mass/Vol] 71 mg/dL NINF - 150 mg/dL [facility] ALL MAGNESIUMon 10-01-2024 Magnesium [Mass/Vol] 2.2 mg/dL 1.8 - 2 .4 mg/dL [facility] HMHP LIVER PANELon Albumin [Mass/Vol] 3.4 g/dL 3.4 - 5.0 g/dL [facility] ALBUMIN GLOBULIN RATIO 1.1 [facility] ALP [Catalytic activity/Vol] 92 U/L 46 - 116 U/L [facility] ALT [Catalytic activity/Vol] 34 U/L 16 - 63 U/L [facility] AST [Catalytic activity/Vol] 18 U/L 15 - 37 U/L [facility] Bilirubin [Mass/Vol] 0.5 mg/dL 0.2 - 1 .0 mg/dL [facility] Bilirubin.indirect [Mass/Vol] 0.1 mg/dL 0.0 - 0.2 mg/dL [facility] Globulin (S) [Mass/Vol] 3.2 g/dL [facility] Protein [Mass/Vol] 6.6 g/dL 6.4 - 8.2 g/dL [facility] MLR HEMOGLOBIN A1Con 024 Glucose [Mass/Vol] 123 mg/dL [facility] HbA1c (Bld) [Mass fraction] 5.9 % 4.5 - 6.2 % [facility] Comment on above: ADA RECOMMENDED LIMI T 4.0 - 6.0 ADA THERAPEUTIC TARGET < 7.0 ACTION SUGGESTED > 7.0 [facility] No Panel Informationon 10-01 [facility] SRMCOH PROSTATE SPECIFIC ANT IGEN SCRNon 10-01-2024 PROSTATE SPECIFIC ANTIGEN SCRN 3.24 ng/mL NINF - 4.00 ng/mL [facility] CNOVon 12-27-2023 CNOV Office Visit (CAREL[place] ) MARSHAL GARRISON ([id number]) 1950 M Date Time Provider Department 12/27/23 3:00 PM WAI BILLINGSLEY During your visit today, we recorded the following information about you: Pulse Blood pressure Weight Height 64/minute 152/72 80.3 kg 1.83 m Wai Billingsley MD 12/27/2023 5:04 PM [facility] [place] Dionicio Armando Department of Cardiovascular Medicine SECTION OF CARDIOVASCULAR IMAGING OUTPATIENT VISIT DATE December 27, 2023 OUTPATIENT VISIT TYPE ESTABLISHED PRIMARY CARE PHYSICIAN: Carter Fitzpatrick MD ([facility]) [address] [place] [address] REFERRING PHYSICIAN: Katerin Billingsley [address] [address] CHIEF COMPLAINT: Follow up HISTORY OF PRESENT [...] - Exam was compared with the prior CC echocardiographic exam performed on 11/16/2022. No significant changes. * * * Final * * * Last EKG Result Conclusion ECG COMPLETE Collected: 03/05/2023 1:18 PM (Final result) Impression: NORMAL SINUS RHYTHM NORMAL ECG Confirmed by BILLIE CALLES MD ([id number]) on 03/07/2023 9:46:24 AM IMPRESSION: Mr. Garrison is a 73 year old male with multiple + stable mild to moderate mitral regurgitation. Active (more content not included)... Normal [facility] ECHOon 12-27-2023 Echocardiography Echocardiography Report: Transthoracic Echo [facility] [id number] Date of service: 12/27/2023 1:06:51 PM LEADER Ordering physician: WAI BILLINGSLEY Indication: Mitral Valve [...] volume 52 ml (biplane A-L) 25 ml/m Por <= 34 LV ID (diastole) 4.1 cm [...] * * * Final * * * [facility] : [id number] Normal [facility] CBC AUTO DIFFon 12-29-2022 BASO # 0.1 103/ul Normal 0.0-0.1 [facility] Comment on above: Performed By: #### C BC #### [facility] [address] [address] [address] Abhay Farr Basophils/100 WBC (Bld) 0.6 % Normal 0.2-2.0 [facility] Comment on above: Performed By: #### C BC #### [facility] [address] [address] [address] Abhay Farr EO # 0.2 103/ul Normal 0.0-0.7 [facility] Comment on above: Performed By: #### C BC #### [facility] [address] [place] [address] [address] Abhay Farr Eosinophils/100 WBC (Bld) 2.5 % Normal 0.9-7.0 [facility] Comment on above: Performed By: #### C BC #### [facility] [address] [place] [address] Dr. Abhay Farr Erythrocyte distribution width (RBC) [Ratio] 12.6 % Normal 11.0-15.0 [facility] Comment on above: Performed By: #### C BC #### [facility] [address] [place] [address] Dr. Abhay Farr Hematocrit (Bld) [Volume fraction] 43.1 % Normal 42.0-54.0 [facility] Comment on above: Performed By: #### C BC #### [facility] [address] [place] [address] Dr. Abhay Farr Hemoglobin (Bld) [Mass/Vol] 13.6 g/dL Critically low 14.0-18.0 [facility] Comment on above: Performed By: #### C BC #### [facility] [address] [place] [address] Dr. Abhay Farr IG # 0.02 10e3/ul Normal 0.00-0.03 [facility] Comment on above: Performed By: #### C BC #### [facility] [address] [place] [address] Dr. Abhay Farr IG % 0.2 % Normal 0.0-0.5 [facility] Comment on above: Performed By: #### C BC #### [facility] [address] [place] [address] Dr. Abhay Farr LYMPH # 2.0 103/ul Normal 1.2-3.8 [facility] Comment on above: Performed By: #### C BC #### [facility] [address] [place] [address] Dr. Abhay Farr Lymphocytes/100 WBC (Bld) 24.4 % Normal 20.5-60.0 [facility] Comment on above: Performed By: #### C BC #### [facility] [address] [place] [address] Dr. Abhay Farr MANUAL DIFF REQ NO Normal [facility] Comment on above: Performed By: #### C BC #### [facility] [address] [address] [address] Abhay Farr MCH (RBC) [Entitic mass] 27.9 pg Normal 25.9-34.0 [facility] Comment on above: Performed By: #### C BC #### [facility] [address] [place] [address] Dr. Abhay Farr MCHC (RBC) [Mass/Vol] 31.6 g/dL Normal 29.9-35.2 [facility] Comment on above: Performed By: #### C BC #### [facility] [address] [place] [address] Dr. Abhay Farr MCV (RBC) [Entitic vol] 88.5 fL Normal 80.0-94.0 [facility] Comment on above: Performed By: #### C BC #### [facility] [address] [place] [address] Dr. Abhay Farr MONO # 0.8 103/ul Normal 0.3-0.8 [facility] Comment on above: Performed By: #### C BC #### [facility] [address] [place] [address] Dr. Abhay Farr Monocytes/100 WBC (Bld) 9.5 % Normal 1.7-12.0 [facility] Comment on above: Performed By: #### C BC #### [facility] [address] [place] [address] Dr. Abhay Farr NEUT # 5.1 103/ul Normal 1.4-6.5 [facility] Comment on above: Performed By: #### C BC #### [facility] [address] [place] [address] Dr. Abhay Farr Neutrophils/100 WBC (Bld) 62.8 % Normal 43.0-75.0 [facility] Comment on above: Performed By: #### C BC #### [facility] [address] [place] [address] Dr. Abhay Farr Platelet mean volume (Bld) [Entitic vol] 9.2 fL Critically low 9.5-13.5 [facility] Comment on above: Performed By: #### C BC #### [facility] [address] [place] [address] Dr. Abhay Farr PLT 272 103/ul Normal 150-450 [facility] Comment on above: Performed By: #### C BC #### [facility] [address] [place] [address] Dr. Abhay Farr RBC 4.87 106/ul Normal 4.70-6.10 [facility] Comment on above: Performed By: #### C BC #### [facility] [address] [place] [address] Dr. Abhay Farr WBC 8.0 103/ul Normal 4.0-11.0 [facility] Comment on above: Performed By: #### C BC #### [facility] [address] [place] [address] Dr. Abhay Farr MAGNESIUMon 12-29-2022 Magnesium [Mass/Vol] 2.0 mg/dL Normal 1.8-2.4 [facility] Comment on above: Performed By: #### M G, BMP #### [facility] [address] [place] [address] Dr. Abhay Farr PROF CHEM 8 (BAS METB)on Anion gap [Moles/Vol] 11.4 mmol/L Normal [facility] Comment on above: Performed By: #### M G, BMP #### [facility] [address] [place] [address] Dr. Abhay Farr Calcium [Mass/Vol] 8.9 mg/dL Normal 8.5-10.1 [facility] Comment on above: Performed By: #### M G, BMP #### [facility] [address] [place] [address] Dr. Abhay Farr Chloride [Moles/Vol] 98 mmol/L Normal 98-107 [facility] Comment on above: Performed By: #### M G, BMP #### [facility] [address] [place] [address] Dr. Abhay Farr CO2 [Moles/Vol] 30.1 mmol/L Normal 21.0-32.0 [facility] Comment on above: Performed By: #### M G, BMP #### [facility] [address] [address] [address] Abhay Farr Creatinine [Mass/Vol] 0.94 mg/dL Normal 0.70-1.30 [facility] Comment on above: Performed By: #### M G, BMP #### [facility] [address] [address] [address] Abhay Farr EGFR-AF BERMUDIAN >60 Normal >=60 [facility] Comment on above: Performed By: #### M G, BMP #### [facility] [address] [address] [address] Abhay Farr EGFR-NON AF BERMUDIAN >60 Normal >=60 [facility] Comment on above: Performed By: #### M G, BMP #### [facility] [address] [place] [address] Dr. Abhay Farr Glucose [Mass/Vol] 108 mg/dL Critically high 74-106 [facility] Comment on above: Performed By: #### M G, BMP #### [facility] [address] [address] [address] Abhay Farr Potassium [Moles/Vol] 4.5 mmol/L Normal 3.5-5.1 [facility] Comment on above: Performed By: #### M G, BMP #### [facility] [address] [place] [address] Dr. Abhay Farr Sodium [Moles/Vol] 135 mmol/L Critically low 136-145 [facility] Comment on above: Performed By: #### M G, BMP #### [facility] [address] [address] [address] Abhay Farr Urea nitrogen [Mass/Vol] 15.0 mg/dL Normal 7.0-18.0 [facility] Comment on above: Performed By: #### M G, BMP #### [facility] [address] [address] [address] Abhay Farr Urea nitrogen/Creatinine [Mass ratio] 16.0 mg/mg Normal [facility] Comment on above: Performed By: #### M G, BMP #### [facility] [address] [place] [address] [address] Abhay Farr Covid-19 PCR (CVDTB)on SARS-CoV-2 (COVID-19) RNA FARIHA+probe Ql (Unsp spec) Not detected Normal NOT DETECTED [facility] Comment on above: Result Comment: This test is not yet approved or cleared by the [place] FDA. When there are no FDA-approved or cleared tests available, and other criteria are met, FDA can make tests available under an emergency access mechanism called an Emergency Use Authorization (EUA). The EUA for this test is supported by the [place] of Health and Human Service's (HHS's) declaration [...] SARS-CoV-2. Performed By: #### C VDTB #### [facility] [address] [place] [address] Dr. Abhay Farr ECG COMPLETEon 11-17-2022 Atrial Rate 76 BPM [facility] Calculated P [place] 63 degrees [facility] Calculated R [place] 38 degrees [facility] Calculated T [place] 65 degrees [facility] P-R Interval 174 ms [facility] QRS Duration 84 ms [facility] QT Interval 362 ms [facility] QTC Calculation ([place]azett) 407 ms [facility] Ventricular Rate 76 BPM [facility] ECHOon 11-16-2022 [facility] CBC AUTO DIFFon 11-05-2022 BASO # 0.1 103/ul Normal 0.0-0.1 [facility] Comment on above: Performed By: #### C BC #### [facility] [address] [address] [address] Abhay Farr Basophils/100 WBC (Bld) 0.8 % Normal 0.2-2.0 [facility] Comment on above: Performed By: #### C BC #### [facility] [address] [place] [address] Dr. Abhay Farr EO # 0.4 103/ul Normal 0.0-0.7 [facility] Comment on above: Performed By: #### C BC #### [facility] [address] [place] [address] Dr. Abhay Farr Eosinophils/100 WBC (Bld) 4.8 % Normal 0.9-7.0 [facility] Comment on above: Performed By: #### C BC #### [facility] [address] [place] [address] Dr. Abhay Farr Erythrocyte distribution width (RBC) [Ratio] 12.9 % Normal 11.0-15.0 [facility] Comment on above: Performed By: #### C BC #### [facility] [address] [place] [address] Dr. Abhay Farr Hematocrit (Bld) [Volume fraction] 42.6 % Normal 42.0-54.0 [facility] Comment on above: Performed By: #### C BC #### [facility] [address] [place] [address] Dr. Abhay Farr Hemoglobin (Bld) [Mass/Vol] 13.7 g/dL Critically low 14.0-18.0 [facility] Comment on above: Performed By: #### C BC #### [facility] [address] [place] [address] Dr. Abhay Farr IG # 0.01 10e3/ul Normal 0.00-0.03 [facility] Comment on above: Performed By: #### C BC #### [facility] [address] [place] [address] Dr. Abhay Farr IG % 0.1 % Normal 0.0-0.5 [facility] Comment on above: Performed By: #### C BC #### [facility] [address] [place] [address] Dr. Abhay Farr LYMPH # 2.0 103/ul Normal 1.2-3.8 [facility] Comment on above: Performed By: #### C BC #### [facility] [address] [place] [address] Dr. Abhay Farr Lymphocytes/100 WBC (Bld) 27.5 % Normal 20.5-60.0 [facility] Comment on above: Performed By: #### C BC #### [facility] [address] [place] [address] Dr. Abhay Farr MANUAL DIFF REQ NO Normal [facility] Comment on above: Performed By: #### C BC #### [facility] [address] [place] [address] Dr. Abhay Farr MCH (RBC) [Entitic mass] 27.5 pg Normal 25.9-34.0 [facility] Comment on above: Performed By: #### C BC #### [facility] [address] [place] [address] Dr. Abhay Farr MCHC (RBC) [Mass/Vol] 32.2 g/dL Normal 29.9-35.2 [facility] Comment on above: Performed By: #### C BC #### [facility] [address] [place] [address] Dr. Abhay Farr MCV (RBC) [Entitic vol] 85.4 fL Normal 80.0-94.0 [facility] Comment on above: Performed By: #### C BC #### [facility] [address] [place] [address] Dr. Abhay Farr MONO # 0.7 103/ul Normal 0.3-0.8 [facility] Comment on above: Performed By: #### C BC #### [facility] [address] [place] [address] Dr. Abhay Farr Monocytes/100 WBC (Bld) 9.5 % Normal 1.7-12.0 [facility] Comment on above: Performed By: #### C BC #### [facility] [address] [place] [address] Dr. Abhay Farr NEUT # 4.2 103/ul Normal 1.4-6.5 [facility] Comment on above: Performed By: #### C BC #### [facility] [address] [address] [address] Abhay Farr Neutrophils/100 WBC (Bld) 57.3 % Normal 43.0-75.0 [facility] Comment on above: Performed By: #### C BC #### [facility] [address] [address] [address] Abhay Farr Platelet mean volume (Bld) [Entitic vol] 8.9 fL Critically low 9.5-13.5 [facility] Comment on above: Performed By: #### C BC #### [facility] [address] [address] [address] Abhay Farr PLT 252 103/ul Normal 150-450 [facility] Comment on above: Performed By: #### C BC #### [facility] [address] [place] [address] Dr. Abhay Farr RBC 4.99 106/ul Normal 4.70-6.10 [facility] Comment on above: Performed By: #### C BC #### [facility] [address] [place] [address] Dr. Abhay Farr WBC 7.3 103/ul Normal 4.0-11.0 [facility] Comment on above: Performed By: #### C BC #### [facility] [address] [place] [address] STROKE HEAD WOon 11-05-20 CT STROKE HEAD WO EXAM: CT STROKE [...] JACOB DUKE Date: 2022-11-04 23:27 Normal [facility] PROF 14(COMP METB)on 022 Albumin [Mass/Vol] 3.6 g/dL Normal 3.4-5.0 [facility] Comment on above: Performed By: #### U MICRO, ERUR #### [facility] [address] [place] [address] Dr. Abhay Farr Albumin/Globulin [Mass ratio] 1.0 {ratio} Normal [facility] Comment on above: Performed By: #### U MICRO, ERUR #### [facility] [address] [place] [address] Dr. Abhay Farr ALP [Catalytic activity/Vol] 92 U/L Normal 46-116 [facility] Comment on above: Performed By: #### U MICRO, ERUR #### [facility] [address] [place] [address] Dr. Abhay Farr ALT [Catalytic activity/Vol] 53 U/L Normal 16-63 [facility] Comment on above: Performed By: #### U MICRO, ERUR #### [facility] [address] [place] [address] Dr. Abhay Farr Anion gap [Moles/Vol] 10.1 mmol/L Normal [facility] Comment on above: Performed By: #### U MICRO, ERUR #### [facility] [address] [place] [address] Dr. Abhay Farr AST [Catalytic activity/Vol] 24 U/L Normal 15-37 [facility] Comment on above: Performed By: #### U MICRO, ERUR #### [facility] [address] [place] [address] Dr. Abhay Farr Bilirubin [Mass/Vol] 0.5 mg/dL Normal 0.2-1.0 [facility] Comment on above: Performed By: #### U MICRO, ERUR #### [facility] [address] [place] [address] Dr. Abhay Farr Calcium [Mass/Vol] 8.9 mg/dL Normal 8.5-10.1 [facility] Comment on above: Performed By: #### U MICRO, ERUR #### [facility] [address] [place] [address] Dr. Abhay Farr Chloride [Moles/Vol] 98 mmol/L Normal 98-107 [facility] Comment on above: Performed By: #### U MICRO, ERUR #### [facility] [address] [place] [address] Dr. Abhay Farr CO2 [Moles/Vol] 27.7 mmol/L Normal 21.0-32.0 [facility] Comment on above: Performed By: #### U MICRO, ERUR #### [facility] [address] [place] [address] Dr. Abhay Farr Creatinine [Mass/Vol] 0.91 mg/dL Normal 0.70-1.30 [facility] Comment on above: Performed By: #### U MICRO, ERUR #### [facility] [address] [place] [address] Dr. Abhay Farr EGFR-AF BERMUDIAN >60 Normal >=60 [facility] Comment on above: Performed By: #### U MICRO, ERUR #### [facility] [address] [place] [address] Dr. Abhay Farr EGFR-NON AF BERMUDIAN >60 Normal >=60 [facility] Comment on above: Performed By: #### U MICRO, ERUR #### [facility] [address] [place] [address] Dr. Abhay Farr Globulin (S) [Mass/Vol] 3.6 g/dL Normal [facility] Comment on above: Performed By: #### U MICRO, ERUR #### [facility] [address] [place] [address] Dr. Abhay Farr Glucose [Mass/Vol] 108 mg/dL Critically high 74-[address] [facility] Comment on above: Performed By: #### U MICRO, ERUR #### [facility] [address] [place] [address] Dr. Abhay Farr Potassium [Moles/Vol] 3.8 mmol/L Normal 3.5-5.1 [facility] Comment on above: Performed By: #### U MICRO, ERUR #### [facility] [address] [place] [address] Dr. Abhay Farr Protein [Mass/Vol] 7.2 g/dL Normal 6.4-8.2 [facility] Comment on above: Performed By: #### U MICRO, ERUR #### [facility] [address] [place] [address] Dr. Abhay Farr Sodium [Moles/Vol] 132 mmol/L Critically low 136-145 [facility] Comment on above: Performed By: #### U MICRO, ERUR #### [facility] [address] [place] [address] Dr. Abhay Farr Urea nitrogen [Mass/Vol] 13.0 mg/dL Normal 7.0-18.0 [facility] Comment on above: Performed By: #### U MICRO, ERUR #### [facility] [address] [place] [address] Dr. Abhay Farr Urea nitrogen/Creatinine [Mass ratio] 14.3 mg/mg Normal [facility] Comment on above: Performed By: #### U MICRO, ERUR #### [facility] [address] [place] [address] Dr. Abhay Farr MRI BRAIN WO W CONon 022 MRI BRAIN WO W CON EXAMINATION: MRI BRAIN WO W CON HISTORY: Asthenia ; follow-up [...] by: JONO TRINIDAD Date: 2022-11-03 08:13 Normal [facility] US CAROTID ART BILon 022 US CAROTID ART ARNIE EXAMINATION: US [...] by: MARSHAL VELÁSQUEZ Date: 2022-11-02 09:[address] [facility] [address] STROKE HEAD WOon 10-29-20 22 [...] effect consistent with small vessel ischemic change. VENTRICLES/EXTRA-AXIA L SPACES: Multiple for patient's age. SINUSES/MASTOIDS: Lizeth [...] by: ANDREWS THOMPSON Date: 2022-10-28 22:41 Normal [facility] XR CHEST 1 Von 10-29-2022 XR [...] by: LUCIAN NG Date: 2022-10-28 22:40 Normal [facility] CBC AUTO DIFFon 10-28-2022 BASO # 0.1 103/ul Normal 0.0-0.1 [facility] Comment on above: Performed By: #### C BC #### [facility] [address] [address] [address] Abhay Farr Basophils/100 WBC (Bld) 0.7 % Normal 0.2-2.0 [facility] Comment on above: Performed By: #### C BC #### [facility] [address] [place] [address] Dr. Abhay Farr EO # 0.4 103/ul Normal 0.0-0.7 [facility] Comment on above: Performed By: #### C BC #### [facility] [address] [place] [address] Dr. Abhay Farr Eosinophils/100 WBC (Bld) 4.2 % Normal 0.9-7.0 [facility] Comment on above: Performed By: #### C BC #### [facility] [address] [place] [address] Dr. Abhay Farr Erythrocyte distribution width (RBC) [Ratio] 12.9 % Normal 11.0-15.0 [facility] Comment on above: Performed By: #### C BC #### [facility] [address] [place] [address] Dr. Abhay Farr Hematocrit (Bld) [Volume fraction] 42.4 % Normal 42.0-54.0 [facility] Comment on above: Performed By: #### C BC #### [facility] [address] [place] [address] Dr. Abhay Farr Hemoglobin (Bld) [Mass/Vol] 13.4 g/dL Critically low 14.0-18.0 [facility] Comment on above: Performed By: #### C BC #### [facility] [address] [place] [address] Dr. Abhay Farr IG # 0.03 10e3/ul Normal 0.00-0.03 [facility] Comment on above: Performed By: #### C BC #### [facility] [address] [place] [address] Dr. Abhay Farr IG % 0.3 % Normal 0.0-0.5 [facility] Comment on above: Performed By: #### C BC #### [facility] [address] [address] [address] Abhay Farr LYMPH # 2.3 103/ul Normal 1.2-3.8 [facility] Comment on above: Performed By: #### C BC #### [facility] [address] [place] [address] Dr. Abhay Farr Lymphocytes/100 WBC (Bld) 26.4 % Normal 20.5-60.0 [facility] Comment on above: Performed By: #### C BC #### [facility] [address] [place] [address] Dr. Abhay Farr MANUAL DIFF REQ NO Normal [facility] Comment on above: Performed By: #### C BC #### [facility] [address] [place] [address] Dr. Abhay Farr MCH (RBC) [Entitic mass] 27.3 pg Normal 25.9-34.0 [facility] Comment on above: Performed By: #### C BC #### [facility] [address] [place] [address] Dr. Abhay Farr MCHC (RBC) [Mass/Vol] 31.6 g/dL Normal 29.9-35.2 [facility] Comment on above: Performed By: #### C BC #### [facility] [address] [place] [address] Dr. Abhay Farr MCV (RBC) [Entitic vol] 86.5 fL Normal 80.0-94.0 [facility] Comment on above: Performed By: #### C BC #### [facility] [address] [place] [address] Dr. Abhay Farr MONO # 0.8 103/ul Normal 0.3-0.8 [facility] Comment on above: Performed By: #### C BC #### [facility] [address] [place] [address] Dr. Abhay Farr Monocytes/100 WBC (Bld) 9.5 % Normal 1.7-12.0 [facility] Comment on above: Performed By: #### C BC #### [facility] [address] [place] [address] Dr. Abhay Farr NEUT # 5.1 103/ul Normal 1.4-6.5 [facility] Comment on above: Performed By: #### C BC #### [facility] [address] [address] [address] Abhay Farr Neutrophils/100 WBC (Bld) 58.9 % Normal 43.0-75.0 [facility] Comment on above: Performed By: #### C BC #### [facility] [address] [address] [address] Abhay Farr Platelet mean volume (Bld) [Entitic vol] 10.2 fL Normal 9.5-13.5 [facility] Comment on above: Performed By: #### C BC #### [facility] [address] [place] [address] Dr. Abhay Farr PLT 160 103/ul Normal 150-450 [facility] Comment on above: Result Comment: no p lt clumps found Performed By: #### C BC #### [facility] [address] [place] [address] Dr. Abhay Farr RBC 4.90 106/ul Normal 4.70-6.10 [facility] Comment on above: Performed By: #### C BC #### [facility] [address] [place] [address] Dr. Abhay Farr WBC 8.7 103/ul Normal 4.0-11.0 [facility] Comment on above: Performed By: #### C BC #### [facility] [address] [address] [address] Abhay Farr PROF 14(COMP METB)on 022 Albumin [Mass/Vol] 3.6 g/dL Normal 3.4-5.0 [facility] Comment on above: Performed By: #### U MICRO, ERUR #### [facility] [address] [place] [address] Dr. Abhay Farr Albumin/Globulin [Mass ratio] 1.0 {ratio} Normal [facility] Comment on above: Performed By: #### U MICRO, ERUR #### [facility] [address] [address] [address] Abhay Farr ALP [Catalytic activity/Vol] 88 U/L Normal 46-116 [facility] Comment on above: Performed By: #### U MICRO, ERUR #### [facility] [address] [address] [address] Abhay Farr ALT [Catalytic activity/Vol] 47 U/L Normal 16-63 [facility] Comment on above: Performed By: #### U MICRO, ERUR #### [facility] [address] [address] [address] Abhay Farr Anion gap [Moles/Vol] 11.5 mmol/L Normal [facility] Comment on above: Performed By: #### U MICRO, ERUR #### [facility] [address] [place] [address] Dr. Abhay Farr AST [Catalytic activity/Vol] 24 U/L Normal 15-37 [facility] Comment on above: Performed By: #### U MICRO, ERUR #### [facility] [address] [address] [address] Abhay Farr Bilirubin [Mass/Vol] 0.6 mg/dL Normal 0.2-1.0 [facility] Comment on above: Performed By: #### U MICRO, ERUR #### [facility] [address] [address] [address] Abhay Farr Calcium [Mass/Vol] 9.1 mg/dL Normal 8.5-10.1 [facility] Comment on above: Performed By: #### U MICRO, ERUR #### [facility] [address] [place] [address] Dr. Abhay Farr Chloride [Moles/Vol] 97 mmol/L Critically low 98-107 [facility] Comment on above: Performed By: #### U MICRO, ERUR #### [facility] [address] [address] [address] Abhay Farr CO2 [Moles/Vol] 27.6 mmol/L Normal 21.0-32.0 [facility] Comment on above: Performed By: #### U MICRO, ERUR #### [facility] [address] [address] [address] Abhay Farr Creatinine [Mass/Vol] 0.95 mg/dL Normal 0.70-1.30 [facility] Comment on above: Performed By: #### U MICRO, ERUR #### [facility] [address] [address] [address] Abhay Farr EGFR-AF BERMUDIAN >60 Normal >=60 [facility] Comment on above: Performed By: #### U MICRO, ERUR #### [facility] [address] [address] [address] Abhay Farr EGFR-NON AF BERMUDIAN >60 Normal >=60 [facility] Comment on above: Performed By: #### U MICRO, ERUR #### [facility] [address] [address] [address] Abhay Farr Globulin (S) [Mass/Vol] 3.5 g/dL Normal [facility] Comment on above: Performed By: #### U MICRO, ERUR #### [facility] [address] [address] [address] Abhay Farr Glucose [Mass/Vol] 109 mg/dL Critically high 74-106 [facility] Comment on above: Performed By: #### U MICRO, ERUR #### [facility] [address] [address] [address] Abhay Farr Potassium [Moles/Vol] 4.1 mmol/L Normal 3.5-5.1 [facility] Comment on above: Performed By: #### U MICRO, ERUR #### [facility] [address] [address] [address] Abhay Farr Protein [Mass/Vol] 7.1 g/dL Normal 6.4-8.2 [facility] Comment on above: Performed By: #### U MICRO, ERUR #### [facility] [address] [address] [address] Abhay Farr Sodium [Moles/Vol] 132 mmol/L Critically low 136-145 Th [facility] Comment on above: Performed By: #### U MICRO, ERUR #### [facility] [address] [address] [address] Abhay Farr Urea nitrogen [Mass/Vol] 19.0 mg/dL Critically high 7.0-18.0 [facility] Comment on above: Performed By: #### U MICRO, ERUR #### [facility] [address] [address] [address] Abhay Farr Urea nitrogen/Creatinine [Mass ratio] 20.0 mg/mg Normal [facility] Comment on above: Performed By: #### U MICRO, ERUR #### [facility] [address] [address] [address] Abhay Farr TROPONIN, HIGH SENSITIVITYon 10-28-2022 HSTROP 5.0 pg/mL Normal 4.0-76.1 [facility] Comment on above: Result Comment: CUT- OFF POINTS HAVE BEEN ESTABLISHED BASED ON THE FOURTH UNIVERSAL DEFINITIONS OF MYOCARDIAL INFARCTION. THE UPPER REFERENCE LIMIT (URL) OF TROPONIN, DEFINED THE 99TH PERCENTILE OF cTnI DISTRIBUTION IN A REFERENCE POPULATION, HAS BEEN CONFIRMED THE DECISION THRESHOLD FOR [place] DIAGNOSIS. Performed By: #### U MICRO, ERUR #### [facility] [address] [address] [address] Abhay Farr [facility]on SARS-CoV-2 (COVID-19) RNA FARIHA+probe Ql (Unsp spec) Not detected Normal NOT DETECTED [facility] Comment on above: Result Comment: [...] for this test is supported by the [place] [employer] and Human Service's declaration that [...] Performed By: #### M G, BMP #### [facility] [address] [address] [address] Abhay Farr CBC AUTO DIFFon 09-22-2022 BASO # 0.1 103/ul Normal 0.0-0.1 [facility] Comment on above: Performed By: #### C BC #### [facility] [address] [address] [address] Abhay Farr Basophils/100 WBC (Bld) 0.6 % Normal 0.2-2.0 [facility] Comment on above: Performed By: #### C BC #### [facility] [address] [place] [address] Dr. Abhay Farr EO # 0.1 103/ul Normal 0.0-0.7 [facility] Comment on above: Performed By: #### C BC #### [facility] [address] [place] [address] Dr. Abhay Farr Eosinophils/100 WBC (Bld) 1.4 % Normal 0.9-7.0 [facility] Comment on above: Performed By: #### C BC #### [facility] [address] [place] [address] Dr. Abhay Farr Erythrocyte distribution width (RBC) [Ratio] 12.5 % Normal 11.0-15.0 [facility] Comment on above: Performed By: #### C BC #### [facility] [address] [place] [address] Dr. Abhay Farr Hematocrit (Bld) [Volume fraction] 39.2 % Critically low 42.0-54.0 [facility] Comment on above: Performed By: #### C BC #### [facility] [address] [place] [address] Dr. Abhay Farr Hemoglobin (Bld) [Mass/Vol] 12.6 g/dL Critically low 14.0-18.0 [facility] Comment on above: Performed By: #### C BC #### [facility] [address] [place] [address] Dr. Abhay Farr IG # 0.02 10e3/ul Normal 0.00-0.03 [facility] Comment on above: Performed By: #### C BC #### [facility] [address] [place] [address] Dr. Abhay Farr IG % 0.3 % Normal 0.0-0.5 [facility] Comment on above: Performed By: #### C BC #### [facility] [address] [place] [address] Dr. Abhay Farr LYMPH # 1.4 103/ul Normal 1.2-3.8 [facility] Comment on above: Performed By: #### C BC #### [facility] [address] [place] [address] Dr. Abhay Farr Lymphocytes/100 WBC (Bld) 18.7 % Critically low 20.5-60.0 [facility] Comment on above: Performed By: #### C BC #### [facility] [address] [place] [address] Dr. Abhay Farr MANUAL DIFF REQ NO Normal [facility] Comment on above: Performed By: #### C BC #### [facility] [address] [place] [address] Dr. Abhay Farr MCH (RBC) [Entitic mass] 27.5 pg Normal 25.9-34.0 [facility] Comment on above: Performed By: #### C BC #### [facility] [address] [place] [address] Dr. Abhay Farr MCHC (RBC) [Mass/Vol] 32.1 g/dL Normal 29.9-35.2 [facility] Comment on above: Performed By: #### C BC #### [facility] [address] [place] [address] Dr. Abhay Farr MCV (RBC) [Entitic vol] 85.4 fL Normal 80.0-94.0 [facility] Comment on above: Performed By: #### C BC #### [facility] [address] [place] [address] Dr. Abhay Farr MONO # 0.7 103/ul Normal 0.3-0.8 [facility] Comment on above: Performed By: #### C BC #### [facility] [address] [place] [address] Dr. Abhay Farr Monocytes/100 WBC (Bld) 8.8 % Normal 1.7-12.0 [facility] Comment on above: Performed By: #### C BC #### [facility] [address] [place] [address] Dr. Abhay Farr NEUT # 5.4 103/ul Normal 1.4-6.5 [facility] Comment on above: Performed By: #### C BC #### [facility] [address] [place] [address] Dr. Abhay Farr Neutrophils/100 WBC (Bld) 70.2 % Normal 43.0-75.0 [facility] Comment on above: Performed By: #### C BC #### [facility] [address] [place] [address] Dr. Abhay Farr Platelet mean volume (Bld) [Entitic vol] 9.2 fL Critically low 9.5-13.5 [facility] Comment on above: Performed By: #### C BC #### [facility] [address] [place] [address] Dr. Abhay Farr PLT 249 103/ul Normal 150-450 [facility] Comment on above: Performed By: #### C BC #### [facility] [address] [place] [address] Dr. Abhay Farr RBC 4.59 106/ul Critically low 4.70-6.10 [facility] Comment on above: Performed By: #### C BC #### [facility] [address] [place] [address] Dr. Abhay Farr WBC 7.7 103/ul Normal 4.0-11.0 [facility] Comment on above: Performed By: #### C BC #### [facility] [address] [place] [address] Dr. Abhay Farr PROF 14(COMP METB)on 11-04-2 022 Albumin [Mass/Vol] 3.3 g/dL Critically low 3.4-5.0 Th [facility] Comment on above: Performed By: #### U MICRO, ERUR #### [facility] [address] [place] [address] Dr. Abhay Farr Albumin/Globulin [Mass ratio] 1.1 {ratio} Normal [facility] Comment on above: Performed By: #### U MICRO, ERUR #### [facility] [address] [address] [address] Abhay Farr ALP [Catalytic activity/Vol] 77 U/L Normal 46-116 [facility] Comment on above: Performed By: #### U MICRO, ERUR #### [facility] [address] [place] [address] Dr. Abhay Farr ALT [Catalytic activity/Vol] 52 U/L Normal 16-63 [facility] Comment on above: Performed By: #### U MICRO, ERUR #### [facility] [address] [place] [address] Dr. Abhay Farr Anion gap [Moles/Vol] 7.6 mmol/L Normal [facility] Comment on above: Performed By: #### U MICRO, ERUR #### [facility] [address] [place] [address] Dr. Abhay Farr AST [Catalytic activity/Vol] 18 U/L Normal 15-37 [facility] Comment on above: Performed By: #### U MICRO, ERUR #### [facility] [address] [address] [address] Abhay Farr Bilirubin [Mass/Vol] 0.4 mg/dL Normal 0.2-1.0 [facility] Comment on above: Performed By: #### U MICRO, ERUR #### [facility] [address] [place] [address] Dr. Abhay Farr Calcium [Mass/Vol] 8.2 mg/dL Critically low 8.5-10.1 Th [facility] Comment on above: Performed By: #### U MICRO, ERUR #### [facility] [address] [place] [address] Dr. Abhay Farr Chloride [Moles/Vol] 101 mmol/L Normal 98-107 [facility] Comment on above: Performed By: #### U MICRO, ERUR #### [facility] [address] [place] [address] Dr. Abhay Farr CO2 [Moles/Vol] 28.4 mmol/L Normal 21.0-32.0 [facility] Comment on above: Performed By: #### U MICRO, ERUR #### [facility] [address] [address] [address] Abhay Farr Creatinine [Mass/Vol] 0.79 mg/dL Normal 0.70-1.30 [facility] Comment on above: Performed By: #### U MICRO, ERUR #### [facility] [address] [place] [address] Dr. Abhay Farr EGFR-AF BERMUDIAN >60 Normal >=60 [facility] Comment on above: Performed By: #### U MICRO, ERUR #### [facility] [address] [place] [address] Dr. Abhay Farr EGFR-NON AF BERMUDIAN >60 Normal >=60 [facility] Comment on above: Performed By: #### U MICRO, ERUR #### [facility] [address] [place] [address] Dr. Abhay Farr Globulin (S) [Mass/Vol] 3.1 g/dL Normal [facility] Comment on above: Performed By: #### U MICRO, ERUR #### [facility] [address] [place] [address] Dr. Abhay Farr Glucose [Mass/Vol] 104 mg/dL Normal 74-106 [facility] Comment on above: Performed By: #### U MICRO, ERUR #### [facility] [address] [place] [address] Dr. Abhay Farr Potassium [Moles/Vol] 4.0 mmol/L Normal 3.5-5.1 [facility] Comment on above: Performed By: #### U MICRO, ERUR #### [facility] [address] [place] [address] Dr. Abhay Farr Protein [Mass/Vol] 6.4 g/dL Normal 6.4-8.2 [facility] Comment on above: Performed By: #### U MICRO, ERUR #### [facility] [address] [place] [address] Dr. Abhay Farr Sodium [Moles/Vol] 133 mmol/L Critically low 136-145 Th e [facility] Comment on above: Performed By: #### U MICRO, ERUR #### [facility] [address] [place] [address] Dr. Abhay Farr Urea nitrogen [Mass/Vol] 20.0 mg/dL Critically high 7.0-18.0 [facility] Comment on above: Performed By: #### U MICRO, ERUR #### [facility] [address] [place] [address] Dr. Abhay Farr Urea nitrogen/Creatinine [Mass ratio] 25.3 mg/mg Normal [facility] Comment on above: Performed By: #### U MICRO, ERUR #### [facility] [address] [place] [address] Dr. Abhay Farr PROTIMEon 09-22-2022 INR Coag (PPP) [Relative time] 0.97 {INR} Normal [facility] Comment on above: Performed By: #### M G, BMP #### [facility] [address] [place] [address] Dr. Abhay Farr INR GUIDELINES SEE BELOW Normal [facility] Comment on above: Result Comment: YOLANDE RED INR: 2.0 - 3.0 CONDITIONS NOT LISTED BELOW 2.5 - 3.5 FOR PROSTHETIC HEART VALVE REPLACEMENT 2.5 - 3.5 RECURRENT THROMBOSIS Performed By: #### M G, BMP #### [facility] [address] [place] [address] Dr. Abhay Farr PT Coag (PPP) [Time] 10.5 s Normal 9.0-11.6 [facility] Comment on above: Performed By: #### M G, BMP #### [facility] [address] [place] [address] Dr. Abhay Farr PTTon 09-22-2022 aPTT Coag (Bld) [Time] 26.8 s Normal 22.3-36.2 The [facility] Comment on above: Performed By: #### M G, BMP #### [facility] [address] [place] [address] Dr. Abhay Farr TROPONIN, HIGH SENSITIVITYon 09-22-2022 HSTROP 8.2 pg/mL Normal 4.0-76.1 The [facility] Comment on above: Result Comment: CUT- OFF POINTS HAVE BEEN ESTABLISHED BASED ON THE FOURTH UNIVERSAL DEFINITIONS OF MYOCARDIAL INFARCTION. THE UPPER REFERENCE LIMIT (URL) OF TROPONIN, DEFINED THE 99TH PERCENTILE OF cTnI DISTRIBUTION IN A REFERENCE POPULATION, HAS BEEN CONFIRMED THE DECISION THRESHOLD FOR [place] DIAGNOSIS. Performed By: #### U MICRO, ERUR #### [facility] [address] [place] [address] Dr. Abhay Farr TSHon 09-22-2022 TSH 2.215 uIU/mL Normal 0.358-3.740 The [facility] Comment on above: Performed By: #### U MICRO, ERUR #### [facility] [address] [place] [address] STROKE HEAD WOon 09-21-20 CT STROKE HEAD WO NONCONTRAST CT SCAN [...] help better delineate. Electronically authenticated by: LAITH DAMONING Date: 2022-09-21 21:23 Normal The [facility] ER URINE PROFILEon 2 Bilirubin Ql (U) Negative Normal NEGATIVE [facility] Comment on above: Performed By: #### U MICRO, ERUR #### [facility] [address] [place] [address] Dr. Abhay Farr Clarity (U) CLEAR Normal CLEAR [facility] Comment on above: Performed By: #### U MICRO, ERUR #### [facility] [address] [place] [address] Dr. Abhay Farr Color (U) LT. YELLOW Normal YELLOW [facility] Comment on above: Performed By: #### U MICRO, ERUR #### [facility] [address] [place] [address] Dr. Abhay Farr ERUAHD A micrscopic examination will be performed if indicated. Normal [facility] Comment on above: Performed By: #### U MICRO, ERUR #### [facility] [address] [place] [address] Dr. Abhay Farr Glucose Ql (U) Negative Normal NEGATIVE [facility] Comment on above: Performed By: #### U MICRO, ERUR #### [facility] [address] [place] [address] Dr. Abhay Farr Hemoglobin Ql (U) TRACE-INTACT Abnormal NEGATIVE [facility] Comment on above: Performed By: #### U MICRO, ERUR #### [facility] [address] [place] [address] Dr. Abhay Farr Ketones Ql (U) Negative Normal NEGATIVE [facility] Comment on above: Performed By: #### U MICRO, ERUR #### [facility] [address] [place] [address] Dr. Abhay Farr LEUKOCYTES Negative Normal NEGATIVE [facility] Comment on above: Performed By: #### U MICRO, ERUR #### [facility] [address] [address] [address] Abhay Farr Nitrite Ql (U) Negative Normal NEGATIVE [facility] Comment on above: Performed By: #### U MICRO, ERUR #### [facility] [address] [place] [address] Dr. Abhay Farr pH (U) 5.5 [pH] Normal 5-9 [facility] Comment on above: Performed By: #### U MICRO, ERUR #### [facility] [address] [place] [address] Dr. Abhay Farr SPEC GRAVITY 1.010 Normal 1.005-<=1.025 [facility] Comment on above: Performed By: #### U MICRO, ERUR #### [facility] [address] [place] [address] Dr. Abhay Farr UA PROTEIN Negative Normal NEGATIVE/ TRACE The [facility] Comment on above: Performed By: #### U MICRO, ERUR #### [facility] [address] [place] [address] Dr. Abhay Farr UR MICRO IND INDICATED Normal The [facility] Comment on above: Performed By: #### U MICRO, ERUR #### [facility] [address] [place] [address] Dr. Abhay Farr Urobilinogen Qn (U) 0.2 {Rafy'U}/dL Normal 0.2 - 1. 0 [facility] Comment on above: Performed By: #### U MICRO, ERUR #### [facility] [address] [place] [address] Dr. Abhay Farr URINE MICROSCOPIC ONLYon BACTERIA TRACE Abnormal NONE SEEN The [facility] Comment on above: Performed By: #### U MICRO, ERUR #### [facility] [address] [place] [address] Dr. Abhay Farr Bacteria identified Cx Nom (U) NOT INDICATED Normal The [facility] Comment on above: Performed By: #### U MICRO, ERUR #### [facility] [address] [place] [address] Dr. Abhay Farr CAST NONE SEEN Normal NONE SEEN The [facility] Comment on above: Performed By: #### U MICRO, ERUR #### [facility] [address] [place] [address] Dr. Abhay Farr Crystals LM Nom (Urine sed) NONE SEEN Normal NONE SEEN The [facility] Comment on above: Performed By: #### U MICRO, ERUR #### [facility] [address] [place] [address] Dr. Abhay Farr Epithelial cells LM Ql (Urine sed) NONE SEEN Normal NONE SEEN /RARE The [facility] Comment on above: Performed By: #### U MICRO, ERUR #### [facility] [address] [place] [address] Dr. Abhay Farr MUCOUS NONE SEEN Normal NONE SEEN The [facility] Comment on above: Performed By: #### U MICRO, ERUR #### [facility] [address] [place] [address] Dr. Abhay Farr RBC NONE SEEN Abnormal 0-2 The [facility] Comment on above: Performed By: #### U MICRO, ERUR #### [facility] [address] [place] [address] Dr. Abhay Farr WBC NONE SEEN Normal NONE SEEN The [facility] Comment on above: Performed By: #### U MICRO, ERUR #### [facility] [address] [place] [address] Dr. Abhay Farr XR CHEST 1 Von [...] MARSHAL SALAS Date: 2022-09-21 21:44 Normal The [facility] XR LSPINE 2_3 VIEWSon 2021 XR LSPINE 2_3 VIEWS EXAMINATION: XR LSPINE 2_3 VIEWS HISTORY: Low back pain COMPARISON: 10/18/2021 FINDINGS: BONES: Normal alignment with no acute fracture or spondylolisthesis. Minimal degenerative spondylosis. 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 No paraspinous abnormality is seen. OTHER: Negative. IMPRESSION: Degenerative changes most significant at L5-S1 Electronically authenticated by: MARSHAL VELÁSQUEZ Date: 2022-08-15 18:09 Normal The [facility] CBC AUTO DIFFon 06-20-2022 BASO # 0.1 103/ul Normal 0.0-0.1 [facility] Comment on above: Performed By: #### M G, BMP #### [facility] [address] [address] [address] Abhay Farr Basophils/100 WBC (Bld) 0.9 % Normal 0.2-2.0 [facility] Comment on above: Performed By: #### M G, BMP #### [facility] [address] [address] [address] Abhay Farr EO # 0.3 103/ul Normal 0.0-0.7 [facility] Comment on above: Performed By: #### M G, BMP #### [facility] [address] [address] [address] Abhay Farr Eosinophils/100 WBC (Bld) 3.8 % Normal 0.9-7.0 [facility] Comment on above: Performed By: #### M G, BMP #### [facility] [address] [address] [address] Abhay Farr Erythrocyte distribution width (RBC) [Ratio] 12.5 % Normal 11.0-15.0 [facility] Comment on above: Performed By: #### M G, BMP #### [facility] [address] [address] [address] Abhay Farr Hematocrit (Bld) [Volume fraction] 43.2 % Normal 42.0-54.0 [facility] Comment on above: Performed By: #### M G, BMP #### [facility] [address] [address] [address] Abhay Farr Hemoglobin (Bld) [Mass/Vol] 13.5 g/dL Critically low 14.0-18.0 [facility] Comment on above: Performed By: #### M G, BMP #### [facility] [address] [place] [address] Dr. Abhay Farr IG # 0.01 10e3/ul Normal 0.00-0.03 [facility] Comment on above: Performed By: #### M G, BMP #### [facility] [address] [place] [address] Dr. Abhay Farr IG % 0.1 % Normal 0.0-0.5 [facility] Comment on above: Performed By: #### M G, BMP #### [facility] [address] [place] [address] Dr. Abhay Farr LYMPH # 1.9 103/ul Normal 1.2-3.8 [facility] Comment on above: Performed By: #### M G, BMP #### [facility] [address] [place] [address] Dr. Abhay Farr Lymphocytes/100 WBC (Bld) 24.8 % Normal 20.5-60.0 [facility] Comment on above: Performed By: #### M G, BMP #### [facility] [address] [place] [address] Dr. Abhay Farr MANUAL DIFF REQ NO Normal [facility] Comment on above: Performed By: #### M G, BMP #### [facility] [address] [place] [address] Dr. Abhay Farr MCH (RBC) [Entitic mass] 27.3 pg Normal 25.9-34.0 [facility] Comment on above: Performed By: #### M G, BMP #### [facility] [address] [place] [address] Dr. Abhay Farr MCHC (RBC) [Mass/Vol] 31.3 g/dL Normal 29.9-35.2 [facility] Comment on above: Performed By: #### M G, BMP #### [facility] [address] [place] [address] Dr. Abhay Farr MCV (RBC) [Entitic vol] 87.4 fL Normal 80.0-94.0 [facility] Comment on above: Performed By: #### M G, BMP #### [facility] [address] [place] [address] Dr. Abhay Farr MONO # 0.6 103/ul Normal 0.3-0.8 [facility] Comment on above: Performed By: #### M G, BMP #### [facility] [address] [place] [address] Dr. Abhay Farr Monocytes/100 WBC (Bld) 8.0 % Normal 1.7-12.0 [facility] Comment on above: Performed By: #### M G, BMP #### [facility] [address] [place] [address] Dr. Abhay Farr NEUT # 4.7 103/ul Normal 1.4-6.5 [facility] Comment on above: Performed By: #### M G, BMP #### [facility] [address] [place] [address] Dr. Abhay Farr Neutrophils/100 WBC (Bld) 62.4 % Normal 43.0-75.0 [facility] Comment on above: Performed By: #### M G, BMP #### [facility] [address] [place] [address] Dr. Abhay Farr Platelet mean volume (Bld) [Entitic vol] 9.9 fL Normal 9.5-13.5 [facility] Comment on above: Performed By: #### M G, BMP #### [facility] [address] [place] [address] Dr. Abhay Farr PLT 265 103/ul Normal 150-450 [facility] Comment on above: Performed By: #### M G, BMP #### [facility] [address] [place] [address] Dr. Abhay Farr RBC 4.94 106/ul Normal 4.70-6.10 [facility] Comment on above: Performed By: #### M G, BMP #### [facility] [address] [place] [address] Dr. Abhay Farr WBC 7.5 103/ul Normal 4.0-11.0 [facility] Comment on above: Performed By: #### M G, BMP #### [facility] [address] [address] [address] Abhay Farr LIPID PROFILEon 06-20-2022 CHOL-HDL RATIO NORM SEE BELOW Normal [facility] Comment on above: Result Comment: 3.3 - 4.4 LOW RISK 4.4 - 7.1 AVERAGE RISK 7.1 - 11.0 MODERATE RISK >11.0 HIGH RISK Performed By: #### M G, BMP #### [facility] [address] [address] [address] Abhay Farr Cholesterol [Mass/Vol] 129 mg/dL Normal <=200 [facility] Comment on above: Performed By: #### M G, BMP #### [facility] [address] [address] [address] Abhay Farr Cholesterol in HDL [Mass/Vol] 60 mg/dL Normal 40-60 [facility] Comment on above: Performed By: #### Festus G, BMP #### [facility] [address] [address] [address] Abhay Farr Cholesterol in LDL [Mass/Vol] 58.2 mg/dL Normal [facility] Comment on above: Performed By: #### Festus G, BMP #### [facility] [address] [address] [address] Abhay Farr Cholesterol.total/Cho lesterol in HDL [Mass ratio] 2.2 {ratio} Normal [facility] Comment on above: Performed By: #### M G, BMP #### [facility] [address] [id number] Abhay Farr HDL NORMAL > or = 60 mg/dl - LO W CARDIOVASCULAR RISK <40 mg/dl - HIGH CARDIOVASCULAR RISK Normal [facility] Comment on above: Performed By: #### M G, BMP #### [facility] [address] [address] [address] Abhay Farr LDL CALC NORMAL SEE BELOW Normal [facility] Comment on above: Result Comment: <100 mg/dl OPTIMAL 100 - 129 mg/dl NEAR OR ABOVE OPTIMAL 130 - 159 mg/dl BORDERLINE HIGH 160 - 189 mg/dl HIGH >190 mg/dl VERY HIGH Performed By: #### M G, BMP #### [facility] [address] [place] [address] Dr. Abhay Farr Triglyceride [Mass/Vol] 54 mg/dL Normal <=150 [facility] Comment on above: Performed By: #### M G, BMP #### [facility] [address] [place] [address] Dr. Abhay Farr VLDL CALC 10.8 mg/dL Normal [facility] Comment on above: Performed By: #### M G, BMP #### [facility] [address] [place] [address] Dr. Abhay Farr PROF CHEM 8 (BAS METB)on Anion gap [Moles/Vol] 10.7 mmol/L Normal [facility] Comment on above: Performed By: #### M G, BMP #### [facility] [address] [place] [address] Dr. Abhay Farr Calcium [Mass/Vol] 9.0 mg/dL Normal 8.5-10.1 [facility] Comment on above: Performed By: #### M G, BMP #### [facility] [address] [place] [address] Dr. Abhay Farr Chloride [Moles/Vol] 102 mmol/L Normal 98-107 [facility] Comment on above: Performed By: #### M G, BMP #### [facility] [address] [place] [address] Dr. Abhay Farr CO2 [Moles/Vol] 29.4 mmol/L Normal 21.0-32.0 [facility] Comment on above: Performed By: #### M G, BMP #### [facility] [address] [place] [address] Dr. Abhay Farr Creatinine [Mass/Vol] 1.09 mg/dL Normal 0.70-1.30 [facility] Comment on above: Performed By: #### M G, BMP #### [facility] [address] [place] [address] Dr. Abhay Farr EGFR-AF BERMUDIAN >60 Normal >=60 [facility] Comment on above: Performed By: #### M G, BMP #### [facility] [address] [place] [address] Dr. Abhay Farr EGFR-NON AF BERMUDIAN >60 Normal >=60 [facility] Comment on above: Performed By: #### M G, BMP #### [facility] [address] [place] [address] Dr. Abhay Farr Glucose [Mass/Vol] 102 mg/dL Normal 74-106 [facility] Comment on above: Performed By: #### M G, BMP #### [facility] [address] [place] [address] Dr. Abhay Farr Potassium [Moles/Vol] 4.1 mmol/L Normal 3.5-5.1 [facility] Comment on above: Performed By: #### M G, BMP #### [facility] [address] [place] [address] Dr. Abhay Farr Sodium [Moles/Vol] 138 mmol/L Normal 136-145 [facility] Comment on above: Performed By: #### M G, BMP #### [facility] [address] [place] [address] Dr. Abhay Farr Urea nitrogen [Mass/Vol] 18.0 mg/dL Normal 7.0-18.0 [facility] Comment on above: Performed By: #### M G, BMP #### [facility] [address] [place] [address] Dr. Abhay Farr Urea nitrogen/Creatinine [Mass ratio] 16.5 mg/mg Normal [facility] Comment on above: Performed By: #### M G, BMP #### [facility] [address] [place] [address] Dr. Abhay Rose 06-20-2022 AST [Catalytic activity/Vol] 18 U/L Normal 15-37 [facility] Comment on above: Performed By: #### A LT, BMP, AST, LIPID #### [facility] [address] [place] [address] Dr. Abhay BROWNPTon 06-20-2022 ALT [Catalytic activity/Vol] 37 U/L Normal 16-63 [facility] Comment on above: Performed By: #### M Judy BMP #### [facility] [address] [place] [address] Dr. Abhay Farr Vital Signs Date Time Vital Sign Value Performing Clinician Faci lity 11-03-2024 11:22-0500 Body height 182.9 cm Carter Fitzpatrick MD Work Phone: [facility] 11-03-2024 11:22-0500 Body mass index (BMI) [Ratio] 23.6 kg/m2 Carter Fitzpatrick MD Work Phone: [facility] 11-03-2024 11:22-0500 Body temperature 97.11 [degF] Carter Fitzpatrick MD Work Phone: [facility] 11-03-2024 11:22-0500 Body weight 78.93 kg Carter Fitzpatrick MD Work Phone: [facility] 11-03-2024 11:22-0500 Diastolic blood pressure 54 mm[Hg] Carter Fitzpatrick MD Work Phone: [facility] 11-03-2024 11:22-0500 Heart rate 72 /min Carter Fitzpatrick MD Work Phone: [facility] 11-03-2024 11:22-0500 Respiratory rate 20 /min Carter Fitzpatrick MD Work Phone: [facility] 11-03-2024 11:22-0500 SaO2% (BldA) [Mass fraction] 99 % Carter Fitzpatrick MD Work Phone: [facility] 11-03-2024 11:22-0500 Systolic blood pressure 124 mm[Hg] Carter Fitzpatrick MD Work Phone: [facility] 12-27-2023 14:37-0500 Diastolic blood pressure 72 mm[Hg] Wai Billingsley MD Work Phone: [facility] 12-27-2023 14:37-0500 Heart rate 64 /min Wai Billingsley MD Work Phone: [facility] 12-27-2023 14:37-0500 Systolic blood pressure 152 mm[Hg] Wai Billingsley MD Work Phone: [facility] 12-27-2023 14:33-0500 Body height 183 cm Wai Billingsley MD Work Phone: [facility] 12-27-2023 14:33-0500 Body weight 80.29 kg Wai Billingsley MD Work Phone: [facility] 12-27-2023 14:33-0500 SaO2% (BldA) [Mass fraction] 97 % Wai Billingsley MD Work Phone: [facility] 03-05-2023 13:36-0400 Body height 182.9 cm Khushboo Laffey [employer] AMBULANCE DRIVER.[employer]EL [employer]TER Work Phone: [facility] 03-05-2023 13:36-0400 Body weight 82.56 kg Khushboo Laffey CPR AMBULANCE DRIVER.FUNNEL SETTER Work Phone: [facility] 03-05-2023 13:36-0400 Diastolic blood pressure 69 mm[Hg] Khushobo Laffey CPR AMBULANCE DRIVER.FUNNEL SETTER Work Phone: [facility] 03-05-2023 13:36-0400 Heart rate 76 /min Khushboo Laffey CPR AMBULANCE DRIVER.FUNNEL SETTER Work Phone: [facility] 03-05-2023 13:36-0400 SaO2% (BldA) [Mass fraction] 98 % Khushboo Laffey [employer] AMBULANCE DRIVER.FUNNEL SETTER Work Phone: [facility] 03-05-2023 13:36-0400 Systolic blood pressure 150 mm[Hg] Khushboo Laffey CPR AMBULANCE DRIVER.FUNNEL SETTER Work Phone: [facility] 01-16-2023 11:43-0500 Body height 182.9 cm Aubrey Ko MD Work Phone: [facility] 01-16-2023 11:43-0500 Body weight 82.56 kg Aubrey Ko MD Work Phone: [facility] 01-16-2023 11:43-0500 Diastolic blood pressure 57 mm[Hg] Aubrey Ko MD Work Phone: [facility] 01-16-2023 11:43-0500 Heart rate 71 /min Aubrey Ko MD Work Phone: [facility] 01-16-2023 11:43-0500 Respiratory rate 16 /min Aubrey Ko MD Work Phone: [facility] 01-16-2023 11:43-0500 SaO2% (BldA) [Mass fraction] 97 % Aubrey Ko MD Work Phone: [facility] 01-16-2023 11:43-0500 Systolic blood pressure 144 mm[Hg] Aubrey Ko MD Work Phone: [facility] 11-16-2022 12:12-0500 Body height 182.9 cm Wai Billingsley MD Work Phone: [facility] 11-16-2022 12:12-0500 Body weight 78.02 kg Wai Billingsley MD Work Phone: [facility] 11-16-2022 12:12-0500 Diastolic blood pressure 76 mm[Hg] Wai Billingsley MD Work Phone: [facility] 11-16-2022 12:12-0500 Heart rate 90 /min Wai Billingsley MD Work Phone: [facility] 11-16-2022 12:12-0500 SaO2% (BldA) [Mass fraction] 97 % Wai Billingsley MD Work Phone: [facility] 11-16-2022 12:12-0500 Systolic blood pressure 119 mm[Hg] Wai Billingsley MD Work Phone: [facility] 11-06-2022 12:24-0500 Body weight 81.19 kg Denice Carey APRN.CNP Work Phone: [facility] 11-06-2022 12:24-0500 Diastolic blood pressure 74 mm[Hg] Denice Black CPR AMBULANCE DRIVER.FUNNEL SETTER Work Phone: [facility] 11-06-2022 12:24-0500 Heart rate 81 /min Denice Carey CPR AMBULANCE DRIVER.FUNNEL SETTER Work Phone: [facility] 11-06-2022 12:24-0500 SaO2% (BldA) [Mass fraction] 99 % Denice Carey CPR AMBULANCE DRIVER.FUNNEL SETTER Work Phone: [facility] 11-06-2022 12:24-0500 Systolic blood pressure 150 mm[Hg] Denice Carey CPR AMBULANCE DRIVER.FUNNEL SETTER Work Phone: [facility] Encounters Encounter Date Encounter Type Care Provider Facility Start: 11-03-2024 End: 11-03-2024 Bamboo flowsheet Carter Fitzpatrick MD Work Phone: [facility] Start: 11-03-2024 End: 11-03-2024 Darin flowsheet Carter Fitzpatrick MD Work Phone: [facility] Start: 11-03-2024 End: 11-03-2024 Office outpatient visit 15 minutes Carter Fitzpatrick MD Work Phone: [facility] Comment on above: Posterior vitreous d egeneration, left (Primary Dx); Dyslipidemia (CMS/HCC) Start: 11-03-2024 End: 11-03-2024 ambulatory CARTER FITZPATRICK Not Available Start: 10-01-2024 End: 10-01-2024 Clinisync Result Encounter Carter Fitzpatrick MD Work Phone: [facility] Unsolicited Start: 10-01-2024 End: 10-01-2024 Clinisync Result Encounter Carter Fitzpatrick MD Work Phone: [facility] Unsolicited Start: 09-17-2024 End: 09-18-2024 Refill Carter Fitzpatrick MD Work Phone: [facility] Comment on above: BAN (generalized anx iety disorder) (CMS/HCC) Start: 09-16-2024 End: 09-17-2024 Refill Wai Billingsley MD Work Phone: Cardiology Comment on above: Refill Request Start: 09-08-2024 End: 09-08-2024 Bamboo flowsheet Carter Fitzpatrick MD Work Phone: [facility] Start: 09-08-2024 End: 09-08-2024 Bamboo flowsheet Carter Fitzpatrick MD Work Phone: [facility] Start: 09-08-2024 End: 09-08-2024 ambulatory CARTER FITZPATRICK Not Available Start: 06-23-2024 Refill Wai shukla MD Work Phone: Cardiology Comment on above: Refill Request Start: 03-26-2024 End: 03-26-2024 ambulatory CINTHIA PRECIADO Not Available Start: 03-04-2024 End: 03-04-2024 Refill Denice Carey APRN.FUNNEL SETTER Work Phone: Cardiology Comment on above: Refill Request Start: 12-27-2023 End: 12-27-2023 Patient encounter procedure Wai Billingsley MD Work Phone: Cardiology Comment on above: Mitral valve insuffi ciency, unspecified etiology (Primary Dx) Start: 12-27-2023 End: 12-27-2023 ambulatory WAI BILLINGSLEY Facility:[facility] Start: 12-16-2023 Refill Denice SAGASTUME RN.FUNNEL SETTER Work Phone: Cardiology Comment on above: Refill Request Start: 07-19-2023 Orders Only Wai shukla MD Work Phone: Cardiology Comment on above: Mitral valve insuffi ciency, unspecified etiology (Primary Dx) Start: 03-05-2023 End: 03-05-2023 Patient encounter procedure Khushboo Lackey CPR AMBULANCE DRIVER.FUNNEL SETTER Work Phone: Cardiology Comment on above: Essential hypertensi on (Primary Dx); Palpitations; Mitral valve insufficiency, unspecified etiology Start: 02-20-[address] CARTER FITZPATRICK Facil ity:[facility] Start: 02-13-2023 ambulatory NARENDRANATH LAKSHMIPATHY . Facility:[facility] Start: 01-23-2023 End: 01-24-2023 ambulatory NARENDRANATH LAKSHMIPATHY . 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 Facility:[facility] Start: 12-29-2022 End: 12-30-[address] CARTER FITZPATRICK Facility:[facility] Start: 12-07-2022 ambulatory Wai shukla MD Work Phone: Cardiology Comment on above: 81 aspirin and fluox etine Start: 12-05-2022 Refill Denice SAGASTUME RN.FUNNEL SETTER Work Phone: Cardiology Comment on above: Refill Request Start: 11-29-2022 Encounter for preprocedural laboratory examination DR ETHAN ALLEN . [facility] Start: 11-28-2022 End: 11-28-[address] ETHAN ALLEN . Facility:[facility] Start: 11-24-2022 End: [address] ETHAN ALLEN . Facility:[facility] Start: 11-24-2022 End: 2022 Encounter for preprocedural laboratory examination DR ETHAN ALLEN . Facility:[facility] Start: 11-16-2022 End: 11-16-2022 Orders Only Wai Billingsley MD Work Phone: Cardiology Comment on above: Palpitations (Primar y Dx) Start: 11-15-2022 Telephone encounter Khushboo Lackey APRN.FUNNEL SETTER Work Phone: Cardiology Comment on above: Results (Holter Resu lts) Palpitations (Primar y Dx) Start: 11-06-2022 End: 11-06-2022 Patient encounter procedure Denice Carey APRN.FUNNEL SETTER Work Phone: Cardiology Comment on above: Palpitations [...] lity:[facility] Start: 10-30-2022 End: 10-30-2022 ambulatory Alvarez Mandujano Jamal CPR AMBULANCE DRIVER.FUNNEL SETTER Work Phone: Telemedicine Comment on above: Treatment not availa ble (Primary Dx) Start: 10-30-2022 End: 10-30-2022 Telemedicine consultation with patient Alvarez Mandujano Jamal CPR AMBULANCE DRIVER.FUNNEL SETTER Work Phone: [facility] Start: 10-28-2022 End: 10-29-[address] [...] . Facility:[facility] Start: 08-15-2022 End: 08-16-2022 ambulatory SHAIKH Pam APONTE Facility:[facility] Start: 06-20-2022 End: 06-21-[address] CARTER FITZPATRICK Facility:[facility] Start: 12-16-2021 End: 12-16-2021 ambulatory Ayad Lawrence Other [facility] [employer] Other Start: 12-16-2021 Telephone encounter Ayad Lawrence [employer] Procedures Date Procedure Procedure Detail Performing Clinician Start: 10-01-2024 ALL BASIC METABOLIC PANEL Carter Fitzpatrick MD Work Phone: Start: 10-01-2024 ALL CBC WITH AUTO DIFF Carter Fitzpatrick MD Work Phone: Start: 10-01-2024 ALL LIPID PROFILE (FASTING) Carter Fitzpatrick MD Work Phone: Start: 10-01-2024 ALL MAGNESIUM Carter rhodes MD Work Phone: Start: 10-01-2024 HMHP LIVER PANEL Carter villatoro MD Work Phone: Start: 10-01-2024 MLR HEMOGLOBIN A1C Carter Fitzpatrick MD Work Phone: Start: 10-01-2024 SRMCOH PROSTATE SPEC IFIC ANTIGEN SCRN Carter Fitzpatrick MD Work Phone: Start: 06-20-[address] CARETR VILLATORO Comment on above: Performed By: #### M G, BMP #### [facility] [address] [place] [address] Dr. Abhay Farr Start: 05-12-2019 Lipid 1996 panel - S isabella or Plasma Denice Carey CPR AMBULANCE DRIVER.FUNNEL SETTER Work Phone: Start: 02-24-2019 Colonoscopy Alvarez auguste CPR AMBULANCE DRIVER.FUNNEL SETTER Work Phone: Plan of Treatment Date Care Activity Detail Author Start: 02-24-2029 Screening for malign ant neoplasm of colon [facility] Start: 09-08-2025 Medicare Annual Well ness (AWV) Medicare Annual Wellness (AWV) [facility] Start: 04-21-2025 End: 04-21-2025 Patient encounter procedure 04/21/2025 12:30 PM EDT Office Visit [facility] [address] [place] [phone] Cinthia Preciado DO [address] [place] [address] [facility] [address] Start: 03-09-2025 End: 03-09-2025 Patient encounter procedure 03/09/2025 10:30 AM EDT Office Visit [facility] [address] [place] [address] Carter Fitzpatrick MD [address] [place] [phone] [facility] Start: 11-03-2024 End: 11-03-2024 Patient encounter procedure 11/03/2024 11:15 AM EST Office Visit [facility] [address] [place] [address] Carter Fitzpatrick MD [address] [place] [phone] Arrived [facility] Comment on above: Arrived Start: 09-08-2024 End: 09-08-2024 Patient encounter procedure 09/08/2024 10:00 AM EDT Office Visit [facility] [address] [place] [address] Carter Fitzpatrick MD [address] [place] [phone] Arrived [facility] Comment on above: Arrived Start: 07-20-2024 Covid-19 Vaccine ( season) Covid-19 Vaccine ( season) [facility] Start: 07-20-2024 Influenza vaccination [facility] Start: 05-12-2024 Lipid panel Lipid Screening [facility] Start: 05-12-2024 LIPID SCREEN LIPID SCREEN [facility] Start: 2023 RSV Vaccine (1 - 1-d ose 75+ series) RSV Vaccine (1 - 1-dose 75+ series) [facility] Start: 11-19-2023 Advance Directive Discussion Advance Directive Discussion [facility] Start: 11-19-2023 Behavioral Health Screening Behavioral Health Screening [facility] Start: 11-19-2023 [facility] Start: 11-16-2023 BP CONTROLLED (<130/80) BP CONTROLLE D (<130/80) [facility] Start: 07-20-2023 Covid-19 Vaccine () Covid-19 Vaccine () [facility] Start: 07-20-2023 Influenza vaccination C [facility] Start: 11-19-2022 ADVANCE DIRECTIVE DISCUSSION ADVANCE DIRECTIVE DISCUSSION [facility] Start: 11-19-2022 [facility] Start: 11-06-2022 End: 11-06-2023 HOLTER MONITOR 48 HOUR HOLTER MONITOR 48 HOUR ECG Routine Palpitations Expected: 11/06/2022, Expires: 11/06/2023 [facility] Work Phone: Comment on above: Expected: 11/06/2022 , Expires: 11/06/2023 Start: 07-20-2022 Influenza vaccination INFLUENZA (#1) [facility] Start: 02-24-2022 Diabetes Screening Diabetes Screenin g [facility] Start: 02-03-2022 DIABETES SCREEN DIABETES SCREEN [facility] Start: 11-29-2021 COVID-19 VACCINE (4 - Booster for Pfizer series) COVID-19 VACCINE (4 - Booster for Pfizer series) [facility] Start: 11-29-2021 COVID-19 VACCINE (4 - Pfizer series) COVID-19 VACCINE (4 - Pfizer series) [facility] Start: 11-19-2021 ADVANCE DIRECTIVE DISCUSSION ADVANCE DIRECTIVE DISCUSSION [facility] Start: 11-19-2021 DEPRESSION ASSESSMENT DEPRESSION ASS ESSMENT [facility] Start: 04-08-2021 Screening for malign ant neoplasm of colon [facility] Start: 02-25-2020 Colonoscopy COLONOSCOPY [facility] Start: 02-25-2020 COLORECTAL CANCER SCREENING COLORECTAL CANCER SCREENING [facility] Start: 02-25-2020 Screening for malign ant neoplasm of colon [facility] Start: 2013 Pneumococcal Vaccine : 65+ (1 of 1 - PCV) Pneumococcal Vaccine: 65+ (1 of 1 - PCV) [facility] Start: 2013 Pneumococcal Vaccine : 65+ Years (1 of 1 - PCV) Pneumococcal Vaccine: 65+ Years (1 of 1 - PCV) [facility] Start: 2013 PNEUMOCOCCAL: 65+ (1 - PCV) PNEUMOCOCCAL: 65+ (1 - PCV) [facility] Start: 2008 RSV Vaccine (1 - 1-d ose 60+ series) RSV Vaccine (1 - 1-dose 60+ series) [facility] Start: 1998 SHINGRIX VACCINE (1 of 2) MICHEL GRIX VACCINE (1 of 2) [facility] Start: 1993 COLOGUARD (FIT-DNA) COLOGUARD (FIT-D NA) [facility] Start: [address] COLONOGRAPHY [facility] Start: 1993 FECAL OCCULT BLOOD FECAL OCCULT BLOO D [facility] Start: 1993 Screening for malign ant neoplasm of colon [facility] Start: 1993 SIGMOIDOSCOPY SIGMOIDOSCOPY [facility] Start: 1967 Urine microalbumin profile [facility] Start: 1966 ANNUAL PCP TEAM EMPLOYMENT CLERK SELVIN DISEASE VISIT ANNUAL PCP TEAM CHRONIC DISEASE VISIT [facility] Start: 1966 Anxiety Screening Anxiety Screening [facility] Start: 1966 BP CONTROLLED (<130/80) BP CONTROLLE D (<130/80) [facility] Start: 1966 Depression Screening Depression Scre ening [facility] Start: 1966 HEPATITIS C SCREENING HEPATITIS C [facility] Start: 1966 Hepatitis C screening Hepatitis C [facility] Start: 1948 ABDOMINAL AORTIC ANE URYSM SCREENING ABDOMINAL AORTIC ANEURYSM SCREENING [facility] Start: 1948 Abdominal aortic ane urysm screening Abdominal Aortic Aneurysm Screening [facility] Start: 1948 Medicare Annual Well ness (AWV) Medicare Annual Wellness (AWV) [facility] Start: 1948 Screening for malign ant neoplasm of colon [facility] End: 11-06-2023 ECG COMPLETE ECG COMPLETE ECG Routine Palpitations 1 Occurrences starting 11/06/2022 until 11/06/2023 [facility] Work Phone: Comment on above: 1 Occurrences starti ng 11/06/2022 until 11/06/2023 End: 11-16-2023 ECG COMPLETE ECG COMPLETE ECG Routine Palpitations 1 Occurrences starting 11/16/2022 until 11/16/2023 [facility] Work Phone: Comment on above: 1 Occurrences starti ng 11/16/2022 until 11/16/2023 End: 12-27-2024 ECG COMPLETE ECG COMPLETE ECG Routine Mitral valve insufficiency, unspecified etiology 1 Occurrences starting 12/27/2023 until 12/27/2024 [facility] Work Phone: Comment on above: 1 Occurrences starti ng 12/27/2023 until 12/27/2024 End: 11-06-2023 Echocardiography ECHO Cardiology Routine Palpitations 1 Occurrences starting 11/06/2022 until 11/06/2023 [facility] Work Phone: Comment on above: 1 Occurrences starti ng 11/06/2022 until 11/06/2023 End: 07-19-2024 Echocardiography ECHO Cardiology Routine Mitral valve insufficiency, unspecified etiology 1 Occurrences starting 07/25/2023 until 07/19/2024 [facility] Work Phone: Comment on above: 1 Occurrences starti ng 07/25/2023 until 07/19/2024 End: 12-27-2024 Echocardiography ECHO Cardiology Routine Mitral valve insufficiency, unspecified etiology 1 Occurrences starting 12/27/2023 until 12/27/2024 [facility] Work Phone: Comment on above: 1 Occurrences starti ng 12/27/2023 until 12/27/2024 [facility] Immunizations Immunization Date Immunization Notes Care Provider Fa kelly 08-21-2020 influenza virus vacc ine, unspecified formulation Denice Carey APRN.CNP Work Phone: [facility] Payers Date Payer Category Payer Private Health Insurance [facility] [id number] 2019 Unknown SUSANNE MELVIN [employer] [id number] 2019-Present [phone] [address] [place] [address] Indemnity [id number] 2013 Medicare [id number] 1959 Medicare [id number] 1959 Unknown [id number] 2.16.840.1.247904.19 1948 Unknown [id number] 2.16.840.1.391318.3.579 .2.593 1948 Unknown [id number] 2.16.840.1.463033.3.579 .2.593 1948 Unknown [id number] 2.16.840.1.988125.3.579 .2.593 1948 Unknown [id number] 2.16.840.1.321783.3.579 .2.593 1948 Unknown [id number] 2.16.840.1.292251.3.579 .2.593 1948 Unknown [id number] 2.16.840.1.305887.3.579 .2.593 1948 Unknown [id number] 2.16.840.1.023727.3.579 .2.59 1948 Unknown [id number] 2.16.840.1.132493.3.579 .2.593 1948 Unknown [id number] 2.16.840.1.566949.3.579 .2.593 1948 Unknown [id number] 2.16.840.1.025542.3.579 .2.593 1948 Unknown [id number] 2.16.840.1.544249.3.579 .2.593 1948 Unknown [id number] 2.16.840.1.467706.3.579 .2.593 1948 Unknown [id number] 2.16.840.1.896491.3.579 .2.593 1948 Unknown [id number] 2.16.840.1.394443.3.579 .2.593 1948 Unknown [id number] 2.16.840.1.458184.3.579 .2.593 1948 Unknown [id number] 2.16.840.1.052639.3.579 .2.593 1948 Unknown [id number] 2.16.840.1.484595.3.579 .2.593 1948 Unknown [id number] 2.16.840.1.321853.3.579 .2.593 1948 Unknown [id number] 2.16.840.1.995291.3.579 .2.593 1948 Unknown [id number] 2.16.840.1.473038.3.579 .2.593 1948 Unknown [id number] 2.16.840.1.422483.3.579 .2.593 1948 Unknown [id number] 2.16.840.1.681276.3.579 .2.593 1948 Unknown [id number] 2.16.840.1.841303.3.579 .2.1259 1948 Unknown [id number] 2.16.840.1.892069.3.579 .2.1259 1948 Unknown [id number] 2.16.840.1.092512.3.579 .2.1259 1948 Unknown [id number] 2.16.840.1.128177.3.579 .2.1259 Social History Date Type Detail Facility Start: 01-16-2023 End: 11-03-2024 Sex Assigned At [employer] Other Start: 11-01-2017 End: 11-16-2022 Tobacco smoking status NHIS Ex-smoker [facility] Work Phone: Start: 11-19-1972 End: 11-19-1977 History of tobacco use Current smoker [facility] Work Phone: Start: 11-19-1972 End: 11-19-1977 History of tobacco use Cigarette Smoker [facility] Work Phone: Start: 11-01-2017 End: 11-03-2024 Cigarettes smoked current (pack per day) - Reported 1 [facility] Start: 11-01-2017 End: 03-04-2024 Tobacco use and exposure Smokeless tobacco non-user [facility] Work Phone: Start: 12-20-2020 Alcohol intake Current non-drinker of alcohol (finding) [facility] Start: 1950 Sex Assigned At Not on file [facility] Start: 11-16-2022 End: 12-27-2023 Alcohol intake Ex-drinker (finding) [facility] National Score (1-10 0), lower number is lower risk 88 [facility] Start: 07-07-2021 Sexual orientation Heterosexual (finding) [facility] Start: 03-04-2024 Tobacco smoking status LAIS Never smoked tobacco [facility] Start: 03-26-2024 End: 11-03-2024 Alcoholic beverage intake Lifetime non-drinker (finding) [facility] Start: 03-26-2024 Alcohol Comment caffeine: none [facility] Clinical Notes 10-25-2022 to 11-03-2024 Carter Fitzpatrick MD - 11/03/2024 12:27 PM Chana Fitzpatrick MD - 11/03/2024 12:27 PM Chana Fitzpatrick MD - 11/03/2024 11:15 AM ESTTelephone Encounter - Coco Samaniego - 09/16/2024 11:12 AM EDT Note Date & Type Note Facility 11-03-2024 History of Present illness Narrative Associated Problem(s): Dyslipidemia (CMS/HCC) Reviewed labs. Continue lipitor. Associated Problem(s): Posterior vitreous degeneration, left Recent symptoms but resolved. Follow with eye doctor. Images from the original note were not included. Subjective Patient ID: Marshal Garrison is a 73 y.o. male who presents for Follow-up ([facility] er f/u). ER follow up from 10/23 for vision changes. Developed floaters in left eye then flashing lights. To eye doctor and concerned of potential stroke. To ER and CT head normal. CTA head and neck negative for narrowing and discharged home. Seen by supervisor inspecting and told patient describing vitreous detachment and common. Symptoms have since resolved and was reassured nothing additional was needed. Reviewed recent labs. Review of Systems Constitutional: Negative for fatigue. Respiratory: Negative for cough, shortness of breath and wheezing. Cardiovascular: Negative for chest pain and palpitations. Gastrointestinal: Negative for abdominal pain, diarrhea, nausea and vomiting. Genitourinary: Negative for dysuria. Objective Physical Exam Constitutional: General: He is not in acute distress. Appearance: Normal appearance. HENT: Head: Normocephalic. Right Ear: Tympanic membrane and ear canal normal. Left Ear: Tympanic membrane and ear canal normal. Eyes: Extraocular Movements: Extraocular movements intact. Pupils: Pupils are equal, round, and reactive to light. Cardiovascular: Rate and Rhythm: Normal rate and regular rhythm. Heart sounds: No murmur heard. No friction rub. No gallop. Pulmonary: Breath sounds: Normal breath sounds. No wheezing, rhonchi or rales. Abdominal: General: Bowel sounds are normal. There is no distension. Palpations: Abdomen is soft. Tenderness: There is no abdominal tenderness. There is no guarding or rebound. Musculoskeletal: Left lower leg: No edema. Neurological: Mental Status: He is alert. Assessment/Plan Problem List Items Addressed This Visit Dyslipidemia (CMS/HCC) Reviewed labs. Continue lipitor. Posterior vitreous degeneration, left - Primary Recent symptoms but resolved. Follow with eye doctor. documented in this encounter [facility] 09-16-2024 Telephone encounter Note Call from pharmacy requesting refill. Requested Prescriptions Pending Prescriptions Disp Refills amLODIPine (NORVASC) 2.5 mg tablet [Pharmacy Med Name: amLODIPine Besylate 2.5 MG Oral Tablet] 90 tablet 0 Sig: Take 1 tablet by mouth once daily Patient last seen 12/27/23 Coco Samaniego [facility] 09-16-2024 Miscellaneous Notes Call from pharmacy requesting refill. Requested Prescriptions Pending Prescriptions Disp Refills amLODIPine (NORVASC) 2.5 mg tablet [Pharmacy Med Name: amLODIPine Besylate 2.5 MG Oral Tablet] 90 tablet 0 Sig: Take 1 tablet by mouth once daily Patient last seen 12/27/23 Coco Samaniego documented in this encounter [facility] 06-23-2024 Telephone encounter Note Call from patient requesting refill. Requested Prescriptions Pending Prescriptions Disp Refills amLODIPine (NORVASC) 2.5 mg tablet 90 tablet 0 Sig: Take 1 tablet by mouth once daily. Patient last seen 12/27/2023 Vidya Pedersen [facility] 06-23-2024 Miscellaneous Notes Call from patient requesting refill. Requested Prescriptions Pending Prescriptions Disp Refills amLODIPine (NORVASC) 2.5 mg tablet 90 tablet 0 Sig: Take 1 tablet by mouth once daily. Patient last seen 12/27/2023 Vidya Pedersen documented in this encounter [facility] 12-27-2023 Note HNO ID: [id number] Author: WAI BILLINGSLEY MD Service: ? Author Type: Physician Type: Progress Notes Filed: 12/27/2023 17:04 Note Text: [facility] [place] [facility] Department of Cardiovascular Medicine SECTION OF CARDIOVASCULAR IMAGING OUTPATIENT VISIT DATE December 27, 2023 OUTPATIENT VISIT TYPE ESTABLISHED PRIMARY CARE PHYSICIAN: Carter Fitzpatrick MD ([facility]) [address] [place] [address] REFERRING PHYSICIAN: Katerin Billingsley [address] [address] CHIEF COMPLAINT: Follow up HISTORY OF PRESENT [...] NORMAL ECG Confirmed by BILLIE CALLES MD ([id number]) on 03/07/2023 9:46:24 AM IMPRESSION: Mr. Garrison is a 73 year old male with multiple + stable mild to moderate mitral regurgitation. Active, asymptomatic. PLAN AND RECOMMENDATIONS: Continue same medications. Follow-up in 1 year with an echocardiogram. CONTACT INFORMATION: Katerin Billingsley MD [facility] 12-27-2023 History of Present illness Narrative Images from the original note were not included. [facility] [place] [facility]Am[facility] Department of Cardiovascular Medicine SECTION OF CARDIOVASCULAR IMAGING OUTPATIENT VISIT DATE December 27, 2023 OUTPATIENT VISIT TYPE ESTABLISHED PRIMARY CARE PHYSICIAN: Carter Fitzpatrick MD ([facility]) [address] [place] [address] REFERRING PHYSICIAN: Katerin Billingsley [address] [address] CHIEF COMPLAINT: Follow up HISTORY OF PRESENT [...] NORMAL ECG Confirmed by BILLIE CALLES MD ([id number]) on 03/07/2023 9:46:24 AM IMPRESSION: Mr. Garrison is a 73 year old male with multiple + stable mild to moderate mitral regurgitation. Active, asymptomatic. PLAN AND RECOMMENDATIONS: Continue same medications. Follow-up in 1 year with an echocardiogram. CONTACT INFORMATION: Katerin Billingsley MD documented in this encounter [facility] 03-05-2023 History of Present illness Narrative Images from the original note were not included. [facility] [place] [facility] Department of Cardiovascular Medicine SECTION OF CARDIOVASCULAR IMAGING OUTPATIENT VISIT DATE February 28, 2023 OUTPATIENT VISIT TYPE ESTABLISHED PRIMARY CARE PHYSICIAN: Carter Fitzpatrick MD ([facility]) [address] [place] [address] REFERRING PHYSICIAN: Katerin Billingsley [address] [address] CHIEF COMPLAINT: Follow up HISTORY OF PRESENT [...] Provider Department Center 03/05/2023 2:00 PM Khushboo Lcakey APRN.FUNNEL SETTER NADIA [facility] 05/07/2023 12:45 PM [id number] MAIN [id number] [place] [facility] 05/07/2023 1:30 PM ECHO J1-5 CARD MAIN CAFLMN [facility] 05/07/2023 2:45 PM MD NADIA [place] [facility] I personally interviewed, confirmed and edited the above information if obtained by others. CONTACT INFORMATION: Khushboo Lackey, KALIN, BRIM STITCHER Desk J1-[address] [place] [id number] phone [phone] fax [facility] Cardiovascular Medicine, Section of Cardiac Imaging [facility] [place] documented in this encounter [facility] 01-23-2023 Note CONSULTATION CONSULTATION DATE: 01/23/2023 TO: [...] to proceed with the outlined plan. The [facility] 01-16-2023 History of Present illness Narrative Spine Care Path Low Back Pain - Chronic (> 12 weeks) Initial Exam SUBJECTIVE HISTORY OF PRESENT ILLNESS: Marshal Garrison is a 72 year old male who presents with a chief complaint of low back pain. 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, however if he would like to transition care to [facility] for injections he was encouraged to [...] Aubrey Ko MD documented in this encounter [facility] 01-11-2023 Note PAIN MANAGEMENT CONS ULTATION CONSULTATION [...] our office after follow up with the [facility] in regards to his above mentioned pain complaints, and we will follow up with the patient after his consultation there to discuss further options. [facility] 12-05-2022 Miscellaneous Notes SCr drawn in 09/2022 at OSH. Scanned into [employer]. Normal value. Refill provided. Roselia Nolasco APRN.CNP documented in this encounter [facility] 11-16-2022 History of Present illness Narrative Images from the original note were not included. [facility] [place] Dionicio Armando Department of Cardiovascular Medicine SECTION OF CARDIOVASCULAR IMAGING OUTPATIENT VISIT DATE November 16, 2022 OUTPATIENT VISIT TYPE ESTABLISHED PRIMARY CARE PHYSICIAN: Carter Fitzpatrick MD ([facility]) [address] [place] [address] REFERRING PHYSICIAN: Katerin Billingsley [address] [address] CHIEF COMPLAINT: Follow up HISTORY OF PRESENT [...] Katerin Billingsley MD documented in this encounter [facility] 11-15-2022 Miscellaneous Notes Images from the original note were not included. Spoke with patient regarding Holter results (in Epic), advised patient to continue taking Metoprolol. He is feeling well from a cardiac standpoint. Answered patient's questions and encouraged to call with any further questions or concerns. Khushboo Lackey APRN.CNP Holter Monitor documented in this encounter [facility] 11-06-2022 History of Present illness Narrative HOLTER MONITOR APPLICATION Patient Name: Marshal Garrison [facility] Number: [id number] Chest is cleansed with alcohol Skin prep [...] or 48 hours 6.) Call with problems [phone] OR [phone] Patient expresses good verbal understanding of instructions Laine ADKINS documented in this encounter [facility] 11-06-2022 Instructions Denice Carey APRN.CNP - 11/06/2022 12:35 PM EST Holter monitor greens picker at J2-2 documented in this encounter [facility] 11-06-2022 History of Present illness Narrative Images from the original note were not included. [facility] [place] Dionicio Armando Department of Cardiovascular Medicine SECTION OF CARDIOVASCULAR IMAGING OUTPATIENT VISIT DATE November 06, 2022 OUTPATIENT VISIT TYPE ESTABLISHED PRIMARY CARE PHYSICIAN: Carter Fitzpatrick MD ([facility]) [address] [place] [address] REFERRING PHYSICIAN: Denice Carey [address] Desk J1-5 [facility] [address] CHIEF COMPLAINT: Increased heart rate HISTORY OF [...] heart rate that is concerning to him. Apple watch print outs show NSR and EKG today [...] Denice Carey APRN.CNP documented in this encounter [facility] 10-30-2022 History of Present illness Narrative Patient [...] develop into CVA. documented in this encounter [facility] 10-18-2022 Note CONSULTATION PROCEDURE DATE: 10/18/2022 PREOPERATIVE [...] be followed up in the clinic. [facility] 10-18-2022 Note CONSULTATION CONSULTATION DATE: [...] followed up in the office thereafter. [facility] 09-26-2022 Note CONSULTATION CONSULTATION DATE: [...] The patient also has an appointment at [facility] with regards to cardiac in October. [facility] 09-12-2022 Note CONSULTATION PROCEDURE DATE: [...] having mitigation in his pain symptomatology. 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 CC: Carter Fitzpatrick M.D. [facility] Evaluation note No Information [facility] [employer] Other Evaluation note Diagnosis Treatment not available- Primary Procedure not carried out for other reasons [facility] Diagnosis Palpitations- Primary Essential hypertension Unspecified essential hypertension [facility] Diagnosis Palpitations- Primary [facility] Palpitations- Primary [facility] Diagnosis Palpitations- Primary [facility] Diagnosis Palpitations- Primary [facility] Diagnosis Chronic bilateral low back pain with left-sided sciatica- Primary Lumbar radiculitis Thoracic or lumbosacral neuritis or radiculitis, unspecified [facility]* Diagnosis Essential hypertension- Primary Unspecified essential hypertension Palpitations Mitral valve insufficiency, unspecified etiology [facility]* Diagnosis Mitral valve insufficiency, unspecified etiology- Primary [facility]* Diagnosis Mitral valve insufficiency, unspecified etiology- Primary [facility] [place] [facility] Diagnosis Essential hypertension, benign (CMS/HCC)- Primary [...] anxiety disorder [facility] Essential hypertension, benign (CMS/HCC)- Primary [...] Special screening for malignant neoplasm of prostate Posterior vitreous degeneration, left- Primary Dyslipidemia (CMS/HCC) Other and unspecified hyperlipidemia [facility] N[facility] - Reported* Type Description Date Medical History hypertension Medical History hypercholesterolemia Medical History anxiety goCatch Other reason for referral (narrative)* Outpatient Procedure (Routine) - Authorized Specialty Diagnoses / Procedures Referred By Malika jasso [facility] Diagnoses Palpitations Procedures ECG COMPLETE ECG ROUTINE ECG W/LEAST 12 LDS W/I&R Wai Billingsley MD [address] [place] [address] [facility] [place] [facility] [place] [address] Referral ID Status Reason Start Date Expiration Date Visits Requested Visits Authorized [id number] Authorized Auto-Generat ed Referral 2 11/06/2023 1 1 * Outpatient Procedure (Routine) - Authorized Specialty Diagnoses / Procedures Referred By Malika jasso Ref[facility] Diagnoses Palpitations Procedures ECHO ECHO TTHRC R-T 2D W/WOM-MODE COMPL SPEC&COLR D Wai Billingsley MD [address] [place] [address] [place] [address] [place] [id number] Referral ID Status Reason Start Date Expiration Date Visits Requested Visits Authorized [id number] Authorized Auto-Generat ed Referral 11/06/2023 1 1 [facility] for referral (narrative)* Outpatient Procedure (Routine) - Closed Specialty Diagnoses / Procedures Referred By Contac t Referred To Contact [facility] Diagnoses Palpitations Procedures ECHO ECHO TTHRC R-T 2D W/WOM-MODE COMPL SPEC&COLR D Wai Billingsley MD [address] [place] [address] [place] [address] Referral ID Status Reason Start Date Expiration Date V isits Requested Visits Authorized [id number] Closed Auto-Generate d Referral 11/15/2022 11/15/2023 1 1 * Outpatient Procedure (Routine) - Closed Specialty Diagnoses / Procedures Referred By Contmacie t Referred To Contact [facility] Diagnoses Palpitations Procedures ECG COMPLETE ECG ROUTINE ECG W/LEAST 12 LDS W/I&R Wai Billingsley MD [address] [place] [id number] [place] [address] Referral ID Status Reason Start Date Expiration Date V isits Requested Visits Authorized [id number] Closed Auto-Generate d Referral 11/15/2022 11/15/2023 1 1 [facility] for referral (narrative)* Outpatient Procedure (Routine) - Authorized Specialty Diagnoses / Procedures Referred By Contmacie t Referred To Contact [facility] Diagnoses Palpitations Procedures ECG COMPLETE ECG ROUTINE ECG W/LEAST 12 LDS W/I&R Wai Billingsley MD [address] [place] [phone] [facility] [address] [place] [address] Referral ID Status Reason Start Date Expiration Date Visits Requested Visits Authorized [id number] Authorized Auto-Generat ed Referral 11/16/2023 1 1 [facility] for referral (narrative)* Outpatient Procedure (Routine) - Pending Review Specialty Diagnoses / Procedures Referred By Contac t Referred To Contact [facility] Diagnoses Mitral valve insufficiency, unspecified etiology Procedures ECHO ECHO TTHRC R-T 2D W/WOM-MODE COMPL SPEC&COLR Wai Montano MD [address] [place] [phone] [place] [address]76 [place] [phone] Referral ID Status Reason Start Date Expiration Date Visits Requested Visits Authorized [id number] Pending Review Auto-Generat ed Referral 07/25/2023 07/18/2024 1 1 [facility] for referral (narrative)* Outpatient Procedure (Routine) - Pending Review Specialty Diagnoses / Procedures Referred By Contac t Referred To Contact [facility] Diagnoses Mitral valve insufficiency, unspecified etiology Procedures ECHO ECHO TTHRC R-T 2D W/WOM-MODE COMPL SPEC&COLWai Mcginnis MD [address] [place] [phone] [place] [address] [place] [phone] Referral ID Status Reason Start Date Expiration Date Visits Requested Visits Authorized [id number] Pending Review Auto-Generat ed Referral 12/27/2023 12/26/2024 1 1 * Outpatient Procedure (Routine) - Pending Review Specialty Diagnoses / Procedures Referred By Contac t Referred To Contact [facility] Diagnoses Mitral valve insufficiency, unspecified etiology Procedures ECG COMPLETE ECG ROUTINE ECG W/LEAST 12 LDS W/I&R Wai Billingsley MD [address] [address] [facility] [place] [address] [place] [address] Referral ID Status Reason Start Date Expiration Date Visits Requested Visits Authorized [id number] Pending Review Auto-Generat ed Referral 12/27/2023 12/26/2024 1 1 * Transition of Care (Routine) - Ref Not Required Specialty Diagnoses / Procedures Referred By Contac t Referred To Contact Procedures CARDIOVASCULAR MEDICINE OP FOLLOW UP APPT ORDER Wai Billingsley MD [address] [place] [phone] Referral ID Status Reason Start Date Expiration Date Visits Requested Visits Authorized [id number] Ref Not Required PCP Requested Referral 12/27/2023 12/26/2024 1 1 [facility] Summary Purpose Family History No Family History [...] Refill Request 06/23/2024 Reason Comments Med Refill Reason Comments Follow-up [facility] er f/u Source Comments (unrecognize d section and content) In the event this informatio n is protected by the Federal Confidentiality of Alcohol and Drug Abuse Patient Records regulations: The Federal rules restrict any use of the information to criminally investigate or prosecute any alcohol or drug abuse patient.[facility] the event this information is protected by the Federal Confidentiality of Alcohol and Drug Abuse Patient Records regulations: The Federal rules restrict any use of the information to criminally investigate or prosecute any alcohol or drug abuse patient.[facility] the event this information is protected by the Federal Confidentiality of Alcohol and Drug Abuse Patient Records regulations: The Federal rules restrict any use of the information to criminally investigate or prosecute any alcohol or drug abuse patient.[facility] the event this information is protected by the Federal Confidentiality of Alcohol and Drug Abuse Patient Records regulations: The Federal rules restrict any use of the information to criminally investigate or prosecute any alcohol or drug abuse patient.[facility] the event this information is protected by the Federal Confidentiality of Alcohol and Drug Abuse Patient Records regulations: The Federal rules restrict any use of the information to criminally investigate or prosecute any alcohol or drug abuse patient.[facility] the event this information is protected by the Federal Confidentiality of Alcohol and Drug Abuse Patient Records regulations: The Federal rules restrict any use of the information to criminally investigate or prosecute any alcohol or drug abuse patient.[facility] the event this information is protected by the Federal Confidentiality of Alcohol and Drug Abuse Patient Records regulations: The Federal rules restrict any use of the information to criminally investigate or prosecute any alcohol or drug abuse patient.[facility] the event this information is protected by the Federal Confidentiality of Alcohol and Drug Abuse Patient Records regulations: The Federal rules restrict any use of the information to criminally investigate or prosecute any alcohol or drug abuse patient.[facility] the event this information is protected by the Federal Confidentiality of Alcohol and Drug Abuse Patient Records regulations: The Federal rules restrict any use of the information to criminally investigate or prosecute any alcohol or drug abuse patient.[facility] the event this information is protected by the Federal Confidentiality of Alcohol and Drug Abuse Patient Records regulations: The Federal rules restrict any use of the information to criminally investigate or prosecute any alcohol or drug abuse patient.[facility] the event this information is protected by the Federal Confidentiality of Alcohol and Drug Abuse Patient Records regulations: The Federal rules restrict any use of the information to criminally investigate or prosecute any alcohol or drug abuse patient.[facility] the event this information is protected by the Federal Confidentiality of Alcohol and Drug Abuse Patient Records regulations: The Federal rules restrict any use of the information to criminally investigate or prosecute any alcohol or drug abuse patient.[facility] the event this information is protected by the Federal Confidentiality of Alcohol and Drug Abuse Patient Records regulations: The Federal rules restrict any use of the information to criminally investigate or prosecute any alcohol or drug abuse patient.[facility] the event this information is protected by the Federal Confidentiality of Alcohol and Drug Abuse Patient Records regulations: The Federal rules restrict any use of the information to criminally investigate or prosecute any alcohol or drug abuse patient.[facility] the event this information is protected by the Federal Confidentiality of Alcohol and Drug Abuse Patient Records regulations: The Federal rules restrict any use of the information to criminally investigate or prosecute any alcohol or drug abuse patient.[facility] System[facility] the event this information is protected by the Federal Confidentiality of Alcohol and Drug Abuse Patient Records regulations: The Federal rules restrict any use of the information to criminally investigate or prosecute any alcohol or drug abuse patient.[facility] the event this information is protected by the Federal Confidentiality of Alcohol and Drug Abuse Patient Records regulations: The Federal rules restrict any use of the information to criminally investigate or prosecute any alcohol or drug abuse patient.[facility] System[facility] the event this information is protected by the Federal Confidentiality of Alcohol and Drug Abuse Patient Records regulations: The Federal rules restrict any use of the information to criminally investigate or prosecute any alcohol or drug abuse patient.[facility] Care Teams (unrecognized sec tion and content) 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 Start Date End Date Carter Fitzpatrick PCP - General Family Medicine 09/26/17 No, Referral Referring 04/22/19 Wai Billingsley MD [address] [place] [address] Primary Staff Physician Cardiology 02/04/19 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 Start Date End Date Carter Fitzpartick PCP - General Family Medicine 09/26/17 No, Referral Referring 04/22/19 Wai Billingsley MD [address] [place] [address] Primary Staff Physician Cardiology 02/04/19 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 Start Date End Date Carter Fitzpatrick PCP - General Family Medicine 09/26/17 No, Referral Referring 04/22/19 Wai Billingsley MD [address] [address] Primary Staff Physician Cardiology 02/04/19 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 Start Date End Date Carter Fitzpatrick PCP - General Family Medicine 09/26/17 No, Referral Referring 04/22/19 Wai Billingsley MD [address] [address] Primary Staff Physician Cardiology 02/04/19 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 Start Date End Date Carter Fitzpatrick PCP - General Family Medicine 09/26/17 No, Referral Referring 04/22/19 Wai Billingsley MD [address] [address] Primary Staff Physician Cardiology 02/04/19 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 Start Date End Date Carter Fitzpatrick PCP - General Family Medicine 09/26/17 No, Referral Referring 04/22/19 Wai Billingsley MD [address] [address] Primary Staff Physician Cardiology 02/04/19 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 Start Date End Date Carter Fitzpatrick PCP - General Family Medicine 09/26/17 No, Referral Referring 04/22/19 Wai Billingsley MD [address] [address] Primary Staff Physician Cardiology 02/04/19 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 Start Date End Date Carter Fitzpatrick PCP - General Family Medicine 09/26/17 No, Referral Referring 04/22/19 Wai Billingsley MD [address] [address] Primary Staff Physician Cardiology 02/04/19 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 Start Date End Date Carter Fitzpatrick PCP - General Family Medicine 09/26/17 No, Referral Referring 04/22/19 Wai Billingsley MD [address] [address] Primary Staff Physician Cardiology 02/04/19 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 Start Date End Date Carter Fitzpatrick PCP - General Family Medicine 09/26/17 No, Referral Referring 04/22/19 Wai Billingsley MD [address] [address] Primary Staff Physician Cardiology 02/04/19 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 Start Date End Date Carter Fitzpatrick PCP - General Family Medicine 09/26/17 No, Referral Referring 04/22/19 Wai Billingsley MD [address] [employer] [address] [address] Primary Staff Physician Cardiology 02/04/19 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 Start Date End Date Carter Fitzpatrick PCP - General Family Medicine 09/26/17 No, Referral Referring 04/22/19 Wai Billingsley MD [address] [address] Primary Staff Physician Cardiology 02/04/19 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 Start Date End Date Carter Fitzpatrick PCP - General Family Medicine 09/26/17 No, Referral Referring 04/22/19 Wai Billingsley MD [address] [place] [address] Primary Staff Physician Cardiology 02/04/19 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 Start Date End Date Carter Fitzpatrick PCP - General Family Medicine 09/26/17 No, Referral Referring 04/22/19 Wai Billingsley MD [address] [address] Primary Staff Physician Cardiology 02/04/19 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 Start Date End Date Carter Fitzpatrick PCP - General Family Medicine 09/26/17 No, Referral Referring 04/22/19 Wai Billingsley MD [address] [place] [address] Primary Staff Physician Cardiology 02/04/19 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 Start Date End Date Carter Fitzpatrick PCP - General Family Medicine 09/26/17 No, Referral Referring 04/22/19 Wai Billingsley MD [address] [place] [address] Primary Staff Physician Cardiology 02/04/19 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 Start Date End Date Carter Fitzpatrick MD [address] [place] [phone] PCP - [facility] 03/04/24 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 Start Date End Date Carter Fitzpatrick MD PCP - General Family Medicine 09/26/17 No, Referral Referring 04/22/19 Wai Billingsley MD [address] [place] [address] Primary Staff Physician Cardiology 02/04/19 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 Start Date End Date Carter Fitzpatrick MD [address] [place] [phone] PCP - [facility] 03/04/24 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 Start Date End Date Carter Fitzpatrick MD [address] [place] [address] PCP - [facility] 03/04/24 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 Start Date End Date Carter Fitzpatrick MD [address] [place] [address] PCP - [facility] 03/04/24 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 Start Date End Date Carter Fitzpatrick MD [address] [place] [phone] PCP - [facility] Medicine 03/04/24 (unrecognized sect ion and content) No Status Records FoundNo Status Records FoundNo Status Records Found INFORMATION SOURCE (unrecogn ized section and content) DATE CREATED AUTHOR 02/07/2023 [facility] DATE CREATED AUTHOR AUTHOR'S ORGANIZ ATION 10/11/2024 [facility] DATE CREATED AUTHOR AUTHOR'S ORGANIZ ATION 11/05/2024 [facility] FOR RECORDS PERTAINING TO PATIENTS WHO ARE [...] BE BASED ON THE PRIMARY CLINICAL RECORDS. [facility] [employer] provides no warranty or guarantee of the accuracy or completeness of information in this document.
[2024-12-17 11:36] VITALS: BP 137/69; PULSE 100; O2SAT 96
--- NOTE | 2024-12-17 12:46 | XR_ITS ---
The [address] [address] Patient Name: MARSHAL CHAVEZ MRN: [id number] date: 1950 Sex: M Assigned Patient Location: ER Current Patient Location: ER Accession/Order Number: [id number] Exam Date: 12/17/2024 12:57 Report Date: 12/17/2024 13:15 At the request of: DENZEL MURGUIA Procedure: XR chest 1V EXAMINATION: XR chest 1V HISTORY: Flu+ COMPARISON: XR chest 10/28/2022 FINDINGS: LUNGS: No significant pulmonary parenchymal abnormalities. VASCULATURE: No increased pulmonary vasculature. PLEURA: No pneumothorax, effusion, or pleural thickening. CARDIAC: No cardiomegaly or cardiac silhouette abnormality. MEDIASTINUM: No visible mass or adenopathy. BONES: No fracture or visible bone lesion. OTHER: Negative. XR/XR chest 1V IMPRESSION: 1. No acute cardiopulmonary process. Electronically authenticated by: JONO TRINIDAD Date: 12/17/2024 13:15
--- NOTE | 2024-12-17 12:46 | ECG_ITS ---
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
--- NOTE | 2024-12-17 12:47 | ED.URI1 ---
HPI - URI/Sore Throat General Chief Complaint: Upper Respiratory Infection Stated Complaint: FAST HEARTRATE Time Seen by Provider: 12/17/24 12:14 Source: patient and family History of Present Illness HPI Narrative: Patient is a 74-year-old male with a history of hypertension who presents to the emergency department for a 1 day history of bodyaches, fever, cough and fatigue. Patient states when he was laying in bed he noticed that his heart rate was elevated which is unusual for him since he takes a beta-manny. He denies chest pain, shortness of breath. He took ibuprofen this morning for fever. He has not had any significant sputum production. He denies vomiting or diarrhea. He states he has no complaints of pain at this time. Related Data Home Medications ?Medication ?Instructions ?Recorded ?Confirmed amlodipine 2.5 mg tablet 2.5 mg PO DAILY 10/23/24 10/23/24 aspirin 81 mg chewable tablet 81 mg PO DAILY 10/23/24 10/23/24 atorvastatin 10 mg tablet 10 mg PO DAILY 10/23/24 10/23/24 lorazepam 0.5 mg tablet 0.5 mg PO Q12H 10/23/24 10/23/24 metoprolol succinate 50 mg 50 mg PO Q12H 10/23/24 10/23/24 tablet,extended release 24 hr Previous Rx's ?Medication ?Instructions ?Recorded adgpsxpkrrzxcfj-jwbdkhnhuayeimg-PP 10 ml PO Q6H PRN cold symptoms 12/17/24 2 mg-30 mg-10 mg/5 mL oral syrup #200 mL (Bromfed DM) ondansetron 4 mg disintegrating 4 mg PO Q6H PRN nausea and 12/17/24 tablet vomiting #12 tabs oseltamivir 75 mg capsule (Tamiflu) 75 mg PO BID 5 days #10 caps 12/17/24 Allergies Allergy/AdvReac Type Severity Reaction Status Date / Time Penicillins AdvReac Severe Unknown Verified 10/23/24 13:31 Review of Systems ROS Constitutional Reports: fever and chills Ears, nose, mouth, and throat Reports: nasal congestion; Denies: throat pain Cardiovascular Denies: chest pain Respiratory Reports: cough; Denies: shortness of breath Gastrointestinal Denies: nausea, vomiting or diarrhea Musculoskeletal Denies: back pain Integumentary/Breast Denies: rash Neurological Denies: numbness in extremities or weakness in extremities Endocrine Reports: fatigue Hematologic/Lymphatic Denies: easy bruising or easy bleeding PFSH PFS Social History Little interest or pleasure in doing things: not at all Feeling down, depressed, or hopeless: not at all Exam Narrative Exam Narrative: Gen.: Awake, alert, in no distress Head: Normocephalic, atraumatic ENT: Moist mucous membranes, bilateral TMs clear Respiratory: No respiratory distress, lungs clear bilaterally Cardio: Regular rate and rhythm Gastrointestinal: Abdomen is soft, nondistended and nontender to palpation Extremities: Moves extremities equally Psych: Normal mood and affect Neuro: No focal neuro deficit Skin: Warm, dry, intact Constitutional Vital Signs, click to edit/add: Last Vital Signs Temp 98.2 F 12/17/24 10:36 Pulse 88 12/17/24 13:12 Resp 20 12/17/24 13:12 BP 142/65 H 12/17/24 13:12 Pulse Ox 97 12/17/24 13:12 O2 Del Method Room Air 12/17/24 13:12 Course Vital Signs Vital signs: Vital Signs Temperature 98.2 F 12/17/24 10:36 Pulse Rate 105 H 12/17/24 10:36 Respiratory Rate 18 12/17/24 10:36 Blood Pressure 145/70 H 12/17/24 10:36 Pulse Oximetry 97 12/17/24 10:36 Oxygen Delivery Method Room Air 12/17/24 10:36 Temperature 98.2 F 12/17/24 10:36 Pulse Rate 88 12/17/24 13:12 Respiratory Rate 20 12/17/24 13:12 Blood Pressure 142/65 H 12/17/24 13:12 Pulse Oximetry 97 12/17/24 13:12 Oxygen Delivery Method Room Air 12/17/24 13:12 MDM - URI/Sore Throat MDM Narrative Medical decision making narrative: EKG, labs and chest x-ray are unremarkable. Patient was offered Tamiflu, as well as Zofran for home. Continue Motrin and Tylenol as needed for fever and bodyaches. Bromfed-DM given for cough and congestion as needed. Follow-up with PCP. Increase fluids for home and return to the ER if symptoms change or worsen SUPERVISED APC VISIT, PHYSICIAN ATTESTATION: Based on the medical record the care appears appropriate. ? Medical Records Attestation: I reviewed the patient's medical records. Lab Data Attestation: I reviewed the patient's lab results. Labs: Lab Results 12/17/24 12/17/24 Range/Units 10:42 13:22 WBC 5.2 (4.0-11.0) 10^3/uL RBC 4.64 L (4.70-6.10) 10^6/uL Hgb 13.0 L (14.0-18.0) g/dL Hct 40.8 L (42.0-54.0) % MCV 87.9 (80.0-94.0) fL MCH 28.0 (25.9-34.0) pg MCHC 31.9 (29.9-35.2) g/dL RDW 13.0 (11.0-15.0) % Plt Count 192 (150-450) 10^3/uL MPV 9.5 (9.5-13.5) fL Seg Neuts % (Manual) 85.0 H (43.0-75.0) Band Neutrophils % 1.0 (0-5) % Lymphocytes % (Manual) 4.0 L (20.5-60.0) % Monocytes % (Manual) 9.0 (1.7-12.0) % Eosinophils % (Manual) 1.0 (0.9-7.0) % Basophils % (Manual) 1.0 (0.2-2.0) % Neutrophils # (Manual) 4.42 (1.4-6.5) 10^3/uL Band Neutrophils # 0.1 (0.0-0.3) 10^3/uL Lymphocytes # (Manual) 0.20 L (1.20-3.80) 10^3/uL Monocytes # (Manual) 0.46 (0.30-0.80) 10^3/uL Eosinophils # (Manual) 0.05 (0.00-0.70) 10^3/uL Basophils # (Manual) 0.05 (0.00-0.10) 10^3/uL Sodium 135 L (136-145) mmol/L Potassium 4.3 (3.5-5.1) mmol/L Chloride 99 (98-107) mmol/L Carbon Dioxide 29.6 (21.0-32.0) mmol/L Anion Gap 10.7 BUN 14.0 (7.0-18.0) mg/dL Creatinine 1.11 (0.70-1.30) mg/dL Est GFR ( Amer) >60 (>=60 mL/min/1.73m^2) Est GFR (Non-Af Amer) >60 (>=60 mL/min/1.73m^2) BUN/Creatinine Ratio 12.6 Glucose 99 (74-106) mg/dL Calcium 8.6 (8.5-10.1) mg/dL Total Bilirubin 0.6 (0.2-1.0) mg/dL AST 20 (15-37) U/L ALT 26 (16-63) U/L Alkaline Phosphatase 78 (46-116) U/L Troponin I High Sens 4.6 (4.0-76.1) pg/mL Total Protein 6.5 (6.4-8.2) g/dL Albumin 3.5 (3.4-5.0) g/dL Globulin 3.0 g/dL Albumin/Globulin Ratio 1.2 Influenza Type A Ag Positive A Influenza Type B Ag Negative SARS-CoV-2 Ag (CV2AG) Negative (NEGATIVE) Imaging Data Chest x-ray: Attestation: I have reviewed the pertinent imaging results. Radiologist's impression: ITS Impressions Chest X-Ray 12/17/24 12:46 IMPRESSION: 1. No acute cardiopulmonary process. Electronically authenticated by: JONO TRINIDAD Date: 12/17/2024 13:15 ECG Data Attestation: I personally reviewed and interpreted this ECG as follows: (Normal at a rate of 95 with occasional PVCs, no acute ST elevation. EKG reviewed by attending physician) Discharge Plan Discharge Chief Complaint: Upper Respiratory Infection Clinical Impression: Influenza Patient Disposition: Home, Self-Care Time of Disposition Decision: 14:25 Condition: Good Prescriptions / Home Meds: New kmufxecujmtxznt-srnpeqvjc-GG [Bromfed DM] 2-30-10 mg/5 mL syrup 10 ml PO Q6H PRN (Reason: cold symptoms) Qty: 200 0RF ondansetron 4 mg tablet,disintegrating 4 mg PO Q6H PRN (Reason: nausea and vomiting) Qty: 12 0RF oseltamivir [Tamiflu] 75 mg capsule 75 mg PO BID 5 Days Qty: 10 0RF No Action aspirin 81 mg tablet,chewable 81 mg PO DAILY amlodipine 2.5 mg tablet 2.5 mg PO DAILY atorvastatin 10 mg tablet 10 mg PO DAILY lorazepam 0.5 mg tablet 0.5 mg PO Q12H metoprolol succinate 50 mg tablet extended release 24 hr 50 mg PO Q12H Print Language: Greek Instructions: Influenza (ED) Referrals: Carter Luna MD [Primary Care Provider] - 1 week
[2024-12-17] MEDS: ACETAMINOPHEN 325 MG TABLET 650 MG PO (13:08)
[2024-12-17] MEDS: 0.9 % SODIUM CHLORIDE 1,000 ML 999 ML IV (13:09)
[2024-12-17 13:12] VITALS: BP 142/65; PULSE 88; O2SAT 97
[2024-12-17 13:35] LABS: Hematocrit 40.8 % (42.0-54.0); Mean Corpuscular HGB Conc 31.9 g/dL (29.9-35.2); Mean Corpuscular Volume 87.9 fL (80.0-94.0); Mean Platelet Volume 9.5 fL (9.5-13.5); Platelet Count 192 10^3/uL (150-450); Red Blood Count 4.64 10^6/uL (4.70-6.10); White Blood Count 5.2 10^3/uL (4.0-11.0)
[2024-12-17 13:53] LABS: Band Neutrophils Absolute 0.1 10^3/uL (0.0-0.3); Basophils Abs Manual 0.05 10^3/uL (0.00-0.10); Eosinophils Absolute Manual 0.05 10^3/uL (0.00-0.70); Monocytes Absolute Manual 0.46 10^3/uL (0.30-0.80); Segmented Neut Absolute Manual 4.42 10^3/uL (1.4-6.5)
[2024-12-17 13:57] LABS: Alanine Aminotransferase 26 U/L (16-63); Albumin Globulin Ratio 1.2; Albumin Level 3.5 g/dL (3.4-5.0); Alkaline Phosphatase 78 U/L (46-116); Anion Gap 10.7; Aspartate Amino Transferase 20 U/L (15-37); BUN Creatinine Ratio 12.6; Bilirubin Total 0.6 mg/dL (0.2-1.0); Calcium 8.6 mg/dL (8.5-10.1); Carbon Dioxide 29.6 mmol/L (21.0-32.0); Chloride 99 mmol/L (98-107); Estimated GFR (African America >60 (>=60 mL/min/1.73m^2); Estimated GFR (Non-African Ame >60 (>=60 mL/min/1.73m^2); Glucose 99 mg/dL (74-106); Potassium 4.3 mmol/L (3.5-5.1); Sodium 135 mmol/L (136-145); Total Protein 6.5 g/dL (6.4-8.2); Troponin I High Sensitivity 4.6 pg/mL (4.0-76.1)
== END 2024-12-17 15:09 | disposition home or self-care (01) ==
PROVIDERS: Physician Assistant; Emergency Provider Emergency Medicine; PCP Family Medicine
DX: J10.1 Influenza due to other identified influenza virus with other respiratory manifestations (principal); I10 Essential (primary) hypertension
CPT/HCPCS: 36415; 71045; 80053; 83605; 84484; 85007; 85027; 87804; 87811; 93005; 99285

== ENCOUNTER 2024-12-23 12:15 | Emergency (ER) | payer OTHER, SELFPAY ==
[2024-12-23 12:43] VITALS: BP 144/71; PULSE 74; TEMP 36.8; O2SAT 98; BMI 21.6
--- NOTE | 2024-12-23 13:07 | XR_ITS ---
The [address] [address] Patient Name: MARSHAL CHAVEZ MRN: [id number] date: 1950 Sex: M Assigned Patient Location: ER Current Patient Location: ED.MAIN Accession/Order Number: [id number] Exam Date: 12/23/2024 13:15 Report Date: 12/23/2024 13:58 At the request of: LOIS QUILES Procedure: XR chest 1V EXAMINATION: XR chest 1V HISTORY: cough COMPARISON: XR chest 12/17/2024 FINDINGS: LUNGS: No significant pulmonary parenchymal abnormalities. VASCULATURE: No increased pulmonary vasculature. PLEURA: No pneumothorax, effusion, or pleural thickening. CARDIAC: No cardiomegaly or cardiac silhouette abnormality. MEDIASTINUM: No visible mass or adenopathy. BONES: No fracture or visible bone lesion. OTHER: Negative. XR/XR chest 1V IMPRESSION: 1. No acute cardiopulmonary process. Stable chest. Electronically authenticated by: JONO TRINIDAD Date: 12/23/2024 13:58
--- NOTE | 2024-12-23 13:08 | ED_ITS ---
HPI HPI - General Adult General Chief complaint: Weakness Stated complaint: GENERAL WEAKNESS Time Seen by Provider: 12/23/24 13:04 Source: patient Mode of arrival: walk-in History of Present Illness HPI narrative: 74 year old male presents to the ED for cough, fatigue. Onset was one week ago. He was diagnosed with influenza A one week ago. He was prescribed Tamiflu. Denies fever, chills, N/V. Reports diarrhea on day 1 or 2. Related Data Home Medications ?Medication ?Instructions ?Recorded ?Confirmed amlodipine 2.5 mg tablet 2.5 mg PO DAILY 10/23/24 10/23/24 aspirin 81 mg chewable tablet 81 mg PO DAILY 10/23/24 10/23/24 atorvastatin 10 mg tablet 10 mg PO DAILY 10/23/24 10/23/24 lorazepam 0.5 mg tablet 0.5 mg PO Q12H 10/23/24 10/23/24 metoprolol succinate 50 mg 50 mg PO Q12H 10/23/24 10/23/24 tablet,extended release 24 hr Previous Rx's ?Medication ?Instructions ?Recorded cgmnsxshjqcgeen-jnpuulbtllayglf-YZ 10 ml PO Q6H PRN cold symptoms 12/17/24 2 mg-30 mg-10 mg/5 mL oral syrup #200 mL (Bromfed DM) ondansetron 4 mg disintegrating 4 mg PO Q6H PRN nausea and 12/17/24 tablet vomiting #12 tabs oseltamivir 75 mg capsule (Tamiflu) 75 mg PO BID 5 days #10 caps 12/17/24 Allergies Allergy/AdvReac Type Severity Reaction Status Date / Time Penicillins AdvReac Severe Unknown Verified 10/23/24 13:31 Opioid HPI Opioid Management Most Recent Opioid Data: No Data to Display Review of Systems ROS Constitutional Reports: fatigue; Denies: fever or chills Ears, nose, mouth, and throat Reports: nasal congestion; Denies: throat pain, neck pain or ear pain Cardiovascular Denies: chest pain Respiratory Reports: cough; Denies: shortness of breath Gastrointestinal Reports: diarrhea; Denies: abdominal pain, nausea or vomiting Musculoskeletal Denies: back pain or neck pain Integumentary/Breast Denies: rash Neurological Denies: headache, numbness in extremities or weakness in extremities PFSH PFSH Social History Little interest or pleasure in doing things: not at all Feeling down, depressed, or hopeless: not at all Exam Constitutional Vital Signs, click to edit/add: Last Vital Signs Temp 98.3 F 12/23/24 12:43 Pulse 74 12/23/24 12:43 Resp 16 12/23/24 12:43 BP 144/71 H 12/23/24 12:43 Pulse Ox 98 12/23/24 13:11 O2 Del Method Room Air 12/23/24 13:11 Common normals: no apparent distress and oriented x3 General appearance: cooperative HENCA Common normals: moist oral mucous membranes Mouth: oral and palatal mucosa normal, lip normal and tongue normal Throat: posterior oropharynx normal Eye Common normals: conjunctivae normal and no scleral icterus Neck & C-Spine Common normals: supple Respiratory Common normals: normal respiratory effort and clear to auscultation bilaterally Effort & inspection: able to speak in complete sentences and symmetric chest movement Cardio Common normals: regular rate and regular rhythm GI Common normals: soft to palpation Course Vital Signs Vital signs: Vital Signs Temperature 98.3 F 12/23/24 12:43 Pulse Rate 74 12/23/24 12:43 Respiratory Rate 16 12/23/24 12:43 Blood Pressure 144/71 H 12/23/24 12:43 Pulse Oximetry 98 12/23/24 12:43 Oxygen Delivery Method Room Air 12/23/24 12:43 Temperature 98.3 F 12/23/24 12:43 Pulse Rate 74 12/23/24 12:43 Respiratory Rate 16 12/23/24 12:43 Blood Pressure 144/71 H 12/23/24 12:43 Pulse Oximetry 98 12/23/24 13:11 Oxygen Delivery Method Room Air 12/23/24 13:11 Medical Decision Making Medical Records Medical records reviewed: Yes I reviewed the patient's medical records Medical records narrative: CBC and BMP were unremarkable. Chest x-ray showed no acute findings. VS were unremarkable. MMM. Findings were discussed. Follow up with pcp for a recheck, further evaluation and treatment. Lab Data Lab results reviewed: Yes I reviewed the patient's lab results Labs: Lab Results 12/23/24 Range/Units 13:42 WBC 5.4 (4.0-11.0) 10^3/uL RBC 4.73 (4.70-6.10) 10^6/uL Hgb 13.2 L (14.0-18.0) g/dL Hct 40.5 L (42.0-54.0) % MCV 85.6 (80.0-94.0) fL MCH 27.9 (25.9-34.0) pg MCHC 32.6 (29.9-35.2) g/dL RDW 12.4 (11.0-15.0) % Plt Count 220 (150-450) 10^3/uL MPV 9.7 (9.5-13.5) fL Neut % (Auto) 64.8 (43.0-75.0) % Lymph % (Auto) 22.7 (20.5-60.0) % [place] % (Auto) 10.2 (1.7-12.0) % Eos % (Auto) 1.5 (0.9-7.0) % Baso % (Auto) 0.6 (0.2-2.0) % Neut # (Auto) 3.5 (1.4-6.5) 10^3/uL Lymph # (Auto) 1.2 (1.2-3.8) 10^3/uL [place] # (Auto) 0.6 (0.3-0.8) 10^3/uL Eos # (Auto) 0.1 (0.0-0.7) 10^3/uL Baso # (Auto) 0.0 (0.0-0.1) 10^3/uL Abs Immat Gran (auto) 0.01 (0.00-0.03) 10^3/uL Imm/Tot Granulo (auto) 0.2 (0.0-0.5) % Sodium 133 L (136-145) mmol/L Potassium 4.2 (3.5-5.1) mmol/L Chloride 96 L (98-107) mmol/L Carbon Dioxide 27.0 (21.0-32.0) mmol/L Anion Gap 14.2 BUN 11.0 (7.0-18.0) mg/dL Creatinine 0.94 (0.70-1.30) mg/dL Est GFR ( Amer) >60 (>=60 mL/min/1.73m^2) Est GFR (Non-Af Amer) >60 (>=60 mL/min/1.73m^2) BUN/Creatinine Ratio 11.7 Glucose 119 H (74-106) mg/dL Calcium 8.6 (8.5-10.1) mg/dL Imaging Data Chest x-ray: Attestation: I have reviewed the pertinent imaging results. Radiologist's impression: ITS Impressions Chest X-Ray 12/23/24 13:07 IMPRESSION: 1. No acute cardiopulmonary process. Stable chest. Electronically authenticated by: JONO TRINIDAD Date: 12/23/2024 13:58 Discharge Plan Discharge Chief Complaint: Weakness Clinical Impression: Fatigue, History of influenza Patient Disposition: Home, Self-Care Time of Disposition Decision: 14:43 Condition: Good Mode of Transportation: Private Vehicle Prescriptions / Home Meds: No Action aspirin 81 mg tablet,chewable 81 mg PO DAILY amlodipine 2.5 mg tablet 2.5 mg PO DAILY atorvastatin 10 mg tablet 10 mg PO DAILY lorazepam 0.5 mg tablet 0.5 mg PO Q12H metoprolol succinate 50 mg tablet extended release 24 hr 50 mg PO Q12H [id number]-UV [Bromfed DM] 2-30-10 mg/5 mL syrup 10 ml PO Q6H PRN (Reason: cold symptoms) Qty: 200 0RF ondansetron 4 mg tablet,disintegrating 4 mg PO Q6H PRN (Reason: nausea and vomiting) Qty: 12 0RF oseltamivir [Tamiflu] 75 mg capsule 75 mg PO BID 5 Days Qty: 10 0RF Print Language: Ukrainian Instructions: Influenza (ED), Fatigue (ED) Additional Instructions: Return to the ER for worsening symptoms. Referrals: Carter Luna MD [Primary Care Provider] - 1 week
[2024-12-23 13:11] VITALS: O2SAT 98
--- OUTSIDE RECORDS SUMMARY | 2024-12-23 13:20 | XMS_ITS | CCD ---
Author Organization [facility] Care Team Providers Care Organ Recovery Coordinator Name Role Phone Ayad Lawrence Unavailable Carter Fitzpatrick Primary Care Provider [phone] No, Referral Unavailable Unavailable Jose Cruz RUSSELL, Wai Dorantes Unavailable [phone] AMARI, DR CARTER Quintanilla Admitting Unavailable NADERER, DR CARTER Quintanilla Attending Unavailable NADERER, DR CARTER Quintanilla Consulting Unavailable NADERER, DR CARTER Quintanilla Primary Care Unavailable ALLEN ., DR ETHAN Nunes Admitting Unavailable ALLEN ., DR ETHAN Nunes Attending Unavailable NADERER, DR CARTER Quintanilla Primary Care Unavailable NADERER, DR CARTER Quintanilla Consulting Unavailable LAKSHMIPATHY ., CARLOS Attending Ofelia vailable LALEN ., DR ETHAN Nunes Consulting Unavailable LAKSHMIPATHY ., CARLOS Admitting Ofelia vailable NADERER, DR CARTER Quintanilla Primary Care Unavailable LAKSHMIPATHY ., CARLOS Consulting Ofelia vailable FAWWAD, BECKETT H Admitting Unavailable FAWWAD, BECKETT H Attending Unavailable MADISON, DR MARSHAL Tanner Consulting Unavailable NADERER, DR [...] LAITH Consulting Unavailable Jass, Marshal Consulting Unavailable LUMDILA, DR MAICOL Kingston Consulting Unavailable LUDMILA, DR [...] Unavailable Jose Cruz RUSSELL, Wai Dorantes Unavailable [phone] Amari, Carter Quintanilla Primary Care Provider Carter Fitzpatrick MD Primary Care Provider Carter Fitzpatrick MD Primary Care Provider WAI BILLINGSLEY Attending Unavailable WAI BILLINGSLEY Referring Unavailable NADCHARLIE, CARTER Quintanilla Primary Care Unavailable WAI BILLINGSLEY Referring Unavailable AMARI, CARTER Quintanilla Primary Care Unavailable AMARI, CARTER Attending Unavailable CINTHIA PRECIADO Attending Unavailable NADERER, CARTER Attending Unavailable NADEREVashti, CARTER Attending Unavailable Allergies Allergy Classification Reported Allergen(s) Allergy Type Date of Onset Reaction(s) Facility (1 source) penicillAMINE Drug Allergy Unknown [employer] Other (19 sources) Penicillin; Translations: [PENICILLIN] Drug Allergy 11-01-20 17 Unknown [facility] (19 sources) Thiazides; Translations: [THIAZIDES] Drug Intolerance 02-04-20 19 GI Upset [facility] Work Phone: (2 sources) Penicillins Drug allergy (disorder) 11-17-20 16 [facility] (6 sources) cefdinir Drug Allergy 03-26-20 24 [facility] (6 sources) Penicillin G Drug Allergy 11-01-20 17 Hives, Unknown [facility] (6 sources) Other Propensity to adverse reactions 02-04-20 19 GI intolerance [facility] Medications Current Medications Medication Drug Class(es) [...] 12-27-2023 Chronic Other aftercare (5 sources) Other longterm (current) drug therapy; Translations: [OTH NURSING HOME CURRENT DRUG THERAPY] Onset: 11-07-2022 Episodic Other aftercare (5 sources) Long-term current use of drug therapy; Translations: [Other longterm (current) drug therapy] Onset: 09-08-2024 09-08-2024 Episodic [...] PANELon 10-01-2024 Anion gap [Moles/Vol] 13.2 mmol/L [facility] Calcium [Mass/Vol] 8.7 mg/dL 8.5 - 10. 1 mg/dL [facility] Chloride [Moles/Vol] 106 mmol/L 98 - 10 7 mmol/L [facility] CO2 [Moles/Vol] 28.4 mmol/L 21.0 - 32.0 mmol/L [facility] Creatinine [Mass/Vol] 1.03 mg/dL 0.70 - 1.30 mg/dL [facility] GFR/1.73 sq M.predicted CKD-EPI (S/P/Bld) [Vol rate/Area] >60 >=60 mL/min/1.73m [address] [facility] Glucose [Mass/Vol] 97 mg/dL 74 - 106 mg/dL [facility] Potassium [Moles/Vol] 4.6 mmol/L 3.5 - 5.1 mmol/L [facility] Sodium [Moles/Vol] 143 mmol/L 136 - 145 mmol/L [facility] TBH EGFR-NON AF [place] >60 >=60 mL/min/1.73m [address] [facility] Urea nitrogen [Mass/Vol] 16 mg/dL 7.0 - 18.0 mg/dL [facility] Urea nitrogen/Creatinine [Mass ratio] 15.5 mg/mg [facility] ALL CBC WITH AUTO DIFFon BASOPHILS ABSOLUTE AUTO 0.[address] [facility] Basophils/100 WBC (Bld) 0.6 % 0.2 - 2.0 % [facility] Eosinophils/100 WBC (Bld) 8.7 % High 0.9 - 7.0 % [facility] Erythrocyte distribution width (RBC) [Ratio] 12.5 % 11.0 - 15.0 % [facility] Hematocrit (Bld) [Volume fraction] 42.7 % 42.0 - 54.0 % [facility] Hemoglobin (Bld) [Mass/Vol] 13.5 g/dL Low 14.0 - 18.0 g/dL [facility] IMMATURE GRANULOCYTES ABS AUTO 0.[address] [facility] Immature granulocytes/100 WBC (Bld) 0.1 % 0.0 - 0.5 % [facility] Interpretation and review of laboratory results Abnormal [facility] LYMPHOCYTES ABSOLUTE AUTO 2.[address] [facility] Lymphocytes/100 WBC (Bld) 27.8 % 20.5 - 60.0 % [facility] MCH (RBC) [Entitic mass] 28 pg 25.9 - 34.[address] [facility] MCHC (RBC) [Mass/Vol] 31.6 g/dL 29.9 - 35.2 g/dL [facility] MCV (RBC) [Entitic vol] 88.6 fL 80.0 - 94.[address] [facility] MONOCYTES ABSOLUTE AUTO 0.[address] [facility] Monocytes/100 WBC (Bld) 10.4 % 1.7 - 12.0 % [facility] NEUTROPHILS ABSOLUTE AUTO 4.[address] [facility] Neutrophils/100 WBC (Bld) 52.4 % 43.0 - 75.0 % [facility] Platelet mean volume (Bld) [Entitic vol] 9.7 fL 9.5 - 13.[address] [facility] TBH EO # 0.[address] [facility] TB PLT 263 [facility] RBC 4.82 [facility] WBC 7.[address] [facility] ALL LIPID PROFILE (FASTING)o n 10-01-2024 CHOL HDL RATIO 2.[address] [facility] Comment on above: 3.3 - 4.4 LOW RISK 4.4 - 7.1 AVERAGE RISK 7.1 - 11.0 MODERATE RISK >11.0 HIGH RISK Cholesterol [Mass/Vol] 133 mg/dL NINF - 200 mg/dL [facility] Cholesterol in HDL [Mass/Vol] 60 mg/dL 40 - 60 mg/dL [facility] Comment on above: > or =60 mg/dl - LOW CARDIOVASCULAR RISK <40 mg/dl - HIGH CARDIOVASCULAR RISK Magnesium [Mass/Vol] 58.8 mg/dL [facility] Comment on above: <100 mg/dl OPTIMAL 100-129 mg/dl NEAR OR ABOVE OPTIMAL 130-159 mg/dl BORDERLINE HIGH 160-189 mg/dl HIGH >190 mg/dl VERY HIGH Magnesium [Mass/Vol] 14.2 mg/dL [facility] Triglyceride [Mass/Vol] 71 mg/dL NINF - 150 mg/dL [facility] ALL MAGNESIUMon 10-01-2024 Magnesium [Mass/Vol] 2.2 mg/dL 1.8 - 2 .4 mg/dL [facility] HMHP LIVER PANELon Albumin [Mass/Vol] 3.4 g/dL 3.4 - 5.0 g/dL [facility] ALBUMIN GLOBULIN RATIO 1.[address] [facility] ALP [Catalytic activity/Vol] 92 U/L 46 - 116 U/L [facility] ALT [Catalytic activity/Vol] 34 U/L 16 - 63 U/L [facility] AST [Catalytic activity/Vol] 18 U/L 15 - 37 U/L [facility] Bilirubin [Mass/Vol] 0.5 mg/dL 0.2 - 1 .0 mg/dL [facility] Bilirubin.indirect [Mass/Vol] 0.1 mg/dL 0.0 - 0.2 mg/dL [facility] Globulin (S) [Mass/Vol] 3.2 g/dL [facility] Protein [Mass/Vol] 6.6 g/dL 6.4 - 8.2 g/dL [facility] MLR HEMOGLOBIN A1Con 024 Glucose [Mass/Vol] 123 mg/dL [facility] HbA1c (Bld) [Mass fraction] 5.9 % 4.5 - 6.2 % [facility] Comment on above: ADA RECOMMENDED LIMI T 4.0 - 6.0 ADA THERAPEUTIC TARGET < 7.0 ACTION SUGGESTED > 7.[address] [facility] No Panel Informationon 10-01 [facility] SRMCOH PROSTATE SPECIFIC ANT IGEN SCRNon 10-01-2024 PROSTATE SPECIFIC ANTIGEN SCRN 3.24 ng/mL NINF - 4.00 ng/mL Counts include 234 beds at the [facility] CNOVon 12-27-2023 CNOV Office Visit (CARELFEGO ) MARSHAL GARRISON ([id number]) 1950 M Date Time Provider Department 12/27/23 3:00 PM WAI BILLINGSLEY During your visit today, we recorded the following information about you: Pulse Blood pressure Weight Height 64/minute 152/72 80.3 kg 1.83 m Wai Billingsley MD 12/27/2023 5:04 PM [facility] [place] [facility] Armando Department of Cardiovascular Medicine SECTION OF CARDIOVASCULAR IMAGING OUTPATIENT VISIT DATE December 27, 2023 OUTPATIENT VISIT TYPE ESTABLISHED PRIMARY CARE PHYSICIAN: Carter Fitzpatrick MD ([facility]) [address] [place] [address] REFERRING PHYSICIAN: Katerin Billingsley [address] [address] CHIEF COMPLAINT: Follow up HISTORY OF PRESENT [...] NORMAL ECG Confirmed by BILLIE CALLES MD ([id number]) on 03/07/2023 9:46:24 AM IMPRESSION: Mr. Garrison is a 73 year old male with multiple + stable mild to moderate mitral regurgitation. Active (more content not included)... 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 Comment on above: Performed By: #### C BC #### [facility] [address] [address] [address] Abhay Farr Basophils/100 WBC (Bld) 0.6 % Normal 0.2-2.[address] [facility] Comment on above: Performed By: #### C BC #### [facility] [address] [address] [address] Abhay Farr EO # 0.2 103/ul Normal 0.0-0.[address] [facility] Comment on above: Performed By: #### C BC #### [facility] [address] [place] [address] [address] Abhay Farr Eosinophils/100 WBC (Bld) 2.5 % Normal 0.9-7.[address] [facility] Comment on above: Performed By: #### C BC #### [facility] [address] [place] [address] Dr. Abhay Farr Erythrocyte distribution width (RBC) [Ratio] 12.6 % Normal 11.0-15.[address] [facility] Comment on above: Performed By: #### C BC #### [facility] [address] [place] [address] Dr. Abhay Farr Hematocrit (Bld) [Volume fraction] 43.1 % Normal 42.0-54.[address] [facility] Comment on above: Performed By: #### C BC #### [facility] [address] [place] [address] Dr. Abhay Farr Hemoglobin (Bld) [Mass/Vol] 13.6 g/dL Critically low 14.0-18.[address] [facility] Comment on above: Performed By: #### C BC #### [facility] [address] [place] [address] Dr. Abhay Farr IG # 0.02 10e3/ul Normal 0.00-0.[address] [facility] Comment on above: Performed By: #### C BC #### [facility] [address] [place] [address] Dr. Abhay Farr IG % 0.2 % Normal 0.0-0.[address] [facility] Comment on above: Performed By: #### C BC #### [facility] [address] [place] [address] Dr. Abhay Farr LYMPH # 2.0 103/ul Normal 1.2-3.8 [facility] Comment on above: Performed By: #### C BC #### [facility] [address] [place] [address] Dr. Abhay Farr Lymphocytes/100 WBC (Bld) 24.4 % Normal 20.5-60.[address] [facility] Comment on above: Performed By: #### C BC #### [facility] [address] [place] [address] Dr. Abhay Farr MANUAL DIFF REQ NO Normal [facility] Comment on above: Performed By: #### C BC #### [facility] [address] [address] [address] Abhay Farr MCH (RBC) [Entitic mass] 27.9 pg Normal 25.9-34.0 [facility] Comment on above: Performed By: #### C BC #### [facility] [address] [place] [address] Dr. Abhay Farr MCHC (RBC) [Mass/Vol] 31.6 g/dL Normal 29.9-35.2 [facility] Comment on above: Performed By: #### C BC #### [facility] [address] [place] [address] Dr. Abhay Farr MCV (RBC) [Entitic vol] 88.5 fL Normal 80.0-94.[address] [facility] Comment on above: Performed By: #### C BC #### [facility] [address] [place] [address] Dr. Abahy Farr MONO # 0.8 103/ul Normal 0.3-0.[address] [facility] Comment on above: Performed By: #### C BC #### [facility] [address] [place] [address] Dr. Abhay Farr Monocytes/100 WBC (Bld) 9.5 % Normal 1.7-12.[address] [facility] Comment on above: Performed By: #### C BC #### [facility] [address] [place] [address] Dr. Abhay Farr NEUT # 5.1 103/ul Normal 1.4-6.5 [facility] Comment on above: Performed By: #### C BC #### [facility] [address] [place] [address] Dr. Abhay Farr Neutrophils/100 WBC (Bld) 62.8 % Normal 43.0-75.0 [facility] Comment on above: Performed By: #### C BC #### [facility] [address] [place] [address] Dr. Abhay Farr Platelet mean volume (Bld) [Entitic vol] 9.2 fL Critically low 9.5-13.5 [facility] Comment on above: Performed By: #### C BC #### [facility] [address] [place] [address] Dr. Abhay Farr PLT 272 103/ul Normal 150-[address] [facility] Comment on above: Performed By: #### C BC #### [facility] [address] [place] [address] Dr. Abhay Farr RBC 4.87 106/ul Normal 4.70-6.[address] [facility] Comment on above: Performed By: #### C BC #### [facility] [address] [place] [address] Dr. Abhay Farr WBC 8.0 103/ul Normal 4.0-11.[address] [facility] Comment on above: Performed By: #### C BC #### [facility] [address] [place] [address] Dr. Abhay Farr MAGNESIUMon 12-29-2022 Magnesium [Mass/Vol] 2.0 mg/dL Normal 1.8-2.[address] [facility] Comment on above: Performed By: #### M G, BMP #### [facility] [address] [place] [address] Dr. Abhay Farr PROF CHEM 8 (BAS METB)on Anion gap [Moles/Vol] 11.4 mmol/L Normal [facility] Comment on above: Performed By: #### M G, BMP #### [facility] [address] [place] [address] Dr. Abhay Farr Calcium [Mass/Vol] 8.9 mg/dL Normal 8.5-10.1 [facility] Comment on above: Performed By: #### M G, BMP #### [facility] [address] [place] [address] Dr. Abhay Farr Chloride [Moles/Vol] 98 mmol/L Normal 98-[address] [facility] Comment on above: Performed By: #### M G, BMP #### [facility] [address] [place] [address] Dr. Abhay Farr CO2 [Moles/Vol] 30.1 mmol/L Normal 21.0-32.0 [facility] Comment on above: Performed By: #### M G, BMP #### [facility] [address] [address] [address] Abhay Farr Creatinine [Mass/Vol] 0.94 mg/dL Normal 0.70-1.[address] [facility] Comment on above: Performed By: #### M G, BMP #### [facility] [address] [address] [address] Abhay Farr EGFR-AF [place] >60 Normal >=60 [facility] Comment on above: Performed By: #### M G, BMP #### [facility] [address] [address] [address] Abhay Farr EGFR-NON AF [place] >60 Normal >=[address] [facility] Comment on above: Performed By: #### M G, BMP #### [facility] [address] [place] [address] Dr. Abhay Farr Glucose [Mass/Vol] 108 mg/dL Critically high 74-106 [facility] Comment on above: Performed By: #### M G, BMP #### [facility] [address] [address] [address] Abhay Farr Potassium [Moles/Vol] 4.5 mmol/L Normal 3.5-5.[address] [facility] Comment on above: Performed By: #### M G, BMP #### [facility] [address] [place] [address] Dr. Abhay Farr Sodium [Moles/Vol] 135 mmol/L Critically low 136-145 [facility] Comment on above: Performed By: #### M G, BMP #### [facility] [address] [address] [address] Abhay Farr Urea nitrogen [Mass/Vol] 15.0 mg/dL Normal 7.0-18.[address] [facility] Comment on above: Performed By: #### M G, BMP #### [facility] [address] [address] [address] Abhay Farr Urea nitrogen/Creatinine [Mass ratio] 16.0 mg/mg Normal [facility] Comment on above: Performed By: #### M G, BMP #### [facility] [address] [place] [address] [address] Abhay Farr Covid-19 PCR (CVDTB)on SARS-CoV-2 (COVID-19) RNA FARIHA+probe Ql (Unsp spec) Not detected Normal NOT DETECTED [facility] Comment on above: Result Comment: This test is not yet approved or cleared by the [place] FDA. When there are no FDA-approved or cleared tests available, and other criteria are met, FDA can make tests available under an emergency access mechanism called an Emergency Use Authorization (EUA). The EUA for this test is supported by the [place] of Health and Human Service's (HHS's) declaration [...] SARS-CoV-2. Performed By: #### C VDTB #### [facility] [address] [place] [address] Dr. Abhay Farr ECG COMPLETEon 11-17-2022 Atrial Rate 76 BPM [facility] Calculated P Freedom 63 degrees [facility] Calculated R Freedom 38 degrees [facility] Calculated T Freedom 65 degrees [facility] P-R Interval 174 ms [facility] QRS Duration 84 ms [facility] QT Interval 362 ms [facility] QTC Calculation (Bazett) 407 ms [facility] Ventricular Rate 76 BPM [facility] ECHOon 11-16-2022 [facility] CBC AUTO DIFFon 11-05-2022 BASO # 0.1 103/ul Normal 0.0-0.[address] [facility] Comment on above: Performed By: #### C BC #### [facility] [address] [address] [address] Abhay Farr Basophils/100 WBC (Bld) 0.8 % Normal 0.2-2.[address] [facility] Comment on above: Performed By: #### C BC #### [facility] [address] [place] [address] Dr. Abhay Farr EO # 0.4 103/ul Normal 0.0-0.[address] [facility] Comment on above: Performed By: #### C BC #### [facility] [address] [place] [address] Dr. Abhay Farr Eosinophils/100 WBC (Bld) 4.8 % Normal 0.9-7.[address] [facility] Comment on above: Performed By: #### C BC #### [facility] [address] [place] [address] Dr. Abhay Farr Erythrocyte distribution width (RBC) [Ratio] 12.9 % Normal 11.0-15.[address] [facility] Comment on above: Performed By: #### C BC #### [facility] [address] [place] [address] Dr. Abhay Farr Hematocrit (Bld) [Volume fraction] 42.6 % Normal 42.0-54.[address] [facility] Comment on above: Performed By: #### C BC #### [facility] [address] [place] [address] Dr. Abhay aFrr Hemoglobin (Bld) [Mass/Vol] 13.7 g/dL Critically low 14.0-18.[address] [facility] Comment on above: Performed By: #### C BC #### [facility] [address] [place] [address] Dr. Abhay Farr IG # 0.01 10e3/ul Normal 0.00-0.[address] [facility] Comment on above: Performed By: #### C BC #### [facility] [address] [place] [address] Dr. Abhay Farr IG % 0.1 % Normal 0.0-0.[address] [facility] Comment on above: Performed By: #### C BC #### [facility] [address] [place] [address] Dr. Abhay Farr LYMPH # 2.0 103/ul Normal 1.2-3.8 [facility] Comment on above: Performed By: #### C BC #### [facility] [address] [place] [address] Dr. Abhay Farr Lymphocytes/100 WBC (Bld) 27.5 % Normal 20.5-60.[address] [facility] Comment on above: Performed By: #### C BC #### [facility] [address] [place] [address] Dr. Abhay Farr MANUAL DIFF REQ NO Normal [facility] Comment on above: Performed By: #### C BC #### [facility] [address] [place] [address] Dr. Abhay Farr MCH (RBC) [Entitic mass] 27.5 pg Normal 25.9-34.[address] [facility] Comment on above: Performed By: #### C BC #### [facility] [address] [place] [address] Dr. Abhay Farr MCHC (RBC) [Mass/Vol] 32.2 g/dL Normal 29.9-35.[address] [facility] Comment on above: Performed By: #### C BC #### [facility] [address] [place] [address] Dr. Abhay Farr MCV (RBC) [Entitic vol] 85.4 fL Normal 80.0-94.[address] [facility] Comment on above: Performed By: #### C BC #### [facility] [address] [place] [address] Dr. Abhay Farr MONO # 0.7 103/ul Normal 0.3-0.[address] [facility] Comment on above: Performed By: #### C BC #### [facility] [address] [place] [address] Dr. Abhay Farr Monocytes/100 WBC (Bld) 9.5 % Normal 1.7-12.0 [facility] Comment on above: Performed By: #### C BC #### [facility] [address] [place] [address] Dr. Abhay Farr NEUT # 4.2 103/ul Normal 1.4-6.[address] [facility] Comment on above: Performed By: #### C BC #### [facility] [address] [address] [address] Abhay Farr Neutrophils/100 WBC (Bld) 57.3 % Normal 43.0-75.[address] [facility] Comment on above: Performed By: #### C BC #### [facility] [address] [address] [address] Abhay Frar Platelet mean volume (Bld) [Entitic vol] 8.9 fL Critically low 9.5-13.[address] [facility] Comment on above: Performed By: #### C BC #### [facility] [address] [address] [address] Abhay Farr PLT 252 103/ul Normal 150-[address] [facility] Comment on above: Performed By: #### C BC #### [facility] [address] [place] [address] Dr. Abhay Farr RBC 4.99 106/ul Normal 4.70-6.10 [facility] Comment on above: Performed By: #### C BC #### [facility] [address] [place] [address] Dr. Abhay Farr WBC 7.3 103/ul Normal 4.0-11.[address] [facility] Comment on above: Performed By: #### C BC #### [facility] [address] [place] [address] STROKE HEAD WOon [...] JACOB DUKE Date: 2022-11-04 23:27 Normal [facility] PROF 14(COMP METB)on 022 Albumin [Mass/Vol] 3.6 g/dL Normal 3.4-5.0 [facility] Comment on above: Performed By: #### U MICRO, ERUR #### [facility] Laboratory [address] [place] [address] Dr. Abhay Farr Albumin/Globulin [Mass ratio] 1.0 {ratio} Normal [facility] Comment on above: Performed By: #### U MICRO, ERUR #### [facility] Laboratory [address] [place] [address] Dr. Abhay Farr ALP [Catalytic activity/Vol] 92 U/L Normal 46-[address] [facility] Comment on above: Performed By: #### U MICRO, ERUR #### [facility] Laboratory [address] [place] [address] Dr. Abhay Farr ALT [Catalytic activity/Vol] 53 U/L Normal 16-[address] [facility] Comment on above: Performed By: #### U MICRO, ERUR #### [facility] Laboratory [address] [place] [address] Dr. Abhay Farr Anion gap [Moles/Vol] 10.1 mmol/L Normal [facility] Comment on above: Performed By: #### U MICRO, ERUR #### [facility] [address] [place] [address] Dr. Abhay Farr AST [Catalytic activity/Vol] 24 U/L Normal 15-[address] [facility] Comment on above: Performed By: #### U MICRO, ERUR #### [facility] [address] [place] [address] Dr. Abhay Farr Bilirubin [Mass/Vol] 0.5 mg/dL Normal 0.2-1.[address] [facility] Comment on above: Performed By: #### U MICRO, ERUR #### [facility] [address] [place] [address] Dr. Abhay Farr Calcium [Mass/Vol] 8.9 mg/dL Normal 8.5-10.1 [facility] Comment on above: Performed By: #### U MICRO, ERUR #### [facility] [address] [place] [address] Dr. Abhay Farr Chloride [Moles/Vol] 98 mmol/L Normal 98-[address] [facility] Comment on above: Performed By: #### U MICRO, ERUR #### [facility] Laboratory [address] [place] [address] Dr. Abhay Farr CO2 [Moles/Vol] 27.7 mmol/L Normal 21.0-32.0 [facility] Comment on above: Performed By: #### U MICRO, ERUR #### [facility] [address] [place] [address] Dr. Abhay Farr Creatinine [Mass/Vol] 0.91 mg/dL Normal 0.70-1.[address] [facility] Comment on above: Performed By: #### U MICRO, ERUR #### [facility] [address] [place] [address] Dr. Abhay Farr EGFR-AF CAPE VERDEAN >60 Normal >=60 [facility] Comment on above: Performed By: #### U MICRO, ERUR #### [facility] [address] [place] [address] Dr. Abhay Farr EGFR-NON AF CAP[place] VERDEAN >60 Normal >=60 [facility] Comment on above: Performed By: #### U MICRO, ERUR #### [facility] [address] [place] [address] Dr. Abhay Farr Globulin (S) [Mass/Vol] 3.6 g/dL Normal [facility] Comment on above: Performed By: #### U MICRO, ERUR #### [facility] [address] [place] [address] Dr. Abhay Farr Glucose [Mass/Vol] 108 mg/dL Critically high 74-106 [facility] Comment on above: Performed By: #### U MICRO, ERUR #### [facility] [address] [place] [address] Dr. Abhay Farr Potassium [Moles/Vol] 3.8 mmol/L Normal 3.5-5.[address] [facility] Comment on above: Performed By: #### U MICRO, ERUR #### [facility] [address] [place] [address] Dr. Abhay Farr Protein [Mass/Vol] 7.2 g/dL Normal 6.4-8.2 [facility] Comment on above: Performed By: #### U MICRO, ERUR #### [facility] [address] [place] [address] Dr. Abhay Farr Sodium [Moles/Vol] 132 mmol/L Critically low 136-145 [facility] Comment on above: Performed By: #### U MICRO, ERUR #### [facility] [address] [place] [address] Dr. Abhay Farr Urea nitrogen [Mass/Vol] 13.0 mg/dL Normal 7.0-18.[address] [facility] Comment on above: Performed By: #### U MICRO, ERUR #### [facility] [address] [place] [address] Dr. Abhay Farr Urea nitrogen/Creatinine [Mass ratio] 14.3 mg/mg Normal [facility] Comment on above: Performed By: #### U MICRO, ERUR #### [facility] [address] [place] [address] Dr. Abhay Farr MRI BRAIN WO W [...] [facility] US CAROTID ART BILon 022 US [...] by: ANDREWS THOMPSON Date: 2022-10-28 22:[address] [facility] XR CHEST 1 Von 10-29-2022 XR [...] lung base atelectasis. Electronically authenticated by: LUCIAN GN Date: 2022-10-28 22:[address] [facility] CBC AUTO DIFFon 10-28-2022 BASO # 0.1 103/ul Normal 0.0-0.[address] [facility] Comment on above: Performed By: #### C BC #### [facility] Laboratory [address] [address] [address] Abhay Farr Basophils/100 WBC (Bld) 0.7 % Normal 0.2-2.[address] [facility] Comment on above: Performed By: #### C BC #### [facility] [address] [place] [address] Dr. Abhay Farr EO # 0.4 103/ul Normal 0.0-0.7 [facility] Comment on above: Performed By: #### C BC #### [facility] [address] [place] [address] Dr. Abhay Farr Eosinophils/100 WBC (Bld) 4.2 % Normal 0.9-7.0 [facility] Comment on above: Performed By: #### C BC #### [facility] [address] [place] [address] Dr. Abhay Farr Erythrocyte distribution width (RBC) [Ratio] 12.9 % Normal 11.0-15.[address] [facility] Comment on above: Performed By: #### C BC #### [facility] [address] [place] [address] Dr. Abhay Farr Hematocrit (Bld) [Volume fraction] 42.4 % Normal 42.0-54.[address] [facility] Comment on above: Performed By: #### C BC #### [facility] [address] [place] [address] Dr. Abhay Farr Hemoglobin (Bld) [Mass/Vol] 13.4 g/dL Critically low 14.0-18.[address] [facility] Comment on above: Performed By: #### C BC #### [facility] [address] [place] [address] Dr. Abhay Farr IG # 0.03 10e3/ul Normal 0.00-0.03 [facility] Comment on above: Performed By: #### C BC #### [facility] [address] [place] [address] Dr. Abhay Farr IG % 0.3 % Normal 0.0-0.5 [facility] Comment on above: Performed By: #### C BC #### [facility] [address] [address] [address] Abhay Farr LYMPH # 2.3 103/ul Normal 1.2-3.8 [facility] Comment on above: Performed By: #### C BC #### [facility] [address] [place] [address] Dr. Abhay Farr Lymphocytes/100 WBC (Bld) 26.4 % Normal 20.5-60.[address] [facility] Comment on above: Performed By: #### C BC #### [facility] [address] [place] [address] Dr. Abhay Farr MANUAL DIFF REQ NO Normal [facility] Comment on above: Performed By: #### C BC #### [facility] [address] [place] [address] Dr. Abhay Farr MCH (RBC) [Entitic mass] 27.3 pg Normal 25.9-34.[address] [facility] Comment on above: Performed By: #### C BC #### [facility] [address] [place] [address] Dr. Abhay Farr MCHC (RBC) [Mass/Vol] 31.6 g/dL Normal 29.9-35.2 [facility] Comment on above: Performed By: #### C BC #### [facility] [address] [place] [address] Dr. Abhay Farr MCV (RBC) [Entitic vol] 86.5 fL Normal 80.0-94.0 [facility] Comment on above: Performed By: #### C BC #### [facility] [address] [place] [address] Dr. Abhay Farr MONO # 0.8 103/ul Normal 0.3-0.8 [facility] Comment on above: Performed By: #### C BC #### [facility] [address] [place] [address] Dr. Abhay Farr Monocytes/100 WBC (Bld) 9.5 % Normal 1.7-12.[address] [facility] Comment on above: Performed By: #### C BC #### [facility] [address] [place] [address] Dr. Abhay Farr NEUT # 5.1 103/ul Normal 1.4-6.[address] [facility] Comment on above: Performed By: #### C BC #### [facility] [address] [address] [address] Abhay Farr Neutrophils/100 WBC (Bld) 58.9 % Normal 43.0-75.[address] [facility] Comment on above: Performed By: #### C BC #### [facility] [address] [address] [address] Abhay Farr Platelet mean volume (Bld) [Entitic vol] 10.2 fL Normal 9.5-13.[address] [facility] Comment on above: Performed By: #### C BC #### [facility] [address] [place] [address] Dr. Abhay Farr PLT 160 103/ul Normal 150-450 [facility] Comment on above: Result Comment: no p lt clumps found Performed By: #### C BC #### [facility] [address] [place] [address] Dr. Abhay Farr RBC 4.90 106/ul Normal 4.70-6.10 [facility] Comment on above: Performed By: #### C BC #### [facility] [address] [place] [address] Dr. Abhay Farr WBC 8.7 103/ul Normal 4.0-11.[address] [facility] Comment on above: Performed By: #### C BC #### [facility] [address] [address] [address] Abhay Farr PROF 14(COMP METB)on 022 Albumin [Mass/Vol] 3.6 g/dL Normal 3.4-5.0 [facility] Comment on above: Performed By: #### U MICRO, ERUR #### [facility] [address] [place] [address] Dr. Abhay Farr Albumin/Globulin [Mass ratio] 1.0 {ratio} Normal [facility] Comment on above: Performed By: #### U MICRO, ERUR #### [facility] [address] [address] [address] Abhay Farr ALP [Catalytic activity/Vol] 88 U/L Normal 46-[address] [facility] Comment on above: Performed By: #### U MICRO, ERUR #### [facility] [address] [address] [address] Abhay Farr ALT [Catalytic activity/Vol] 47 U/L Normal 16-[address] [facility] Comment on above: Performed By: #### U MICRO, ERUR #### [facility] [address] [address] [address] Abhay Farr Anion gap [Moles/Vol] 11.5 mmol/L Normal [facility] Comment on above: Performed By: #### U MICRO, ERUR #### [facility] [address] [place] [address] Dr. Abhay Farr AST [Catalytic activity/Vol] 24 U/L Normal 15-[address] [facility] Comment on above: Performed By: #### U MICRO, ERUR #### [facility] [address] [address] [address] Abhay Farr Bilirubin [Mass/Vol] 0.6 mg/dL Normal 0.2-1.[address] [facility] Comment on above: Performed By: #### U MICRO, ERUR #### [facility] [address] [address] [address] Abhay Farr Calcium [Mass/Vol] 9.1 mg/dL Normal 8.5-10.1 [facility] Comment on above: Performed By: #### U MICRO, ERUR #### [facility] [address] [place] [address] Dr. Abhay Farr Chloride [Moles/Vol] 97 mmol/L Critically low 98-107 [facility] Comment on above: Performed By: #### U MICRO, ERUR #### [facility] [address] [address] [address] Abhay Farr CO2 [Moles/Vol] 27.6 mmol/L Normal 21.0-32.0 [facility] Comment on above: Performed By: #### U MICRO, ERUR #### [facility] [address] [address] [address] Abhay Farr Creatinine [Mass/Vol] 0.95 mg/dL Normal 0.70-1.[address] [facility] Comment on above: Performed By: #### U MICRO, ERUR #### [facility] [address] [address] [address] Abhay Farr EGFR-AF CAP[place] VERDEAN >60 Normal >=60 [facility] Comment on above: Performed By: #### U MICRO, ERUR #### [facility] [address] [address] [address] Abhay Farr EGFR-NON AF [place] >60 Normal >=[address] [facility] Comment on above: Performed By: #### U MICRO, ERUR #### [facility] [address] [address] [address] Abhay Farr Globulin (S) [Mass/Vol] 3.5 g/dL Normal [facility] Comment on above: Performed By: #### U MICRO, ERUR #### [facility] [address] [address] [address] Abhay Farr Glucose [Mass/Vol] 109 mg/dL Critically high 74-106 [facility] Comment on above: Performed By: #### U MICRO, ERUR #### [facility] [address] [address] [address] Abhay Farr Potassium [Moles/Vol] 4.1 mmol/L Normal 3.5-5.[address] [facility] Comment on above: Performed By: #### U MICRO, ERUR #### [facility] [address] [address] [address] Abhay Farr Protein [Mass/Vol] 7.1 g/dL Normal 6.4-8.2 [facility] Comment on above: Performed By: #### U MICRO, ERUR #### [facility] [address] [address] [address] Abhay Farr Sodium [Moles/Vol] 132 mmol/L Critically low 136-145 [facility] Comment on above: Performed By: #### U MICRO, ERUR #### [facility] [address] [address] [address] Abhay Farr Urea nitrogen [Mass/Vol] 19.0 mg/dL Critically high 7.0-18.[address] [facility] Comment on above: Performed By: #### U MICRO, ERUR #### [facility] [address] [address] [address] Abhay Farr Urea nitrogen/Creatinine [Mass ratio] 20.0 mg/mg Normal [facility] Comment on above: Performed By: #### U MICRO, ERUR #### [facility] [address] [address] [address] Abhay Farr TROPONIN, HIGH SENSITIVITYon 10-28-2022 HSTROP 5.0 pg/mL Normal 4.0-76.[address] [facility] Comment on above: Result Comment: CUT- OFF POINTS HAVE BEEN ESTABLISHED BASED ON THE FOURTH UNIVERSAL DEFINITIONS OF MYOCARDIAL INFARCTION. THE UPPER REFERENCE LIMIT (URL) OF TROPONIN, DEFINED THE 99TH PERCENTILE OF cTnI DISTRIBUTION IN A REFERENCE POPULATION, HAS BEEN CONFIRMED THE DECISION THRESHOLD FOR [place] DIAGNOSIS. Performed By: #### U MICRO, ERUR #### [facility] [address] [address] [address] Abhay F[facility]on SARS-CoV-2 (COVID-19) RNA FARIHA+probe Ql (Unsp spec) Not detected Normal NOT DETECTED [facility] Comment on above: Result Comment: When diagnostic [...] for this test is supported by the [employer] of [employer] and Human Service's declaration that [...] Performed By: #### M G, BMP #### [facility] [address] [address] [address] Abhay Farr CBC AUTO DIFFon 09-22-2022 BASO # 0.1 103/ul Normal 0.0-0.[address] [facility] Comment on above: Performed By: #### C BC #### [facility] [address] [address] [address] Abhay Farr Basophils/100 WBC (Bld) 0.6 % Normal 0.2-2.0 [facility] Comment on above: Performed By: #### C BC #### [facility] [address] [place] [address] Dr. Abhay Farr EO # 0.1 103/ul Normal 0.0-0.[address] [facility] Comment on above: Performed By: #### C BC #### [facility] [address] [place] [address] Dr. Abhay Farr Eosinophils/100 WBC (Bld) 1.4 % Normal 0.9-7.0 [facility] Comment on above: Performed By: #### C BC #### [facility] [address] [place] [address] Dr. Abhay Farr Erythrocyte distribution width (RBC) [Ratio] 12.5 % Normal 11.0-15.[address] [facility] Comment on above: Performed By: #### C BC #### [facility] [address] [place] [address] Dr. Abhay Farr Hematocrit (Bld) [Volume fraction] 39.2 % Critically low 42.0-54.0 [facility] Comment on above: Performed By: #### C BC #### [facility] [address] [place] [address] Dr. Abhay Farr Hemoglobin (Bld) [Mass/Vol] 12.6 g/dL Critically low 14.0-18.[address] [facility] Comment on above: Performed By: #### C BC #### [facility] [address] [place] [address] Dr. Abhay Farr IG # 0.02 10e3/ul Normal 0.00-0.[address] [facility] Comment on above: Performed By: #### C BC #### [facility] [address] [place] [address] Dr. Abhay Farr IG % 0.3 % Normal 0.0-0.[address] [facility] Comment on above: Performed By: #### C BC #### [facility] [address] [place] [address] Dr. Abhay Farr LYMPH # 1.4 103/ul Normal 1.2-3.[address] [facility] Comment on above: Performed By: #### C BC #### [facility] [address] [place] [address] Dr. Abhay Farr Lymphocytes/100 WBC (Bld) 18.7 % Critically low 20.5-60.[address] [facility] Comment on above: Performed By: #### C BC #### [facility] [address] [place] [address] Dr. Abhay Farr MANUAL DIFF REQ NO Normal [facility] Comment on above: Performed By: #### C BC #### [facility] [address] [place] [address] Dr. Abhay Farr MCH (RBC) [Entitic mass] 27.5 pg Normal 25.9-34.[address] [facility] Comment on above: Performed By: #### C BC #### [facility] [address] [place] [address] Dr. Abhay Farr MCHC (RBC) [Mass/Vol] 32.1 g/dL Normal 29.9-35.2 [facility] Comment on above: Performed By: #### C BC #### [facility] [address] [place] [address] Dr. Abhay Farr MCV (RBC) [Entitic vol] 85.4 fL Normal 80.0-94.[address] [facility] Comment on above: Performed By: #### C BC #### [facility] [address] [place] [address] Dr. Abhay Farr MONO # 0.7 103/ul Normal 0.3-0.[address] [facility] Comment on above: Performed By: #### C BC #### [facility] [address] [place] [address] Dr. Abhay Farr Monocytes/100 WBC (Bld) 8.8 % Normal 1.7-12.[address] [facility] Comment on above: Performed By: #### C BC #### [facility] [address] [place] [address] Dr. Abhay Farr NEUT # 5.4 103/ul Normal 1.4-6.[address] [facility] Comment on above: Performed By: #### C BC #### [facility] [address] [place] [address] Dr. Abhay Farr Neutrophils/100 WBC (Bld) 70.2 % Normal 43.0-75.[address] [facility] Comment on above: Performed By: #### C BC #### [facility] [address] [place] [address] Dr. Abhay Farr Platelet mean volume (Bld) [Entitic vol] 9.2 fL Critically low 9.5-13.[address] [facility] Comment on above: Performed By: #### C BC #### [facility] [address] [place] [address] Dr. Abhay Farr PLT 249 103/ul Normal 150-450 [facility] Comment on above: Performed By: #### C BC #### [facility] [address] [place] [address] Dr. Abhay Farr RBC 4.59 106/ul Critically low 4.70-6.10 [facility] Comment on above: Performed By: #### C BC #### [facility] [address] [place] [address] Dr. Abhay Farr WBC 7.7 103/ul Normal 4.0-11.0 [facility] Comment on above: Performed By: #### C BC #### [facility] [address] [place] [address] Dr. Abhay Farr PROF 14(COMP METB)on 11-04-2 022 Albumin [Mass/Vol] 3.3 g/dL Critically low 3.4-5.0 [facility] Comment on above: Performed By: #### U MICRO, ERUR #### [facility] [address] [place] [address] Dr. Abhay aFrr Albumin/Globulin [Mass ratio] 1.1 {ratio} Normal [facility] Comment on above: Performed By: #### U MICRO, ERUR #### [facility] [address] [address] [address] Abhay Farr ALP [Catalytic activity/Vol] 77 U/L Normal 46-[address] [facility] Comment on above: Performed By: #### U MICRO, ERUR #### [facility] [address] [place] [address] Dr. Abhay Farr ALT [Catalytic activity/Vol] 52 U/L Normal 16-[address] [facility] Comment on above: Performed By: #### U MICRO, ERUR #### [facility] [address] [place] [address] Dr. Abhay Farr Anion gap [Moles/Vol] 7.6 mmol/L Normal [facility] Comment on above: Performed By: #### U MICRO, ERUR #### [facility] [address] [place] [address] Dr. Abhay Farr AST [Catalytic activity/Vol] 18 U/L Normal 15-[address] [facility] Comment on above: Performed By: #### U MICRO, ERUR #### [facility] [address] [address] [address] Abhay Farr Bilirubin [Mass/Vol] 0.4 mg/dL Normal 0.2-1.[address] [facility] Comment on above: Performed By: #### U MICRO, ERUR #### [facility] [address] [place] [address] Dr. Abhay Farr Calcium [Mass/Vol] 8.2 mg/dL Critically low 8.5-10.1 [facility] Comment on above: Performed By: #### U MICRO, ERUR #### [facility] [address] [place] [address] Dr. Abhay Farr Chloride [Moles/Vol] 101 mmol/L Normal 98-[address] [facility] Comment on above: Performed By: #### U MICRO, ERUR #### [facility] [address] [place] [address] Dr. Abhay Farr CO2 [Moles/Vol] 28.4 mmol/L Normal 21.0-32.0 [facility] Comment on above: Performed By: #### U MICRO, ERUR #### [facility] [address] [address] [address] Abhay Farr Creatinine [Mass/Vol] 0.79 mg/dL Normal 0.70-1.[address] [facility] Comment on above: Performed By: #### U MICRO, ERUR #### [facility] [address] [place] [address] Dr. Abhay Farr EGFR-AF CAP[place] VERDEAN >60 Normal >=60 [facility] Comment on above: Performed By: #### U MICRO, ERUR #### [facility] [address] [place] [address] Dr. Abhay Farr EGFR-NON AF [place] >60 Normal >=[address] [facility] Comment on above: Performed By: #### U MICRO, ERUR #### [facility] [address] [place] [address] Dr. Abhay Farr Globulin (S) [Mass/Vol] 3.1 g/dL Normal [facility] Comment on above: Performed By: #### U MICRO, ERUR #### [facility] [address] [place] [address] Dr. Abhay Farr Glucose [Mass/Vol] 104 mg/dL Normal 74-106 [facility] Comment on above: Performed By: #### U MICRO, ERUR #### [facility] [address] [place] [address] Dr. Abhay Farr Potassium [Moles/Vol] 4.0 mmol/L Normal 3.5-5.[address] [facility] Comment on above: Performed By: #### U MICRO, ERUR #### [facility] [address] [place] [address] Dr. Abhay Farr Protein [Mass/Vol] 6.4 g/dL Normal 6.4-8.2 [facility] Comment on above: Performed By: #### U MICRO, ERUR #### [facility] [address] [place] [address] Dr. Abhay Farr Sodium [Moles/Vol] 133 mmol/L Critically low 136-145 Th e [facility] Comment on above: Performed By: #### U MICRO, ERUR #### [facility] [address] [place] [address] Dr. Abhay Farr Urea nitrogen [Mass/Vol] 20.0 mg/dL Critically high 7.0-18.[address] [facility] Comment on above: Performed By: #### U MICRO, ERUR #### [facility] [address] [place] [address] Dr. Abhay Farr Urea nitrogen/Creatinine [Mass ratio] 25.3 mg/mg Normal [facility] Comment on above: Performed By: #### U MICRO, ERUR #### [facility] [address] [place] [address] Dr. Abhay Farr PROTIMEon 09-22-2022 INR Coag (PPP) [Relative time] 0.97 {INR} Normal [facility] Comment on above: Performed By: #### M G, BMP #### [facility] [address] [place] [address] Dr. Abhay Farr INR GUIDELINES SEE BELOW Normal [facility] Comment on above: Result Comment: YOLANDE RED INR: 2.0 - 3.0 CONDITIONS NOT LISTED BELOW 2.5 - 3.5 FOR PROSTHETIC HEART VALVE REPLACEMENT 2.5 - 3.5 RECURRENT THROMBOSIS Performed By: #### M G, BMP #### [facility] [address] [place] [address] Dr. Abhay Farr PT Coag (PPP) [Time] 10.5 s Normal 9.0-11.[address] [facility] Comment on above: Performed By: #### M G, BMP #### [facility] [address] [place] [address] Dr. Abhay Farr PTTon 09-22-2022 aPTT Coag (Bld) [Time] 26.8 s Normal 22.3-36.2 [facility] Comment on above: Performed By: #### M G, BMP #### [facility] [address] [place] [address] Dr. Abhay Farr TROPONIN, HIGH SENSITIVITYon 09-22-2022 HSTROP 8.2 pg/mL Normal 4.0-76.1 [facility] Comment on above: Result Comment: CUT- OFF POINTS HAVE BEEN ESTABLISHED BASED ON THE FOURTH UNIVERSAL DEFINITIONS OF MYOCARDIAL INFARCTION. THE UPPER REFERENCE LIMIT (URL) OF TROPONIN, DEFINED THE 99TH PERCENTILE OF cTnI DISTRIBUTION IN A REFERENCE POPULATION, HAS BEEN CONFIRMED THE DECISION THRESHOLD FOR [place] DIAGNOSIS. Performed By: #### U MICRO, ERUR #### [facility] [address] [place] [address] Dr. Abhay Farr TSHon 09-22-2022 TSH 2.215 uIU/mL Normal 0.358-3.740 [facility] Comment on above: Performed By: #### U MICRO, ERUR #### [facility] [address] [place] [address] STROKE HEAD WOon [...] LAITH DAMONING Date: 2022-09-21 21:23 Normal [facility] URINE PROFILEon 2 Bilirubin Ql (U) Negative Normal NEGATIVE The [facility] Comment on above: Performed By: #### U MICRO, ERUR #### [facility] [address] [place] [address] Dr. Abhay Farr Clarity (U) CLEAR Normal CLEAR [facility] Comment on above: Performed By: #### U MICRO, ERUR #### [facility] [address] [place] [address] Dr. Abhay Farr Color (U) LT. YELLOW Normal YELLOW [facility] Comment on above: Performed By: #### U MICRO, ERUR #### [facility] [address] [place] [address] Dr. Abhay Farr ERUAHD A micrscopic examination will be performed if indicated. Normal [facility] Comment on above: Performed By: #### U MICRO, ERUR #### [facility] [address] [place] [address] Dr. Abhay Farr Glucose Ql (U) Negative Normal NEGATIVE [facility] Comment on above: Performed By: #### U MICRO, ERUR #### [facility] [address] [place] [address] Dr. Abhay Farr Hemoglobin Ql (U) TRACE-INTACT Abnormal NEGATIVE [facility] Comment on above: Performed By: #### U MICRO, ERUR #### [facility] [address] [place] [address] Dr. Abhay Farr Ketones Ql (U) Negative Normal NEGATIVE [facility] Comment on above: Performed By: #### U MICRO, ERUR #### [facility] [address] [place] [address] Dr. Abhay Farr LEUKOCYTES Negative Normal NEGATIVE [facility] Comment on above: Performed By: #### U MICRO, ERUR #### [facility] [address] [address] [address] Abhay Farr Nitrite Ql (U) Negative Normal NEGATIVE [facility] Comment on above: Performed By: #### U MICRO, ERUR #### [facility] [address] [place] [address] Dr. Abhay Farr pH (U) 5.5 [pH] Normal 5-[address] [facility] Comment on above: Performed By: #### U MICRO, ERUR #### [facility] [address] [place] [address] Dr. Abhay Farr SPEC GRAVITY 1.010 Normal 1.005-<=1.025 [facility] Comment on above: Performed By: #### U MICRO, ERUR #### [facility] [address] [place] [address] Dr. Abhay Farr UA PROTEIN Negative Normal NEGATIVE/ TRACE [facility] Comment on above: Performed By: #### U MICRO, ERUR #### [facility] [address] [place] [address] Dr. Abhay Farr UR MICRO IND INDICATED Normal [facility] Comment on above: Performed By: #### U MICRO, ERUR #### [facility] [address] [place] [address] Dr. Abhay Farr Urobilinogen Qn (U) 0.2 {Rafy'U}/dL Normal 0.2 - 1. [address] [facility] Comment on above: Performed By: #### U MICRO, ERUR #### [facility] [address] [place] [address] Dr. Abhay Farr URINE MICROSCOPIC ONLYon BACTERIA TRACE Abnormal NONE SEEN The [facility] Comment on above: Performed By: #### U MICRO, ERUR #### [facility] [address] [place] [address] Dr. Abhay Farr Bacteria identified Cx Nom (U) NOT INDICATED Normal [facility] Comment on above: Performed By: #### U MICRO, ERUR #### [facility] [address] [place] [address] Dr. Abhay Farr CAST NONE SEEN Normal NONE SEEN The [facility] Comment on above: Performed By: #### U MICRO, ERUR #### [facility] [address] [place] [address] Dr. Abhay Farr Crystals LM Nom (Urine sed) NONE SEEN Normal NONE SEEN The [facility] Comment on above: Performed By: #### U MICRO, ERUR #### [facility] [address] [place] [address] Dr. Abhay Farr Epithelial cells LM Ql (Urine sed) NONE SEEN Normal NONE SEEN /RARE [facility] Comment on above: Performed By: #### U MICRO, ERUR #### [facility] [address] [place] [address] Dr. Abhay Farr MUCOUS NONE SEEN Normal NONE SEEN The [facility] Comment on above: Performed By: #### U MICRO, ERUR #### [facility] [address] [place] [address] Dr. Abhay Farr RBC NONE SEEN Abnormal 0-2 [facility] Comment on above: Performed By: #### U MICRO, ERUR #### [facility] [address] [place] [address] Dr. Abhay Farr WBC NONE SEEN Normal NONE SEEN The [facility] Comment on above: Performed By: #### U MICRO, ERUR #### [facility] [address] [place] [address] Dr. Abhay Farr XR CHEST 1 Von [...] MARSHAL SALAS Date: 2022-09-21 21:44 Normal [facility] XR LSPINE 2_3 VIEWSon 2021 XR LSPINE 2_3 VIEWS EXAMINATION: XR LSPINE 2_3 VIEWS HISTORY: Low back pain COMPARISON: 10/18/2021 FINDINGS: BONES: Normal alignment with no acute fracture or spondylolisthesis. Minimal degenerative spondylosis. 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 No paraspinous abnormality is seen. OTHER: Negative. IMPRESSION: Degenerative changes most significant at L5-S1 Electronically authenticated by: MARSHAL VELÁSQUEZ Date: 2022-08-15 18:09 Normal [facility] CBC AUTO DIFFon 06-20-2022 BASO # 0.1 103/ul Normal 0.0-0.[address] [facility] Comment on above: Performed By: #### M G, BMP #### [facility] [address] [address] [address] Abhay Farr Basophils/100 WBC (Bld) 0.9 % Normal 0.2-2.[address] [facility] Comment on above: Performed By: #### M G, BMP #### [facility] [address] [address] [address] Abhay Farr EO # 0.3 103/ul Normal 0.0-0.[address] [facility] Comment on above: Performed By: #### M G, BMP #### [facility] [address] [address] [address] Abhay Farr Eosinophils/100 WBC (Bld) 3.8 % Normal 0.9-7.[address] [facility] Comment on above: Performed By: #### M G, BMP #### [facility] [address] [address] [address] Abhay Farr Erythrocyte distribution width (RBC) [Ratio] 12.5 % Normal 11.0-15.[address] [facility] Comment on above: Performed By: #### M G, BMP #### [facility] [address] [address] [address] Abhay Farr Hematocrit (Bld) [Volume fraction] 43.2 % Normal 42.0-54.[address] [facility] Comment on above: Performed By: #### M G, BMP #### [facility] [address] [address] [address] Abhay Farr Hemoglobin (Bld) [Mass/Vol] 13.5 g/dL Critically low 14.0-18.[address] [facility] Comment on above: Performed By: #### M G, BMP #### [facility] [address] [place] [address] Dr. Abhay Farr IG # 0.01 10e3/ul Normal 0.00-0.[address] [facility] Comment on above: Performed By: #### M G, BMP #### [facility] [address] [place] [address] Dr. Abhay Farr IG % 0.1 % Normal 0.0-0.[address] [facility] Comment on above: Performed By: #### M G, BMP #### [facility] [address] [place] [address] Dr. Abhay Farr LYMPH # 1.9 103/ul Normal 1.2-3.[address] [facility] Comment on above: Performed By: #### M G, BMP #### [facility] [address] [place] [address] Dr. Abhay Farr Lymphocytes/100 WBC (Bld) 24.8 % Normal 20.5-60.[address] [facility] Comment on above: Performed By: #### M G, BMP #### [facility] [address] [place] [address] Dr. Abhay Farr MANUAL DIFF REQ NO Normal [facility] Comment on above: Performed By: #### M G, BMP #### [facility] [address] [place] [address] Dr. Abhay Farr MCH (RBC) [Entitic mass] 27.3 pg Normal 25.9-34.[address] [facility] Comment on above: Performed By: #### M G, BMP #### [facility] [address] [place] [address] Dr. Abhay Farr MCHC (RBC) [Mass/Vol] 31.3 g/dL Normal 29.9-35.[address] [facility] Comment on above: Performed By: #### M G, BMP #### [facility] [address] [place] [address] Dr. Abhay Farr MCV (RBC) [Entitic vol] 87.4 fL Normal 80.0-94.0 [facility] Comment on above: Performed By: #### M G, BMP #### [facility] [address] [place] [address] Dr. Abhay Farr MONO # 0.6 103/ul Normal 0.3-0.[address] [facility] Comment on above: Performed By: #### M G, BMP #### [facility] [address] [place] [address] Dr. Abhay Farr Monocytes/100 WBC (Bld) 8.0 % Normal 1.7-12.0 [facility] Comment on above: Performed By: #### M G, BMP #### [facility] [address] [place] [address] Dr. Abhay Farr NEUT # 4.7 103/ul Normal 1.4-6.5 [facility] Comment on above: Performed By: #### M G, BMP #### [facility] [address] [place] [address] Dr. Abhay Farr Neutrophils/100 WBC (Bld) 62.4 % Normal 43.0-75.0 [facility] Comment on above: Performed By: #### M G, BMP #### [facility] [address] [place] [address] Dr. Abhay Farr Platelet mean volume (Bld) [Entitic vol] 9.9 fL Normal 9.5-13.5 [facility] Comment on above: Performed By: #### M G, BMP #### [facility] [address] [place] [address] Dr. Abhay Farr PLT 265 103/ul Normal 150-450 [facility] Comment on above: Performed By: #### M G, BMP #### [facility] [address] [place] [address] Dr. Abhay Farr RBC 4.94 106/ul Normal 4.70-6.10 [facility] Comment on above: Performed By: #### M G, BMP #### [facility] [address] [place] [address] Dr. Abhay Farr WBC 7.5 103/ul Normal 4.0-11.[address] [facility] Comment on above: Performed By: #### M G, BMP #### [facility] [address] [address] [address] Abhay Farr LIPID PROFILEon 06-20-2022 CHOL-HDL RATIO NORM SEE BELOW Normal [facility] Comment on above: Result Comment: 3.3 - 4.4 LOW RISK 4.4 - 7.1 AVERAGE RISK 7.1 - 11.0 MODERATE RISK >11.0 HIGH RISK Performed By: #### M G, BMP #### [facility] [address] [address] [address] Abhay Farr Cholesterol [Mass/Vol] 129 mg/dL Normal <=[address] [facility] Comment on above: Performed By: #### M G, BMP #### [facility] [address] [address] [address] Abhay Farr Cholesterol in HDL [Mass/Vol] 60 mg/dL Normal 40-[address] [facility] Comment on above: Performed By: #### Festus G, BMP #### [facility] [address] [address] [address] Abhay Farr Cholesterol in LDL [Mass/Vol] 58.2 mg/dL Normal [facility] Comment on above: Performed By: #### Festus G, BMP #### [facility] [address] [address] [address] Abhay Farr Cholesterol.total/Cho lesterol in HDL [Mass ratio] 2.2 {ratio} Normal [facility] Comment on above: Performed By: #### M G, BMP #### [facility] [id number] Abhay Farr HDL NORMAL > or = 60 mg/dl - LO W CARDIOVASCULAR RISK <40 mg/dl - HIGH CARDIOVASCULAR RISK Normal [facility] Comment on above: Performed By: #### M G, BMP #### [facility] [address] [address] [address] Abhay Farr LDL CALC NORMAL SEE BELOW Normal [facility] Comment on above: Result Comment: <100 mg/dl OPTIMAL 100 - 129 mg/dl NEAR OR ABOVE OPTIMAL 130 - 159 mg/dl BORDERLINE HIGH 160 - 189 mg/dl HIGH >190 mg/dl VERY HIGH Performed By: #### M G, BMP #### [facility] [address] [place] [address] Dr. Abhay Farr Triglyceride [Mass/Vol] 54 mg/dL Normal <=[address] [facility] Comment on above: Performed By: #### M G, BMP #### [facility] [address] [place] [address] Dr. Abhay Farr VLDL CALC 10.8 mg/dL Normal [facility] Comment on above: Performed By: #### M G, BMP #### [facility] [address] [place] [address] Dr. Abhay Farr PROF CHEM 8 (BAS METB)on Anion gap [Moles/Vol] 10.7 mmol/L Normal [facility] Comment on above: Performed By: #### M G, BMP #### [facility] [address] [place] [address] Dr. Abhay Farr Calcium [Mass/Vol] 9.0 mg/dL Normal 8.5-10.1 [facility] Comment on above: Performed By: #### M G, BMP #### [facility] [address] [place] [address] Dr. Abhay Farr Chloride [Moles/Vol] 102 mmol/L Normal 98-[address] [facility] Comment on above: Performed By: #### M G, BMP #### [facility] [address] [place] [address] Dr. Abhay Farr CO2 [Moles/Vol] 29.4 mmol/L Normal 21.0-32.0 [facility] Comment on above: Performed By: #### M G, BMP #### [facility] [address] [place] [address] Dr. Abhay Farr Creatinine [Mass/Vol] 1.09 mg/dL Normal 0.70-1.[address] [facility] Comment on above: Performed By: #### M G, BMP #### [facility] [address] [place] [address] Dr. Abhay Farr EGFR-AF [place] >60 Normal >=60 [facility] Comment on above: Performed By: #### M G, BMP #### [facility] [address] [place] [address] Dr. Abhay Farr EGFR-NON AF [place] >60 Normal >=[address] [facility] Comment on above: Performed By: #### M G, BMP #### [facility] [address] [place] [address] Dr. Abhay Farr Glucose [Mass/Vol] 102 mg/dL Normal 74-106 [facility] Comment on above: Performed By: #### M G, BMP #### [facility] [address] [place] [address] Dr. Abhay Farr Potassium [Moles/Vol] 4.1 mmol/L Normal 3.5-5.[address] [facility] Comment on above: Performed By: #### M G, BMP #### [facility] [address] [place] [address] Dr. Abhay Farr Sodium [Moles/Vol] 138 mmol/L Normal 136-145 [facility] Comment on above: Performed By: #### M G, BMP #### [facility] [address] [place] [address] Dr. Abhay Farr Urea nitrogen [Mass/Vol] 18.0 mg/dL Normal 7.0-18.[address] [facility] Comment on above: Performed By: #### M G, BMP #### [facility] [address] [place] [address] Dr. Abhay Farr Urea nitrogen/Creatinine [Mass ratio] 16.5 mg/mg Normal [facility] Comment on above: Performed By: #### M G, BMP #### [facility] [address] [place] [address] Dr. Abhay Rose 06-20-2022 AST [Catalytic activity/Vol] 18 U/L Normal 15-[address] [facility] Comment on above: Performed By: #### A LT, BMP, AST, LIPID #### [facility] [address] [place] [address] Dr. Abhay BROWNPTon 06-20-2022 ALT [Catalytic activity/Vol] 37 U/L Normal 16-63 [facility] Comment on above: Performed By: #### M Judy BMP #### [facility] [address] [place] [address] Dr. Abhay Farr Vital Signs Date Time Vital Sign Value Performing Clinician Faci lity 11-03-2024 11:22-0500 Body height 182.9 cm Carter Fitzpatrick MD Work Phone: [facility] 11-03-2024 11:22-0500 Body mass index (BMI) [Ratio] 23.6 kg/m2 Carter Fitzpatrick MD Work Phone: [facility] 11-03-2024 11:22-0500 Body temperature 97.11 [degF] Carter Fitzpatrick MD Work Phone: [facility] 11-03-2024 11:22-0500 Body weight 78.93 kg Carter Fitzpatrick MD Work Phone: [facility] 11-03-2024 11:22-0500 Diastolic blood pressure 54 mm[Hg] Carter Fitzpatrick MD Work Phone: [facility] 11-03-2024 11:22-0500 Heart rate 72 /min Carter Fitzpatrick MD Work Phone: [facility] 11-03-2024 11:22-0500 Respiratory rate 20 /min Carter Fitzpatrick MD Work Phone: [facility] 11-03-2024 11:22-0500 SaO2% (BldA) [Mass fraction] 99 % Carter Fitzpatrick MD Work Phone: [facility] 11-03-2024 11:22-0500 Systolic blood pressure 124 mm[Hg] Carter Fitzpatrick MD Work Phone: [facility] 12-27-2023 14:37-0500 Diastolic blood pressure 72 mm[Hg] Wai Billingsley MD Work Phone: [facility] 12-27-2023 14:37-0500 Heart rate 64 /min Wai Billingsley MD Work Phone: [facility] 12-27-2023 14:37-0500 Systolic blood pressure 152 mm[Hg] Wai Billingsley MD Work Phone: [facility] 12-27-2023 14:33-0500 Body height 183 cm Wai Billingsley MD Work Phone: [facility] 12-27-2023 14:33-0500 Body weight 80.29 kg Wai Billingsley MD Work Phone: [facility] 12-27-2023 14:33-0500 SaO2% (BldA) [Mass fraction] 97 % Wai Billingsley MD Work Phone: [facility] 03-05-2023 13:36-0400 Body height 182.9 cm Khushboo Laffey HEAD OF BIOLOGY.MEDICAL LABORATORY TECHNICAL OFFICER Work Phone: [facility] 03-05-2023 13:36-0400 Body weight 82.56 kg Khushboo Laffey HEAD OF BIOLOGY.MEDICAL LABORATORY TECHNICAL OFFICER Work Phone: [facility] 03-05-2023 13:36-0400 Diastolic blood pressure 69 mm[Hg] Khushboo Laffey HEAD OF BIOLOGY.MEDICAL LABORATORY TECHNICAL OFFICER Work Phone: [facility] 03-05-2023 13:36-0400 Heart rate 76 /min Khushboo Laffey HEAD OF BIOLOGY.MEDICAL LABORATORY TECHNICAL OFFICER Work Phone: [facility] 03-05-2023 13:36-0400 SaO2% (BldA) [Mass fraction] 98 % Khushboo Laffey HEAD OF BIOLOGY.MEDICAL LABORATORY TECHNICAL OFFICER Work Phone: [facility] 03-05-2023 13:36-0400 Systolic blood pressure 150 mm[Hg] Khushboo Laffey HEAD OF BIOLOGY.MEDICAL LABORATORY TECHNICAL OFFICER Work Phone: [facility] 01-16-2023 11:43-0500 Body height 182.9 cm Aubrey Ko MD Work Phone: [facility] 01-16-2023 11:43-0500 Body weight 82.56 kg Aubrey Ko MD Work Phone: [facility] 01-16-2023 11:43-0500 Diastolic blood pressure 57 mm[Hg] Aubrey Ko MD Work Phone: [facility] 01-16-2023 11:43-0500 Heart rate 71 /min Aubrey Ko MD Work Phone: [facility] 01-16-2023 11:43-0500 Respiratory rate 16 /min Aubrey Ko MD Work Phone: [facility] 01-16-2023 11:43-0500 SaO2% (BldA) [Mass fraction] 97 % Aubrey Ko MD Work Phone: [facility] 01-16-2023 11:43-0500 Systolic blood pressure 144 mm[Hg] Aubrey Ko MD Work Phone: [facility] 11-16-2022 12:12-0500 Body height 182.9 cm Wai Billingsley MD Work Phone: [facility] 11-16-2022 12:12-0500 Body weight 78.02 kg Wai Billingsley MD Work Phone: [facility] 11-16-2022 12:12-0500 Diastolic blood pressure 76 mm[Hg] Wai Billingsley MD Work Phone: [facility] 11-16-2022 12:12-0500 Heart rate 90 /min Wai Billingsley MD Work Phone: [facility] 11-16-2022 12:12-0500 SaO2% (BldA) [Mass fraction] 97 % Wai Billingsley MD Work Phone: [facility] 11-16-2022 12:12-0500 Systolic blood pressure 119 mm[Hg] Wai Billingsley MD Work Phone: [facility] 11-06-2022 12:24-0500 Body weight 81.19 kg Denice Carey APRN.CNP Work Phone: [facility] 11-06-2022 12:24-0500 Diastolic blood pressure 74 mm[Hg] Denice Black HEAD OF BIOLOGY.MEDICAL LABORATORY TECHNICAL OFFICER Work Phone: [facility] 11-06-2022 12:24-0500 Heart rate 81 /min Denice Carey HEAD OF BIOLOGY.MEDICAL LABORATORY TECHNICAL OFFICER Work Phone: [facility] 11-06-2022 12:24-0500 SaO2% (BldA) [Mass fraction] 99 % Denice Carey HEAD OF BIOLOGY.MEDICAL LABORATORY TECHNICAL OFFICER Work Phone: [facility] 11-06-2022 12:24-0500 Systolic blood pressure 150 mm[Hg] Denice Carey HEAD OF BIOLOGY.MEDICAL LABORATORY TECHNICAL OFFICER Work Phone: [facility] Encounters Encounter Date Encounter Type Care Provider [...] Start: 03-04-2024 End: 03-04-2024 Refill Denice Carey APRN.MEDICAL LABORATORY TECHNICAL OFFICER Work Phone: Cardiology Comment on above: Refill Request Start: 12-27-2023 End: 12-27-2023 Patient encounter procedure Wai Billingsley MD Work Phone: Cardiology Comment on above: Mitral valve insuffi ciency, unspecified etiology (Primary Dx) Start: 12-27-2023 End: 12-27-2023 ambulatory WAI BILLINGSLEY Facility:[facility] Start: 12-16-2023 Refill Denice SAGASTUME RN.MEDICAL LABORATORY TECHNICAL OFFICER Work Phone: Cardiology Comment on above: Refill Request Start: 07-19-2023 Orders Only Wai shukla MD Work Phone: Cardiology Comment on above: Mitral valve insuffi ciency, unspecified etiology (Primary Dx) Start: 03-05-2023 End: 03-05-2023 Patient encounter procedure Khushboo Lackey HEAD OF BIOLOGY.MEDICAL LABORATORY TECHNICAL OFFICER Work Phone: Cardiology Comment on above: Essential hypertensi on (Primary Dx); Palpitations; Mitral valve insufficiency, unspecified etiology Start: 02-20-[address] CARTER FITZPATRICK Facil ity:[facility] Start: 02-13-2023 ambulatory NARENDRANATH LAKSHMIPATHY . Facility:[facility] Start: 01-23-2023 End: 01-24-2023 ambulatory NARENDRANATH LAKSHMIPATHY . 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 Facility:[facility] Start: 12-29-2022 End: 12-30-[address] CARTER FITZPATRICK Facility:[facility] Start: 12-07-2022 ambulatory Wai shukla MD Work Phone: Cardiology Comment on above: 81 aspirin and fluox etine Start: 12-05-2022 Refill Denice SAGASTUME RN.MEDICAL LABORATORY TECHNICAL OFFICER Work Phone: Cardiology Comment on above: Refill Request Start: 11-29-2022 Encounter for preprocedural laboratory examination DR ETHAN ALLEN . [facility] Start: 11-28-2022 End: 11-28-[address] ETHAN ALLEN . Facility:[facility] Start: 11-24-2022 End: [address] ETHAN ALLEN . Facility:[facility] Start: 11-24-2022 End: 2022 Encounter for preprocedural laboratory examination DR ETHAN ALLEN . Facility:[facility] Start: 11-16-2022 End: 11-16-2022 Orders Only Wai Billingsley MD Work Phone: Cardiology Comment on above: Palpitations (Primar y Dx) Start: 11-15-2022 Telephone encounter Khushboo Lackey APRN.MEDICAL LABORATORY TECHNICAL OFFICER Work Phone: Cardiology Comment on above: Results (Holter Resu lts) Palpitations (Primar y Dx) Start: 11-06-2022 End: 11-06-2022 Patient encounter procedure Denice Carey APRN.MEDICAL LABORATORY TECHNICAL OFFICER Work Phone: Cardiology Comment on above: Palpitations [...] 10-30-2022 End: 10-30-2022 ambulatory Alvarez Mandujano Jamal HEAD OF BIOLOGY.MEDICAL LABORATORY TECHNICAL OFFICER Work Phone: Telemedicine Comment on above: Treatment not availa ble (Primary Dx) Start: 10-30-2022 End: 10-30-2022 Telemedicine consultation with patient Alvarez Mandujano Jamal HEAD OF BIOLOGY.MEDICAL LABORATORY TECHNICAL OFFICER Work Phone: [facility] Start: 10-28-2022 End: 10-29-2022 ambulatory [...] 12-16-2021 End: 12-16-2021 ambulatory Ayad Lawrence Other [facility] [employer] Other Start: 12-16-2021 Telephone encounter Ayad Lawrence [employer] Procedures Date Procedure Procedure Detail Performing Clinician [...] Work Phone: Start: 06-20-[address] CARTER VILLATORO Comment on above: Performed By: #### M G, BMP #### [facility] [address] [place] [address] Dr. Abhay Farr Start: 05-12-2019 Lipid 1996 panel - S isabella or Plasma Denice Carey HEAD OF BIOLOGY.MEDICAL LABORATORY TECHNICAL OFFICER Work Phone: Start: 02-24-2019 Colonoscopy Alvarez auguste HEAD OF BIOLOGY.MEDICAL LABORATORY TECHNICAL OFFICER Work Phone: Plan of Treatment Date Care Activity Detail Author Start: 02-24-2029 Screening for malign ant neoplasm of colon [facility] Start: 09-08-2025 Medicare Annual Well ness (AWV) Medicare Annual Wellness (AWV) [facility] Start: 04-21-2025 End: 04-21-2025 Patient encounter procedure 04/21/2025 12:30 PM EDT Office Visit [facility] [address] [place] [phone] Cinthia Preciado DO [address] [place] [address] [facility] [address] Start: 03-09-2025 End: 03-09-2025 Patient encounter procedure 03/09/2025 10:30 AM EDT Office Visit [facility] [address] [place] [address] Carter Fitzpatrick MD [address] [place] [phone] [facility] Start: 11-03-2024 End: 11-03-2024 Patient encounter procedure 11/03/2024 11:15 AM EST Office Visit [facility] [address] [place] [address] Carter Fitzpatrick MD [address] [place] [phone] Arrived [facility] Comment on above: Arrived Start: 09-08-2024 End: 09-08-2024 Patient encounter procedure 09/08/2024 10:00 AM EDT Office Visit [facility] [address] [place] [address] Carter Fitzpatrick MD [address] [place] [phone] Arrived [facility] Comment on above: Arrived Start: 07-20-2024 Covid-19 Vaccine ( season) Covid-19 Vaccine ( season) [facility] Start: 07-20-2024 Influenza vaccination C [facility] Start: 05-12-2024 Lipid panel Lipid Screening [facility] Start: 05-12-2024 LIPID SCREEN LIPID SCREEN [facility] Start: 2023 RSV Vaccine (1 - 1-d ose 75+ series) RSV Vaccine (1 - 1-dose 75+ series) [facility] Start: 11-19-2023 Advance Directive Discussion Advance Directive Discussion [facility] Start: 11-19-2023 Behavioral Health Screening Behavioral Health Screening [facility] Start: 11-19-2023 [facility] Start: 11-16-2023 BP CONTROLLED (<130/80) BP CONTROLLE D (<130/80) [facility] Start: 07-20-2023 Covid-19 Vaccine () Covid-19 Vaccine () [facility] Start: 07-20-2023 Influenza vaccination C [facility] Start: 11-19-2022 ADVANCE DIRECTIVE DISCUSSION ADVANCE DIRECTIVE DISCUSSION [facility] Start: 11-19-2022 [facility]PRESSION [facility]MENT [facility] Start: 11-06-2022 End: 11-06-2023 HOLTER MONITOR 48 HOUR HOLTER MONITOR 48 HOUR ECG Routine Palpitations Expected: 11/06/2022, Expires: 11/06/2023 [facility] Work Phone: Comment on above: Expected: 11/06/2022 , Expires: 11/06/2023 Start: 07-20-2022 Influenza vaccination INFLUENZA (#1) [facility] Start: 02-24-2022 Diabetes Screening Diabetes Screenin g [facility] Start: 02-03-2022 DIABETES SCREEN DIABETES SCREEN [facility] Start: 11-29-2021 COVID-19 VACCINE (4 - Booster for Pfizer series) COVID-19 VACCINE (4 - Booster for Pfizer series) [facility] Start: 11-29-2021 COVID-19 VACCINE (4 - Pfizer series) COVID-19 VACCINE (4 - Pfizer series) [facility] Start: 11-19-2021 ADVANCE DIRECTIVE DISCUSSION ADVANCE DIRECTIVE DISCUSSION [facility] Start: 11-19-2021 DEPRESSION ASSESSMENT DEPRESSION ASS ESSMENT [facility] Start: 04-08-2021 Screening for malign ant neoplasm of colon [facility] Start: 02-25-2020 Colonoscopy COLONOSCOPY [facility] Start: 02-25-2020 COLORECTAL CANCER SCREENING COLORECTAL CANCER SCREENING [facility] Start: 02-25-2020 Screening for malign ant neoplasm of colon [facility] Start: 2013 Pneumococcal Vaccine : 65+ (1 of 1 - PCV) Pneumococcal Vaccine: 65+ (1 of 1 - PCV) [facility] Start: 2013 Pneumococcal Vaccine : 65+ Years (1 of 1 - PCV) Pneumococcal Vaccine: 65+ Years (1 of 1 - PCV) [facility] Start: 2013 PNEUMOCOCCAL: 65+ (1 - PCV) PNEUMOCOCCAL: 65+ (1 - PCV) [facility] Start: 2008 RSV Vaccine (1 - 1-d ose 60+ series) RSV Vaccine (1 - 1-dose 60+ series) [facility] Start: 1998 SHINGRIX VACCINE (1 of 2) MICHEL GRIX VACCINE (1 of 2) [facility] Start: 1993 COLOGUARD (FIT-DNA) COLOGUARD (FIT-D NA) [facility] Start: [address] COLONOGRAPHY [facility] Start: 1993 FECAL OCCULT BLOOD FECAL OCCULT BLOO D [facility] Start: 1993 Screening for malign ant neoplasm of colon [facility] Start: 1993 SIGMOIDOSCOPY SIGMOIDOSCOPY [facility] Start: 1967 Urine microalbumin profile [facility] Start: 1966 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 ANNUAL PCP TEAM CHRONIC DISEASE VISIT [facility] Start: 1966 Anxiety Screening Anxiety Screening [facility] Start: 1966 BP CONTROLLED (<130/80) BP CONTROLLE D (<130/80) [facility] Start: 1966 Depression Screening Depression Scre ening [facility] Start: 1966 HEPATITIS C SCREENING HEPATITIS C [facility] Start: 1966 Hepatitis C screening Hepatitis C [facility] Start: 1948 ABDOMINAL AORTIC ANE URYSM SCREENING ABDOMINAL AORTIC ANEURYSM SCREENING [facility] Start: 1948 Abdominal aortic ane urysm screening Abdominal Aortic Aneurysm Screening [facility] Start: 1948 Medicare Annual Well ness (AWV) Medicare Annual Wellness (AWV) [facility] Start: 1948 Screening for malign ant neoplasm of colon [facility] End: 11-06-2023 ECG COMPLETE ECG COMPLETE ECG Routine Palpitations 1 Occurrences starting 11/06/2022 until 11/06/2023 [facility] Work Phone: Comment on above: 1 Occurrences starti ng 11/06/2022 until 11/06/2023 End: 11-16-2023 ECG COMPLETE ECG COMPLETE ECG Routine Palpitations 1 Occurrences starting 11/16/2022 until 11/16/2023 [facility] Work Phone: Comment on above: 1 Occurrences starti ng 11/16/2022 until 11/16/2023 End: 12-27-2024 ECG COMPLETE ECG COMPLETE ECG Routine Mitral valve insufficiency, unspecified etiology 1 Occurrences starting 12/27/2023 until 12/27/2024 [facility] Work Phone: Comment on above: 1 Occurrences starti ng 12/27/2023 until 12/27/2024 End: 11-06-2023 Echocardiography ECHO Cardiology Routine Palpitations 1 Occurrences starting 11/06/2022 until 11/06/2023 [facility] Work Phone: Comment on above: 1 Occurrences starti ng 11/06/2022 until 11/06/2023 End: 07-19-2024 Echocardiography ECHO Cardiology Routine Mitral valve insufficiency, unspecified etiology 1 Occurrences starting 07/25/2023 until 07/19/2024 [facility] Work Phone: Comment on above: 1 Occurrences starti ng 07/25/2023 until 07/19/2024 End: 12-27-2024 Echocardiography ECHO Cardiology Routine Mitral valve insufficiency, unspecified etiology 1 Occurrences starting 12/27/2023 until 12/27/2024 [facility] Work Phone: Comment on above: 1 Occurrences starti ng 12/27/2023 until 12/27/2024 [facility] Immunizations Immunization Date Immunization Notes Care Provider Fa kelly 08-21-2020 influenza virus vacc ine, unspecified formulation Denice Carey APRN.CNP Work Phone: [facility] Payers Date Payer Category Payer Private Health Insurance [facility] [id number] 2019 Unknown SUSANNE MELVIN SO[employer] MEDICARE SUPPLEMENT [id number] 2019-Present [phone] [address] [place] [address] Indemnity [id number] 2013 Medicare [id number] 1959 Medicare [id number] [id number] 1959 Unknown [id number] 2.16.840.1.282835.19 1948 Unknown [id number] 2.16.840.1.097175.3.579 .2.593 1948 Unknown [id number] 2.16.840.1.979148.3.579 .2.593 1948 Unknown [id number] 2.16.840.1.285302.3.579 .2.593 1948 Unknown [id number] 2.16.840.1.017947.3.579 .2.593 1948 Unknown [id number] 2.16.840.1.784837.3.579 .2.593 1948 Unknown [id number] 2.16.840.1.930147.3.579 .2.593 1948 Unknown [id number] 2.16.840.1.730348.3.579 .2.59 1948 Unknown [id number] 2.16.840.1.958659.3.579 .2.593 1948 Unknown [id number] 2.16.840.1.623027.3.579 .2.593 1948 Unknown [id number] 2.16.840.1.648485.3.579 .2.593 1948 Unknown [id number] 2.16.840.1.520054.3.579 .2.593 1948 Unknown [id number] 2.16.840.1.760379.3.579 .2.593 1948 Unknown [id number] 2.16.840.1.224549.3.579 .2.593 1948 Unknown [id number] 2.16.840.1.691307.3.579 .2.593 1948 Unknown [id number] 2.16.840.1.778537.3.579 .2.593 1948 Unknown [id number] 2.16.840.1.342622.3.579 .2.593 1948 Unknown [id number] 2.16.840.1.076231.3.579 .2.593 1948 Unknown [id number] 2.16.840.1.589935.3.579 .2.593 1948 Unknown [id number] 2.16.840.1.183033.3.579 .2.593 1948 Unknown [id number] 2.16.840.1.977514.3.579 .2.593 1948 Unknown [id number] 2.16.840.1.021934.3.579 .2.593 1948 Unknown [id number] 2.16.840.1.572673.3.579 .2.593 1948 Unknown [id number] 2.16.840.1.173896.3.579 .2.1259 1948 Unknown [id number] 2.16.840.1.930156.3.579 .2.1259 1948 Unknown [id number] 2.16.840.1.423266.3.579 .2.1259 1948 Unknown [id number] 2.16.840.1.906601.3.579 .2.1259 Social History Date Type Detail Facility Start: 01-16-2023 End: 11-03-2024 Sex Assigned At [employer] Other Start: 11-01-2017 End: 11-16-2022 Tobacco smoking status NHIS Ex-smoker [facility] Work Phone: Start: 11-19-1972 End: 11-19-1977 History of tobacco use Current smoker [facility] Work Phone: Start: 11-19-1972 End: 11-19-1977 History of tobacco use Cigarette Smoker [facility] Work Phone: Start: 11-01-2017 End: 11-03-2024 Cigarettes smoked current (pack per day) - Reported 1 [facility] Start: 11-01-2017 End: 03-04-2024 Tobacco use and exposure Smokeless tobacco non-user [facility] Work Phone: Start: 12-20-2020 Alcohol intake Current non-drinker of alcohol (finding) [facility] Start: 1950 Sex Assigned At Not on file [facility] Start: 11-16-2022 End: 12-27-2023 Alcohol intake Ex-drinker (finding) [facility] National Score (1-10 0), lower number is lower risk 88 [facility] Start: 07-07-2021 Sexual orientation Heterosexual (finding) [facility] Start: 03-04-2024 Tobacco smoking status CTIS Never smoked tobacco [facility] Start: 03-26-2024 End: 11-03-2024 Alcoholic beverage intake Lifetime non-drinker (finding) [facility] Start: 03-26-2024 Alcohol Comment caffeine: none [facility] Clinical Notes 10-25-2022 to 11-03-2024 Carter [...] 73 y.o. male who presents for Follow-up ([facility] er f/u). ER follow up from 10/23 for vision changes. Developed floaters in left eye then flashing lights. To eye doctor and concerned of potential stroke. To ER and CT head normal. CTA head and neck negative for narrowing and discharged home. Seen by intravenous therapy nurse and told patient describing vitreous detachment and [...] with eye doctor. documented in this encounter [facility] 09-16-2024 Telephone encounter Note Call from pharmacy requesting refill. Requested Prescriptions Pending Prescriptions Disp Refills amLODIPine (NORVASC) 2.5 mg tablet [Pharmacy Med Name: amLODIPine Besylate 2.5 MG Oral Tablet] 90 tablet 0 Sig: Take 1 tablet by mouth once daily Patient last seen 12/27/23 Coco Samaniego [facility] 09-16-2024 Miscellaneous Notes Call from pharmacy requesting refill. Requested Prescriptions Pending Prescriptions Disp Refills amLODIPine (NORVASC) 2.5 mg tablet [Pharmacy Med Name: amLODIPine Besylate 2.5 MG Oral Tablet] 90 tablet 0 Sig: Take 1 tablet by mouth once daily Patient last seen 12/27/23 Coco Samaniego documented in this encounter [facility] 06-23-2024 Telephone encounter Note Call from patient requesting refill. Requested Prescriptions Pending Prescriptions Disp Refills amLODIPine (NORVASC) 2.5 mg tablet 90 tablet 0 Sig: Take 1 tablet by mouth once daily. Patient last seen 12/27/2023 Vidya Pedersen [facility] 06-23-2024 Miscellaneous Notes Call from patient requesting refill. Requested Prescriptions Pending Prescriptions Disp Refills amLODIPine (NORVASC) 2.5 mg tablet 90 tablet 0 Sig: Take 1 tablet by mouth once daily. Patient last seen 12/27/2023 Vidya Pedersen documented in this encounter [facility] 12-27-2023 Note HNO ID: [id number] Author: WAI BILLINGSLEY MD Service: ? Author Type: Physician Type: Progress Notes Filed: 12/27/2023 17:04 Note Text: [facility] Armando Department of Cardiovascular Medicine SECTION OF CARDIOVASCULAR IMAGING OUTPATIENT VISIT DATE December 27, 2023 OUTPATIENT VISIT TYPE ESTABLISHED PRIMARY CARE PHYSICIAN: Carter Fitzpatrick MD ([facility]) [address] [place] [address] REFERRING PHYSICIAN: Katerin Billingsley [address] [address] CHIEF COMPLAINT: Follow up HISTORY OF PRESENT [...] NORMAL ECG Confirmed by BILLIE CALLES MD ([id number]) on 03/07/2023 9:46:24 AM IMPRESSION: Mr. Garrison is a 73 year old male with multiple + stable mild to moderate mitral regurgitation. Active, asymptomatic. PLAN AND RECOMMENDATIONS: Continue same medications. Follow-up in 1 year with an echocardiogram. CONTACT INFORMATION: Katerin Billingsley MD [facility] 12-27-2023 History of Present illness Narrative Images from the original note were not included. [facility] Department of Cardiovascular Medicine SECTION OF CARDIOVASCULAR IMAGING OUTPATIENT VISIT DATE December 27, 2023 OUTPATIENT VISIT TYPE ESTABLISHED PRIMARY CARE PHYSICIAN: Carter Fitzpatrick MD ([facility]) [address] [place] [address] REFERRING PHYSICIAN: Katerin Billingsley [address] [address] CHIEF COMPLAINT: Follow up HISTORY OF PRESENT [...] NORMAL ECG Confirmed by BILLIE CALLES MD ([id number]) on 03/07/2023 9:46:24 AM IMPRESSION: Mr. Garrison is a 73 year old male with multiple + stable mild to moderate mitral regurgitation. Active, asymptomatic. PLAN AND RECOMMENDATIONS: Continue same medications. Follow-up in 1 year with an echocardiogram. CONTACT INFORMATION: Katerin Billingsley MD documented in this encounter [facility] 03-05-2023 History of Present illness Narrative Images from the original note were not included. [facility] Department of Cardiovascular Medicine SECTION OF CARDIOVASCULAR IMAGING OUTPATIENT VISIT DATE February 28, 2023 OUTPATIENT VISIT TYPE ESTABLISHED PRIMARY CARE PHYSICIAN: Carter Fitzpatrick MD ([facility]) [address] [place] [address] REFERRING PHYSICIAN: Katerin Billingsley [address] [address] CHIEF COMPLAINT: Follow up HISTORY OF PRESENT [...] Department Center 03/05/2023 2:00 PM Khushboo Lackey APRN.MEDICAL LABORATORY TECHNICAL OFFICER NADIA [facility] 05/07/2023 12:45 PM [id number] MAIN [id number] [place] [facility] 05/07/2023 1:30 PM ECHO J1-5 CARD MAIN CAFLMN David [facility] 05/07/2023 2:45 PM MD NADIA Bergeron [facility] I personally interviewed, confirmed and edited the above information if obtained by others. CONTACT INFORMATION: Khushboo Lackey, KALIN, CHRONOMETER ASSEMBLER AND ADJUSTER Desk [id number] [employer] [place] [id number] phone [phone] fax [facility] Cardiovascular Medicine, Section of Cardiac Imaging [facility] documented in this encounter [facility] 01-23-2023 Note CONSULTATION CONSULTATION DATE: 01/23/2023 TO: [...] to proceed with the outlined plan. [facility] 01-16-2023 History of Present illness Narrative [facility] Low Back Pain - Chronic (> 12 weeks) Initial Exam SUBJECTIVE HISTORY OF PRESENT ILLNESS: Marshal Garrison is a 72 year old male who presents with a chief complaint of low back pain. Chronic axial low back pain dating back multiple years Followed by pain management physician at 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 [facility] 12-05-2022 Miscellaneous Notes SCr drawn in 09/2022 at OSH. Scanned into [employer]. Normal value. Refill provided. Roselia Nolasco APRN.CNP documented in this encounter [facility] 11-16-2022 History of Present illness Narrative Images from the original note were not included. [facility] Department of Cardiovascular Medicine SECTION OF CARDIOVASCULAR IMAGING OUTPATIENT VISIT DATE November 16, 2022 OUTPATIENT VISIT TYPE ESTABLISHED PRIMARY CARE PHYSICIAN: Carter Fitzpatrick MD ([facility]) [address] [place] [address] REFERRING PHYSICIAN: Katerin Billingsley [address] [address] CHIEF COMPLAINT: Follow up HISTORY OF PRESENT [...] Katerin Billingsley MD documented in this encounter [facility] 11-15-2022 Miscellaneous Notes Images from the original note were not included. Spoke with patient regarding Holter results (in Epic), advised patient to continue taking Metoprolol. He is feeling well from a cardiac standpoint. Answered patient's questions and encouraged to call with any further questions or concerns. 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 [facility] Department of Cardiovascular Medicine SECTION OF CARDIOVASCULAR IMAGING OUTPATIENT VISIT DATE November 06, 2022 OUTPATIENT VISIT TYPE ESTABLISHED PRIMARY CARE PHYSICIAN: Carter Fitzpatrick MD ([facility]) [address] [place] [address] REFERRING PHYSICIAN: Denice Carey [address] Desk J1-5 [facility] [id number] CHIEF COMPLAINT: Increased heart rate HISTORY OF [...] Denice Carey APRN.CNP documented in this encounter [facility] 10-30-2022 History of Present illness Narrative Patient [...] develop into CVA. documented in this encounter [facility] 10-18-2022 Note CONSULTATION PROCEDURE DATE: 10/18/2022 PREOPERATIVE [...] be followed up in the clinic. [facility] 10-18-2022 Note CONSULTATION CONSULTATION DATE: 10/18/2022 HISTORY [...] followed up in the office thereafter. [facility] 09-26-2022 Note CONSULTATION CONSULTATION DATE: 09/26/2022 CHIEF [...] The patient also has an appointment at [facility] with regards to cardiac in October. [facility] 09-12-2022 Note CONSULTATION PROCEDURE DATE: 09/12/2022 PREOPERATIVE [...] having mitigation in his pain symptomatology. 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 CC: Carter Fitzpatrick M.D. [facility] Evaluation note No Information [facility] [employer] Other Evaluation note Diagnosis Treatment not available- Primary Procedure not carried out for other reasons [facility] Diagnosis Palpitations- Primary Essential hypertension Unspecified essential hypertension [facility] Diagnosis Palpitations- Primary [facility] Palpitations- Primary [facility] Diagnosis Palpitations- Primary [facility] Diagnosis Palpitations- Primary [facility] Diagnosis Chronic bilateral low back [...] unspecified etiology- Primary [facility] Diagnosis Essential hypertension, benign (CMS/HCC)- Primary [...] hypertension Medical History hypercholesterolemia Medical History anxiety [employer] Other reason for referral (narrative)* Outpatient Procedure (Routine) - Authorized Specialty Diagnoses / Procedures Referred By Malika jasso [facility] Diagnoses Palpitations Procedures ECG COMPLETE ECG ROUTINE ECG W/LEAST 12 LDS W/I&R Wai Billingsley MD [address] [place] [address] [facility] [place] [address] Referral ID Status Reason Start Date Expiration Date Visits Requested Visits Authorized [id number] Authorized Auto-Generat ed Referral 2 11/06/2023 1 1 * Outpatient Procedure (Routine) - Authorized Specialty Diagnoses / Procedures Referred By Malika jasso [facility] Diagnoses Palpitations Procedures ECHO ECHO TTHRC R-T 2D W/WOM-MODE COMPL SPEC&COLR D Wai Billingsley MD [address] [place] [address] [place] [id number] [place] [id number] Referral ID Status Reason Start Date Expiration Date Visits Requested Visits Authorized [id number] Authorized Auto-Generat ed Referral 11/06/2023 1 1 [facility] for referral (narrative)* Outpatient Procedure (Routine) - Closed Specialty Diagnoses / Procedures Referred By Contac t Referred To Contact [facility] Diagnoses Palpitations Procedures ECHO ECHO TTHRC R-T 2D W/WOM-MODE COMPL SPEC&COLR D Wai Billingsley MD [address] [place] [address] [place] [address] Referral ID Status Reason Start Date Expiration Date V isits Requested Visits Authorized [id number] Closed Auto-Generate d Referral 11/15/2022 11/15/2023 1 1 * Outpatient Procedure (Routine) - Closed Specialty Diagnoses / Procedures Referred By Contmacie t Referred To Contact [facility] Diagnoses Palpitations Procedures ECG COMPLETE ECG ROUTINE ECG W/LEAST 12 LDS W/I&R Wai Billingsley MD [address] [place] [phone] [place] [address] Referral ID Status Reason Start Date Expiration Date V isits Requested Visits Authorized [id number] Closed Auto-Generate d Referral 11/15/2022 11/15/2023 1 1 [facility] for referral (narrative)* Outpatient Procedure (Routine) - Authorized Specialty Diagnoses / Procedures Referred By Contmacie t Referred To Contact [facility] Diagnoses Palpitations Procedures ECG COMPLETE ECG ROUTINE ECG W/LEAST 12 LDS W/I&R Wai Billingsley MD [address] [place] [phone] [facility] [address] [place] [address] Referral ID Status Reason Start Date Expiration Date Visits Requested Visits Authorized [id number] Authorized Auto-Generat ed Referral 11/16/2023 1 1 [facility] for referral (narrative)* Outpatient Procedure (Routine) - Pending Review Specialty Diagnoses / Procedures Referred By Contac t Referred To Contact [facility] Diagnoses Mitral valve insufficiency, unspecified etiology Procedures ECHO ECHO TTHRC R-T 2D W/WOM-MODE COMPL SPEC&COLR Wai Montano MD [address] [id number] [place] [id number] [place] [phone] Referral ID Status Reason Start Date Expiration Date Visits Requested Visits Authorized [id number] Pending Review Auto-Generat ed Referral 07/25/2023 07/18/2024 1 1 [facility] for referral (narrative)* Outpatient Procedure (Routine) - Pending Review Specialty Diagnoses / Procedures Referred By Contac t Referred To Contact [facility] Diagnoses Mitral valve insufficiency, unspecified etiology Procedures ECHO ECHO TTHRC R-T 2D W/WOM-MODE COMPL SPEC&COLWai Mcginnis MD [address] [id number] [place] [phone] [place] [id number] Referral ID Status Reason Start Date Expiration Date Visits Requested Visits Authorized [id number] Pending Review Auto-Generat ed Referral 12/27/2023 12/26/2024 1 1 * Outpatient Procedure (Routine) - Pending Review Specialty Diagnoses / Procedures Referred By Contac t Referred To Contact [facility] Diagnoses Mitral valve insufficiency, unspecified etiology Procedures ECG COMPLETE ECG ROUTINE ECG W/LEAST 12 LDS W/I&R Wai Billingsley MD [address] [address] [facility] [address] [place] [address] Referral ID Status Reason Start Date Expiration Date Visits Requested Visits Authorized [id number] Pending Review Auto-Generat ed Referral 12/27/2023 12/26/2024 1 1 * Transition of Care (Routine) - Ref Not Required Specialty Diagnoses / Procedures Referred By Contac t Referred To Contact Procedures CARDIOVASCULAR MEDICINE OP FOLLOW UP APPT ORDER Wai Billingsley MD [address] [place] [phone] Referral ID Status Reason Start Date Expiration Date Visits Requested Visits Authorized [id number] Ref Not Required PCP Requested Referral 12/27/2023 12/26/2024 1 1 [facility] Summary Purpose Family History No Family History [...] Reason Comments Med Refill Reason Comments Follow-up [facility] er f/u Source Comments (unrecognize d section and content) In the event this informatio n is protected by the Federal Confidentiality of Alcohol and Drug Abuse Patient Records regulations: The Federal rules restrict any use of the information to criminally investigate or prosecute any alcohol or drug abuse patient.[facility] the event this information is protected by the Federal Confidentiality of Alcohol and Drug Abuse Patient Records regulations: The Federal rules restrict any use of the information to criminally investigate or prosecute any alcohol or drug abuse patient.[facility] the event this information is protected by the Federal Confidentiality of Alcohol and Drug Abuse Patient Records regulations: The Federal rules restrict any use of the information to criminally investigate or prosecute any alcohol or drug abuse patient.[facility] the event this information is protected by the Federal Confidentiality of Alcohol and Drug Abuse Patient Records regulations: The Federal rules restrict any use of the information to criminally investigate or prosecute any alcohol or drug abuse patient.[facility] the event this information is protected by the Federal Confidentiality of Alcohol and Drug Abuse Patient Records regulations: The Federal rules restrict any use of the information to criminally investigate or prosecute any alcohol or drug abuse patient.[facility] the event this information is protected by the Federal Confidentiality of Alcohol and Drug Abuse Patient Records regulations: The Federal rules restrict any use of the information to criminally investigate or prosecute any alcohol or drug abuse patient.[facility] the event this information is protected by the Federal Confidentiality of Alcohol and Drug Abuse Patient Records regulations: The Federal rules restrict any use of the information to criminally investigate or prosecute any alcohol or drug abuse patient.[facility] the event this information is protected by the Federal Confidentiality of Alcohol and Drug Abuse Patient Records regulations: The Federal rules restrict any use of the information to criminally investigate or prosecute any alcohol or drug abuse patient.[facility] the event this information is protected by the Federal Confidentiality of Alcohol and Drug Abuse Patient Records regulations: The Federal rules restrict any use of the information to criminally investigate or prosecute any alcohol or drug abuse patient.[facility] the event this information is protected by the Federal Confidentiality of Alcohol and Drug Abuse Patient Records regulations: The Federal rules restrict any use of the information to criminally investigate or prosecute any alcohol or drug abuse patient.[facility] the event this information is protected by the Federal Confidentiality of Alcohol and Drug Abuse Patient Records regulations: The Federal rules restrict any use of the information to criminally investigate or prosecute any alcohol or drug abuse patient.[facility] the event this information is protected by the Federal Confidentiality of Alcohol and Drug Abuse Patient Records regulations: The Federal rules restrict any use of the information to criminally investigate or prosecute any alcohol or drug abuse patient.[facility] the event this information is protected by the Federal Confidentiality of Alcohol and Drug Abuse Patient Records regulations: The Federal rules restrict any use of the information to criminally investigate or prosecute any alcohol or drug abuse patient.[facility] the event this information is protected by the Federal Confidentiality of Alcohol and Drug Abuse Patient Records regulations: The Federal rules restrict any use of the information to criminally investigate or prosecute any alcohol or drug abuse patient.[facility] the event this information is protected by the Federal Confidentiality of Alcohol and Drug Abuse Patient Records regulations: The Federal rules restrict any use of the information to criminally investigate or prosecute any alcohol or drug abuse patient.[facility] the event this information is protected by the Federal Confidentiality of Alcohol and Drug Abuse Patient Records regulations: The Federal rules restrict any use of the information to criminally investigate or prosecute any alcohol or drug abuse patient.[facility] the event this information is protected by the Federal Confidentiality of Alcohol and Drug Abuse Patient Records regulations: The Federal rules restrict any use of the information to criminally investigate or prosecute any alcohol or drug abuse patient.[facility] the event this information is protected by the Federal Confidentiality of Alcohol and Drug Abuse Patient Records regulations: The Federal rules restrict any use of the information to criminally investigate or prosecute any alcohol or drug abuse patient.[facility] Care Teams (unrecognized sec tion and content) Organ Recovery Coordinator Relationship Specialty Start Date End Date Carter Fitzpatrick PCP - General Family Medicine 09/26/17 No, Referral Referring 04/22/19 Wai Billingsley MD [address] [place] [address] Primary Staff Physician Cardiology 02/04/19 Organ Recovery Coordinator Relationship Specialty Start Date End Date Carter Fitzpatrick PCP - General Family Medicine 09/26/17 No, Referral Referring 04/22/19 Wai Billingsley MD [address] [place] [address] Primary Staff Physician Cardiology 02/04/19 Organ Recovery Coordinator Relationship Specialty Start Date End Date Carter Fitzpatrick PCP - General Family Medicine 09/26/17 No, Referral Referring 04/22/19 Wai Billingsley MD [address] [address] Primary Staff Physician Cardiology 02/04/19 Organ Recovery Coordinator Relationship Specialty Start Date End Date Carter Fitzpatrick PCP - General Family Medicine 09/26/17 No, Referral Referring 04/22/19 Wai Billingsley MD [address] [address] Primary Staff Physician Cardiology 02/04/19 Organ Recovery Coordinator Relationship Specialty Start Date End Date Carter Fitzpatrick PCP - General Family Medicine 09/26/17 No, Referral Referring 04/22/19 Wai Billingsley MD [address] [address] Primary Staff Physician Cardiology 02/04/19 Organ Recovery Coordinator Relationship Specialty Start Date End Date Carter Fitzpatrick PCP - General Family Medicine 09/26/17 No, Referral Referring 04/22/19 Wai Billingsley MD [address] [address] Primary Staff Physician Cardiology 02/04/19 Organ Recovery Coordinator Relationship Specialty Start Date End Date Carter Fitzpatrick PCP - General Family Medicine 09/26/17 No, Referral Referring 04/22/19 Wai Billingsley MD [address] [address] Primary Staff Physician Cardiology 02/04/19 Organ Recovery Coordinator Relationship Specialty Start Date End Date Carter Fitzpatrick PCP - General Family Medicine 09/26/17 No, Referral Referring 04/22/19 Wai Billingsley MD [address] [address] Primary Staff Physician Cardiology 02/04/19 Organ Recovery Coordinator Relationship Specialty Start Date End Date Carter Fitzpatrick PCP - General Family Medicine 09/26/17 No, Referral Referring 04/22/19 Wai Billingsley MD [address] [address] Primary Staff Physician Cardiology 02/04/19 Organ Recovery Coordinator Relationship Specialty Start Date End Date Carter Fitzpatrick PCP - General Family Medicine 09/26/17 No, Referral Referring 04/22/19 Wai Billingsley MD [address] [address] Primary Staff Physician Cardiology 02/04/19 Organ Recovery Coordinator Relationship Specialty Start Date End Date Carter Fitzpatrick PCP - General Family Medicine 09/26/17 No, Referral Referring 04/22/19 Wai Billingsley MD [address] [employer] [address] [address] Primary Staff Physician Cardiology 02/04/19 Organ Recovery Coordinator Relationship Specialty Start Date End Date Carter Fitzpatrick PCP - General Family Medicine 09/26/17 No, Referral Referring 04/22/19 Wai Billingsley MD [address] [address] Primary Staff Physician Cardiology 02/04/19 Organ Recovery Coordinator Relationship Specialty Start Date End Date Carter Fitzpatrick PCP - General Family Medicine 09/26/17 No, Referral Referring 04/22/19 Wai Billingsley MD [address] [place] [address] Primary Staff Physician Cardiology 02/04/19 Organ Recovery Coordinator Relationship Specialty Start Date End Date Carter Fitzpatrick PCP - General Family Medicine 09/26/17 No, Referral Referring 04/22/19 Wai Billingsley MD [address] [address] Primary Staff Physician Cardiology 02/04/19 Organ Recovery Coordinator Relationship Specialty Start Date End Date Carter Fitzpatrick PCP - General Family Medicine 09/26/17 No, Referral Referring 04/22/19 Wai Billingsley MD [address] [place] [address] Primary Staff Physician Cardiology 02/04/19 Organ Recovery Coordinator Relationship Specialty Start Date End Date Carter Fitzpatrick PCP - General Family Medicine 09/26/17 No, Referral Referring 04/22/19 Wai Billingsley MD [address] [place] [address] Primary Staff Physician Cardiology 02/04/19 Organ Recovery Coordinator Relationship Specialty Start Date End Date Carter Fitzpatrick MD [address] [place] [address] PCP - [facility] 03/04/24 Organ Recovery Coordinator Relationship Specialty Start Date End Date Carter Fitzpatrick MD PCP - General Family Medicine 09/26/17 No, Referral Referring 04/22/19 Wai Billingsley MD [address] [place] [address] Primary Staff Physician Cardiology 02/04/19 Organ Recovery Coordinator Relationship Specialty Start Date End Date Carter Fitzpatrick MD [address] [place] [phone] PCP - [facility] 03/04/24 Organ Recovery Coordinator Relationship Specialty Start Date End Date Carter Fitzpatrick MD [address] [place] [phone] PCP - [facility] 03/04/24 Organ Recovery Coordinator Relationship Specialty Start Date End Date Carter Fitzpatrick MD [address] [place] [address] PCP - [facility] 03/04/24 Organ Recovery Coordinator Relationship Specialty Start Date End Date Carter Fitzpatrick MD [address] [place] [id number] PCP - [facility] 03/04/24 (unrecognized sect ion and content) No Status Records FoundNo Status Records FoundNo Status Records Found INFORMATION SOURCE (unrecogn ized section and content) DATE CREATED AUTHOR 02/07/2023 [facility] DATE CREATED AUTHOR AUTHOR'S ORGANIZ ATION 10/11/2024 [facility] DATE CREATED AUTHOR AUTHOR'S ORGANIZ ATION 11/05/2024 [facility] FOR RECORDS PERTAINING TO PATIENTS [...] BE BASED ON THE PRIMARY CLINICAL RECORDS. [facility] [employer] provides no warranty or guarantee of the accuracy or completeness of information in this document.
[2024-12-23 13:53] LABS: Basophils Percent Auto 0.6 % (0.2-2.0); Eosinophils Absolute Auto 0.1 10^3/uL (0.0-0.7); Eosinophils Percent Auto 1.5 % (0.9-7.0); Hematocrit 40.5 % (42.0-54.0); Hemoglobin 13.2 g/dL (14.0-18.0); Immature Granulocytes Abs Auto 0.01 10^3/uL (0.00-0.03); Immature Granulocytes Pct Auto 0.2 % (0.0-0.5); Lymphocytes Absolute Auto 1.2 10^3/uL (1.2-3.8); Lymphocytes Percent Auto 22.7 % (20.5-60.0); Mean Corpuscular HGB Conc 32.6 g/dL (29.9-35.2); Mean Corpuscular Hemoglobin 27.9 pg (25.9-34.0); Mean Corpuscular Volume 85.6 fL (80.0-94.0); Mean Platelet Volume 9.7 fL (9.5-13.5); Monocytes Absolute Auto 0.6 10^3/uL (0.3-0.8); Monocytes Percent Auto 10.2 % (1.7-12.0); Neutrophils Absolute Auto 3.5 10^3/uL (1.4-6.5); Neutrophils Percent Auto 64.8 % (43.0-75.0); Platelet Count 220 10^3/uL (150-450); Red Blood Count 4.73 10^6/uL (4.70-6.10); Red Cell Distribution Width 12.4 % (11.0-15.0); White Blood Count 5.4 10^3/uL (4.0-11.0)
[2024-12-23 14:09] LABS: Anion Gap 14.2; BUN Creatinine Ratio 11.7; Calcium 8.6 mg/dL (8.5-10.1); Chloride 96 mmol/L (98-107); Estimated GFR (African America >60 (>=60 mL/min/1.73m^2); Estimated GFR (Non-African Ame >60 (>=60 mL/min/1.73m^2); Glucose 119 mg/dL (74-106); Potassium 4.2 mmol/L (3.5-5.1); Sodium 133 mmol/L (136-145)
[2024-12-23 15:00] VITALS: PULSE 88; O2SAT 98
== END 2024-12-23 15:03 | disposition home or self-care (01) ==
PROVIDERS: Nurse Practitioner Family; Emergency Provider Emergency Medicine; PCP Family Medicine
DX: R53.83 Other fatigue (principal); Z86.19 Personal history of other infectious and parasitic diseases; R05.9 Cough, unspecified
CPT/HCPCS: 36415; 71045; 80048; 85025; 99284

== ENCOUNTER 2025-10-05 07:50 | Outpatient (OUT) | payer OTHER, SELFPAY ==
--- OUTSIDE RECORDS SUMMARY | 2025-10-01 06:24 | XMS_ITS | Continuity of Care Document ---
Author Organization [facility] Address [address] [place] [address] Phone Care Team Providers Care Warehouse Operations Manager Name Role Phone Carter Luna MD Primary Care Provider Alayna Martinez APRN Attending Provider [phone] Carter Luna MD Attending Provider Care Teams Patient Care Team Team Status: Active Member Role/Relationship Status Dates Carter Luna MD Primary Care Provider Active Visit Care Team Team Status: Inactive Member Role/Relationship Status Dates Carter Luna MD Primary Care Provider Active S tart: July 16, 2025 End: July 16Vianney Carrillo ProviderActiveStart: July 16, 2025 End: July 16, 2025 Patient Care Team Team Status: Inactive Member Role/Relationship Status Dates Carter Luna MD Primary Care Provider Active S tart: October 01, 2025 End: October 01, [facility]25[facility] Luna MDAttnuria ProviderActiveStart: October 01, 2025 End: October 01, 2025 Chief Complaint and Reason for Visit Chief Complaint Admit Date Follow up July 16, 2025 2: 46pm Established Patient October 01, 2025 10:25am Reason for Visit Admit Date Hypersomnia July 16, 2025 2: 46pm GILBERTO (obstructive sleep apnea) June 2:46pm Snoring July 16, 2025 2: 46pm DDD (degenerative disc disease), lumbar October 01, 2025 10:25am Essential hypertension, benign October 01, 2025 10:25am BAN (generalized anxiety disorder) Novem 2024 10:25am Palpitations October 01, 2025 10:25am Allergies, Adverse Reactions, Alerts Allergen Type Severity Reaction Last Updated Verified Status Comments penicillamine Allergy Unknown Unknown Reaction October 01, 2025 10:43am Yes Active cefdinirAllergyUnknownsweatingNov2024 10:43amYesActiveheart racing Social History Smoking Status Status Start Date End Date Date of Observa tion Never smoked tobacco (finding) October 01, 2025 10:45am Observation Status Observation Response Date of Response Legal Sex Male (finding) Sex Assigned At 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 September 30, 2025 10:45am Unknown Active Hypersomnia July 16, 2025 3:05pm Unknown Act rachell Mitral regurgitation September 30, 2025 10:44am Unkno wn Active Ocular migraine September 30, 2025 10:45am Unknown Active Facial paresthesia September 30, 2025 10:43am Unknown Active Other chest pain September 30, 2025 10:45am Unknown Active Snoring July 16, 2025 3:05pm Unknown Act rachell Encounter for long-term (cur rent) use of medications October 01, 2025 11:16am Unknown Active SOB (shortness of breath) on exertion September 30, 2 025 10:46am Unknown Active DDD (degenerative disc disea se), lumbar September 30, 2025 10:43am Unknown Active Hiatal hernia with GERD September 30, 2025 10:44am Un known Active Family history of coronary a rtery disease September 30, 2025 10:44am Unknown Active Prediabetes September 30, 2025 10:46am Unknown Active Chronic left shoulder pain September 30, 2025 10:43am Unknown Active Right sided weakness September 30, 2025 10:46am Unkno wn Active Hypomagnesemia September 30, 2025 10:44am Unknown Active Medications Medication Status Dose Units Route Directions Qty Days Refills S tart Date Stop Date End Date Reason(s) Instructions Adherence Lorazepam 0.5 mg tablet Discontinued 0.5 MG PO Three times daily 90 30 0 August 12, 2025 10:19am September 14, 2025 12:37pmGeneralized anxiety disorder Generalized anxiety disorder anxietyLorazepam 0.5 mg tabletActive0.5MGPOThree times icapj61531Jvjpyhd 2024 12:37pmGeneralized anxiety disorder Generalized anxiety disorder anxietyComplies with drug therapyAtorvastatin 10 mg wezhruNmiecj60JDPMQapji at herxdvm060Hggmhutt 4th, 2025 10:09amComplies with drug therapyMultivitamin (Multiple Vitamins) xqjrxkAbpfdi9FOFQJZofpsRhqkpx 2024 11:00pmComplies with drug therapyAtorvastatin 10 mg cvvatkDjgpclqjfnmw88TMZIQepvy at bedtime July 15, 2025 11:00pmNovember 2024 10:10amMetoprolol Succinate 50 mg tablet extended release 24 blDqoioq38BJQHTncjj dailyAugust 2024 11:00pm Complies with drug therapyAmlodipine 2.5 mg tabletActive2.5MGPODailyInova Women'S Hospitalt 2024 11:00pmComplies with drug therapyLorazepam 0.5 mg apypjwZtnuwdwfcsxy8QTKE Three times dailyAugust 2024 11:00pmSeptember 2024 10:21amanxiety Aspirin 81 mg ysaqqbCcqwbs37QPJAHdzqoRcioix 2024 11:00pmComplies with drug therapyLutein 20 mg vygnezIkgoxp83NPSBAbbclLumolz 2024 11:00pmgive with meal/snackComplies with drug therapyCpap (Continuous Positive Airway Pressure) unitActive0.Dunhm45Ckvtpa 27th, 2025 11:00pmmask and supplies for one year Vital Signs Vital Reading Result Reference Range Collection Date/Time Heart Rate 60 /min 60-100 July 16 2:44pm BP Systolic 158 mm[Hg] 100-140 July 16 2:44pm BP Diastolic 72 mm[Hg] 60-100 July 16 2:44pm Height 71 [in_i] October 01, 2025 10:38wlYkewbg13.74 kgOctober 01, 2025 10:38amBody Mptqiopazhi68.3 [degF]97.6-99.0October 01, 2025 10:38amHeart Rate60 /min 60-100October 01, 2025 10:38amRespiratory rate12 /rec52-24InbqfrinOctober 01, 2025 10:38amOxygen saturation by Pulse oywlycco14 %95-100October 01, 2025 10:38am BP Hatmzxcg508 mm[Hg]100-140October 01, 2025 10:38amBP Sikwzbdzw65 mm[Hg] 60-100October 01, 2025 10:38amBMI (Body Mass Index)23.3 kg/c6CxpfoslxOctober 01, 2025 10:38am Advance Directives Advance Directive Response Recorded Date/ Time Advance Directives No December 04, 2024 12:38pm Insurance Providers Guarantor Sammy Garrison Address [address] [address]Contact Info.Home Phone: Coverage Status Update:2024 Payer Group Member ID Coverage Type Subscriber Relationship to Subscriber Effective Date Expiration Date Medicare [id number] A Gierhart Id: [id number] [address] [facility] [address] Home Phone: [employer] [facility] P[facility] [id number] A Gierhart Id: [id number] [address] [facility] [address] Home Phone: [employer] [place] [id number] A Gierhart Id: [id number] [address] [place], [place] [address] Home Phone: Self Encounters Encounter Location(s) Arrival/Admit Date Discharge/Departure Date Discharge/Departure Disposition Provider(s) Departed Physician/ Provider Office Visit -[facility] Neurology [place] July 16, 2025 2:46pm July 16, 2025 4:03pm Discharged to home care or self care (routine discharge) Festus Reyes APRN Departed Physician/ Provider Office Visit -[facility] Family Medicine [place] October 01, 2025 10:25am October 01, 2025 11:18am Discharged to home care or self care (routine discharge) Carter Luna MD Recent Diagnosis Onset Date Admit Date Hypersomnia Unknown July 16 2:46pm GILBERTO (obstructive sleep apnea) Unknown [place] 2024 2:46pm Snoring Unknown July 16 2:46pm DDD (degenerative disc disease), lumbar Unknown October 01, 2025 10:25am Essential hypertension, benign Unknown N ovember 2024 10:25am BAN (generalized anxiety disorder) Unknown October 01, 2025 10:25am Palpitations Unknown October 01, 025 10:25am Assessments Diagnosis Onset Date Resolution Status Admit Date Hypersomnia acuteAugust 2024 2:46pmOSA (obstructive sleep apnea)acuteAugust 2024 2:46pmSnoringacuteAugust 2024 2:46pmDDD (degenerative disc disease), lumbaracuteNov2024 10:25amEssential hypertension, benignacute October 01, 2025 10:25amGAD (generalized anxiety disorder)acuteOctober 01, 2025 10:25amPalpitationsacuteNovember 2024 10:25am Plan of Treatment Author Alayna Martinez [place] 2024 3:17fr30-mikr-rfl male with a mild obstructive sleep apnea with an AHI of 13.4 and an oxygen desaturation down to 83 percent. Patient has daytime hypersomnolence and snoring that is controlled with the use of the machine. He was titrated on CPAP at 10 cm of water however at some point he was switched over to auto PAP. Overall he is controlled with the use of the CPAP machine. He is getting great benefit and tolerating it well. This time he needs new supplies. He is compliant using 100 percent of the time greater than 4 hours with an average nightly usage of 6 hours and 42 minute and residual AHI of 2.1. He should try and get 7 1/2-8 hours of sleep. He states he wakes up and cannot fall back asleep. He takes and half hour nap some days. ? Plan Compliance download was reviewed Compliance download at next visit We will send script for mask and supplies for one year Continues machine every night Try to get 7 hours of sleep at the minimum every night The patient was counseled on proper sleep hygiene and adequate hours of sleep. The patient was counseled on the risks of stroke, [place], and sudden with GILBERTO, along with the need for compliance with the CPAP/BiPAP treatment.?? The diagnosis was all discussed with the patient. All questions were answered and they agreed with the treatment plan. Patient will call if there are any new issues or questions. ?? Pt has been fully educated on their diagnosis, treatment options, and follow up plan ?? Future Tests Future scheduled test information is unavailable Pending Tests Test Name Ordered Date Scheduled Date Comprehensive Metabolic Panel October 01 11:15am Future Visits Future appointment information is unavailable Future Procedures Procedure Name Ordered Date Scheduled Date A1C with Estimated Average Glu October 01 11:15am Complete Blood Count Auto DiffNovember 2024 11:15amLipid PanelNovember 2024 11:15amPSA Screen (Yearly Only)October 01, 2025 11:15amThyroid Stimulating HormoneNovember 2024 11:15am Future Medications Future medication information is unavailable Patient Instructions Patient instructions are unavailable
--- OUTSIDE RECORDS SUMMARY | 2025-10-05 07:56 | XMS_ITS | CCD ---
Author Organization [facility] CliniSywy Care Team Providers Care International Relations Professor Name Role Phone Ayad Lawrence Unavailable Carter Luna Primary Care Provider [phone] No, Referral Unavailable Unavailable Wai Billingsley MD Unavailable AMARI, DR CARTER Quintanilla Admitting Unavailable [...] Quintanilla Primary Care Unavailable LAKSHMIPATHY ., NARSASHA Consulting Ofelia vailable FAWWAD, BECKETT H Admitting Unavailable FAWWAD, BECKETT H Attending Unavailable SUDAN, DR MARSHAL Tanner Consulting Unavailable NADERER, DR [...] ., NARSASHA Admitting Ofelia vailable LAKSHMIPATHY ., NARSASHA Attending Ofelia vailable LAKSHMIPATHY ., NARSASHA Consulting Ofelia vailable NADERER, DR CARTER Quintanilla Primary [...] NADERER, DR CARTER Quintanilla Primary Care Unavailable SHARP, TAL Consulting Unavailable LAKSHMIPATHY ., NARENDRANATH Admitting Ofelia vailable LAKSHMIPATHY ., NARENDLALITOATH Attending Ofelia vailable LAKSHMIPATHY ., CARLOS Consulting Ofelia vailable NADEREVashti, DR CARTER Quintanilla Primary Care Unavailable POMPA, BRANDON Consulting Unavailable ALLEN ., DR ETHAN Nunes Attending Unavailable ALLEN ., DR ETHAN Nunes Admitting Unavailable NADERER, DR CARTER Quintanilla Primary Care Unavailable ALLEN ., DR ETHAN Nunes Attending Unavailable ALLEN ., DR ETHAN Nunes Consulting Unavailable ALLEN ., DR ETHAN Nunes Admitting Unavailable NADERER, DR CARTER Quintanilla Primary Care Unavailable NADERER, DR CARTER Quintanilla Primary Care Unavailable LAKSHMIPATHY ., NARENDLALITOATH Admitting Ofelia vailable LAKSHMIPATHY ., CARLOS Attending Ofelia vailable ALLEN ., DR ETHAN Nunes Attending Unavailable LALEN ., DR ETHAN Nunes Consulting Unavailable ALLEN ., DR ETHAN Nunes Admitting Unavailable NADERER, DR CARTER Quintanilla Primary Care Unavailable NADERER, DR CARTER Quintanilla Admitting Unavailable NADERER, DR CARTER Quintanilla Attending Unavailable WEST, DR MARSHAL Tanner Consulting Unavailable NADERER, DR CARTER Qiuntanilla Primary Care Unavailable ZIEBER, DR JONO Kingston Consulting Unavailable NADERER, DR CARTER Quintanilla Consulting Unavailable NADERER, DR CARTER Quintanilla Primary Care Unavailable GRECHNY ., ELIU MAHONEY Consulting Unavailabl e MARKER ., DR SALAS Admitting Unavailable MARKER ., DR SALAS Attending Unavailable MARKER ., DR SALAS Consulting Unavailable MATAMOROS, LAITH Consulting Unavailable Jass, Marshal Consulting Unavailable LUDMILA, DR MAICOL Kingston Consulting Unavailable LUDMILA, DR MAICOL Kingston Admitting Unavailable LUDMILA, DR MAICOL Kingston Attending Unavailable NADERER, DR CARTER Quintanilla Primary Care Unavailable JACOB DUKE Consulting Unavailable LUDMILA, DR MAICOL Kingston Admitting Unavailable TORRES, DR MAICOL Kingston Consulting Unavailable LUDMILA, DR [...] Unavailable Jose Cruz RUSSELL, Wai Dorantes Unavailable Naderevashti, Carter Quintanilla Primary Care Provider Carter Luna MD Primary Care Provider [phone] Carter Luna MD Primary Care Provider [phone] Carter Luna MD Unavailable AMARI, CARTER Attending Unavailable NADERER, CARTER Attending Unavailable NADERER, CARTER Attending Unavailable NADERER, CARTER Attending Unavailable JOSE CRUZ, WAI L Referring Unavailable NADERER, CARTER Quintanilla Primary Care Unavailable NADERER, CARTER Quintanilla Primary Care Unavailable JOSE CRUZ, WAI L Referring Unavailable NADERER, CARTER Quintanilla Primary Care Unavailable JOSE CRUZ, WAI L Referring Unavailable NADERER, CARTER Quintanilla Primary Care Unavailable JOSE CRUZ, WAI L Referring Unavailable SELF Referring Unavailable NADERER, CARTER Quintanilla Primary Care Unavailable JOSE CRUZ, WAI L Attending Unavailable JOSE CRUZ, WAI L Referring Unavailable NADERER, CARTER Quintanilla Primary Care Unavailable JOSE CRUZ, WAI L Attending Unavailable JOSE CRUZ, WAI L Referring Unavailable NADERER, CARTER Quintanilla Primary Care Unavailable JOSE CRUZ, WAI L Referring Unavailable NADERER, CARTER Quintanilla Primary Care Unavailable Naderer Carter RUSSELL Primary Care Provider [phone] Alayna Martinez APRN Attending Provider Allergies Allergy ClassificationReported Allergen(s)Allergy TypeDate of OnsetReaction(s) Facility (2 sources)penicillAMINEDrug Icopenu58-66-0516Mxvcnmv, Unknown ReactionSelect Medical [facility], [place] (20 sources)Penicillin; Translations: [PENICILLIN]Drug Oesfujg71-02-9590Mydhzdi [facility] (20 sources)Thiazides; Translations: [THIAZIDES]Drug Bvtlpgymywo79-32-2652UO UpsetMercy Health St. [facility] Work Phone: (2 sources)PenicillinsDrug allergy (disorder)43-66-9961Dhd [facility] (17 sources)cefdinirDrug Qdkbycu39-68-2630vzgxdetvOKPK HealthcareComment on above:heart racing (16 sources)Penicillin GDrug Lghktby26-24-9251Pnrrs, UnknownNOTN Healthcare (16 sources)OtherPropensity to adverse jagjznbkm50-26-6585CN intoleranceNOTN Healthcare Medications Current Medications MedicationDrug Class(es)DatesSig (Normalized)Sig (Original)amLODIPine 2.5 mg oral tablet (20 sources)Dihydropyridine Calcium Channel BlockerStart: 08-19-5208oebi 1 tablet by mouth once dailyAmlodipine 2.5 mg tablet Active 2.5 MG PO Daily July 16, 2025 12:00am Complies with drug therapyStart: 12-30-2021 End: 81-12-4792wfbf 1 tablet by mouth in the morningamLODIPine (Norvasc) 2.5 MG tablet Take 2.5 mg by mouth in the morning. 12/17/2023 ActiveamLODIPine Besylate 2.5 MG Oral for 60 ActiveComment on above:Take 1 tablet by mouth once daily. Take 1 tablet by mouth once dailyaspirin 81 mg oral tablet (14 sources)Platelet Aggregation Inhibitor, Nonsteroidal Anti-inflammatory Drug Start: 88-27-5037jmqg 1 tablet by mouth once dailyAspirin 81 mg tablet Active 81 MG PO Daily July 16, 2025 12:00am Complies with drug therapytake 1 tablet by mouth once dailyaspirin (ASPIR-81 ORAL) Take 1 tablet by mouth once daily. Activeaspirin (ASPIR-81 ORAL) Take by mouth. Activeaspirin (ASPIR-81 ORAL) Take by mouth. 0 ActiveComment on above:Take by mouth.atorvastatin 10 mg oral tablet (20 sources)HMG-CoA Reductase InhibitorStart: 47-44-7460ivgp 1 tablet by mouth once daily at bedtimeAtorvastatin 10 mg tablet Active 10 MG PO Daily at bedtime July 16, 2025 12:00am Complies with drug therapyStart: 69-77-8543qojc 1 tablet by mouth at bedtimeatorvastatin (Lipitor) 10 MG tablet Indications: Dyslipidemia TAKE 1 TABLET BY MOUTH AT BEDTIME 90 tablet 03/12/2025 Active Comment on above:Take 10 mg by mouth once daily.Cpap (Continuous Positive Airway Pressure) unit (1 source)Start: 96-30-9086Fjty (Continuous Positive Airway Pressure) unit Active 0 .Route 1 July 16, 2025 12:00am mask and supplies for one year LORazepam 0.5 mg oral tablet (20 sources)BenzodiazepineStart: 59-01-3825ybxo 2 tablets by mouth three times dailyLorazepam 0.5 mg tablet Active 1 MG PO Three times daily July 16, 2025 12:00am Complies with drug therapyStart: 07-04-2024 End: 58-92-6880jxwl 1 tablet by mouth three times daily as needed for anxiety LORazepam (Ativan) 0.5 MG tablet Indications: BAN (generalized anxiety disorder) Take 1 tablet (0.5mg) by mouth 3 (three) times a day as needed for anxiety 90 tablet 1 06/01/2025 07/01/2025 ActiveComment on above:Take 0.5 mg by mouth three times daily as needed. 0.25mg in the morning and afternoon and 0.5mg in the evening lutein 20 mg oral tablet (17 sources)Start: 51-45-3176etqk 1 tablet by mouth once dailyLutein 20 mg tablet Active 20 MG PO Daily July 16, 2025 12:00am give with meal/snack Complies with drug therapytake 1 capsule by mouth once dailyLutein 20 MG capsule Take 20 mg by mouth Daily ActiveMagnesium glycinate (6 sources) End: 94-98-1866Fmympbblj Glycinate powder 200 mg Daily 11/03/2024 Discontinued Magnesium Glycinate powder 200 mg Daily Omfumz24 hr metoprolol succinate 50 mg extended release oral tablet (20 sources)beta-Adrenergic BlockerStart: 44-78-7405azzk 1 tablet by mouth twice dailyMetoprolol Succinate 50 mg tablet extended release 24 hr Active 50 MG PO Twice daily July 16, 2025 12:00am Complies with drug therapyStart: 33-93-7733ibmz 1 tablet by mouth twice dailymetoprolol succinate XL (Toprol-XL) 50 MG 24 hr tablet Indications: Hypertension, unspecified type Take 1 tablet by mouth twice daily 180 tablet 3 04/20/2025 ActiveStart: 11-23-2022 End: 18-08-3721uayt 1 tablet by mouth twice dailymetoprolol succinate XL (Toprol-XL) 50 MG 24 hr tablet Indications: Hypertension, unspecified type ( CMS/HCC) Take 1 tablet by mouth twice daily 180 tablet 01/19/2025 ActiveStart: 11-16-2022 End: 98-83-7347okzt 2 tablets by mouth twice dailymetoprolol succinate ER (TOPROL XL) 25 mg 24 hr tablet Take 2 tablets by mouth twice daily. Taking 1 1/2 in morning and 25 mg at night 0 11/16/2022 ActiveMetoprolol Succinate ER 25 MG Oral for 90 ActiveComment on above:Take 25 mg by mouth twice daily. Taking 1 1/2 in morning and 25 mg at night Take 2 tablets by mouth twice daily. Taking 1 1/2 in morning and 25 mg at night Take 1 tablet by mouth twice daily.Multiple Vitamin (multivitamin) tablet (16 sources)take 1 tablet by mouth once dailyMultiple Vitamin (multivitamin) tablet Take 1 tablet by mouth Daily ActiveMultivitamin (Multiple Vitamins) tablet (1 source)Start: 75-82-4422exln 1 tablet by mouth once dailyMultivitamin (Multiple Vitamins) tablet Active 1 TAB PO Daily July 16, 2025 12:00am Complies with drug therapymultivitamin tablet (20 sources)take 1 tablet by mouth once dailymultivitamin tablet Take 1 tablet by mouth once daily. With 18 mg iron Activetake 1 tablet by mouth once daily multivitamin tablet Take 1 tablet by mouth once daily. With 18 mg iron 0 Active Comment on above:Take 1 tablet by mouth once daily. With 18 mg iron 125 ml sodium chloride 9 mg/ml prefilled syringe (20 sources)Start: 01-29-2025 End: 43-95-1031ixggpo chloride 0.9 %, flush, (BD POSIFLUSH) syringe Inject 2-10 mL intravenously as directed. For Echo procedure 10 mL 01/29/2025 01/29/2026 ActiveStart: 11-06-2022 End: 44-93-3009gitsyk chloride 0.9 % (flush) 10 mL (BD POSIFLUSH)ZEAXANTHIN, BULK, MISC (20 sources)ZEAXANTHIN, BULK, MISC 20 mg once daily. ActiveZEAXANTHIN, BULK, MISC 20 mg once daily. 0 ActiveComment on above:20 mg once daily. Completed/Discontinued Medications MedicationDrug Class(es)DatesSig (Normalized)Sig (Original)Benzocaine (1 source)Standardized Chemical AllergenStart: 02-13-2025 End: 90-98-2055FLHIPXO, X (OR/PROCEDURE) PRN, Starting on Sun02/13/25 at 1117, Until Sun02/13/25 at 1117, Intraprocedure1 ml fentaNYL 0.05 mg/ml injection (1 source)Opioid AgonistStart: 02-13-2025 End: 40-92-1874IDRQGYHYAYC, X (OR/PROCEDURE) PRN, Starting on Sun02/13/25 at 1124, Until Sun02/13/25 at 1157, Intraprocedurelidocaine hydrochloride 0.02 mg/mg topical gel (1 source)Antiarrhythmic, Amide Local AnestheticStart: 02-13-2025 End: 02-13-2025X (OR/PROCEDURE) PRN, Starting on Sun02/13/25 at 1118, Until Sun02/13/25 at 1118, Intraprocedure5 ml midazolam 1 mg/ml injection (1 source)BenzodiazepineStart: 02-13-2025 End: 77-90-2651BJOJPEWHEDK, X (OR/PROCEDURE) PRN, Starting on Sun02/13/25 at 1124, Until Sun02/13/25 at 1157, Intraprocedureperflutren lipid microspheres 1.3 mL in NaCl (PF) 0.9% 10 mL injection (DEFINITY) (20 sources)Start: 07-25-2023 End: 00-18-5222ifudepajxg lipid microspheres 1.3 mL in NaCl (PF) 0.9% 10 mL injection (DEFINITY)Start: 07-25-2023 End: 39-17-7865wmlvakuwnm lipid microspheres 1.3 mL in NaCl (PF) 0.9% 10 mL injection (DEFINITY)Start: 11-15-2022 End: 81-45-5543iecaeiwuaz lipid microspheres 1.3 mL in NaCl (PF) 0.9% 10 mL injection (DEFINITY)Start: 11-15-2022 End: 86-38-7169gbfrizsaqi lipid microspheres 1.3 mL in NaCl (PF) 0.9% 10 mL injection (DEFINITY)Start: 11-06-2022 End: 07-57-3527rycttctrkx lipid microspheres 1.3 mL in NaCl (PF) 0.9% 10 mL injection (DEFINITY)Start: 11-06-2022 End: 56-95-0458npgfcjypga lipid microspheres 1.3 mL in NaCl (PF) 0.9% 10 mL injection (DEFINITY) Problems Active Problems Problem ClassificationProblemDateDocumented DateEpisodic/ChronicAnxiety disorders (20 sources)Anxiety disorder, unspecified; Translations: [Generalized anxiety disorder]Onset: 620219-16-0524SurdrbcGmjakwm dysrhythmias (1 source)Unspecified atrial fibrillation; Translations: [UNSPECIFIED ATRIAL FIBRILLATION]Onset: 91-78-1212UfcodviMwgtdkwhx of lipid metabolism (20 sources)Hyperlipidemia, unspecified; Translations: [Pure hypercholesterolemia, unspecified]Onset: 196405-41-4626WmarjspDexxqafwc hypertension (19 sources)Essential hypertension; Translations: [Essential (primary) hypertension]Onset: 33-14-5087RipjakxLtcroxiv; including migraine (17 sources)Migraine, unspecified, not intractable, without status migrainosus; 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]Onset: 930293-55-1682CdyiwhaBwgmncqo; including migraine (1 source)Headache; including migraine; Translations: [HEADACHE UNSPECIFIED] Onset: 48-64-4552Hzdit valve disorders (20 sources)Mitral valve regurgitation; Translations: [Nonrheumatic mitral (valve) insufficiency]Onset: 00-56-9008HenybvbYtjim aftercare (5 sources)Other group home (current) drug therapy; Translations: [OTH FDC CURRENT DRUG THERAPY]Onset: 36-81-3501KadtktwsZwnod connective tissue disease (1 source)Myalgia, unspecified site; Translations: [MYALGIA UNSPECIFIED SITE] Onset: 03-45-0916CsdaotcpNqxnn eye disorders (14 sources)Posterior vitreous degeneration of left eye; Translations: [Vitreous degeneration, left eye]Onset: 206029-87-7002IboixwyBtoke lower respiratory disease (4 sources)Dyspnea; Translations: [Shortness of breath]70-09-8577MjwuxggvOgfpq lower respiratory disease (1 source)Shortness of breath; Translations: [SOB (shortness of breath)]Onset: 33-63-4429ZsilggvhRniue nervous system disorders (1 source)Polyneuropathy; Translations: [Polyneuropathy, unspecified]Chronic Other nervous system disorders (1 source)Ulnar neuropathy; Translations: [Lesion of ulnar nerve, bilateral upper limbs]ChronicOther nervous system disorders (5 sources)Other chronic pain; Translations: [OTHER CHRONIC PAIN]Onset: 38-83-7796XmfxghpZnmpz nervous system disorders (1 source)Other specified mononeuropathies; Translations: [OTHER SPECIFIED MONONEUROPATHIES]Onset: 60-71-2826ArfddayEnvbq non-traumatic joint disorders (4 sources)Pain in left hip; Translations: [PAIN IN LEFT HIP]Onset: 01-11-2023 EpisodicOther nutritional; endocrine; and metabolic disorders (16 sources)Hypomagnesemia; Translations: [Hypomagnesemia]Onset: 03-04-2024 05-37-3932EsnaptsOwcywdnx codes; unclassified (16 sources)Obstructive sleep apnea syndrome; Translations: [Obstructive sleep apnea (adult) (pediatric)]Onset: 125847-79-8986HmqmgmdPtjbvmvp codes; unclassified (16 sources)Hypersomnia; Translations: [Hypersomnia, unspecified]Onset: 698173-77-9523LffisicKombpnsw codes; unclassified (1 source)Treatment not available; Translations: [Procedure and treatment not carried out for other reasons]EpisodicSpondylosis; intervertebral disc disorders; other back problems (20 sources)Lumbar spondylosis; Translations: [Spondylosis without myelopathy or radiculopathy, lumbar region]Onset: 63-39-2523YzvjhkkBqlwsrclddc; intervertebral disc disorders; other back problems (8 sources)Chronic low back pain; Translations: [Lumbago with sciatica, left side]Onset: 93-71-2103XdgkjbeuUzfagjizfvao (4 sources)LOW BACK PAIN, UNSPECIFIED; Translations: [LOW BACK PAIN, UNSPECIFIED]Onset: 07-55-7386Ytglllekfwys (1 source)CONTACT W/AND (SUSP) EXPOS COVID-19; Translations: [CONTACT W/AND (SUSP) EXPOS COVID-19]Onset: 11-29-2022 Past or Other Problems Problem ClassificationProblemDateDocumented DateEpisodic/ChronicAbdominal hernia (16 sources)Gastroesophageal reflux disease with hiatal hernia; Translations: [Diaphragmatic hernia without obstruction or gangrene]Onset: 03-04-2024 45-78-6496MqtbbpxtKiucers dysrhythmias (20 sources)Palpitations; Translations: [Palpitations]Onset: 04-22-2019 29-92-0923NjdjvziuRmymqchjzs associated with dizziness or vertigo (4 sources)Dizziness and giddiness; Translations: [DIZZINESS AND GIDDINESS] Onset: 84-79-9496RosvshquQixhbcqb mellitus without complication (16 sources)Prediabetes; Translations: [Prediabetes]Onset: EpisodicHeadache; including migraine (16 sources)Headache; Translations: [Head ache]Onset: EpisodicMalaise and fatigue (17 sources)Weakness; Translations: [Right hemiparesis]Onset: 11-05-2022 54-39-7677BgxvgxtyIrfo disorders (4 sources)Mood disordersOnset: 854544-29-0984Vphxkurnmjw chest pain (10 sources)Other chest pain; Translations: [Chest pain]Onset: 09-25-2022 09-53-9085OfuhqexmCapqc aftercare (15 sources)Long-term current use of drug therapy; Translations: [Other group home (current) drug therapy]Onset: 311317-86-1276RkffbtovPbynq circulatory disease (1 source)Personal history of transient ischemic attack (TIA), and cerebral infarction without residual deficits; Translations: [PERS HX TIA AND CI NO RESID DEFICIT]Onset: 88-49-1917YotexdrgWbfxq connective tissue disease (1 source)Facial weakness; Translations: [FACIAL WEAKNESS]Onset: 11-05-2022 EpisodicOther connective tissue disease (4 sources)Trochanteric bursitis, left hip; Translations: [TROCHANTERIC BURSITIS LEFT HIP]Onset: 01-52-1892LypenmhvEapdc lower respiratory disease (9 sources)Dyspnea on exertion; Translations: [Shortness of breath]Onset: 151909-83-3032AlegjynsMvgvh nervous system disorders (4 sources)Anesthesia of skin; Translations: [ANESTHESIA OF SKIN]Onset: 69-91-7380TweziilmZmhzq nervous system disorders (4 sources)Paresthesia of skin; Translations: [PARESTHESIA OF SKIN]Onset: 36-88-5558VjawqqjtVikel nervous system disorders (16 sources)Facial paresthesia; Translations: [Paresthesia of skin]Onset: 579023-05-8911EimoklfkVmeuh non-traumatic joint disorders (16 sources)Chronic pain of left upper limb; Translations: [Pain in left shoulder]Onset: 722693-14-8756VqlfbnpzLmoyw screening for suspected conditions (not mental disorders or infectious disease) (19 sources)Encounter for screening for malignant neoplasm of prostate; Translations: [Patient encounter status]Onset: 532076-32-8050Xzucnyni Residual codes; unclassified (9 sources)Family history of coronary arteriosclerosis; Translations: [Family history of ischemic heart disease and other diseases of the circulatory system] Onset: 290311-77-9964SfxdhserSdtquflhcgcs (1 source)LOW BACK PAIN, UNSPECIFIED; Translations: [LOW BACK PAIN, UNSPECIFIED] Onset: 09-26-2022 Results Test NameValueInterpretationReference RangeFacilityCNOVon 69-47-8951HXIMBeynma Visit (NADIA) MARSHAL GARRISON ([id number]) 1950 M Date Time Provider Department 04/23/25 10:45 AM WAI BILLINGSLEY During your visit today, we recorded the following information about you: Pulse Blood pressure Weight Height 62/minute 135/62 72.6 kg 1.829 m Wai Billingsley MD 04/23/2025 6:10 PM [facility] [place] Dionicio Armando Department of Cardiovascular Medicine SECTION OF CARDIOVASCULAR IMAGING OUTPATIENT VISIT DATE 04/23/2025 OUTPATIENT VISIT TYPE ESTABLISHED PRIMARY CARE PHYSICIAN: Carter Luna ([facility]) [address] [place] [address] REFERRING PHYSICIAN: Katerin Billingsley [address] [facility] [address] CHIEF COMPLAINT: Follow up HISTORY OF PRESENT ILLNESS: Mr. Garrison is a 74 year old male who presents today for follow-up visit . Since his last visit, he states that he had a [facility] and nuclear stress test. He denies chest pain, shortness of breath, orthopnea, cough, edema, palpitations, PND, lightheadedness or syncope. PAST CARDIAC HISTORY: He has been seen in the past for Moderate mitral regurgitation. PAST MEDICAL HISTORY Diagnosis Date Anxiety Chest pain negative stress in 2016 Hyperlipidemia Hypertension Palpitations Panic attacks Sleep apnea on CPAP PAST SURGICAL HISTORY Procedure Laterality Date NONE SOCIAL HISTORY Social History Tobacco Use Smoking status: Former Current packs/day: 0.00 Average packs/day: 1 pack/day for 5.0 years (5.0 ttl pk-yrs) Types: Cigarettes Start date: 11/19/1972 Quit date: 11/19/1977 Years since quittin.4 Smokeless tobacco: Never Substance Use Topics Alcohol use: Not Currently Drug use: Never FAMILY HISTORY Problem Relation Age of Onset Colon Cancer Mother Ischemic Heart Disease Father 65 s/p CABG x 4 Alzheimer's Disease Father Hyperlipidemia Brother Hypertension Brother Heart disease Brother heart infection Ischemic Heart Disease Brother 71 s/p CABG ALLERGIES: ALLERGIES Allergen Reactions Hctz [Thiazides] GI Upset Nausea Penicillin Unknown MEDICATIONS: amLODIPine (NORVASC) 2.5 mg tablet Take 1 tablet by mouth once daily aspirin (ASPIR-81 ORAL) Take 1 tablet by mouth once daily. metoprolol succinate ER (TOPROL XL) 50 mg 24 hr tablet Take 1 tablet by mouth twice daily. LORazepam (ATIVAN) 0.5 mg Take 0.5 mg by mouth three times daily as needed. 0.25mg in the morning and afternoon and 0.5mg in the evening atorvastatin (LIPITOR) 10 mg tablet Take 10 mg by mouth once daily. ZEAXANTHIN, BULK, MISC 20 mg once daily. multivitamin tablet Take 1 tablet by mouth once daily. With 18 mg iron sodium chloride 0.9 %, flush, (BD POSIFLUSH) syringe Inject 2-10 mL intravenously as directed. For Echo procedure (Patient not taking: Reported on 04/23/2025) No data to display REVIEW OF SYSTEMS: PHYSICAL EXAMINATION: BP 135/62 (BP Site: Left Arm, BP Position: Sitting, BP Cuff Size: Regular Adult) Pulse 62 Ht 182.9 cm (6') Wt 72.6 kg (160 lb) SpO2 99% BMI 21.70 kg/m? General: Well appearing, in no acute distress, speaking in complete sentences. Lungs: Clear to auscultation bilaterally, no wheezing or rhonchi. Heart: Regular rhythm, PMI not displaced, S1, S2 normal, no S3, no S4, no heaves, no rub and mid to late systolic apical murmur. Abdomen: Soft, nontender, bowel sounds normal, no palpable organomegaly, no bruits. Extremities: No peripheral edema . Grade 2/4 distal pulses bilaterally. Neuro: Oriented to person, place and time, alert, cooperative, gait coordinated. CARDIOVASCULAR MEDICINE TESTING: Stress Test:Nuclear (Non-PET): 1. SPECT Perfusion Study: Normal. 2. There is no scintigraphic evidence for inducible ischemia. 3. No evidence of scarred myocardium. 4. Left ventricle is normal in size. The left ventricle systolic function is normal. 5. Right ventricle is normal in size. The right ventricle systolic function is normal. 6. This is a low risk scan Last ENID Result Conclusion ECHO TRANSESOPHAGEAL Collected: 02/13/2025 10:58 AM (Final result) Impression: CONCLUSIONS: - Exam indication: AR / MR mechanism study - The left ventricle is normal in size. Left ventricular systolic function is normal. EF = 60 ? 5% (visual est.) - The right ventricle is normal in size. Right ventricular systolic function is normal. - There is moderate (2+) mitral valve regurgitation due to prolapse. Regurgitant orifice area (PISA) is 0.17 cm?. Several small jets of mitral regurgitation, the largest of which is very eccentric and originates near the medial commissure. Mild bileaflet prolapse. - Exam was compared with the prior echocardiographic exam performed on 01/29/25. Similar findings. (more content not included)...[facility]/EXERCISEon 03-23-2025* * *Final Report* * * DATE OF EXAM: Mar 23 2025 2:26PM [facility] 0004 - CT CARDIAC PERF STRESS/EXERCISE / PROCEDURE REASON: SOB (shortness of breath) * * * * Physician Interpretation * * * * Stress Senior Reservations Agent Report: [facility] CONNOR-2 Date of service: 03/23/2025 1:20:00 PM Supervising physician: Sonu Medina MD PATIENT: Name: MR. MARSHAL GARRISON Age: 74 years Gender: M The supervising physician was in the department and immediately available. * * * Final * * * PATIENT: Name: MR. MARSHAL GARRISON Age: 74 years Gender: M CONCLUSIONS: 1. SPECT Perfusion Study: Normal. 2. There is no scintigraphic evidence for inducible ischemia. 3. No evidence of scarred myocardium. 4. Left ventricle is normal in size. The left ventricle systolic function is normal. 5. Right ventricle is normal in size. The right ventricle systolic function is normal. 6. This is a low risk scan. Gated Stress IR Gated Rest IR LVEF % 74 74 Prior Study Comparison No prior nuclear cardiology exam available for comparison. Nuclear Med Report:1-Day Gated SPECT Myocardial Perfusion with Exercise Stress: Myocardial perfusion imaging was performed at rest 30 to 60 minutes following the IV injection of the radiotracer. One minute prior to peak exercise, the patient was injected IV with the radiotracer. Gated post stress tomographic imaging was performed 10 to 20 minutes later. See administered radiotracer and doses below. [facility] Date of service: 03/23/2025 1:20:00 PM Ordering Physician: WAI BILLINGSLEY. Requesting Physician: Indication: Dyspnea Fellow: Toyin Basurto MD Interpreting physician: Sonu Medina MD Height: 182.88 cm BSA: 1.92 m? Weight: 72.58 kg BMI: 21.7 kg/m? Imaging Protocol Limitation Reason Diaphragmatic attenuation. CT Dose-Length Product(DLP): 0.0 mGy * cm. CT Dose Reduction Employed: No. Exam Type: Rest Stress Radiopharm: Tc-99m Tetrofosmin Tc-99m Tetrofosmin Dosage(mCi): 12.6 32.5 Atten Correction: not performed not performed Stress Agent: Treadmill Resting Blood Press: 128/66 mmHg Image Quality The overall study imaging quality was deemed to be good. The following technical issues were noted: Diaphragmatic attenuation. FINDINGS: Left Ventricle Wall Motion: Stress IR - All segments are normal. Rest IR - Gated Stress IR - Gated Rest IR - Reversibility - Stress IR Stress IR Gated Stress IR Gated Rest IR LVEF: 74 % 74 % ED Volume: 98 ml 108 ml ES Volume: 25 ml 28 ml TID: 0.98 Perfusion Findings Stress IR - Summed Score=0 All segments demonstrate normal perfusion. Rest IR - Summed Score=0 All segments demonstrate normal perfusion. Stress IR Rest IR Summed Score=0 Summed Score=0 LEFT VENTRICLE The left ventricle is normal in size. Left ventricular systolic function is normal. Right Ventricle The right ventricle is normal in size. Right ventricle systolic function is normal. Stress Test Findings: There is no scintigraphic evidence for inducible ischemia. There is no evidence of scarring. The left ventricular cavity size is unchanged with stress. * * * Final * * * Stress ECG Report: [facility] Date of service: 03/23/2025 1:20:00 PM Ordering physician: WAI BILLINGSLEY application integration specialist: Naty Awan [employer] Supervisor: Kary Sarmiento Fellow: Toyin Barahona MD and Farrukh Basurto MD Interpreting physician: Sonu Medina MD Patient name: MR. MARSHAL GARRISON Age: 74 years Gender: M Height: 182.88 cm BSA: 1.92 m? Weight: 72.58 kg BMI: 21.7 kg/m? Indication: Non-angina chest pain Stress ECG Conclusion: Conclusion: Normal Stress ECG Summary: The patient's resting heart rate was 68 bpm and blood pressure was 128/66 mmHg. The patient exercised according to the [place] 5% protocol. The estimated end-exercise MET level achieved using the FRIEND equation * * * was 5.8, which is within the 10th to 25th percentile for age and sex. The estimated end-exercise MET level achieved using the previous ACSM equation was 6.7. The test was terminated due to general fatigue and the total exercise time was 7 minutes and 30 seconds. No symptoms provoked during stress. The maximum heart rate was 133 bpm, wh (more content not included)...CCFRadiology, Radiologist, MD - 03/23/2025 * * *Final Report* * * DATE OF EXAM: Mar 23 2025 2:26PM [facility] 0004 - [place] CARDIAC PERF STRESS/EXERCISE / PROCEDURE REASON: SOB (shortness of breath) * * * * Physician Interpretation * * * * Stress Senior Reservations Agent Report: [facility] Date of service: 03/23/2025 1:20:00 PM Supervising physician: Sonu Medina MD PATIENT: Name: MR. MARSHAL GARRISON Age: 74 years Gender: M The supervising physician was in the department and immediately available. * * * Final * * * PATIENT: Name: MR. MARSHAL GARRISON Age: 74 years Gender: M CONCLUSIONS: 1. SPECT Perfusion Study: Normal. 2. There is no scintigraphic evidence for inducible ischemia. 3. No evidence of scarred myocardium. 4. Left ventricle is normal in size. The left ventricle systolic function is normal. 5. Right ventricle is normal in size. The right ventricle systolic function is normal. 6. This is a low risk scan. Gated Stress IR Gated Rest IR LVEF % 74 74 Prior Study Comparison No prior nuclear cardiology exam available for comparison. Nuclear Med Report:1-Day Gated SPECT Myocardial Perfusion with Exercise Stress: Myocardial perfusion imaging was performed at rest 30 to 60 minutes following the IV injection of the radiotracer. One minute prior to peak exercise, the patient was injected IV with the radiotracer. Gated post stress tomographic imaging was performed 10 to 20 minutes later. See administered radiotracer and doses below. [facility] [place] Date of service: 03/23/2025 1:20:00 PM Ordering Physician: WAI BILLINGSLEY. Requesting Physician: Indication: Dyspnea Fellow: Toyin Basurto MD Interpreting physician: Sonu Medina MD Height: 182.88 cm BSA: 1.92 m? Weight: 72.58 kg BMI: 21.7 kg/m? Imaging Protocol Limitation Reason Diaphragmatic attenuation. CT Dose-Length Product(DLP): 0.0 mGy * cm. CT Dose Reduction Employed: No. Exam Type: Rest Stress Radiopharm: Tc-99m Tetrofosmin Tc-99m Tetrofosmin Dosage(mCi): 12.6 32.5 Atten Correction: not performed not performed Stress Agent: Treadmill Resting Blood Press: 128/66 mmHg Image Quality The overall study imaging quality was deemed to be good. The following technical issues were noted: Diaphragmatic attenuation. FINDINGS: Left Ventricle Wall Motion: Stress IR - All segments are normal. Rest IR - Gated Stress IR - Gated Rest IR - Reversibility - Stress IR Stress IR Gated Stress IR Gated Rest IR LVEF: 74 % 74 % ED Volume: 98 ml 108 ml ES Volume: 25 ml 28 ml TID: 0.98 Perfusion Findings Stress IR - Summed Score=0 All segments demonstrate normal perfusion. Rest IR - Summed Score=0 All segments demonstrate normal perfusion. Stress IR Rest IR Summed Score=0 Summed Score=0 LEFT VENTRICLE The left ventricle is normal in size. Left ventricular systolic function is normal. Right Ventricle The right ventricle is normal in size. Right ventricle systolic function is normal. Stress Test Findings: There is no scintigraphic evidence for inducible ischemia. There is no evidence of scarring. The left ventricular cavity size is unchanged with stress. * * * Final * * * Stress ECG Report: [facility]- Date of service: 03/23/2025 1:20:00 PM Ordering physician: WAI BILLINGSLEY application integration specialist: Naty Awan [employer] Supervisor: Kary Sarmiento Fellow: Toyin Barahona MD and Farrukh Basurto MD Interpreting physician: Sonu Medina MD Patient name: MR. MARSHAL GARRISON Age: 74 years Gender: M Height: 182.88 cm BSA: 1.92 m? Weight: 72.58 kg BMI: 21.7 kg/m? Indication: Non-angina chest pain Stress ECG Conclusion: Conclusion: Normal Stress ECG Summary: The patient's resting heart rate was 68 bpm and blood pressure was 128/66 mmHg. The patient exercised according to the Kevin 5% protocol. The estimated end-exercise MET level achieved using the FRIEND equation * * * was 5.8, which is within the 10th to 25th percentile for age and sex. The estimated end-exercise MET level achieved using the previous ACSM equation was 6.7. The test was terminated due to general fatigue and the total exercise time was 7 minutes and 30 seconds. No symptoms provoked during stress. The maximum heart rate was 133 bpm, which is 93% of the predicted heart rate for age. This is an adequate heart rate response. Peak blood pressure was 184/76 mmHg. The double product achieved was 234[address]. Medications: La (more content not included)...[facility]CT CARDIAC PERF STRESS/EXERCISE* * *Final Report* * * DATE OF EXAM: Mar 23 2025 2:26PM [facility] 0004 - [place] CARDIAC PERF STRESS/EXERCISE / PROCEDURE REASON: SOB (shortness of breath) * * * * Physician Interpretation * * * * Stress Senior Reservations Agent Report: [facility] Date of service: 03/23/2025 1:20:00 PM Supervising physician: Sonu Medina MD PATIENT: Name: MR. MARSHAL GARRISON Age: 74 years Gender: M The supervising physician was in the department and immediately available. * * * Final * * * PATIENT: Name: MR. MARSHAL GARRISON Age: 74 years Gender: M CONCLUSIONS: 1. SPECT Perfusion Study: Normal. 2. There is no scintigraphic evidence for inducible ischemia. 3. No evidence of scarred myocardium. 4. Left ventricle is normal in size. The left ventricle systolic function is normal. 5. Right ventricle is normal in size. The right ventricle systolic function is normal. 6. This is a low risk scan. Gated Stress IR Gated Rest IR LVEF % 74 74 Prior Study Comparison No prior nuclear cardiology exam available for comparison. Nuclear Med Report:1-Day Gated SPECT Myocardial Perfusion with Exercise Stress: Myocardial perfusion imaging was performed at rest 30 to 60 minutes following the IV injection of the radiotracer. One minute prior to peak exercise, the patient was injected IV with the radiotracer. Gated post stress tomographic imaging was performed 10 to 20 minutes later. See administered radiotracer and doses below. [facility] Date of service: 03/23/2025 1:20:00 PM Ordering Physician: WAI BILLINGSLEY. Requesting Physician: Indication: Dyspnea Fellow: Toyin Basurto MD Interpreting physician: Sonu Medina MD Height: 182.88 cm BSA: 1.92 m? Weight: 72.58 kg BMI: 21.7 kg/m? Imaging Protocol Limitation Reason Diaphragmatic attenuation. CT Dose-Length Product(DLP): 0.0 mGy * cm. CT Dose Reduction Employed: No. Exam Type: Rest Stress Radiopharm: Tc-99m Tetrofosmin Tc-99m Tetrofosmin Dosage(mCi): 12.6 32.5 Atten Correction: not performed not performed Stress Agent: Treadmill Resting Blood Press: 128/66 mmHg Image Quality The overall study imaging quality was deemed to be good. The following technical issues were noted: Diaphragmatic attenuation. FINDINGS: Left Ventricle Wall Motion: Stress IR - All segments are normal. Rest IR - Gated Stress IR - Gated Rest IR - Reversibility - Stress IR Stress IR Gated Stress IR Gated Rest IR LVEF: 74 % 74 % ED Volume: 98 ml 108 ml ES Volume: 25 ml 28 ml TID: 0.98 Perfusion Findings Stress IR - Summed Score=0 All segments demonstrate normal perfusion. Rest IR - Summed Score=0 All segments demonstrate normal perfusion. Stress IR Rest IR Summed Score=0 Summed Score=0 LEFT VENTRICLE The left ventricle is normal in size. Left ventricular systolic function is normal. Right Ventricle The right ventricle is normal in size. Right ventricle systolic function is normal. Stress Test Findings: There is no scintigraphic evidence for inducible ischemia. There is no evidence of scarring. The left ventricular cavity size is unchanged with stress. * * * Final * * * Stress ECG Report: [place] [id number] Date of service: 03/23/2025 1:20:00 PM Ordering physician: WAI BILLINGSLEY application integration specialist: Naty Awan [employer] Supervisor: Kary Sarmiento Fellow: Toyin Barahona MD and Farrukh Basurto MD Interpreting physician: Sonu Medina MD Patient name: MR. MARSHAL GARRISON Age: 74 years Gender: M Height: 182.88 cm BSA: 1.92 m? Weight: 72.58 kg BMI: 21.7 kg/m? Indication: Non-angina chest pain Stress ECG Conclusion: Conclusion: Normal Stress ECG Summary: The patient's resting heart rate was 68 bpm and blood pressure was 128/66 mmHg. The patient exercised according to the [place] 5% protocol. The estimated end-exercise MET level achieved using the FRIEND equation * * * was 5.8, which is within the 10th to 25th percentile for age and sex. The estimated end-exercise MET level achieved using the previous ACSM equation was 6.7. The test was terminated due to general fatigue and the total exercise time was 7 minutes and 30 seconds. No symptoms provoked during stress. The maximum heart rate was 133 bpm, which is 93% of the predicted heart rate for age. This is an adequate heart rate response. Peak blood pressure was 184/76 mmHg. The double product achieved was [address]. Medications: Last Used METOPROLOL 6 Hours AMLODIPINE 1 Hours Resting ECG: Normal Sinus Rhythm and Frequent PACs (>7/Min) Exercise Protocol: Kevin 5% Stress Exercise (more content not included)...[facility] multiple states of exerciseon 03-23-2025* * *Final Report* * * DATE OF EXAM: Mar 23 2025 2:26PM [facility] 0004 - [place] CARDIAC PERF STRESS/EXERCISE / PROCEDURE REASON: SOB (shortness of breath) * * * * Physician Interpretation * * * * Stress Senior Reservations Agent Report: [facility] Date of service: 03/23/2025 1:20:00 PM Supervising physician: Sonu Medina MD PATIENT: Name: MR. MARSHAL GARRISON Age: 74 years Gender: M The supervising physician was in the department and immediately available. * * * Final * * * PATIENT: Name: MR. MARSHAL GARRISON Age: 74 years Gender: M CONCLUSIONS: 1. SPECT Perfusion Study: Normal. 2. There is no scintigraphic evidence for inducible ischemia. 3. No evidence of scarred myocardium. 4. Left ventricle is normal in size. The left ventricle systolic function is normal. 5. Right ventricle is normal in size. The right ventricle systolic function is normal. 6. This is a low risk scan. Gated Stress IR Gated Rest IR LVEF % 74 74 Prior Study Comparison No prior nuclear cardiology exam available for comparison. Nuclear Med Report:1-Day Gated SPECT Myocardial Perfusion with Exercise Stress: Myocardial perfusion imaging was performed at rest 30 to 60 minutes following the IV injection of the radiotracer. One minute prior to peak exercise, the patient was injected IV with the radiotracer. Gated post stress tomographic imaging was performed 10 to 20 minutes later. See administered radiotracer and doses below. [facility] [place] Date of service: 03/23/2025 1:20:00 PM Ordering Physician: WAI BILLINGSLEY. Requesting Physician: Indication: Dyspnea Fellow: Toyin Basurto MD Interpreting physician: Sonu Medina MD Height: 182.88 cm BSA: 1.92 m Weight: 72.58 kg BMI: 21.7 kg/m Imaging Protocol Limitation Reason Diaphragmatic attenuation. CT Dose-Length Product(DLP): 0.0 mGy * cm. CT Dose Reduction Employed: No. Exam Type: Rest Stress Radiopharm: Tc-99m Tetrofosmin Tc-99m Tetrofosmin Dosage(mCi): 12.6 32.5 Atten Correction: not performed not performed Stress Agent: Treadmill Resting Blood Press: 128/66 mmHg Image Quality The overall study imaging quality was deemed to be good. The following technical issues were noted: Diaphragmatic attenuation. FINDINGS: Left Ventricle Wall Motion: Stress IR - All segments are normal. Rest IR - Gated Stress IR - Gated Rest IR - Reversibility - Stress IR Stress IR Gated Stress IR Gated Rest IR LVEF: 74 % 74 % ED Volume: 98 ml 108 ml ES Volume: 25 ml 28 ml TID: 0.98 Perfusion Findings Stress IR - Summed Score=0 All segments demonstrate normal perfusion. Rest IR - Summed Score=0 All segments demonstrate normal perfusion. Stress IR Rest IR Summed Score=0 Summed Score=0 LEFT VENTRICLE The left ventricle is normal in size. Left ventricular systolic function is normal. Right Ventricle The right ventricle is normal in size. Right ventricle systolic function is normal. Stress Test Findings: There is no scintigraphic evidence for inducible ischemia. There is no evidence of scarring. The left ventricular cavity size is unchanged with stress. * * * Final * * * Stress ECG Report: [place] [id number] Date of service: 03/23/2025 1:20:00 PM Ordering physician: WAI BILLINGSLEY application integration specialist: Naty Awan [employer] Supervisor: Kary Sarmiento Fellow: Toyin Barahona MD and Farrukh Basurto MD Interpreting physician: Sonu Medina MD Patient name: MR. MARSHAL GARRISON Age: 74 years Gender: M Height: 182.88 cm BSA: 1.92 m Weight: 72.58 kg BMI: 21.7 kg/m Indication: Non-angina chest pain Stress ECG Conclusion: Conclusion: Normal Stress ECG Summary: The patient's resting heart rate was 68 bpm and blood pressure was 128/66 mmHg. The patient exercised according to the [place] 5% protocol. The estimated end-exercise MET level achieved using the FRIEND equation * * * was 5.8, which is within the 10th to 25th percentile for age and sex. The estimated end-exercise MET level achieved using the previous ACSM equation was 6.7. The test was terminated due to general fatigue and the total exercise time was 7 minutes and 30 seconds. No symptoms provoked during stress. The maximum heart rate was 133 bpm, wh (more content not included)...DIVISION OF RADIOLOGYProvider, [facility] [place] - 03/23/2025 * * *Final Report* * * DATE OF EXAM: Mar 23 2025 2:26PM [facility] 0004 - [place] CARDIAC PERF STRESS/EXERCISE / PROCEDURE REASON: SOB (shortness of breath) * * * * Physician Interpretation * * * * Stress Senior Reservations Agent Report: [facility]- Date of service: 03/23/2025 1:20:00 PM Supervising physician: Sonu Medina MD PATIENT: Name: MR. MARSHAL GARRISON Age: 74 years Gender: M The supervising physician was in the department and immediately available. * * * Final * * * PATIENT: Name: MR. MARSHAL GARRISON Age: 74 years Gender: M CONCLUSIONS: 1. SPECT Perfusion Study: Normal. 2. There is no scintigraphic evidence for inducible ischemia. 3. No evidence of scarred myocardium. 4. Left ventricle is normal in size. The left ventricle systolic function is normal. 5. Right ventricle is normal in size. The right ventricle systolic function is normal. 6. This is a low risk scan. Gated Stress IR Gated Rest IR LVEF % 74 74 Prior Study Comparison No prior nuclear cardiology exam available for comparison. Nuclear Med Report:1-Day Gated SPECT Myocardial Perfusion with Exercise Stress: Myocardial perfusion imaging was performed at rest 30 to 60 minutes following the IV injection of the radiotracer. One minute prior to peak exercise, the patient was injected IV with the radiotracer. Gated post stress tomographic imaging was performed 10 to 20 minutes later. See administered radiotracer and doses below. Main [place] Date of service: 03/23/2025 1:20:00 PM Ordering Physician: WAI BILLINGSLEY. Requesting Physician: Indication: Dyspnea Fellow: Toyin Basurto MD Interpreting physician: Sonu Medina MD Height: 182.88 cm BSA: 1.92 m Weight: 72.58 kg BMI: 21.7 kg/m Imaging Protocol Limitation Reason Diaphragmatic attenuation. CT Dose-Length Product(DLP): 0.0 mGy * cm. CT Dose Reduction Employed: No. Exam Type: Rest Stress Radiopharm: Tc-99m Tetrofosmin Tc-99m Tetrofosmin Dosage(mCi): 12.6 32.5 Atten Correction: not performed not performed Stress Agent: Treadmill Resting Blood Press: 128/66 mmHg Image Quality The overall study imaging quality was deemed to be good. The following technical issues were noted: Diaphragmatic attenuation. FINDINGS: Left Ventricle Wall Motion: Stress IR - All segments are normal. Rest IR - Gated Stress IR - Gated Rest IR - Reversibility - Stress IR Stress IR Gated Stress IR Gated Rest IR LVEF: 74 % 74 % ED Volume: 98 ml 108 ml ES Volume: 25 ml 28 ml TID: 0.98 Perfusion Findings Stress IR - Summed Score=0 All segments demonstrate normal perfusion. Rest IR - Summed Score=0 All segments demonstrate normal perfusion. Stress IR Rest IR Summed Score=0 Summed Score=0 LEFT VENTRICLE The left ventricle is normal in size. Left ventricular systolic function is normal. Right Ventricle The right ventricle is normal in size. Right ventricle systolic function is normal. Stress Test Findings: There is no scintigraphic evidence for inducible ischemia. There is no evidence of scarring. The left ventricular cavity size is unchanged with stress. * * * Final * * * Stress ECG Report: [place] [id number] Date of service: 03/23/2025 1:20:00 PM Ordering physician: WAI BILLINGSLEY application integration specialist: Naty Awan [employer] Supervisor: Kary Sarmiento Fellow: Toyin Barahona MD and Farrukh Basurto MD Interpreting physician: Sonu Medina MD Patient name: MR. MARSHAL GARRISON Age: 74 years Gender: M Height: 182.88 cm BSA: 1.92 m Weight: 72.58 kg BMI: 21.7 kg/m Indication: Non-angina chest pain Stress ECG Conclusion: Conclusion: Normal Stress ECG Summary: The patient's resting heart rate was 68 bpm and blood pressure was 128/66 mmHg. The patient exercised according to the [place] 5% protocol. The estimated end-exercise MET level achieved using the FRIEND equation * * * was 5.8, which is within the 10th to 25th percentile for age and sex. The estimated end-exercise MET level achieved using the previous ACSM equation was 6.7. The test was terminated due to general fatigue and the total exercise time was 7 minutes and 30 seconds. No symptoms provoked during stress. The maximum heart rate was 133 bpm, which is 93% of the predicted heart rate for age. This is an adequate heart rate response. Peak blood pressure was 184/76 mmHg. The double product achieved was [address]. Medications: (more content not included)...[facility] Panel Information Ordered By: Radiologist Radiology on [id number] Work Phone: No Panel Informationon [id number] Study observation (narrative)[facility] HealthcareECG 12 leadon [id number] Rate : 60 BPM Atrial Rate : 60 BPM P-R Interval : 186 ms QRS Duration : 88 ms Q-T Interval : 398 ms QTC Calculation(Bazett) : 398 ms Calculated P Manning : 98 degrees Calculated R Manning : 41 degrees Calculated T Manning : 67 degrees SINUS RHYTHM WITH PREMATURE ATRIAL COMPLEXES OTHERWISE NORMAL ECG Confirmed by OBINNA LANGSTON MD (22) on 02/20/2025 5:00:25 PM NAME : MARSHAL GARRISON PID : [id number] : 1950 Gender : Male Race : ORD : [id number] Procedure Date : Jan 29 2025 13:50:44 Edit Date : Feb 20 2025 17:02:18 Diagnosis: SINUS RHYTHM WITH PREMATURE ATRIAL COMPLEXES OTHERWISE NORMAL ECG Confirmed by OBINNA LANGSTON MD () on 02/20/2025 5:00:25 PM Test Reason : Location : 314 : J14 Overread By : OBINNA LANGSTON MD Edited By : OBINNA LANGSTON MD Referred By : WAI BILLINGSLEY Acquired by : AZUL ROMERORadiology, Radiologist, - 02/20/2025 Ventricular Rate : 60 BPM Atrial Rate : 60 BPM P-R Interval : 186 ms QRS Duration : 88 ms Q-T Interval : 398 ms QTC Calculation(Bazett) : 398 ms Calculated P Manning : 98 degrees Calculated R Manning : 41 degrees Calculated T Manning : 67 degrees SINUS RHYTHM WITH PREMATURE ATRIAL COMPLEXES OTHERWISE NORMAL ECG Confirmed by OBINNA LANGSTON MD (22) on 02/20/2025 5:00:25 PM NAME : MARSHAL GARRISON PID : [id number] : 1950 Gender : Male Race : ORD : [id number] Procedure Date : Jan 29 2025 13:50:44 Edit Date : Feb 20 2025 17:02:18 Diagnosis: SINUS RHYTHM WITH PREMATURE ATRIAL COMPLEXES OTHERWISE NORMAL ECG Confirmed by OBINNA LANGSTON MD (22) on 02/20/2025 5:00:25 PM Test Reason : Location : 314 : J14 Overread By : OBINNA LANGSTON MD Edited By : OBINNA LANGSTON MD Referred By : WAI BILLINGSLEY Acquired by : MALORIE ROMERO [facility] 12 leadOrdered By: Radiologist Radiology on [id number] Work Phone: ccf NT-PROBNP SERPL-MCNCon [id number] peptide B (Bld) [Mass/Vol]66 pg/mLNINF - 450 pg/mLNOMS HealthcareSpecimen Type: BLOOD SPECIMEN Ordering Facility: [facility] Address: [address] [place] [address] Original Ordering Provider: [facility]A [id number] Visit (CAFN) MARSHAL GARRISON ([id number]) 1950 M Date Time Provider Department 02/13/25 10:30 AM TRANSESOPHAGEAL ECHO CARD MAINCAFLMN During your visit today, we recorded the following information about you: Temperature Pulse Respiration Blood pressure 97.6 degrees 71/minute 14/minute 131/63 Julian Sarmiento, PARAM 02/13/2025 12:29 PM Signed AMBULATORY PATIENT EDUCATION TOPIC: [place] READINESS TO LEARN COGNITIVE ABILITY: Alert and oriented MOTIVATION TO LEARN: Interested FAMILY SUPPORT: Unable to assess - Family not present INSTRUCTION PROVIDED TO: Patient PATIENT LEARNS BEST BY: Individual Instruction FACTORS AFFECTING LEARNING: None PHYSICAL LIMITATIONS AFFECTING LEARNING: None LEARNING RESPONSE DIAGNOSIS: Eval MR METHOD OF INSTRUCTION: Individual instruction PATIENT / FAMILY RESPONSE: Verbalizes understanding of: POST-PROCEDURE INSTRUCTIONS-Correct actions to take to reduce post procedure complications PRE-PROCEDURE INSTRUCTIONS-Correct action to take to follow pre-procedure instructions FOLLOW-UP PLAN: Complete - No need for follow-up SUPPLEMENTAL MATERIAL: Post ENID instructions given Post sedation instructions given REFERRAL (RECOMMENDATION): None Electronically Signed By Julain Sarmiento RN In Department: CARDIOLOGY Referring Provider: WAI BILLINGSLEY [[id number]] Allergies As of Date: 02/13/2025 Noted Allergy Reaction HCTZ (THIAZIDES) 02/03/2019 8 - GI Upset Comments: Nausea PENICILLIN 11/01/2017 16 - Unknown Date Reviewed: 02/13/2025 Reviewed by: Denice Yanez RN - Fully Assessed Visit Diagnosis:Mitral valve insufficiency, unspecified etiology [I34.0] Order(s):ECHO TRANSESOPHAGEAL [[id number]] Order #: [id number]: 1 [] benzocaine 20% (TOPEX)Disp: Rfl: [] lidocaine urojet 2 % topical gel (GLYDO)Disp: Rfl: [] fentaNYL 50 mcg/mL injection (SUBLIMAZE)Disp: Rfl: [] midazolam (PF) injection (VERSED)Disp: Rfl: Prescriptions as of 02/13/2025 - sodium chloride 0.9 %, flush, (BD POSIFLUSH) syringe Inject 2-10 mL intravenously as directed. For Echo procedure - amLODIPine (NORVASC) 2.5 mg tablet Take 1 tablet by mouth once daily - aspirin (ASPIR-81 ORAL) Take 1 tablet by mouth once daily. - metoprolol succinate ER (TOPROL XL) 50 mg 24 hr tablet Take 1 tablet by mouth twice daily. - LORazepam (ATIVAN) 0.5 mg Take 0.5 mg by mouth three times daily as needed. 0.25mg in the morning and afternoon and 0.5mg in the evening - atorvastatin (LIPITOR) 10 mg tablet Take 10 mg by mouth once daily. - ZEAXANTHIN, BULK, MISC 20 mg once daily. - multivitamin tablet Take 1 tablet by mouth once daily. With 18 mg iron Problem List As Of Date 02/13/2025 Noted Resolved Palpitations [R00.2] 04/22/2019 Prescriptions ordered this encounter Disp Refills Start End BENZOCAINE 20% TOPICAL SPRAY 02/13/2025 02/13/2025 Route: TOPICAL LIDOCAINE 2 % MUCOSAL JELLY IN APPLI* 02/13/2025 02/13/2025 FENTANYL (PF) 50 MCG/ML INJECTION SO* 02/13/2025 02/13/2025 Route: INTRAVENOUS MIDAZOLAM (PF) 1 MG/ML INJECTION AIRAM* 02/13/2025 02/13/2025 Route: INTRAVENOUS Encounter Status:Closed by SAHRA REDMAN on 02/13/25[facility] TRANSESOPHAGEALon [id number]: - Exam indication: AR / MR mechanism study - The left ventricle is normal in size. Left ventricular systolic function is normal. EF = 60 5% (visual est.) - The right ventricle is normal in size. Right ventricular systolic function is normal. - There is moderate (2+) mitral valve regurgitation due to prolapse. Regurgitant orifice area (PISA) is 0.17 cm . Several small jets of mitral regurgitation, the largest of which is very eccentric and originates near the medial commissure. Mild bileaflet prolapse. - Exam was compared with the prior echocardiographic exam performed on 01/29/25. Similar findings. * * * Final * * *[facility] Echocardi[facility] Report: Transesophageal Echo [facility] J1-5 Date of service: 02/13/2025 10:58:59 AM HANDYMAN Ordering physician: WAI BILLINGSLEY Indication: AR / MR mechanism study Technologist: fellow Fellow: Jaya Koehler MD Interpreting physician: Antonella Chacko MD PATIENT: Name: MARSHAL GARRISON : 1950 Age: 74 years Gender: M Pre Post Heart rate 72 bpm 73 bpm Blood pressure 154/70 mmHg 110/53 mmHg O2 saturation 100 % 9 % Color Doppler was utilized to interrogate the cardiac valves assessed and spectral Doppler was utilized to determine the flow velocities and pressure gradients reported in this exam. Medications Total Dose Versed 7.50 mg Fentanyl 187.50 mcg Exam performed under moderate sedation with continuous ECG, pulse oximetry and cardiopulmonary monitoring by nursing, overseen by the performing physician(s), for an intraservice time of 16 min. (Stop Time: 1159) No specimens collected. No blood loss. The interpreting physician was present for and actively participated in the ENID procedure. MEASUREMENTS: Value Normal Max aortic dimension 3.3 cm Ao < 3.8 Ejection Fraction 60 % (visual est.) EF > 52 FINDINGS: LEFT VENTRICLE The left ventricle is normal in size. Left ventricular systolic function is normal. RIGHT VENTRICLE The right ventricle is normal in size. Right ventricular systolic function is normal. LEFT ATRIUM The peak emptying velocity from the left atrial appendage is 25.0 cm/s. There is no left atrial appendage thrombus. Pulmonary Veins: The pulmonary venous pattern showed normal systolic flow. MITRAL VALVE There is moderate (2+) mitral valve regurgitation due to prolapse. Regurgitant orifice area (PISA) is 0.17 cm . 3D echocardiographic multi-planar reconstruction of the mitral valve was performed to assess anatomy and function. TRICUSPID VALVE There is mild (1+) tricuspid valve regurgitation caused by prolapse. AORTIC VALVE There is trace aortic valve regurgitation. Tricuspid aortic valve. 3D echocardiographic multi-planar reconstruction of the aortic valve was performed to assess anatomy and function. PULMONIC VALVE There is trace (trace - 1+) pulmonic valve regurgitation. AORTA The visualized aorta is normal in size. Measurements - Sinus: 3.3 cm. Mid ascending aorta 3.1 cm. INTERATRIAL SEPTUM There is no evidence of intracardiac shunting as detected by Doppler and agitated saline contrast. [facility] TRANSESOPHAGEALEchocardiography Report: Transesophageal Echo [facility] J1-5 Date of service: 02/13/2025 10:58:59 AM HANDYMAN Ordering physician: WAI BILLINGSLEY Indication: AR / MR mechanism study Technologist: fellow Fellow: Jaya Koehler MD Interpreting physician: Antonella Chacko MD PATIENT: Name: MARSHAL GARRISON : 1950 Age: 74 years Gender: M Pre Post Heart rate 72 bpm 73 bpm Blood pressure 154/70 mmHg 110/53 mmHg O2 saturation 100 % 9 % Color Doppler was utilized to interrogate the cardiac valves assessed and spectral Doppler was utilized to determine the flow velocities and pressure gradients reported in this exam. Medications Total Dose Versed 7.50 mg Fentanyl 187.50 mcg Exam performed under moderate sedation with continuous ECG, pulse oximetry and cardiopulmonary monitoring by nursing, overseen by the performing physician(s), for an intraservice time of 16 min. (Stop Time: 1159) No specimens collected. No blood loss. The interpreting physician was present for and actively participated in the ENID procedure. MEASUREMENTS: Value Normal Max aortic dimension 3.3 cm Ao < 3.8 Ejection Fraction 60 % (visual est.) EF > 52 FINDINGS: LEFT VENTRICLE The left ventricle is normal in size. Left ventricular systolic function is normal. RIGHT VENTRICLE The right ventricle is normal in size. Right ventricular systolic function is normal. LEFT ATRIUM The peak emptying velocity from the left atrial appendage is 25.0 cm/s. There is no left atrial appendage thrombus. Pulmonary Veins: The pulmonary venous pattern showed normal systolic flow. MITRAL VALVE There is moderate (2+) mitral valve regurgitation due to prolapse. Regurgitant orifice area (PISA) is 0.17 cm . 3D echocardiographic multi-planar reconstruction of the mitral valve was performed to assess anatomy and function. TRICUSPID VALVE There is mild (1+) tricuspid valve regurgitation caused by prolapse. AORTIC VALVE There is trace aortic valve regurgitation. Tricuspid aortic valve. 3D echocardiographic multi-planar reconstruction of the aortic valve was performed to assess anatomy and function. PULMONIC VALVE There is trace (trace - 1+) pulmonic valve regurgitation. AORTA The visualized aorta is normal in size. Measurements - Sinus: 3.3 cm. Mid ascending aorta 3.1 cm. INTERATRIAL SEPTUM There is no evidence of intracardiac shunting as detected by Doppler and agitated saline contrast. CONCLUSIONS: - Exam indication: AR / MR mechanism study - The left ventricle is normal in size. Left ventricular systolic function is normal. EF = 60 5% (visual est.) - The right ventricle is normal in size. Right ventricular systolic function is normal. - There is moderate (2+) mitral valve regurgitation due to prolapse. Regurgitant orifice area (PISA) is 0.17 cm . Several small jets of mitral regurgitation, the largest of which is very eccentric and originates near the medial commissure. Mild bileaflet prolapse. - Exam was compared with the prior CC echocardiographic exam performed on 01/29/25. Similar findings. * * * Final * * * [employer] : [id number] [facility] HospitalNT-proBNP SerPl-mCncon [id number] peptide.B prohormone N-Terminal [Mass/Vol]66 pg/mLNormal<450[facility] Comment on above:Order Comment: Specimen Type: BLOOD SPECIMEN Ordering Facility: [facility] Address: [address] [place], [place] [address]Performed By: #### [id number] #### [facility] CLIA [id number] [address] [place] [address] [address]ETCNPNon [id number] Telephone (RUSH) MARSHAL GARRISON ([id number]) 1950 M Date Time Provider Department 02/12/25 VERONICA WHITFIELD During your visit today, we recorded the following information about you: Veronica Whitfield RN 02/12/2025 9:59 AM Signed ECHO LAB TELEPHONE INSTRUCTIONS: Learning Response: Instructions provided to: Patient Procedure: ENID Pre procedure education topics: Arrival time, NPO status, Medications, Travel, and Accompanied by a responsible adult Instructions/Restrictions Patient/Family Response Evaluation: Verbalizes understanding Follow Up Plan and Medication: As directed by physician Instruction/Supplemental Material Given: Appointment Information and Procedure/Test Specific Information: Transesphageal Echocardiogram-ENID Instructed By Veronica Whitfield RN. In Department of CARDIOLOGY. Allergies As of Date: 02/12/2025 Noted Allergy Reaction HCTZ (THIAZIDES) 02/03/2019 8 - GI Upset Comments: Nausea PENICILLIN 11/01/2017 16 - Unknown Date Reviewed: 01/29/2025 Reviewed by: Gely Zimmer RN - Fully Assessed Reason for Visit: Reminder Call [[id number]] Cmt: ENID instructions 3/28 Prescriptions as of 02/12/2025 - sodium chloride 0.9 %, flush, (BD POSIFLUSH) syringe Inject 2-10 mL intravenously as directed. For Echo procedure - amLODIPine (NORVASC) 2.5 mg tablet Take 1 tablet by mouth once daily - aspirin (ASPIR-81 ORAL) Take 1 tablet by mouth once daily. - metoprolol succinate ER (TOPROL XL) 50 mg 24 hr tablet Take 1 tablet by mouth twice daily. - LORazepam (ATIVAN) 0.5 mg Take 0.5 mg by mouth three times daily as needed. 0.25mg in the morning and afternoon and 0.5mg in the evening - atorvastatin (LIPITOR) 10 mg tablet Take 10 mg by mouth once daily. - ZEAXANTHIN, BULK, MISC 20 mg once daily. - multivitamin tablet Take 1 tablet by mouth once daily. With 18 mg iron Problem List As Of Date 02/12/2025 Noted Resolved Palpitations [R00.2] 04/22/2019 Encounter Status:Closed by VERONICA WHITFIELD on 02/12/25[facility] [id number] Visit (NADIA) MARSHAL GARRISON ([id number]) 1950 M Date Time Provider Department 01/29/25 2:15 PM WAI BILLINGSLEY During your visit today, we recorded the following information about you: Pulse Blood pressure Weight Height 64/minute 141/70 72.6 kg 1.829 m Wai Billingsley MD 02/01/2025 10:40 AM Signed [facility] [place] [facility] Department of Cardiovascular Medicine SECTION OF CARDIOVASCULAR IMAGING OUTPATIENT VISIT DATE 01/29/2025 OUTPATIENT VISIT TYPE ESTABLISHED PRIMARY CARE PHYSICIAN: Carter Luna ([facility]) [address] [place] [address] REFERRING PHYSICIAN: SELF The patient consented to the use of NemeriX software for draft documentation of the visit consistent with [facility]?s Notice of Privacy Practices. Subjective The patient is a 74-year-old male presenting for follow-up. The patient reports a family history of significant cardiac events. His son, age 59, recently experienced an SD and required stent placement. His father underwent quadruple CABG at age 65. He expresses concern about potential genetic predispositions to cardiac issues. He reports experiencing dyspnea and palpitations after walking across a parking lot to an elevator. He also recalls an exercise stress test six years ago, which he could not complete due to dyspnea and anxiety. He has not engaged in regular exercise this winter and inquires about appropriate heart rate targets during physical activity. He has been consuming two to three eggs daily and questions the impact of this diet on his cholesterol levels. He has lost approximately 15 pounds over the past four months by eating healthier foods. He has one son and four daughters. His son?s mother was adopted, so he is unaware of her family medical history. He is currently taking a daily low-dose aspirin and Lipitor. PAST MEDICAL HISTORY Diagnosis Date Anxiety Chest pain negative stress in 2016 Hyperlipidemia Hypertension Palpitations Panic attacks Sleep apnea on CPAP PAST SURGICAL HISTORY Procedure Laterality Date NONE SOCIAL HISTORY Social History Tobacco Use Smoking status: Former Current packs/day: 0.00 Average packs/day: 1 pack/day for 5.0 years (5.0 ttl pk-yrs) Types: Cigarettes Start date: 11/19/1972 Quit date: 11/19/1977 Years since quittin.2 Smokeless tobacco: Never Substance Use Topics Alcohol [...] tablet Take 1 tablet by mouth once daily aspirin (ASPIR-81 ORAL) Take 1 tablet by mouth once daily. metoprolol succinate ER (TOPROL XL) 50 mg 24 hr tablet Take 1 tablet by mouth twice daily. LORazepam (ATIVAN) 0.5 mg Take 0.5 mg by mouth three times daily as needed. 0.25mg in the morning and afternoon and 0.5mg in the evening atorvastatin (LIPITOR) 10 mg tablet Take 10 mg by mouth once daily. ZEAXANTHIN, BULK, MISC 20 mg once daily. multivitamin tablet Take 1 tablet by mouth once daily. With 18 mg iron sodium chloride 0.9 %, flush, (BD POSIFLUSH) syringe Inject 2-10 mL intravenously as directed. For Echo procedure Constitutional: (+) weight loss Cardiovascular: (+) palpitations Psychiatric: (+) anxiety Objective PHYSICAL EXAMINATION: BP 141/70 (BP Site: Left Arm, BP Position: Sitting) Pulse 64 Ht 182.9 cm (6') Wt 72.6 kg (160 lb) SpO2 98% BMI 21.70 kg/m? General: Well appearing, in no acute distress, speaking in complete sentences. Neck: No jugular venous distention, no carotid bruits, carotids have a normal upstroke, no palpable thyromegaly. Lungs: Clear to auscultation bilaterally, no wheezing or rhonchi. Heart: Regular rhythm, PMI not displaced, S1, S2 normal, no S3, no S4, no heaves, no rub and 3/6 holosystolic apical murmur best heard in lateral decubitus. Abdomen: Soft, nontender, bowel sounds normal, no palpable organomegaly, no bruits. Extremities: No peripheral edema . Grade 2/4 distal pulses bilaterally. Neuro: Oriented to person, place and time, alert, cooperative, gait coordinated. CARDIOVASCULAR MEDICINE TESTING: Last ECHO Result Conclusion ECHO Collected: 01/29/2025 12:38 PM (Final result) Impression: CONCLUSIONS: - Technically difficult exam due to body habitus. - Exam indication: MVP, MR - The left ventricle is normal in size. Left ventricular systolic function is normal. EF = 63 ? 5% (2D biplane) Left ventricular (more content not included)...NormalLancaster Municipal Hospital COMPLETEon [id number] COMPLETEVentricular Rate : 60 BPM Atrial Rate : 60 BPM P-R Interval : 186 ms QRS Duration : 88 ms Q-T Interval : 398 ms QTC Calculation(Bazett) : 398 ms Calculated P Manning : 98 degrees Calculated R Manning : 41 degrees Calculated T Manning : 67 degrees SINUS RHYTHM WITH PREMATURE ATRIAL COMPLEXES OTHERWISE NORMAL ECG Confirmed by OBINNA LANGSTON MD ([id number]) on 02/20/2025 5:00:25 PM NAME : MARSHAL GARRISON PID : [id number] : 1950 Gender : Male Race : ORD : [id number] Procedure Date : Jan 29 2025 13:50:44 Edit Date : Feb 20 2025 17:02:18 Diagnosis: SINUS RHYTHM WITH PREMATURE ATRIAL COMPLEXES OTHERWISE NORMAL ECG Confirmed by OBINNA LANGSTON MD ([id number]) on 02/20/2025 5:00:25 PM Test Reason : Location : 314 : [facility] Overread By : OBINNA LANGSTON MD Edited By : OBINNA LANGSTON MD Referred By : WAI BILLINGSLEY Acquired by : [facility] 01-29-2025 EchocardiographyEchocardiography Report: Transthoracic Echo [facility] J35 Date of service: 01/29/2025 12:38:35 PM HANDYMAN Ordering physician: WAI BILLINGSLEY Indication: MVP, MR Technologist: Yolanda West Interpreting physician: Tello Billingsley MD PATIENT: Name: MARSHAL GARRISON : 1950 Age: 74 years Gender: M History of valvular heart disease. Primary rhythm: sinus. Secondary rhythm: PVC. Height: 183.00 cm BSA: 2.02 m Weight: 80.29 kg BMI: 24.0 kg/m Heart rate 65 bpm Blood pressure 149/66 mmHg Technically difficult exam due to body habitus. Color Doppler was utilized to interrogate the cardiac valves assessed and spectral Doppler was utilized to determine the flow velocities and pressure gradients reported in this exam. Myocardial strain analysis was performed in this exam to aid in the assessment of cardiac function. MEASUREMENTS: Value Indexed Normal Max aortic dimension 3.4 cm Ao < 3.8 Left atrial volume 39 ml (biplane A-L) 19 ml/m Pro <= 34 LV ID (diastole) 4.5 cm (2D) 2.23 cm/m LV ID (systole) 3.0 cm (2D) 1.48 cm/m IVS, leaflet tips 0.8 cm (2D) Posterior wall thickness 0.6 cm (2D) Left ventricular mass 93 g (2D) 46 g/m Global peak long strain -20.2 % LV stroke volume 69 ml (2D biplane) LV end diastolic volume 109 ml (2D biplane) 54.1 ml/m 34<=EDVi<75 LV end systolic volume 40 ml (2D biplane) 20.0 ml/m Ejection Fraction 63 % (2D biplane) EF > 52 FINDINGS: LEFT VENTRICLE The left ventricle is normal in size. Left ventricular systolic function is normal. Global LV myocardial strain is normal. Left ventricular diastolic function was not evaluated due to >2+ MR. Mitral annular lateral E/e': 5.4. Mitral annular septal E/e': 6.7. Wall Motion: All scored segments are normal. RIGHT VENTRICLE The right ventricle is normal in size. Right ventricular systolic function is normal. RV systolic tissue Doppler velocity is 15.9 cm/s. Tricuspid annular displacement is 2.5 cm. Estimated right ventricular systolic pressure is 36 mmHg consistent with mild pulmonary hypertension. Estimated right atrial pressure is 8 mmHg based on IVC assessment. LEFT ATRIUM The left atrial cavity is normal in size. Pulmonary Veins: The pulmonary venous pattern showed normal systolic flow. RIGHT ATRIUM The right atrial cavity is normal in size. Inferior Vena Cava: The inferior vena cava appears dilated measuring 2.2 cm. The vessel decreases greater than 50 percent with inspiration. MITRAL VALVE There is moderate (2+) mitral valve regurgitation due to prolapse. There is a posteriorly directed regurgitant jet originating along the lateral aspect of the coaptation line. There is mild thickening. There is prolapse of the anterior mitral leaflet. Regurgitant orifice area (PISA) is 0.33 cm . The pressure half time is 60 msec. The peak mitral E/A ratio is 1.18. The average mitral E/e' ratio is6.0. The mitral flow deceleration time is 206 msec. TRICUSPID VALVE The tricuspid valve leaflets are structurally normal. There is mild (1+) tricuspid valve regurgitation. The hepatic venous pattern showed normal systolic flow. AORTIC VALVE The aortic valve cusps are structurally normal. There is trace aortic valve regurgitation. Tricuspid aortic valve. The peak gradient is 5 mmHg (peak velocity = 112.8 cm/s). The LVOT mean velocity is 64.3 cm/s. PULMONIC VALVE There is trace pulmonic valve regurgitation. There is no thickening. AORTA The visualized aorta is normal in size. Measurements - Sinus: 3.4 cm. Mid ascending aorta 3.1 cm. INTERATRIAL SEPTUM There is no evidence of intracardiac shunting as detected by Doppler. INTERVENTRICULAR SEPTUM There is no flow through the interventricular septum as detected by Doppler. CONCLUSIONS: - Technically difficult exam due to body habitus. - Exam indication: MVP, MR - The left ventricle is normal in size. Left ventricular systolic function is normal. EF = 63 5% (2D biplane) Left ventricular diastolic function was not evaluated due to >2+ MR. - The right ventricle is normal in size. Right ventricular systolic function is normal. - There is moderate (2+) mitral valve regurgitation due to prolapse. Regurgitant orifice area (PISA) is 0.33 cm . Eccentric MR jet and multiple jets. - There is mild (1+) tricuspid valve regurgitation. - Estimated right ventricular systolic pressure is 36 mmHg consistent with mild pulmonary hypertension. Estimated right atrial pressure is 8 mmHg based on IVC assessment. - Exam was compared with the prior CC echocardiographic exam performed on 12/27/2023. Slight increasein mitral regurgitation but not much different compared to 2021. * * * Final * * * CC [employer] : [id number] [facility] BASIC METABOLIC PANELon [id number] gap [Moles/Vol]13.2 mmol/LNOMS HealthcareCalcium [Mass/Vol]8.7 mg/dL8.5 - 10.1 mg/dL NOMS HealthcareChloride [Moles/Vol]106 mmol/L98 - 107 mmol/LNOMS HealthcareCO2 [Moles/Vol]28.4 mmol/L21.0 - 32.0 mmol/LNOMS HealthcareCreatinine [Mass/Vol]1.03 mg/dL0.70 - 1.30 mg/dLNOMS HealthcareGFR/1.73 sq M.predicted CKD-EPI (S/P/Bld) [Vol rate/Area]>60>=60 mL/min/1.73m 2NOMS HealthcareGlucose [Mass/Vol]97 mg/dL74 - 106 mg/dLNOMS HealthcarePotassium [Moles/Vol]4.6 mmol/L3.5 - 5.1 mmol/LNOMS HealthcareSodium [Moles/Vol]143 mmol/L136 - 145 mmol/LNOMS HealthcareTBH EGFR- NON AF SRI LANKAN>60>=60 mL/min/1.73m 2NOMS HealthcareUrea nitrogen [Mass/Vol]16 mg/dL7.0 - 18.0 mg/dLNOTN HealthcareUrea nitrogen/Creatinine [Mass ratio]15.5 mg/mgNOTN HealthcareALL CBC WITH AUTO DIFFon [id number] ABSOLUTE AUTO 0.1NOMS HealthcareBasophils/100 WBC (Bld)0.6 %0.2 - 2.0 %[facility] Eosinophils/100 WBC (Bld)8.7 %High0.9 - 7.0 %NOM HealthcareErythrocyte distribution width (RBC) [Ratio]12.5 %11.0 - 15.0 %NOMS HealthcareHematocrit (Bld) [Volume fraction]42.7 %42.0 - 54.0 %NOM HealthcareHemoglobin (Bld) [Mass/Vol]13.5 g/dLLow14.0 - 18.0 g/dLNOTN HealthcareIMMATURE GRANULOCYTES ABS AUTO0.01NOMid [facility] CenterImmature granulocytes/100 WBC (Bld)0.1 %0.0 - 0.5 %[facility] HospitalInterpretation and review of laboratory resultsAbnormalNOMid [facility] LYMPHOCYTES ABSOLUTE AUTO2.2NOMS HealthcareLymphocytes/100 WBC (Bld)27.8 %20.5 - 60.0 %NOMNorthwest Medical CenterMCH (RBC) [Entitic mass]28 pg25.9 - 34.0 pgNOMid [facility] MCHC (RBC) [Mass/Vol]31.6 g/dL29.9 - 35.2 g/dLNOMid [facility] Health CenterMCV (RBC) [Entitic vol]88.6 fL80.0 - 94.0 fLNOMid [facility] CenterMONOCYTES ABSOLUTE AUTO0.8NOMS HealthcareMonocytes/100 WBC (Bld)10.4 %1.7 - 12.0 %NOMS HealthcareNEUTROPHILS ABSOLUTE AUTO4.1NOMS HealthcareNeutrophils/100 WBC (Bld)52.4 %43.0 - 75.0 %NOMS HealthcarePlatelet mean volume (Bld) [Entitic vol]9.7 fL9.5 - 13.5 fLNOTN HealthcareTBH EO #0.7NOMS HealthcareTBH [id number] HealthcareTB RBC4.82NOMS HealthcareTBH WBC7.9NOTN HealthcareCLINISYNCNSTILLWATER MEDICAL CENTER – STILL[facility] HealthcareALL LIPID PROFILE (FASTING)on 76-75-1024LJVJ HDL RATIO2.2NOMS HealthcareComment on above:3.3 - 4.4 LOW RISK 4.4 - 7.1 AVERAGE RISK 7.1 - 11.0 MODERATE RISK >11.0 HIGH RISK Cholesterol [Mass/Vol]133 mg/dLNINF - 200 mg/dLNOMid [facility] Health CenterCholesterol in HDL [Mass/Vol]60 mg/dL40 - 60 mg/dLNOTN HealthcareComment on above:> or =60 mg/dl - LOW CARDIOVASCULAR RISK <40 mg/dl - HIGH CARDIOVASCULAR RISK Magnesium [Mass/Vol]58.8 mg/dLNOTN HealthcareComment on above:<100 mg/dl OPTIMAL 100-129 mg/dl NEAR OR ABOVE OPTIMAL 130-159 mg/dl BORDERLINE HIGH 160-189 mg/dl HIGH >190 mg/dl VERY HIGH Magnesium [Mass/Vol]14.2 mg/dLPerry County Memorial HospitalTriglyceride [Mass/Vol]71 mg/dLNINF - 150 mg/dLPerry County Memorial HospitalALL MAGNESIUMon 23-90-0339Wbosaktui [Mass/Vol]2.2 mg/dL1.8 - 2.4 mg/dLMissouri Baptist Hospital-SullivanHP LIVER PANELon 07-95-2809Clokmsx [Mass/Vol]3.4 g/dL3.4 - 5.0 g/dLPerry County Memorial HospitalALBUMIN GLOBULIN RATIO1.1NSTILLWATER [facility] HealthcareALP [Catalytic activity/Vol]92 U/L46 - 116 U/LNOMS HealthcareALT [Catalytic activity/Vol]34 U/L16 - 63 U/LNOMS HealthcareAST [Catalytic activity/Vol]18 U/L15 - 37 U/LNOMS HealthcareBilirubin [Mass/Vol]0.5 mg/dL0.2 - 1.0 mg/dLNOTN HealthcareBilirubin.indirect [Mass/Vol]0.1 mg/dL0.0 - 0.2 mg/dL [facility] HealthcareGlobulin (S) [Mass/Vol]3.2 g/dLNOTN HealthcareProtein [Mass/Vol] 6.6 g/dL6.4 - 8.2 g/dLPerry County Memorial HospitalMLR HEMOGLOBIN A1Con 09-57-9174Mgaonen [Mass/Vol]123 mg/dLPerry County Memorial HospitalHbA1c (Bld) [Mass fraction]5.9 %4.5 - 6.2 % NOMS HealthcareComment on above:ADA RECOMMENDED LIMIT 4.0 - 6.0 ADA THERAPEUTIC TARGET < 7.0 ACTION SUGGESTED > 7.0 CLINISYVanderbilt University Bill Wilkerson CenterNo Panel Informationon [id number] HealthcareSROH PROSTATE SPECIFIC ANTIGEN SCRNon [id number] SPECIFIC ANTIGEN SCRN3.24 ng/mLNINF - 4.00 ng/mLNOMS Protestant Deaconess HospitalCLINISYNAbbeville Area Medical Center CBC AUTO DIFFon [id number] #0.1 103/ulNormal0.0-0.1[facility] Comment on above:Performed By: #### CBC #### [facility] [address] [place] [address] Dr. Abhay FarrBasophils/100 WBC (Bld)0.6 %Normal0.2-2.0[facility] Comment on above:Performed By: #### CBC #### [facility] [address] [place] [address] Dr. Abhay Whaley #0.2 103/ulNormal0.0-0.7The [facility] CenterComment on above: Performed By: #### CBC #### [facility] [address] [place] [address] Dr. Abhay Ozunaosinophils/100 WBC (Bld)2.5 %Normal0.9-7.0[facility] Comment on above:Performed By: #### CBC #### [facility] [address] [place] [address] Dr. Abhay Ozunarythrocyte distribution width (RBC) [Ratio]12.6 %Xcvfoj67.0-15.0 [facility] MiamisburgComment on above:Performed By: #### CBC #### [facility] [address] [place] [address] Dr. Yilan ChangHematocrit (Bld) [Volume fraction]43.1 %Zlptya06.0-54.0The [facility] CenterComment on above:Performed By: #### CBC #### [facility] [address] [place] [address] Dr. Abhay FarrHemoglobin (Bld) [Mass/Vol]13.6 g/dLCritically low14.0-18.0The [facility] CenterComment on above:Performed By: #### CBC #### [facility] [address] [place] [address] Dr. Abhay FarrIG #0.02 10e3/ulNormal0.00-0.03The [facility] CenterComment on above:Performed By: #### CBC #### [facility] [address] [place] [address] Dr. Abhay FarrIG %0.2 %Normal0.0-0.5The [facility] CenterComment on above: Performed By: #### CBC #### [facility] [address] [place] [address] Dr. Abhay Cruz #2.0 103/ulNormal1.2-3.8The [facility] CenterComment on above:Performed By: #### CBC #### [facility] [address] [place] [address] Dr. Abhay Luthermphocytes/100 WBC (Bld)24.4 %Ktwdyy71.5-60.0The [facility] CenterComment on above:Performed By: #### CBC #### [facility] [address] [place] [address] Dr. Abhay FarrMANUAL DIFF REQNONormalThe [facility] CenterComment on above: Performed By: #### CBC #### [facility] [address] [place] [address] Dr. Abhay Gonsalez (RBC) [Entitic mass]27.9 ckMbfgmj13.9-34.0The [facility] CenterComment on above:Performed By: #### CBC #### [facility] [address] [place] [address] Dr. Abhay Turner (RBC) [Mass/Vol]31.6 g/bWDystxl29.9-35.2The [facility] CenterComment on above:Performed By: #### CBC #### [facility] [address] [address] [address] Abhay Turner (RBC) [Entitic vol]88.5 xOOjwhnr05.0-94.0The [facility] CenterComment on above:Performed By: #### CBC #### [facility] [address] [place] [address] Dr. Abhay Estrada #0.8 103/ulNormal0.3-0.8The [facility] CenterComment on above:Performed By: #### CBC #### [facility] [address] [place] [address] Dr. Abhay Gastonocytes/100 WBC (Bld)9.5 %Normal1.7-12.0The [facility] Comment on above:Performed By: #### CBC #### [facility] [address] [place] [address] Dr. Abhay Olson #5.1 103/ulNormal1.4-6.5The [facility] CenterComment on above:Performed By: #### CBC #### [facility] [address] [place] [address] Dr. Abhay Ingramutrophils/100 WBC (Bld)62.8 %Hbsbvy71.0-75.0The [facility] CenterComment on above:Performed By: #### CBC #### [facility] [address] [place] [address] Dr. Abhay Nicolaslet mean volume (Bld) [Entitic vol]9.2 fLCritically low 9.5-13.5The [facility] CenterComment on above:Performed By: #### CBC #### [facility] [address] [place] [address] Dr. Abhay FarrPLT272 103/dhQnepja932-412Qbn [facility] CenterComment on above: Performed By: #### CBC #### [facility] [address] [place] [address] Dr. Abhay FarrRBC4.87 106/ulNormal4.70-6.10The [facility] CenterComment on above:Performed By: #### CBC #### [facility] [address] [place] [address] Dr. Abhay FarrWBC8.0 103/ulNormal4.0-11.0The [facility] CenterComment on above: Performed By: #### CBC #### [facility] [address] [place] [address] Dr. Abhay FarrMAGNESIUMon 13-71-0364Uhlzccvdr [Mass/Vol]2.0 mg/dLNormal1.8-2.4 The [facility] CenterComment on above:Performed By: #### MG, BMP #### [facility] [address] [place] [address] Dr. Abhay FarrPROF CHEM 8 (BAS METB)on 56-58-6445Tzjrw gap [Moles/Vol]11.4 mmol/LNormalThe [facility] CenterComment on above:Performed By: #### MG, BMP #### [facility] [address] [place] [address] Dr. Abhay FarrCalcium [Mass/Vol]8.9 mg/dLNormal8.5-10.1[facility] Comment on above:Performed By: #### MG, BMP #### [facility] [address] [place] [address] Dr. Abhay FarrChloride [Moles/Vol]98 mmol/YYypsvm26-105BuqKettering Health [facility] Comment on above:Performed By: #### MG, BMP #### [facility] [address] [place] [address] Dr. Abhay FarrCO2 [Moles/Vol]30.1 mmol/PAxgvfu72.0-32.0The [facility] Comment on above:Performed By: #### MG, BMP #### [facility] [address] [place] [address] Dr. Abhay FarrCreatinine [Mass/Vol]0.94 mg/dLNormal0.70-1.30The [facility] CenterComment on above:Performed By: #### MG, BMP #### [facility] [address] [address] [address] Abhay OzunaGFR-AF SRI LANKAN>60Normal>=60The [facility] CenterComment on above:Performed By: #### MG, BMP #### [facility] [address] [address] [address] Abhay OzunaGFR-NON AF SRI LANKAN>60Normal>=60The [facility] CenterComment on above:Performed By: #### MG, BMP #### [facility] [address] [address] [address] Abhay FarrGlucose [Mass/Vol]108 mg/dLCritically pyvq12-041Odt [facility] CenterComment on above:Performed By: #### MG, BMP #### [facility] [address] [place] [address] Dr. Abhay FarrPotassium [Moles/Vol]4.5 mmol/LNormal3.5-5.1The [facility] Comment on above:Performed By: #### MG, BMP #### [facility] [address] [address] [address] Abhay FarrSodium [Moles/Vol]135 mmol/LCritically lnr720-409Wrd [facility] CenterComment on above:Performed By: #### MG, BMP #### [facility] [address] [address] [address] Abhay FarrUrea nitrogen [Mass/Vol]15.0 mg/dLNormal7.0-18.0The [facility] CenterComment on above:Performed By: #### MG, BMP #### [facility] [address] [place] [address] Dr. Abhay Rodríguez nitrogen/Creatinine [Mass ratio]16.0 mg/mgNormalThe [facility] CenterComment on above:Performed By: #### MG, BMP #### [facility] [address] [place] [address] Dr. Abhay Cross-19 PCR (CVDTB)on 06-90-3762PALE-CoV-2 (COVID-19) RNA FARIHA+probe Ql (Unsp spec)Not detectedNormalNOT DETECTEDThe [facility] Comment on above:Result Comment: This test is not yet approved or cleared by the [place] FDA. When there are no FDA-approved or cleared tests available, and other criteria are met, FDA can make tests available under an emergency access mechanism called an Emergency Use Authorization (EUA). The EUA for this test is supported by the Recovery Agent of Health and Human Service's (HHS's) declaration that circumstances exist to justify the emergency use of in vitro diagnostics for the detection and/or diagnosis of the virus that causes COVID- 19. This EUA will remain in effect (meaning [...] of clinical signs and symptoms consistent with SARS-CoV-2.Performed By: #### CVDTBH #### [facility] [address] [address] [address] Abhay Duvall COMPLETEon [id number] Rate[address] [facility] Hospital Calculated P Axis[address] Anne HospitalCalculated R Axis38 [address]Mer[address] Anne HospitalCalculated T Axis65 degreesMer[address] Anne HospitalP-R Aiaddidu730 msCleveland ClinicQRS Sdzmcioo00 msCleveland ClinicQT Isuerzcs183 msCleveland ClinicQTC Calculation (Bazett)407 msCleveland ClinicVentricular Rate[address] [facility] Hospital ECHOon 77-29-9487Hvblxsjjz ClinicCBC AUTO DIFFon 47-33-5469QNLB #0.1 103/ul Normal0.0-0.1The [facility] CenterComment on above:Performed By: #### CBC #### [facility] [address] [place], [place] [address] Dr. Abhay FarrBasophils/100 WBC (Bld)0.8 %Normal0.2-2.0The [facility] Comment on above:Performed By: #### CBC #### [facility] [address] [address] [address] Abhay Whaley #0.4 103/ulNormal0.0-0.7The [facility] CenterComment on above: Performed By: #### CBC #### [facility] [address] [place] [address] Dr. Abhay Ozunaosinophils/100 WBC (Bld)4.8 %Normal0.9-7.0The [facility] Comment on above:Performed By: #### CBC #### [facility] [address] [place] [address] Dr. Abhay Ozunarythrocyte distribution width (RBC) [Ratio]12.9 %Ksymsj01.0-15.0 The [facility] CenterComment on above:Performed By: #### CBC #### [facility] [address] [place] [address] Dr. Abhay FarrHematocrit (Bld) [Volume fraction]42.6 %Hftnin51.0-54.0The [facility] CenterComment on above:Performed By: #### CBC #### [facility] [address] [place] [address] Dr. Abhay FarrHemoglobin (Bld) [Mass/Vol]13.7 g/dLCritically low14.0-18.0The [facility] CenterComment on above:Performed By: #### CBC #### [facility] [address] [place] [address] Dr. Abhay Keenan #0.01 10e3/ulNormal0.00-0.03The [facility] CenterComment on above:Performed By: #### CBC #### [facility] [address] [place] [address] Dr. Abhay Keenan %0.1 %Normal0.0-0.5The [facility] CenterComment on above: Performed By: #### CBC #### [facility] [address] [place] [address] Dr. Abhay LutherMPH #2.0 103/ulNormal1.2-3.8The [facility] CenterComment on above:Performed By: #### CBC #### [facility] [address] [place] [address] Dr. Abhay Luthermphocytes/100 WBC (Bld)27.5 %Fsadpy09.5-60.0The [facility]cyrus Hospitalment on above:Performed By: #### CBC #### [facility] [address] [place] [address] Dr. Abhay An DIFF REQNONormalThe [facility] CenterComment on above: Performed By: #### CBC #### [facility] [address] [place] [address] Dr. Abhay Turner (RBC) [Entitic mass]27.5 enUdobdm05.9-34.0The [facility] CenterComment on above:Performed By: #### CBC #### [facility] [address] [place] [address] Dr. Abhay Turner (RBC) [Mass/Vol]32.2 g/eACywuow17.9-35.2The [facility] CenterComment on above:Performed By: #### CBC #### [facility] [address] [place] [address] Dr. Abhay TurnerV (RBC) [Entitic vol]85.4 jYJsuwaa07.0-94.0The [facility] CenterComment on above:Performed By: #### CBC #### [facility] [address] [place] [address] Dr. Abhay Estrada #0.7 103/ulNormal0.3-0.8The [facility] CenterComment on above:Performed By: #### CBC #### [facility] [address] [place] [address] Dr. Abhay Gastonocytes/100 WBC (Bld)9.5 %Normal1.7-12.0The [facility] Comment on above:Performed By: #### CBC #### [facility] [address] [place] [address] Dr. Abhay Olson #4.2 103/ulNormal1.4-6.5The [facility] HospitalComment on above:Performed By: #### CBC #### [facility] [address] [address] [address] Abhay FarrNeutrophils/100 WBC (Bld)57.3 %Fkatyn11.0-75.0The [facility] CenterComment on above:Performed By: #### CBC #### [facility] [address] [address] [address] Abhay FarrPlatelet mean volume (Bld) [Entitic vol]8.9 fLCritically low 9.5-13.5The [facility] CenterComment on above:Performed By: #### CBC #### [facility] [address] [address] [address] Abhay FarrPLT252 103/gqEtaful091-703Dfh [facility] CenterComment on above: Performed By: #### CBC #### [facility] [address] [place] [address] Dr. Abhay FarrRBC4.99 106/ulNormal4.70-6.10The [facility] CenterComment on above:Performed By: #### CBC #### [facility] [address] [place] [address] Dr. Abhay FarrWBC7.3 103/ulNormal4.0-11.0The [facility] CenterComment on above: Performed By: #### CBC #### [facility] [address] [place] [address] Dr. Abhay FarrCT STROKE HEAD WOon [id number] STROKE HEAD WOEXAM: CT STROKE HEAD WO CLINICAL INDICATION: Altered [...] Electronically authenticated by: JACOB DUKE Date: 2022-11-04 23:27[facility]opedic CenterPROF 14(COMP METB)on 82-43-2994Jvsunwi [Mass/Vol]3.6 g/dLNormal 3.4-5.0The [facility] CenterComment on above:Performed By: #### FERNANDO, ERUR #### [facility] [address] [place] [address] Dr. Abhay FarrAlbumin/Globulin [Mass ratio]1.0 {ratio}NormalThe [facility] CenterComment on above:Performed By: #### FERNANDO, ERUR #### [facility] [address] [address] [address] Abhay Luciano [Catalytic activity/Vol]92 U/CNzzjrt82-042Ljc [facility] CenterComment on above:Performed By: #### FERNANDO, ERUR #### [facility] [address] [address] [address] Abhay Li [Catalytic activity/Vol]53 U/GBtjpds71-87Duy [facility] CenterComment on above:Performed By: #### FERNANDO, ERUR #### [facility] [address] [address] [address] Abhay Lockett gap [Moles/Vol]10.1 mmol/LNormalThe [facility] Comment on above:Performed By: #### FERNANDO, ERUR #### [facility] [address] [address] [address] Abhay FarrAST [Catalytic activity/Vol]24 U/MCgmsiu94-84Cav [facility] CenterComment on above:Performed By: #### FERNANDO, ERUR #### [facility] [address] [address] [address] Abhay FarrBilirubin [Mass/Vol]0.5 mg/dLNormal0.2-1.0The [facility] Comment on above:Performed By: #### FERNANDO, ERUR #### [facility] [address] [place] [address] Dr. Abhay FarrCalcium [Mass/Vol]8.9 mg/dLNormal8.5-10.1The [facility] Comment on above:Performed By: #### FERNANDO, ERUR #### [facility] [address] [place] [address] Dr. Abhay FarrChloride [Moles/Vol]98 mmol/MZgutsp12-385Onm [facility] Comment on above:Performed By: #### FERNANDO, ERUR #### [facility] [address] [address] [address] Abhay FarrCO2 [Moles/Vol]27.7 mmol/YXoyjgw89.0-32.0[facility] Comment on above:Performed By: #### FERNANDO, ERUR #### [facility] [address] [address] [address] Abhay FarrCreatinine [Mass/Vol]0.91 mg/dLNormal0.70-1.30The [facility] CenterComment on above:Performed By: #### FERNANDO, ERUR #### [facility] [address] [place] [address] Dr. Abhay OzunaGFR-AF SRI LANKAN>60Normal>=60The [facility] CenterComment on above:Performed By: #### FERNANDO, ERUR #### [facility] [address] [place] [address] Dr. Abhay OzunaGFR-NON AF SRI LANKAN>60Normal>=60The [facility] CenterComment on above:Performed By: #### FERNANDO ERUR #### [facility] [address] [place] [address] Dr. Abhay FarrGlobulin (S) [Mass/Vol]3.6 g/dLNormSt. John of God HospitalComment on above:Performed By: #### FERNANDO ERUR #### [facility] [address] [place] [address] Dr. Abhay FarrGlucose [Mass/Vol]108 mg/dLCritically vtyo90-004Jzc [facility] CenterComment on above:Performed By: #### FERNANDO ERUR #### [facility] [address] [place] [address] Dr. Abhay FarrPotassium [Moles/Vol]3.8 mmol/LNormal3.5-5.1The [facility] Comment on above:Performed By: #### FERNANDO ERUR #### [facility] [address] [place] [address] Dr. Abhay FarrProtein [Mass/Vol]7.2 g/dLNormal6.4-8.2The [facility] Comment on above:Performed By: #### FERNANDO ERUR #### [facility] [address] [place] [address] Dr. Abhay FarrSodium [Moles/Vol]132 mmol/LCritically lmo366-967Lkg [facility] CenterComment on above:Performed By: #### FERNANDO ERUR #### [facility] [address] [place] [address] Dr. Abhay FarrUrea nitrogen [Mass/Vol]13.0 mg/dLNormal7.0-18.0The [facility] CenterComment on above:Performed By: #### FERNANDO ERUR #### [facility] [address] [place] [address] Dr. Abhay FarrUrea nitrogen/Creatinine [Mass ratio]14.3 mg/mgNormalThAdams County HospitalComment on above:Performed By: #### UMICRO, ERUR #### [facility] [address] [address] [address] Abhay FarrMRI BRAIN WO W CONon [id number] BRAIN WO W CONEXAMINATION: MRI BRAIN WO W CON HISTORY: Asthenia [...] Electronically authenticated by: JONO TRINIDAD Date: 2022-11-03 08:13[facility] CAROTID ART BILon [id number] CAROTID ART BILEXAMINATION: US CAROTID ART ARNIE HISTORY: Dizziness and [...] Electronically authenticated by: MARSHAL VELÁSQUEZ Date: 2022-11-02 09:51[facility]opedic CenterCT STROKE HEAD WOon [id number] STROKE HEAD WOINDICATION: 71 years old; Male. Weakness. TECHNIQUE: CT [...] Electronically authenticated by: ANDREWS THOMPSON Date: 2022-10-28 22:41[facility]opedic CenterXR CHEST 1 Von [id number] CHEST 1 VEXAMINATION: XR CHEST 1 V, , 10/28/2022 9:43 PM EST [...] Electronically authenticated by: LUCIAN NG Date: 2022-10-28 22:40NormalThSumma Health AUTO DIFFon [id number] #0.1 103/ulNormal0.0-0.1[facility] MiamisburgComment on above:Performed By: #### CBC #### [facility] [address] [place] [address] Dr. Abhay FarrBasophils/100 WBC (Bld)0.7 %Normal0.2-2.0[facility] Comment on above:Performed By: #### CBC #### [facility] [address] [place] [address] Dr. Abhay Whaley #0.4 103/ulNormal0.0-0.7The [facility] CenterComment on above: Performed By: #### CBC #### [facility] [address] [place] [address] Dr. Abhay Ozunaosinophils/100 WBC (Bld)4.2 %Normal0.9-7.0[facility] Comment on above:Performed By: #### CBC #### [facility] [address] [place] [address] Dr. Abhay Ozunarythrocyte distribution width (RBC) [Ratio]12.9 %Varkgg20.0-15.0 The [facility] CenterComment on above:Performed By: #### CBC #### [facility] [address] [place] [address] Dr. Abhay FarrHematocrit (Bld) [Volume fraction]42.4 %Abnvok90.0-54.0The [facility] CenterComment on above:Performed By: #### CBC #### [facility] [address] [place] [address] Dr. Abhay FarrHemoglobin (Bld) [Mass/Vol]13.4 g/dLCritically low14.0-18.0[facility]burgComment on above:Performed By: #### CBC #### [facility] [address] [place], [place] [id number] Dr. Abhay Keenan #0.03 10e3/ulNormal0.00-0.03The [facility] CenterComment on above:Performed By: #### CBC #### [facility] [address] [place] [address] Dr. Abhay Keenan %0.3 %Normal0.0-0.5The [facility] CenterCompromed[facility] on above: Performed By: #### CBC #### [facility] [address] [place] [address] Dr. Abhay LutherPam #2.3 103/ulNormal1.2-3.8The [facility] CenterComment on above:Performed By: #### CBC #### [facility] [address] [place] [address] Dr. Abhay Lutherhocytes/100 WBC (Bld)26.4 %Lxvlsc54.5-60.0The [facility] CenterComprom[facility] on above:Performed By: #### CBC #### [facility] [address] [place] [address] Dr. Abhay MarieeUAL DIFF REQNONormalThe [facility] CenterComment on above: Performed By: #### CBC #### [facility] [address] [place] [address] Dr. Abhay Turner (RBC) [Entitic mass]27.3 vaRuskcz57.9-34.0The [facility] on above:Performed By: #### CBC #### [facility] [address] [place] [address] Dr. Abhay Turner (RBC) [Mass/Vol]31.6 g/vEGlacmt46.9-35.2The [facility] CenterComment on above:Performed By: #### CBC #### [facility] [address] [place] [address] Dr. Abhay Turner (RBC) [Entitic vol]86.5 cZQwckuh31.0-94.0The [facility] CenterComment on above:Performed By: #### CBC #### [facility] [address] [address] [address] Abhay Estrada #0.8 103/ulNormal0.3-0.8The [facility] CenterComment on above:Performed By: #### CBC #### [facility] [address] [place] [address] Dr. Abhay Gastonocytes/100 WBC (Bld)9.5 %Normal1.7-12.0The [facility] Comment on above:Performed By: #### CBC #### [facility] [address] [place] [address] Dr. Abhay Olson #5.1 103/ulNormal1.4-6.5The [facility] CenterComment on above:Performed By: #### CBC #### [facility] [address] [place] [address] Dr. Abhay Ingramutrophils/100 WBC (Bld)58.9 %Fkxbuz38.0-75.0The [facility] CenterComment on above:Performed By: #### CBC #### [facility] [address] [place] [address] Dr. Abhay Nicolaslet mean volume (Bld) [Entitic vol]10.2 fLNormal9.5-13.5The [facility] CenterComment on above:Performed By: #### CBC #### [facility] [address] [place] [address] Dr. Abhay FarrPLT160 103/ttZgvtmg063-664Teo [facility] CenterComment on above: Result Comment: no plt clumps foundPerformed By: #### CBC #### [facility] [address] [place] [address] Dr. Abhay FarrRBC4.90 106/ulNormal4.70-6.10The [facility] CenterComment on above:Performed By: #### CBC #### [facility] [address] [place] [address] Dr. Abhay FarrWBC8.7 103/ulNormal4.0-11.0The [facility] CenterComment on above: Performed By: #### CBC #### [facility] [address] [address] [address] Abhay Cheung 14(COMP METB)on [id number] [Mass/Vol]3.6 g/dLNormal 3.4-5.0The [facility] CenterComment on above:Performed By: #### FERNANDO, ERUR #### [facility] [address] [address] [address] Abhay FarrAlbumin/Globulin [Mass ratio]1.0 {ratio}NormalThe [facility] CenterComment on above:Performed By: #### FERNANDO, ERUR #### [facility] [address] [address] [address] Abhay Luciano [Catalytic activity/Vol]88 U/HXpsxmu23-883Dze [facility] CenterComment on above:Performed By: #### FERNANDO, ERUR #### [facility] [address] [address] [address] Abhay Li [Catalytic activity/Vol]47 U/RNisfcd27-21Cmd [facility] CenterComment on above:Performed By: #### FERNANDO, ERUR #### [facility] [address] [address] [address] Abhay Lockett gap [Moles/Vol]11.5 mmol/LNormalThe [facility] Comment on above:Performed By: #### FERNANDO, ERUR #### [facility] [address] [address] [address] Abhay FarrAST [Catalytic activity/Vol]24 U/TUvgfps01-26Ozo [facility] CenterComment on above:Performed By: #### FERNANDO, ERUR #### [facility] [address] [address] [address] Abhay FarrBilirubin [Mass/Vol]0.6 mg/dLNormal0.2-1.0The [facility] Comment on above:Performed By: #### FERNANDO, ERUR #### [facility] [address] [place] [address] Dr. Abhay FarrCalcium [Mass/Vol]9.1 mg/dLNormal8.5-10.1The [facility] Comment on above:Performed By: #### FERNANDO ERUR #### [facility] [address] [place] [address] Dr. Abhay FarrChloride [Moles/Vol]97 mmol/LCritically zyn09-164Uxh [facility] CenterComment on above:Performed By: #### FERNANDO ERUR #### [facility] [address] [address] [address] Abhay FarrCO2 [Moles/Vol]27.6 mmol/OWezxpu23.0-32.0The [facility] Comment on above:Performed By: #### FERNANDO ERUR #### [facility] [address] [place] [address] Dr. Abhay FarrCreatinine [Mass/Vol]0.95 mg/dLNormal0.70-1.30The [facility] CenterComment on above:Performed By: #### FERNANDO ERUR #### [facility] [address] [place] [address] Dr. Abhay OzunaGFR-AF SRI LANKAN>60Normal>=60The [facility] CenterComment on above:Performed By: #### FERNANDO ERUR #### [facility] [address] [place] [address] Dr. Abhay Gutierrez-NON AF SRI LANKAN>60Normal>=60The [facility] CenterComment on above:Performed By: #### FERNANDO ERUR #### [facility] [address] [place] [address] Dr. Abhay FarrGlobulin (S) [Mass/Vol]3.5 g/dLNormalThe [facility] CenterComment on above:Performed By: #### FERNANDO ERUR #### [facility] [address] [place] [address] Dr. Abhay FarrGlucose [Mass/Vol]109 mg/dLCritically bitn85-736Yos [facility] CenterComment on above:Performed By: #### FERNANDO, ERUR #### [facility] [address] [address] [address] Abhay FarrPotassium [Moles/Vol]4.1 mmol/LNormal3.5-5.1The [facility] Comment on above:Performed By: #### FERNANDO, ERUR #### [facility] [address] [address] [address] Abhay FarrProtein [Mass/Vol]7.1 g/dLNormal6.4-8.2The [facility] Comment on above:Performed By: #### FERNANDO, ERUR #### [facility] [address] [place] [address] Dr. Abhay FarrSodium [Moles/Vol]132 mmol/LCritically szc396-625Fbu [facility] CenterComment on above:Performed By: #### FERNANDO, ERUR #### [facility] [address] [place] [address] Dr. Abhay FarrUrea nitrogen [Mass/Vol]19.0 mg/dLCritically high7.0-18.0The [facility] CenterComment on above:Performed By: #### FERNANDO, ERUR #### [facility] [address] [place] [address] Dr. Abhay Rodríguez nitrogen/Creatinine [Mass ratio]20.0 mg/mgNormalThe [facility] CenterComment on above:Performed By: #### FERNANDO, ERUR #### [facility] [address] [place] [address] Dr. Abhay [place], HIGH SENSITIVITYon 96-33-7034PAUZIF3.0 pg/mLNormal 4.0-76.1The [facility] CenterComment on above:Result Comment: CUT-OFF POINTS HAVE BEEN ESTABLISHED BASED ON THE FOURTH UNIVERSAL DEFINITIONS OF MYOCARDIAL INFARCTION. THE UPPER REFERENCE LIMIT (URL) OF TROPONIN, DEFINED THE 99TH PERCENTILE OF cTnI DISTRIBUTION IN A REFERENCE POPULATION, HAS BEEN CONFIRMED THE DECISION THRESHOLD FOR SD DIAGNOSIS.Performed By: #### FERNANDO, ERUR #### [facility] [address] [place] [address] Dr. Abhay Dupreed-19 PCR (CVDTBH)on [id number]-CoV-2 (COVID-19) RNA FARIHA+probe Ql (Unsp spec)Not detectedNormalNOT DETECTEDThe [facility] Comment on above:Result Comment: When diagnostic testing is negative, the [...] for this test is supported by the Recovery Agent of Health and Human Service's declaration that circumstances exist to justify the emergency use of in vitro diagnostics for the detection and/or diagnosis of the virus that causes COVID-19. This EUA will remain in effect for the duration of the COVID-19 declaration justifying emergency of IVDs, unless it is terminated or revoked by the FDA (after which the test may no longer be used).Performed By: #### MG, BMP #### [facility] [address] [place] [address] Dr. Abhay Haywood AUTO DIFFon [id number] #0.1 103/ulNormal0.0-0.1[facility]burgComment on above:Performed By: #### CBC #### [facility] [address] [place] [address] Dr. Abhay FarrBasophils/100 WBC (Bld)0.6 %Normal0.2-2.0The [facility] Comment on above:Performed By: #### CBC #### [facility] [address] [place] [address] Dr. Abhay Whaley #0.1 103/ulNormal0.0-0.7The [facility] CenterComment on above: Performed By: #### CBC #### [facility] [address] [place] [address] Dr. Abhay Ozunaosinophils/100 WBC (Bld)1.4 %Normal0.9-7.0[facility] Comment on above:Performed By: #### CBC #### [facility] [address] [place] [address] Dr. Abhay Ozunarythrocyte distribution width (RBC) [Ratio]12.5 %Ijrjth20.0-15.0 [facility]burgComment on above:Performed By: #### CBC #### [facility] [address] [place] [address] Dr. Abhay FarrHematocrit (Bld) [Volume fraction]39.2 %Critically low42.0-54.0 [facility]burgComment on above:Performed By: #### CBC #### [facility] [address] [place] [address] Dr. Abhay FarrHemoglobin (Bld) [Mass/Vol]12.6 g/dLCritically low14.0-18.0[facility]burgComment on above:Performed By: #### CBC #### [facility] [address] [place] [address] Dr. Abhay Keenan #0.02 10e3/ulNormal0.00-0.03The [facility] CenterComment on above:Performed By: #### CBC #### [facility] [address] [place] [address] Dr. Abhay Keenan %0.3 %Normal0.0-0.5The [facility] CenterComment on above: Performed By: #### CBC #### [facility] [address] [place] [address] Dr. Abhay Cruz #1.4 103/ulNormal1.2-3.8The [facility] CenterComment on above:Performed By: #### CBC #### [facility] [address] [place] [address] Dr. Abhay Luthermphocytes/100 WBC (Bld)18.7 %Critically low20.5-60.0[facility]burgComment on above:Performed By: #### CBC #### [facility] [address] [place] [address] Dr. Abhay MarieeUAL DIFF REQNONormalThe [facility] CenterComment on above: Performed By: #### CBC #### [facility] [address] [place] [address] Dr. Abhay Turner (RBC) [Entitic mass]27.5 jxIgrfkp35.9-34.0The [facility] CenterComment on above:Performed By: #### CBC #### [facility] [address] [place] [address] Dr. Abhay Turner (RBC) [Mass/Vol]32.1 g/cBFgyzvn31.9-35.2The [facility] HospitalComment [facility] above:Performed By: #### CBC #### [facility] [address] [place] [address] Dr. Abhay Turner (RBC) [Entitic vol]85.4 fCBxzbid11.0-94.0The [facility] CenterComment on above:Performed By: #### CBC #### [facility] [address] [place] [address] Dr. Abhay Estrada #0.7 103/ulNormal0.3-0.8The [facility] CenterComment on above:Performed By: #### CBC #### [facility] [address] [place] [address] Dr. Abhay Gastonocytes/100 WBC (Bld)8.8 %Normal1.7-12.0The [facility] Comment on above:Performed By: #### CBC #### [facility] [address] [place] [address] Dr. Abhay Olson #5.4 103/ulNormal1.4-6.5The [facility] CenterComment on above:Performed By: #### CBC #### [facility] [address] [place] [address] Dr. Abhay Ingramutrophils/100 WBC (Bld)70.2 %Rwijdt06.0-75.0The [facility] CenterComment on above:Performed By: #### CBC #### [facility] [address] [place] [address] Dr. Abhay Nicolaslet mean volume (Bld) [Entitic vol]9.2 fLCritically low 9.5-13.5The [facility] CenterComment on above:Performed By: #### CBC #### [facility] [address] [place] [address] Dr. Abhay FarrPLT249 103/khEdsned323-685Ohy [facility] CenterComment on above: Performed By: #### CBC #### [facility] [address] [place] [address] Dr. Abhay FarrRBC4.59 106/ulCritically low4.70-6.10The [facility] CenterComment on above:Performed By: #### CBC #### [facility] [address] [place] [address] Dr. Abhay FarrWBC7.7 103/ulNormal4.0-11.0The [facility] CenterComment on above: Performed By: #### CBC #### [facility] [address] [place] [address] Dr. Abhay Cheung 14(COMP METB)on 25-58-9259Vhgofeu [Mass/Vol]3.3 g/dL Critically low3.4-5.0The [facility] CenterComment on above:Performed By: #### MARIEL KING #### [facility] [address] [place] [address] Dr. Abhay FarrAlbumin/Globulin [Mass ratio]1.1 {ratio}NormalThe [facility] CenterComment on above:Performed By: #### KRISTIAN KINGR #### [facility] [address] [place] [address] Dr. Abhay Luciano [Catalytic activity/Vol]77 U/FLicgsu35-085Oal [facility] CenterComment on above:Performed By: #### KRISTIAN KINGR #### [facility] [address] [place] [address] Dr. Abhay Li [Catalytic activity/Vol]52 U/IQxhkoy12-44Eqf [facility] CenterComment on above:Performed By: #### KRISTIAN KINGR #### [facility] [address] [address] [address] Abhay Lockett gap [Moles/Vol]7.6 mmol/LNormalThe [facility] CenterComment on above:Performed By: #### FERNANDO, ERUR #### [facility] [address] [address] [address] Abhay FarrAST [Catalytic activity/Vol]18 U/MZrcfse30-08Uqx [facility] CenterComment on above:Performed By: #### FERNANDO, ERUR #### [facility] [address] [address] [address] Abhay FarrBilirubin [Mass/Vol]0.4 mg/dLNormal0.2-1.0The [facility] Comment on above:Performed By: #### FERNANDO, ERUR #### [facility] [address] [place] [address] Dr. Abhay FarrCalcium [Mass/Vol]8.2 mg/dLCritically low8.5-10.1The [facility] CenterComment on above:Performed By: #### FERNANDO, ERUR #### [facility] [address] [address] [address] Abhay FarrChloride [Moles/Vol]101 mmol/XPzueke58-058Ayx [facility] Comment on above:Performed By: #### FERNANDO, ERUR #### [facility] [address] [address] [address] Abhay FarrCO2 [Moles/Vol]28.4 mmol/KAkvdaa91.0-32.0The [facility] Comment on above:Performed By: #### FERNANDO, ERUR #### [facility] [address] [address] [address] Abhay FarrCreatinine [Mass/Vol]0.79 mg/dLNormal0.70-1.30The [facility] CenterComment on above:Performed By: #### FERNANDO, ERUR #### [facility] [address] [address] [address] Blank ChangEGFR-AF SRI LANKAN>60Normal>=60The [facility] CenterComment on above:Performed By: #### FERNANDO ERUR #### [facility] [address] [address] [address] Abhay Gutierrez-NON AF SRI LANKAN>60Normal>=60The [facility] CenterComment on above:Performed By: #### FERNANDO ERUR #### [facility] [address] [place] [address] Dr. Abhay FarrGlobulin (S) [Mass/Vol]3.1 g/dLNormalThe [facility] CenterComment on above:Performed By: #### FERNANDO ERUR #### [facility] [address] [place] [address] Dr. Abhay FarrGlucose [Mass/Vol]104 mg/kCXzliix16-288CfmKettering Health [facility]burg Comment on above:Performed By: #### FERNANDO ERUR #### [facility] [address] [place] [address] Dr. Abhay FarrPotassium [Moles/Vol]4.0 mmol/LNormal3.5-5.1[facility] Comment on above:Performed By: #### KRISTIAN KINGR #### [facility] [address] [place] [address] Dr. Abhay FarrProtein [Mass/Vol]6.4 g/dLNormal6.4-8.2[facility] Comment on above:Performed By: #### FERNANDO ERUR #### [facility] [address] [place] [address] Dr. Abhay FarrSodium [Moles/Vol]133 mmol/LCritically dsz666-828Ukl [facility] CenterComment on above:Performed By: #### FERNANDO ERUR #### [facility] [address] [place] [address] Dr. Abhay FarrUrea nitrogen [Mass/Vol]20.0 mg/dLCritically high7.0-18.0The [facility] CenterComment on above:Performed By: #### FERNANDO ERUR #### [facility] [address] [place] [address] Dr. Abhay Rodríguez nitrogen/Creatinine [Mass ratio]25.3 mg/mgNoMansfield HospitalComment on above:Performed By: #### KRISTIAN KINGR #### [facility] [address] [place] [address] Dr. Abhay FarrPROTIMEon 30-58-8256TAC Coag (PPP) [Relative time]0.97 {INR} NormalThe [facility] CenterCompromedica [facility] on above:Performed By: #### MG, BMP #### [facility] [address] [place] [address] Dr. Abhay Lam GUIDELINESSEE BELOWCrystal Clinic Orthopedic CenterComment on above:Result Comment: DESIRED INR: 2.0 - 3.0 CONDITIONS NOT LISTED BELOW 2.5 - 3.5 FOR PROSTHETIC HEART VALVE REPLACEMENT 2.5 - 3.5 RECURRENT THROMBOSIS Performed By: #### MG, BMP #### [facility] [address] [place] [address] Dr. Abhay FarrPT Coag (PPP) [Time]10.5 sNormal9.0-11.6The [facility] Comment on above:Performed By: #### MG, BMP #### [facility] [address] [place] [address] Dr. Abhay Edwards [id number] Coag (Bld) [Time]26.8 jIzpxps21.3-36.2[facility]burgComment on above:Performed By: #### MG, BMP #### [facility] [address] [place] [address] Dr. Abhay [place], HIGH SENSITIVITYon 57-02-7248JLZXCK6.2 pg/mLNormal 4.0-76.1The [facility] on above:Result Comment: CUT-OFF POINTS HAVE BEEN ESTABLISHED BASED ON THE FOURTH UNIVERSAL DEFINITIONS OF MYOCARDIAL INFARCTION. THE UPPER REFERENCE LIMIT (URL) OF TROPONIN, DEFINED THE 99TH PERCENTILE OF cTnI DISTRIBUTION IN A REFERENCE POPULATION, HAS BEEN CONFIRMED THE DECISION THRESHOLD FOR SD DIAGNOSIS.Performed By: #### FERNANDO, ERUR #### [facility] [address] [address] [address] Abhay PinkHolaura 86-37-8490TEY4.215 uIU/mLNormal0.358-3.740The [facility]rus Hospitalment on above:Performed By: #### KRISTIAN KINGR #### [facility] [address] [address] [address] Abhay FarrCT STROKE HEAD WOon [id number] STROKE HEAD WONONCONTRAST CT SCAN OF THE HEAD CT STROKE [...] Electronically authenticated by: LAITH MATAMOROS Date: 2022-09-21 21:23NormMercy Health [facility] URINE PROFILEon 20-82-7098Nwkcknmzb Ql (U)NegativeNormal NEGATIVEThe [facility] CenterComment on above:Performed By: #### FERNANDO ERUR #### [facility] [address] [address] [address] Abhay FarrClarity (U)CLEARNormalCLEARThe [facility] HospitalComment on above: Performed By: #### FERNANDO, ERUR #### [facility] [address] [address] [address] Abhay Steele (U)LT. YELLOWNormalYELLOWKettering Health MiamisburgComment on above:Performed By: #### FERNANDO, ERUR #### [facility] [address] [address] [address] Abhay Alvarado micrscopic examination will be performed if indicated. NormalThe [facility] HospitalComment on above:Performed By: #### FERNANDO, ERUR #### [facility] [address] [address] [address] Abhay FarrGlucose Ql (U)NegativeNormalNEGATIVEKettering Health MiamisburgComment on above:Performed By: #### FERNANDO, ERUR #### [facility] [address] [address] [address] Abhay FarrHemoglobin Ql (U)TRACE-INTACTAbnormalNEGATIVEKettering Health MiamisburgComment on above:Performed By: #### FERNANDO, ERUR #### [facility] [address] [address] [address] Abhay Dejesusones Ql (U)NegativeNormalNEGATIVEKettering Health MiamisburgComment on above:Performed By: #### FERNANDO, ERUR #### [facility] [address] [address] [address] Abhay FarrLEUKOCYTESNegativeNormalNEGATIVEKettering Health [place] on above:Performed By: #### FERNANDO, ERUR #### [facility] [address] [address] [address] Abhay Townsendtrite Ql (U)NegativeNormalNEGATIVEKettering Health [place]amisburgComment on above:Performed By: #### FERNANDO, ERUR #### [facility] [address] [address] [address] Abhay FarrpH (U)5.5 [pH]Normal5-9[facility] [place]burgComment on above: Performed By: #### FERNANDO, ERUR #### [facility] [address] [address] [address] Abhay Bowen GRAVITY1.228Nlxgqw1.005-<=1.025The [facility] CenterComment on above:Performed By: #### FERNANDO, ERUR #### [facility] [address] [address] [address] Abhay Taylor PROTEINNegativeNormalNEGATIVE/ TRACEThe [facility] Comment on above:Performed By: #### FERNANDO, ERUR #### [facility] [address] [address] [address] Abhay Walsh MICRO INDINDICATEDCrystal Clinic Orthopedic CenterComment on above: Performed By: #### FERNANDO, ERUR #### [facility] [address] [place] [address] Dr. Abhay Rico Qn (U)0.2 {Rafy'U}/dLNormal0.2 - 1.0The [facility] CenterComment on above:Performed By: #### FERNANDO ERUR #### [facility] [address] [address] [address] Abhay Gasca MICROSCOPIC ONLYon [id number]A SEEN [facility] [place]burgComment on above:Performed By: #### FERNANDO, ERUR #### [facility] [address] [address] [address] Abhay Ingram identified Cx Nom (U)NOT INDICATEDNoMansfield HospitalComment on above:Performed By: #### FERNANDO, ERUR #### [facility] [address] [address] [address] Abhay Mancia SEENNormalNONE SEENKettering Health [place]burgComment on above:Performed By: #### FERNANDO, ERUR #### [facility] [address] [address] [address] Abhay Hanson LM Nom (Urine sed)NONE SEENNormalNONE SEENKettering Health [place]burgComment on above:Performed By: #### XIMENARO, ERUR #### [facility] [address] [address] [address] Blank ChangEpithelial cells LM Ql (Urine sed)NONE SEENNormalNONE SEEN /RARE The [facility] CenterComment on above:Performed By: #### XIMENARO, ERUR #### [facility] [id number] Abhay HouserCOUSNONE SEENNormalNONE SEENThe [facility] CenterComment on above:Performed By: #### XIMENARO, ERUR #### [facility] [address] [address] [address] Abhay FarrRBCNLANRE SEENAbnormal0-2[facility] [place]burgComment on above: Performed By: #### FERNANDO, ERUR #### [facility] [address] [address] [address] Abhay FarrWBCNONE SEENNormalNONE SEENKettering Health [place]burgComment on above: Performed By: #### XIMENARO, ERUR #### [facility] [address] [address] [address] Abhay FarrXR CHEST 1 Von [id number] CHEST 1 VEXAM: XR CHEST 1 V HISTORY: Altered mental status COMPARISON: Chest x-rays 04/05/2021 TECHNIQUE: Portable chest FINDINGS: The lung parenchyma is free of consolidation or infiltrate. No pneumothorax or pleural effusion. The cardiac, mediastinal and hilar contours are unremarkable. No acute osseous abnormality. IMPRESSION: No acute abnormality Electronically authenticated by: MARSHAL SALAS Date: 2022-09-21 21:44[facility] Orthopedic CenterXR LSPINE 2_3 VIEWSon [id number] LSPINE 2_3 VIEWSEXAMINATION: XR LSPINE 2_3 VIEWS HISTORY: Low back pain COMPARISON: 10/18/2021 FINDINGS: BONES: Normal alignment with no acute fracture or spondylolisthesis. Minimal degenerative spondylosis. Dgcx-aw-olfnaysh facet osteoarthropathy most significant at L5-S1 DISC SPACES: Moderate to severe disc space narrowing L5-S1 with endplate sclerosis and vacuum disc PARASPINOUS: Negative. No paraspinous abnormality is seen. OTHER: Negative. IMPRESSION: Degenerative changes most significant at L5-S1 Electronically authenticated by: MARSHAL VELÁSQUEZ Date: 2022-08-15 18:09NormalThSumma Health AUTO DIFFon [id number] #0.1 103/ulNormal0.0-0.1The [facility] CenterComment on above:Performed By: #### MG, BMP #### [facility] [address] [place] [address] Dr. Abhay FarrBasophils/100 WBC (Bld)0.9 %Normal0.2-2.0[facility] [place] Comment on above:Performed By: #### MG, BMP #### [facility] [address] [place] [address] Dr. Abhay Whaley #0.3 103/ulNormal0.0-0.7The [facility] CenterComment on above: Performed By: #### MG, BMP #### [facility] [address] [place] [address] Dr. Abhay Ozunaosinophils/100 WBC (Bld)3.8 %Normal0.9-7.0The [facility] Comment on above:Performed By: #### MG, BMP #### [facility] [address] [place] [address] Dr. Abhay Ozunarythrocyte distribution width (RBC) [Ratio]12.5 %Thmkvz52.0-15.0 The [facility] CenterComment on above:Performed By: #### MG, BMP #### [facility] [address] [place] [address] Dr. Abhay FarrHematocrit (Bld) [Volume fraction]43.2 %Mqkgss72.0-54.0[facility] [place]burgComment on above:Performed By: #### MG, BMP #### [facility] [address] [place] [address] Dr. Abhay FarrHemoglobin (Bld) [Mass/Vol]13.5 g/dLCritically low14.0-18.0The [facility] CenterComment on above:Performed By: #### MG, BMP #### [facility] [address] [address] [address] Abhay Keenan #0.01 10e3/ulNormal0.00-0.03The [facility] on above:Performed By: #### MG, BMP #### [facility] [address] [address] [address] Abhay Keenan %0.1 %Normal0.0-0.5The [facility] CenterCompromedica coldwater [facility] hospital on above: Performed By: #### MG, BMP #### [facility] [address] [address] [address] Abhay Cruz #1.9 103/ulNormal1.2-3.8The [facility] CenterComment on above:Performed By: #### MG, BMP #### [facility] [address] [place] [address] Dr. Abhay Jordanhocytes/100 WBC (Bld)24.8 %Iyikxf11.5-60.0The [facility] CenterComment on above:Performed By: #### MG, BMP #### [facility] [address] [place] [address] Dr. Abhay An DIFF REQNONormalThe [facility] CenterComment on above: Performed By: #### MG, BMP #### [facility] [address] [place] [address] Dr. Abhay Turner (RBC) [Entitic mass]27.3 oaIhfiey60.9-34.0The [facility]rus Hospitalment on above:Performed By: #### MG, BMP #### [facility] [address] [place] [address] Dr. Abhay Turner (RBC) [Mass/Vol]31.3 g/bBHsqbun98.9-35.2The [facility] CenterComment on above:Performed By: #### MG, BMP #### [facility] [address] [place] [address] Dr. Abhay Turner (RBC) [Entitic vol]87.4 pHGkwpqv15.0-94.0The [facility] CenterComment on above:Performed By: #### MG, BMP #### [facility] [address] [place] [address] Dr. Abhay Estrada #0.6 103/ulNormal0.3-0.8The [facility] HospitalComment on above:Performed By: #### MG, BMP #### [facility] [address] [place] [address] Dr. Abhay Gastonocytes/100 WBC (Bld)8.0 %Normal1.7-12.0The [facility] Comment on above:Performed By: #### MG, BMP #### [facility] [address] [place] [address] Dr. Abhay Olson #4.7 103/ulNormal1.4-6.5The [facility] CenterComment on above:Performed By: #### MG, BMP #### [facility] [address] [place] [address] Dr. Abhay Ingramutrophils/100 WBC (Bld)62.4 %Mbaogs22.0-75.0The [facility] CenterComment on above:Performed By: #### MG, BMP #### [facility] [address] [place] [address] Dr. Abhay Giang mean volume (Bld) [Entitic vol]9.9 fLNormal9.5-13.5The [facility] CenterComment on above:Performed By: #### MG, BMP #### [facility] [address] [place] [address] Dr. Abhay FarrPLT265 103/tsVmefbb990-878Ija [facility] CenterComment on above: Performed By: #### MG, BMP #### [facility] [address] [place] [address] Dr. Abhay FarrRBC4.94 106/ulNormal4.70-6.10The [facility] CenterComment on above:Performed By: #### MG, BMP #### [facility] [address] [place] [address] Dr. Abhay FarrWBC7.5 103/ulNormal4.0-11.0[facility] [place]burgComment on above: Performed By: #### MG, BMP #### [facility] [address] [address] [address] Abhay RobertsonID PROFILEon [id number]-HDL RATIO NORMSMount Carmel Health SystemComment on above:Result Comment: 3.3 - 4.4 LOW RISK 4.4 - 7.1 AVERAGE RISK 7.1 - 11.0 MODERATE RISK >11.0 HIGH RISKPerformed By: #### MG, BMP #### [facility] [address] [address] [address] Abhay FarrCholesterol [Mass/Vol]129 mg/dLNormal<=200The [facility] Comment on above:Performed By: #### MG, BMP #### [facility] [address] [address] [address] Abhay FarrCholesterol in HDL [Mass/Vol]60 mg/wJNxsxbw98-35Ecj [facility] CenterComment on above:Performed By: #### MG, BMP #### [facility] [address] [address] [address] Abhay FarrCholesterol in LDL [Mass/Vol]58.2 mg/dLCrystal Clinic Orthopedic CenterComment on above:Performed By: #### MG, BMP #### [facility] [address] [address] [address] Abhay Alegreesterdemetrius.total/Cholesterol in HDL [Mass ratio]2.2 {ratio} NormalThe [facility] CenterComment on above:Performed By: #### MG, BMP #### [facility] [address] [address] [address] Abhay Barber NORMAL> or = 60 mg/dl - LOW CARDIOVASCULAR RISK <40 mg/dl - HIGH CARDIOVASCULAR RISKCrystal Clinic Orthopedic CenterComment on above:Performed By: #### MG, BMP #### [facility] [address] [address] [address] Abhay FarrLDL CALC NORMALSEE [facility] CenterComment on above:Result Comment: <100 mg/dl OPTIMAL 100 - 129 mg/dl NEAR OR ABOVE OPTIMAL 130 - 159 mg/dl BORDERLINE HIGH 160 - 189 mg/dl HIGH >190 mg/dl VERY HIGH Performed By: #### MG, BMP #### [facility] [address] [place] [address] Dr. Abhay FarrTriglyceride [Mass/Vol]54 mg/dLNormal<=150The [facility] Comment on above:Performed By: #### MG, BMP #### [facility] [address] [address] [address] Abhay FarrVLDL CALC10.8 mg/dLCrystal Clinic Orthopedic CenterComment on above: Performed By: #### MG, BMP #### [facility] [address] [place] [address] Dr. Abhay FarrPROF CHEM 8 (BAS METB)on [id number] gap [Moles/Vol]10.7 mmol/LNormalKettering Health MiamisburgComment on above:Performed By: #### MG, BMP #### [facility] [address] [place] [address] Dr. Abhay FarrCalcium [Mass/Vol]9.0 mg/dLNormal8.5-10.1[facility] [place] Comment on above:Performed By: #### MG, BMP #### [facility] [address] [place] [address] Dr. Abhay FarrChloride [Moles/Vol]102 mmol/IRyhltk04-661Lfg [facility] Comment on above:Performed By: #### MG, BMP #### [facility] [address] [place] [address] Dr. Abhay FarrCO2 [Moles/Vol]29.4 mmol/UMldlod36.0-32.0[facility] [place] Comment on above:Performed By: #### MG, BMP #### [facility] [address] [place] [address] Dr. Abhay FarrCreatinine [Mass/Vol]1.09 mg/dLNormal0.70-1.30The [facility] CenterComment on above:Performed By: #### MG, BMP #### [facility] [address] [address] [address] Abhay OzunaGFR-AF SRI LANKAN>60Normal>=60The [facility] CenterComment on above:Performed By: #### MG, BMP #### [facility] [address] [address] [address] Abhay OzunaGFR-NON AF SRI LANKAN>60Normal>=60The [facility] CenterComment on above:Performed By: #### MG, BMP #### [facility] [address] [address] [address] Abhay FarrGlucose [Mass/Vol]102 mg/pESryzup45-970Nqd [facility] Comment on above:Performed By: #### MG, BMP #### [facility] [address] [place] [address] Dr. Abhay FarrPotassium [Moles/Vol]4.1 mmol/LNormal3.5-5.1[facility] [place] Comment on above:Performed By: #### MG, BMP #### [facility] [address] [place] [address] Dr. Abhay FarrSodium [Moles/Vol]138 mmol/HTapcbh786-851Jqg [facility] Comment on above:Performed By: #### MG, BMP #### [facility] [address] [place] [address] Dr. Abhay FarrUrea nitrogen [Mass/Vol]18.0 mg/dLNormal7.0-18.0The [facility] Hospitalment on above:Performed By: #### MG, BMP #### [facility] [address] [place] [address] Dr. Abhay FarrUrea nitrogen/Creatinine [Mass ratio]16.5 mg/mgNormalThe [facility] CenterComment on above:Performed By: #### MG, BMP #### [facility] [address] [address] [address] Abhay Olivares [id number] [Catalytic activity/Vol]18 U/NUcacfs05-76Dwt Cristobal HospitalComment on above:Performed By: #### ALT, BMP, AST, LIPID #### [facility] [address] [place], [place] [address] Dr. Abhay Tabor [id number] [Catalytic activity/Vol]37 U/GTzhecx32-51DzqKettering Health MiamisburgComment on above:Performed By: #### MG, BMP #### [facility] [address] [place], [place] [address] Dr. Abhay Farr Vital Signs Date TimeVital SignValuePerforming OpmotszlzHtttunot36-54-9314 15:44-0400 Diastolic blood gphhegrd89 mm[Hg]Carter Luna MD Work Phone: [phone]08-28-2025 15:44-0400 Heart rate60 /minCarter Luna MD Work Phone: [phone]08-28-2025 15:44-0400 Systolic blood mm[Hg]Carter Luna MD Work Phone: [phone]06-05-2025 10:31-0400 Body yzpysy144.9 Tonia Billingsley MD Work Phone: [facility]06-05-2025 10:31-0400Body mass index (BMI) [Ratio]21.7 kg/m2Wai Billingsley MD Work Phone: [facility]06-05-2025 10:31-0400Body imswbb54.58 kgWai Billingsley MD Work Phone: [phone]06-05-2025 10:31-0400Diastolic blood mm[Hg]Wai Billingsley MD Work Phone: [phone]06-05-2025 10:31-0400Heart rate62 /min Wai Billingsley MD Work Phone: [facility]06-05-2025 10:31-4795DbT5% (BldA) [Mass fraction]99 %Wai Billingsley MD Work Phone: [facility]06-05-2025 10:31-0400Systolic blood ikxvghhl544 mm[Hg]Wai Billingsley MD Work Phone: [facility]05-13-2025 11:15-0400Body .9 cmCarter Luna MD Work Phone: [facility] HospitalIpcuimofbm39-80-3037 11:15-0400Body mass index (BMI) [Ratio]22.78 kg/m2Carter Luna MD Work Phone: [facility] HospitalHypqbojykm84-57-9785 11:15-0400Body temperature 97.3 [degF]Carter Luna MD Work Phone: [facility] HospitalEotfibawny74-91-1240 11:15-0400Body .2 kg Carter Luna MD Work Phone: [facility] HospitalHkslftvtfi77-73-1407 11:15-0400Diastolic blood mm[Hg]Carter Luna MD Work Phone: [facility] HospitalOmqzqilwpr45-94-1942 11:15-0400Heart rate76 /min Carter Luna MD Work Phone: [facility] HospitalEqlqtslhqb66-56-3737 11:15-0400Respiratory rate18 /minCarter Luna MD Work Phone: [facility] HospitalGaxpzensnw50-03-1830 11:15-0705YsZ2% (BldA) [Mass fraction]98 %Carter Luna MD Work Phone: [facility] HospitalListfptgtr47-93-3172 11:15-0400Systolic blood kkdlvnoy945 mm[Hg]Carter Luna MD Work Phone: [facility] HospitalBsplqkvpqb95-66-7278 12:25-0400Diastolic blood mm[Hg]Transesophageal [facility]03-28-2025 12:25-0400Heart rate71 /minTransesophageal [facility]03-28-2025 12:25-0400Respiratory rate14 /minTransesophageal [facility]03-28-2025 12:25-2432CjS3% (BldA) [Mass fraction]98 %Transesophageal [facility]03-28-2025 12:25-0400 Systolic blood mnyzyeiz309 mm[Hg]Transesophageal [facility]03-28-2025 10:07-0400Body bmioitkyqjh71.59 [degF]Transesophageal [facility] 01-29-2025 14:08-0400Body zshwnu037.9 Tonia Billingsley MD Work Phone: [phone]03-13-2025 14:08-0400Body mass index (BMI) [Ratio]21.7 kg/m2Wai Billingsley MD Work Phone: [facility]03-13-2025 14:08-0400Body hvclej78.58 kgWai Billingsley MD Work Phone: [phone]03-13-2025 14:08-0400Diastolic blood zigxvpsw00 mm[Hg]Wai Billingsley MD Work Phone: [phone]03-13-2025 14:08-0400Heart rate64 /min Wai Billingsley MD Work Phone: [facility]03-13-2025 14:08-2301DsL6% (BldA) [Mass fraction]98 %Wai Billingsley MD Work Phone: [facility]03-13-2025 14:08-0400Systolic blood khsahbsz602 mm[Hg]Wai Billingsley MD Work Phone: [facility]12-16-2024 11:22-0500Body rpcxii371.9 cmCarter Luna MD Work Phone: [facility] HospitalYusglezvak60-70-5746 11:22-0500Body mass index (BMI) [Ratio]23.6 kg/m2Carter Luna MD Work Phone: noMid [facility] CenterVponyoywcq14-75-1417 11:22-0500Body temperature 97.11 [degF]Carter Luna MD Work Phone: noMid [facility] Health CenterUatasfxspq14-22-2631 11:22-0500Body mzxgni94.93 kgCarter Luna MD Work Phone: [facility] HospitalPmzaylywnj99-46-6448 11:22-0500Diastolic blood iyybiput40 mm[Hg]Carter Luna MD Work Phone: [facility] HospitalDfpssmsmjy72-85-5503 11:22-0500Heart rate72 /min Carter Luna MD Work Phone: [address] [address]Vcidaqykkf92-56-0238 11:22-0500Respiratory rate20 /minCarter Luna MD Work Phone: [phone] [place], [place] [address]Txaqjmpenj04-26-0548 11:22-4265WwQ5% (BldA) [Mass fraction]99 %Carter Luna MD Work Phone: [facility] HospitalGgdkunrdzu25-61-8905 11:22-0500Systolic blood ckyolove592 mm[Hg]Carter Luna MD Work Phone: [facility] HospitalSuaymoqgio45-14-8489 14:37-0500Diastolic blood kdgcffje07 mm[Hg]Wai Billingsley MD Work Phone: [phone]02-08-2024 14:37-0500Heart rate64 /min Wai Billingsley MD Work Phone: [phone]02-08-2024 14:37-0500Systolic blood qlsclerw520 mm[Hg]Wai Billingsley MD Work Phone: [facility]02-08-2024 14:33-0500Body zqwuoi226 cm Wai Billingsley MD Work Phone: [phone]02-08-2024 14:33-0500Body qihyrf19.29 kgWai iBllingsley MD Work Phone: [phone]02-08-2024 14:33-5692MmE1% (BldA) [Mass fraction]97 %Wai Billingsley MD Work Phone: [phone]04-17-2023 13:36-0400Body vebqjj849.9 cmColleen Laffey NEPHROLOGY SOCIAL WORKER.MANAGER SOCIAL MEDIA Work Phone: [phone]04-17-2023 13:36-0400Body uhvhkd04.56 kgColleen Laffey NEPHROLOGY SOCIAL WORKER.MANAGER SOCIAL MEDIA Work Phone: [phone]04-17-2023 13:36-0400Diastolic blood clcerikx72 mm[Hg]Khushboo Laffey NEPHROLOGY SOCIAL WORKER.MANAGER SOCIAL MEDIA Work Phone: [phone]04-17-2023 13:36-0400Heart rate76 /min Khushboo Laffey NEPHROLOGY SOCIAL WORKER.MANAGER SOCIAL MEDIA Work Phone: [phone] [address]-17-2023 13:36-0127HmM8% (BldA) [Mass fraction]98 %Khushboo Laffey NEPHROLOGY SOCIAL WORKER.MANAGER SOCIAL MEDIA Work Phone: [phone]04-17-2023 13:36-0400Systolic blood axwggfaa922 mm[Hg]Khushboo Laffey NEPHROLOGY SOCIAL WORKER.MANAGER SOCIAL MEDIA Work Phone: [phone]02-28-2023 11:43-0500Body .9 Rhonda Ko MD Work Phone: [phone]02-28-2023 11:43-0500Body eppcvt65.56 kgAubrey Ko MD Work Phone: [phone]02-28-2023 11:43-0500Diastolic blood mbxqoise09 mm[Hg]Aubrey Ko MD Work Phone: [phone]02-28-2023 11:43-0500Heart rate71 /min Aubrey Ko MD Work Phone: [phone]02-28-2023 11:43-0500Respiratory rate 16 /minAubrey Ko MD Work Phone: [phone]02-28-2023 11:43-1489DzX1% (BldA) [Mass fraction]97 %Aubrey Ko MD Work Phone: [phone]02-28-2023 11:43-0500Systolic blood klbmdrev414 mm[Hg]Aubrey Ko MD Work Phone: [phone]12-29-2022 12:12-0500Body mapjmg283.9 Tonia Billingsley MD Work Phone: [phone] [address]-29-2022 12:12-0500Body vuykfb75.02 kgWai Billingsley MD Work Phone: [phone]12-29-2022 12:12-0500Diastolic blood mm[Hg]Wai Billingsley MD Work Phone: [phone]12-29-2022 12:12-0500Heart rate90 /min Wai Billingsley MD Work Phone: [phone] [address]-29-2022 12:12-3506EwN5% (BldA) [Mass fraction]97 %Wai Billingsley MD Work Phone: [phone]12-29-2022 12:12-0500Systolic blood lxbgnkbu426 mm[Hg]Wai Billingsley MD Work Phone: [phone]12-19-2022 12:24-0500Body .19 kgDenice Black NEPHROLOGY SOCIAL WORKER.MANAGER SOCIAL MEDIA Work Phone: [phone] Health Atrium Medical CenterLwfyid87-33-7627 12:24-0500Diastolic blood rnumzxly34 mm[Hg]Denice Carey NEPHROLOGY SOCIAL WORKER.MANAGER SOCIAL MEDIA Work Phone: [phone] Health Atrium Medical CenterFhnljk12-59-3150 12:24-0500Heart rate81 /min Denice Black NEPHROLOGY SOCIAL WORKER.MANAGER SOCIAL MEDIA Work Phone: [phone] Health Atrium Medical CenterFsfokw88-74-0865 12:24-8118ScS8% (BldA) [Mass fraction]99 %Denice Black NEPHROLOGY SOCIAL WORKER.MANAGER SOCIAL MEDIA Work Phone: [phone] Health Atrium Medical CenterJlbdqt13-06-0556 12:24-0500Systolic blood bnxdqjno965 mm[Hg]Denice Black NEPHROLOGY SOCIAL WORKER.MANAGER SOCIAL MEDIA Work Phone: [phone] Encounters Encounter DateEncounter TypeCare ProviderFacilityStart: 07-16-2025 End: 79-52-2021wmmsyzqpnsFtvu Naderer MD Work Phone: [facility] Work Phone: Start: 07-16-2025 End: 26-01-4949Nimrnhg encounter procedureAlayna Mortensen NEPHROLOGY SOCIAL WORKER-[facility] Work Phone: Start: 05-29-2025 End: 59-97-2200QhzxjzLjox Naderer MD Work Phone: NOYE CWM FMComment on above:BAN (generalized anxiety disorder)Start: 04-23-2025 End: 27-71-8334Lxmgatx encounter Gil Billingsley MD Work Phone: CardiologyComment on above:Mitral valve insufficiency, unspecified etiology (Primary Dx)Start: 04-23-2025 End: 23-02-3089wchlofdbycGUADFiona BILLINGSLEYFacility:[facility] Start: 03-31-2025 End: 16-47-7226Qeubfr Roque Luna MD Work Phone: NOSC CWM FMStart: 03-31-2025 End: 64-84-8315Nwsryc Roque Luna MD Work Phone: NOMS CWM FMStart: 03-31-2025 End: 18-40-9647Mduacer encounter Kyra Luna MD Work Phone: [facility] Work Phone: Start: 03-31-2025 End: 51-67-4962Aivujh follow up visit related to original Lisa Luna MD Work Phone: NOZJ CWM FMComment on above:Medicare annual wellness visit, subsequent (Primary Dx)Start: 03-31-2025 End: 60-79-4302vstexyvnflVRHZ NADERERNot AvailableStart: 03-30-2025 End: 82-85-1949SioxnhMgrrChanell Billingsley MD Work Phone: CardiologyComment on above:Refill RequestStart: 03-23-2025 End: 28-60-5857Gfrpaduup Result EncounterGeneric External Data ProviderNOMS External Department UnsolicitedStart: 03-23-2025 End: 38-29-9259Wkdghzbrp Result EncounterGeneric External Data ProviderNOMS External Department UnsolicitedStart: 03-23-2025 End: 51-43-3505rshvhxtugaMIJLFiona BILLINGSLEYFacility:[facility] Start: 03-23-2025 End: 78-17-4133Qsacsbzchz hospital visit by physicianCard InjectionMolecular ImagingComment on above:SOB (shortness of breath) [R06.02]Start: 03-20-2025 End: 81-72-5303VjqdvyLggjChanell Billingsley MD Work Phone: CardiologyComment on above:Refill RequestStart: 03-18-2025 End: 57-08-9168GjwqaiHwod Naderer MD Work Phone: NOVN CWM FMComment on above:BAN (generalized anxiety disorder) ([facility])Start: 02-13-2025 End: 88-22-6517Khglgincr Result EncounterGeneric External Data ProviderNOMS External Department UnsolicitedStart: 02-13-2025 End: 03-25-7618Tyrirxpfk Result EncounterGeneric External Data ProviderNOMS External Department UnsolicitedStart: 02-13-2025 End: 03-90-0871tesaezghiyFNTNFiona BILLINGSLEYFacility:[facility] Start: 02-13-2025 End: 50-60-5358Pbxqngr encounter procedureTransesophageal Echo Card Main CardiologyComment on above:Mitral valve insufficiency, unspecified etiology Start: 02-13-2025 End: 64-88-1377eflprkanuqQHAY A NADERERFacility:[facility] Hospitaltart: 02-12-2025 End: 37-44-7884Tzeyhdlqr encounterAmy Iadavide RNCardiologyComment on above: Reminder Call (ENID instructions 02/13)Start: 02-02-2025 End: 33-84-8856mtxsibaxuaWYPV NADERERNot AvailableStart: 01-29-2025 End: 12-01-2468Flxcrfz encounter procedureWai Billingsley MD Work Phone: CardiologyComment on above:Mitral valve insufficiency, unspecified etiology (Primary Dx); SOB (shortness of breath)Start: 01-29-2025 End: 66-25-2646Pmttlaeof Result EncounterGeneric External Data ProviderNOMS External Department UnsolicitedStart: 01-29-2025 End: 70-05-4673Inueizwsz Result EncounterGeneric External Data ProviderNOMS External Department UnsolicitedStart: 01-29-2025 End: 46-46-0104uuimkbabkwRCUYQnzpsbcz:[facility] Hospitaltart: 01-29-2025 End: 28-16-0800lebhfmekaqWVLJ A NADERERFacility:[facility] Hospitaltart: 01-28-2025 End: 80-80-4280Nssvpu Juliet Billingsley MD Work Phone: CardiologyComment on above:EKG abnormalities (Primary Dx)Start: 01-12-2025 End: 66-60-8281VohvypMnth Naderer MD Work Phone: NOOF CWM FMComment on above:BAN (generalized anxiety disorder) (CMS/HCC)Start: 12-15-2024 End: 95-58-5934NfosomHiphChanell Billingsley MD Work Phone: CardiologyComment on above:Refill RequestStart: 11-03-2024 End: 32-60-3695Mbsaxc flowsGege Luna MD Work Phone: NOMS CWM FMStart: 11-03-2024 End: 35-48-9078Rrhmuf Roque Luna MD Work Phone: NOMS CWM FMStart: 11-03-2024 End: 17-75-4844Mxnvop outpatient visit 15 minutesCarter Luna MD Work Phone: NOMS CWM FMComment on above:Posterior vitreous degeneration, left (Primary Dx); Dyslipidemia (CMS/HCC)Start: 11-03-2024 End: 88-25-9597qejusunfkxBRKE NADERERNot AvailableStart: 10-01-2024 End: 98-44-6084Ogzwatxif Result EncounterCarter Luna MD Work Phone: noms External Department UnsolicitedStart: 10-01-2024 End: 38-68-6034Vxkgzzbie Result EncounterCarter Luna MD Work Phone: NOEU External Department UnsolicitedStart: 09-17-2024 End: 37-94-6047AmppifMewf Naderer MD Work Phone: NOAC CWM FMComment on above:BAN (generalized anxiety disorder) (CMS/HCC)Start: 09-16-2024 End: 13-90-4249FlxidjBmgxEsequiel Billingsley MD Work Phone: CardiologyComment on above:Refill RequestStart: 09-08-2024 End: 82-68-4123Akueuz Roque Luna MD Work Phone: NOQU CWM FMStart: 09-08-2024 End: 02-63-2741Zmlisw Roque Luna MD Work Phone: NOUJ CWM FMStart: 09-08-2024 End: 76-99-8328sufqqsouvyZATA NADERERNot AvailableStart: 84-95-4421BywanqJawzEsequiel Billingsley MD Work Phone: CardiologyComment on above:Refill RequestStart: 85-61-3244RiyjsnRnejk Black NEPHROLOGY SOCIAL WORKER.MANAGER SOCIAL MEDIA Work Phone: cardiologyComment on above:Refill RequestStart: 12-27-2023 End: 27-23-4928Kyusypg encounter Gil Billingsley MD Work Phone: CardiologyComment on above:Mitral valve insufficiency, unspecified etiology (Primary Dx)Start: 66-37-7751QlkwsxReszuMoe Carey APRN.MANAGER SOCIAL MEDIA Work Phone: [phone] on above:Refill RequestStart: 48-79-7164Jdrvla Juliet Billingsley MD Work Phone: CardiologyComment on above:Mitral valve insufficiency, unspecified etiology (Primary Dx)Start: 03-05-2023 End: 16-87-3097Tlcqkcj encounter procedureCollnelly Lackey NEPHROLOGY SOCIAL WORKER.MANAGER SOCIAL MEDIA Work Phone: CardiologyComment on above:Essential hypertension (Primary Dx); Palpitations; Mitral valve insufficiency, unspecified etiologyStart: 06-59-1523butpcsqiumOA CARTER A NADERERFacility:T2Ixzki: 52-06-6736gnmyvmwuiuUIXRCAVYGHAL LAKSHMIPATHY . Facility:X4Nrmda: 01-23-2023 End: 77-29-5361byrunhdvxcCKCWNIFYGUAE LAKSHMIPATHY .Facility:F2Gvmwb: 01-16-2023 End: 17-00-1633Vpymcrq encounter procedureTaamy Ko MD Work Phone: Spine InstituteComment on above:Chronic bilateral low back pain with left-sided sciatica (Primary Dx); Lumbar radiculitisStart: 01-11-2023 End: 93-28-6240tpmgqakgufSDJBUFUAWPTC LAKSHMIPATHY .Facility:J2Bhxcw: 12-29-2022 End: 28-56-8284ikgdepwazhPG CARTER A NADERERFacility:M1Nltgy: 33-85-6786mpiopyknuf Wai Billingsley MD Work Phone: CardiologyComment on above:81 aspirin and fluoxetine Start: 16-19-2359ZrjanbXlnwv Aurelio NEPHROLOGY SOCIAL WORKER.MANAGER SOCIAL MEDIA Work Phone: cardiologyComment on above:Refill RequestStart: 17-67-9302Vtdueujvz for preprocedural laboratory examinationDR ETHAN S ALLEN . [facility] Columbustart: 11-28-2022 End: 63-57-8543svffwnclaeZI ETHAN S ALLEN .Facility:F8Smjoi: 11-24-2022 End: 70-25-7089vuppwhkkxdLL ETHAN S ALLEN .Facility:P0Iihph: 11-24-2022 End: 00-55-8858Yqmxjdski for preprocedural laboratory examinationDR ETHAN S ALLEN .Facility:A9Rsofi: 11-16-2022 End: 94-15-9268Lqnjpl Juliet Billingsley MD Work Phone: CardiologyComment on above:Palpitations (Primary Dx) Start: 29-30-8837Oitaxuzof encounterCollnelly Lackey APRN.CNP Work Phone: CardiologyComment on above:Results (Holter Results) Palpitations (Primary Dx)Start: 11-06-2022 End: 90-13-9048Kaahxkb encounter Eddie Carey APRN.APOORVA Work Phone: cardiologyComment on above:Palpitations (Primary Dx); Essential hypertensionPalpitations (Primary Dx)Start: 11-06-2022 End: 20-96-2540nszuseviqzZszatphfid Monitoring Lab Work Phone: cardiologyComment on above:Holter Monitor Application (48 hour )Start: 11-05-2022 End: 03-21-9755pepkcgvwcyOO MARK R SMITHFacility:U8Yymhz: 11-01-2022 End: 89-36-6072ywtwnxlwscNO CARTER Quintanilla NADERERFacility:W5Lpnoi: 73-37-5294qyhoqkpnef DR ETHAN ALLEN .Facility:U8Tzpga: 10-30-2022 End: 73-63-3235deyrlvtqxkJttxak D Popp APRN.CNP Work Phone: TelemedicineComment on above:Treatment not available (Primary Dx)Start: 10-30-2022 End: 32-36-6110Osuhxgbaujjc consultation with Andreas Berry APRN.APOORVA Work Phone: [facility] MAINStart: 10-28-2022 End: 19-33-1912nyzsarxunfLL MARK R SMITHFacility:G5Kdvnc: 10-27-2022 End: 40-97-8578wnuvlxbxfnUS VIMAL S KUMAR .Facility:G7Whohn: 10-18-2022 End: 68-65-6833lbpdutpvcyHEDN SOLISFacility:Z4Rowix: 10-03-2022 End: 16-86-8858euftyiavjbIW VIMAL S KUMAR .Facility:X0Zvczy: 09-26-2022 End: 37-95-2690nzoouwxazlGC VIMAL S KUMAR .Facility:F8Yknsi: 09-21-2022 End: 61-82-8765pdprrzwiwcIL CARTER Quintanilla NADDOUGLASRFacility:D0Tmtcw: 09-19-2022 End: 02-43-7861zkqfdtsuouYE ETHAN ALLEN .Facility:P8Fehxf: 09-12-2022 End: 98-17-7190hpckiaxstuFM ETHAN ALLEN .Facility:D0Zxjgw: 08-15-2022 End: 96-08-7224iotczsltveRRRODK H FAWWADFacility:R2Xzcul: 06-20-2022 End: 37-28-7554uciitezqopSF CARTER Quintanilla GHAZALARFacility:V2Znona: 12-16-2021 End: 26-19-3620umiivfehrrVlrt Braun Other [facility] [id number] Other start: 53-11-9601Lqojgocoz encounterDafernanda LawrenceFP Wood Buffer Procedures DateProcedureProcedure DetailPerforming ClinicianStart: 81-64-2548Kcqwuafsqp spect multiple studiesWai Billingsley MD Work Phone: Start: 53-22-7239QK CARDIAC PERF STRESS/EXERCISE Generic External Data ProviderStart: 53-04-2185Pwyj transthorc r-t 2d w/wo m- mode rec f-up/lmtdLuis Jose E Billingsley MD Work Phone: Start: 09-87-8186BMN NT-PROBNP SERPL-MCNCGeneric External Data ProviderStart: 97-45-9368Orn routine ecg w/least 12 lds w/i&r Generic External Data ProviderStart: 13-81-8748XUK BASIC METABOLIC PANELCarter Luna MD Work Phone: Start: 30-34-4231UOW CBC WITH AUTO DIFFCarter Luna MD Work Phone: Start: 29-29-2505JTH LIPID PROFILE (FASTING)Carter Luna MD Work Phone: Start: 35-23-9300QBK MAGNESIUMCarter Luna MD Work Phone: Start: 58-68-6922SRRH LIVER PANELCarter Luna MD Work Phone: Start: 96-42-1802DIH HEMOGLOBIN M8FAwiiCarter Luna MD Work Phone: Start: 60-82-6764VBRRPR PROSTATE SPECIFIC ANTIGEN SCRN Carter Luna MD Work Phone: Start: 81-01-3760YFN screeningDR CARTER GERARDomment on above:Performed By: #### MG, BMP #### [facility] [address] [place] [address] Dr. Abhay FarrStart: 60-40-7347Uvlce 1996 panel - Serum or PlasmaLaura Black NEPHROLOGY SOCIAL WORKER.MANAGER SOCIAL MEDIA Work Phone: start: 05-56-6851OkjdutgglhcNpdwml Jamal NEPHROLOGY SOCIAL WORKER.MANAGER SOCIAL MEDIA Work Phone: Plan of Treatment DateCare ActivityDetailAuthorStart: 32-53-8856Orepupumc for malignant neoplasm of colonNOMS HealthcareStart: 05-13-2026Medicare Annual Wellness (AWV)Medicare Annual Wellness (AWV)NOMS HealthcareStart: 10-01-2025 End: 31-85-6350Lzzmdbm encounter ipvkxrwlg98/13/2025 10:30 AM EST Office Visit [facility] [address] [place] [phone] Carter Luna MD [address] [place] [phone] NOMS CWM FMStart: 10-21-2025Medicare Annual Wellness (AWV)Medicare Annual Wellness (AWV)NOMS HealthcareStart: 61-40-9655Pzvflpoxj vaccinationNOMS HealthcareStart: 05-19-2025 End: 47-79-6013Dfixrfh encounter rfrnjwkyy39/01/2025 12:40 PM EDT Office Visit NATASHA JAIN [address] [place] [phone] Alayna Martinez NP [address] [place], [place] NATASHA GAINESUEStart: 04-23-2025 End: 59-50-3635Fwbxenv encounter grbbexnbg78/05/2025 10:45 AM EDT Office Visit Cardiology [address] [place] [address] Kvdrxdool, Luis L, MD [address] [facility] [address] [place], [place] [id number] Mitral valve insufficiency, unspecified etiologyCardiologyComment on above:Mitral valve insufficiency, unspecified etiologyStart: 04-21-2025 End: 51-33-4608Exohwke encounter procedureNOMS [address]RISTOB[address] STATE ROUTEStart: 04-14-2025 End: 63-17-4025Zwjveeh encounter lqvegohbu45/27/2025 10:45 AM EDT Office Visit NATASHA CRISTOBAL [address] [place], [place] [address] [address] Gloria Preciado DO [address] [place] [address] NATASHA GAINESUEStart: 03-31-2025 End: 17-22-7422Gafapeo encounter procedureNOMS CW FMComment on above:Arrived Start: 03-18-2025 End: 67-88-9016Qnxrsxc encounter conwrztzr80/30/2025 10:30 AM EDT Office Visit [facility] C[facility] FM [address] [place] [phone] Carter Luna MD [address] [place] [address] NOMS CWM FMStart: 03-09-2025 End: 50-27-8823Evihfgz encounter vgppintfe76/21/2025 10:30 AM EDT Office Visit [facility] FM [address] [place] [phone] Carter Luna MD [address] [place] [address] NOMS M FMStart: 02-13-2025 End: 40-18-1410Smcgiuf encounter vgnkeircg01/28/2025 10:30 AM EDT Office Visit Cardiology [address] [place] [address] Efqppt valve insufficiency/ MR/ MV ProlapseCardiologyComment on above:Mitral valve insufficiency/ MR/ MV ProlapseStart: 02-13-2025 End: 21-05-5710sgxpftditw72/28/2025 9:45 AM EDT Results Only Main [place] [address] [address] [place], [place] [address] [address] Draw StationComment on above:LABSStart: 02-01-2025 End: 57-68-0593Teldgrikhcu peptide.B prohormone N-Terminal [Mass/volume] in Serum or PlasmaNT PRO BNP Lab Routine SOB (shortness of breath) Expected: 02/01/2025, Expires: 05/03/2025leveland ClinicComment on above:Expected: 02/01/2025, Expires: 05/03/2025Start: 01-29-2025 End: 37-56-9134Lfbfrpg encounter ngdazpedz50/13/2025 2:15 PM EDT Office Visit Cardiology [address] [place], [place] [phone] Wai Billingsley MD [address] [address] Dx: Primary Diagnosis Mitral valve insufficiency, unspecified etiology CardiologyComment on above:Dx: Primary Diagnosis Mitral valve insufficiency, unspecified etiologyStart: 01-29-2025 End: 38-57-8322Gdwhasd encounter procedureVascular MedicineComment on above:Dx: Primary Diagnosis Mitral valve insufficiency, unspecified etiologyStart: 65-02-0910Fcsfrmz Directive DiscussionAdvance Directive DiscussionTrilla ClinicStart: 11-03-2024 End: 36-68-1580Qfcczaz encounter /16/2024 11:15 AM EST Office Visit [facility] FM [address] [place] [phone] Carter Luna MD [address] [place] [address] ArrivedNOMS CW FMComment on above:ArrivedStart: 09-08-2024 End: 06-70-3338Nqiewri encounter umfjyhwct68/21/2024 10:00 AM EDT Office Visit [facility] FM [address] [place] [address] Carter Luna MD [address] [place] [address] ArrivedNOMS CW FMComment on above:ArrivedStart: 50-92-9979Bkwzr-19 Vaccine ()Covid-19 Vaccine ( season)[facility]: 26-66-7623Zkuyxywda vaccinationSelect [facility] - [facility]innatitart: 05-12-2024 Lipid panelLipid ScreeningSelect Medical Specialty Hospital - [facility]innatitart: 02-92-5405JGJIZ SCREENLIPID SCREENSelect Medical Specialty Hospital - [facility]innatitart: 20-44-0722WNR Vaccine (1 - 1-dose 75+ series)RSV Vaccine (1 - 1-dose 75+ series)[facility]: 26-85-9609Pyirnjs Directive DiscussionAdvance Directive DiscussionSelect Medical Specialty Hospital - Cincinnatitart: 47-86-9948Vfauzamrpy Health ScreeningBehavioral Health ScreeningMercy Health St. [facility] Start: 54-58-6069Gxazwfoypk AssessmentDepression AssessmentMercy Health St. Anne Hospital Start: 72-55-1106BO CONTROLLED (<130/80)BP CONTROLLED (<130/80)[facility] Start: 33-26-3912Dqopg-19 Vaccine ( season)Covid-19 Vaccine ( season)[facility]: 12-61-2322Yxymwqrrh vaccinationSelect Medical Specialty Hospital - [facility]innatitart: 98-58-1669HMQYVBS DIRECTIVE DISCUSSIONADVANCE DIRECTIVE DISCUSSION [facility]: 88-99-9351GXYJJQYIRM ASSESSMENTDEPRESSION ASSESSMENT [facility]: 11-06-2022 End: 86-69-0330REFFEY MONITOR 48 HOURHOLTER MONITOR 48 HOUR ECG Routine Palpitations Expected: 11/06/2022, Expires: 3C[facility] [place] Work Phone: comment on above:Expected: 11/06/2022, Expires: 11/06/2023Start: 79-48-9552Yfqswhtha vaccinationINFLUENZA (#1)[facility] Start: 44-88-5336Tzjwexnc ScreeningDiabetes ScreeningSelect Medical Specialty [facility]innatitart: 64-59-7309OIIIZIVK SCREENDIABETES SCREENSelect Medical Specialty Hospital - Cincinnatitart: 45-99-3478SOJNI- 19 VACCINE (4 - Booster for Pfizer series)COVID-19 VACCINE (4 - Booster for Pfizer series)[facility]: 65-29-1722TXQSA-19 VACCINE (4 - Pfizer series)COVID-19 VACCINE (4 - Pfizer series)[facility]: 11-19-2021 ADVANCE DIRECTIVE DISCUSSIONADVANCE DIRECTIVE DISCUSSIONSelect Medical Specialty [facility]atitart: 00-30-3529UUAIAHJSMD ASSESSMENTDEPRESSION ASSESSMENTSelect Medical Specialty Hospital [facility]atitart: 16-95-7167Btpkfzhyv for malignant neoplasm of colonSelect Medical Specialty Hospital - [facility]atitart: 06-15-0054VyofejksprrXSGMNQCGVXPFaudtqgfy ClinicStart: 71-43-5010ZTDPBZUUAR CANCER SCREENINGCOLORECTAL CANCER SCREENINGSelect [facility]itart: 02-25-2020 Screening for malignant neoplasm of colonSelect Medical Specialty Hospital - Cincinnatitart: 2013 Pneumococcal Vaccine: 65+ (1 of 1 - PCV)Pneumococcal Vaccine: 65+ (1 of 1 - PCV) [facility]: 53-89-1579Gxptxksksnnt Vaccine: 65+ Years (1 of 1 - PCV) Pneumococcal Vaccine: 65+ Years (1 of 1 - PCV)[facility] PNEUMOCOCCAL: 65+ (1 - PCV)PNEUMOCOCCAL: 65+ (1 - PCV)[facility]: 40-68-6473ONB Vaccine (1 - 1-dose 60+ series)RSV Vaccine (1 - 1-dose 60+ series) [facility]: 51-95-3944Pfpksocxbvum Vaccine: 50+ (1 of 1 - PCV) Pneumococcal Vaccine: 50+ (1 of 1 - PCV)[facility]: 1998 SHINGRIX VACCINE (1 of 2)SHINGRIX VACCINE (1 of 2)[facility]: 73-42-7811YSXKWORNK (FIT-DNA)COLOGUARD (FIT-DNA)[facility]: 51-08-3390FF COLONOGRAPHYCT COLONOGRAPHYSelect Medical Specialty Hospital - Cincinnatitart: 98-97-0136CKKZO OCCULT BLOODFECAL OCCULT BLOODSelect Medical Specialty Hospital - Cincinnatitart: 07-51-1058Gcqqyymjv for malignant neoplasm of colonSelect Medical Specialty Hospital - [facility]innatitart: 17-95-4679ECDGOYKKZWTBQ SIGMOIDOSCOPYSelect Medical Specialty Hospital - Cincinnatitart: 57-63-3714Tmcxacbpthnl Vaccine: 65+ Years (1 of 2 - PCV)Pneumococcal Vaccine: 65+ Years (1 of 2 - PCV)[facility] HealthcareStart: 80-51-1946Vhkzw microalbumin profileSelect Medical Specialty Hospital - Cincinnatitart: 85-84-5654YZHXJR PCP TEAM CHRONIC DISEASE VISITANNUAL PCP TEAM CHRONIC DISEASE VISITMercy Health St. [facility] Start: 01-47-1854Zpcljuy ScreeningAnxiety ScreeningSelect Medical Specialty [facility]atitart: 16-41-3488XR CONTROLLED (<130/80)BP CONTROLLED (<130/80)[facility]: 58-45-1130Lquscngaii ScreeningDepression ScreeningSelect Medical Specialty [facility] - [facility]atitart: 99-96-8265PMBUNPXZV C SCREENINGHEPATITIS C SCREENINGSelect Medical Specialty Hospital - [facility]atitart: 43-27-2674Vscubzqho C screeningHepatitis C ScreeningSelect Medical Specialty Hospital - [facility]atitart: 80-09-0474Ikpvsoqywbwt Vaccine: 65+ Years (1 of 2 - PCV)Pneumococcal Vaccine: 65+ Years (1 of 2 - PCV)[facility] HealthcareStart: 96-07-2938GYNUZXDRG AORTIC ANEURYSM SCREENINGABDOMINAL AORTIC ANEURYSM SCREENINGSelect Medical [facility]atitart: 50-87-9993Dptqywzwd aortic aneurysm screeningAbdominal Aortic Aneurysm Screening [facility]: 01-07-1949Medicare Annual Wellness (AWV)Medicare Annual Wellness (AWV)[facility] HealthcareStart: 65-86-9102Xxanwzlrd for malignant neoplasm of colonNOTN Healthcare End: 85-58-0249DZS COMPLETEECG COMPLETE ECG Routine Palpitations 1 Occurrences starting 11/06/2022 until 11/06/2023[facility] Work Phone: Comment on above:1 Occurrences starting 11/06/2022 until 11/06/2023 End: 54-66-9865CVU COMPLETEECG COMPLETE ECG Routine Palpitations 1 Occurrences starting 11/16/2022 until 11/16/2023[facility] Work Phone: Comment on above:1 Occurrences starting 11/16/2022 until 11/16/2023 End: 65-50-2098JSV COMPLETEECG COMPLETE ECG Routine Mitral valve insufficiency, unspecified etiology 1 Occurrences starting 12/27/2023 until 12/27/2024[facility] Work Phone: Comment on above:1 Occurrences starting 12/27/2023 until 12/27/2024 End: 44-73-3297OYM COMPLETEECG COMPLETE ECG Routine EKG abnormalities 1 Occurrences starting 01/28/2025 until 6C[facility] [place] Work Phone: Comment on above:1 Occurrences starting 01/28/2025 until 01/28/2026ECG COMPLETEECG COMPLETE ECG Routine Mitral valve insufficiency, unspecified etiology 1 Occurrences starting 5CPremier Health Atrium Medical CenterComment on above:1 Occurrences starting 04/23/2025 End: 18-31-5363ALBS TRANSESOPHAGEALECHO TRANSESOPHAGEAL Cardiology Routine Mitral valve insufficiency, unspecified etiology 1 Occurrences starting 01/29/2025 until 01/29/2026[facility]rium Medical CenterComment on above:1 Occurrences starting 01/29/2025 until 01/29/2026 End: 79-46-6580SvzcegyfkzyqzcnrPNFH Cardiology Routine Palpitations 1 Occurrences starting 11/06/2022 until 11/06/2023[facility] Work Phone: Comment on above:1 Occurrences starting 11/06/2022 until 11/06/2023 End: 22-66-2212ZfvylafuhybbxaopXPSM Cardiology Routine Mitral valve insufficiency, unspecified etiology 1 Occurrences starting 07/25/2023 until 4C[facility] [place] Work Phone: Comment on above:1 Occurrences starting 07/25/2023 until 07/19/2024 End: 69-05-7737UhvoucuntsenwzybXDLU Cardiology Routine Mitral valve insufficiency, unspecified etiology 1 Occurrences starting 12/27/2023 until 5C[facility] [place] Work Phone: Comment on above:1 Occurrences starting 12/27/2023 until 12/27/2024 End: 69-60-2849GlhbvgojcxrskyhnSXNH Cardiology Routine Mitral valve insufficiency, unspecified etiology 1 Occurrences starting 04/23/2025 until 04/23/2026[facility] Work Phone: Comment on above:1 Occurrences starting 04/23/2025 until 04/23/2026 End: 54-71-2598PU Heart Perfusion W multiple states of exerciseNM CARDIAC PERF STRESS/EXERCISE Radiology Routine SOB (shortness of breath) 1 Occurrences starting 01/29/2025 until 02/28/2026[facility] Work Phone: Comment on above:1 Occurrences starting 01/29/2025 until 02/28/2026[facility] Immunizations Immunization DateImmunizationNotesCare CetoadzmZpohvnvx34-68-7109yyuslifew virus vaccine, unspecified formulationLaura Aurelio FINKNDAVID Work Phone: cPremier [facility] Center Payers DatePayer CategoryPayerPolicy [id number] (Managed Care)[facility] [id number] Private Health [id number] [id number] OF [facility] MEDICARE SUPPLEMENT [id number] 2019-Present [phone] [address] [place] [address] [id number] 2014Medicare [id number] [id number] [id number] 2.0.3.502791.7062-07-1949 [id number] 2.0.1.923967.3.57[id number] 2.840.1.033836.3.57[id number] 2.840.1.945370.3.579.[id number] 2.840.1.994920.3.579.2.52957-87-9840Maxotxw3948430 2.16840.1.035212.3.579.2.31412-13-3602Lwgxlux0304586 2.16840.1.587695.3.579.2.38168-67-2816Vwldolc9917401 2.16840.1.221729.3.579.2.85685-40-1513Paccwar8674172 2.16840.1.942913.3.579.2.04007-51-5229Asjmqza7762363 2.16840.1.062203.3.579.2.27164-58-9346Fdxcktb9942731 2.16.840.1.530917.3.579.2.34903-96-5399Nzeymyy0808178 2.16.840.1.969218.3.579.2.05645-63-9848Lgsfxas2082310 2.16840.1.220249.3.579.2.85439-16-8202Zkdeipx5205293 2.16840.1.816659.3.579.2.94902-65-5340Yivzsst1298929 2.840.1.632159.3.579.2.58912-53-3623Djrnccz3356626 2.840.1.448777.3.579.2.54513-95-3552Vkzpszx9741736 2.840.1.489045.3.579.2.72390-14-4855Wgnzxyp3847573 2.840.1.800590.3.579.2.83464-01-5389Indjkbh4642495 2.840.1.545739.3.579.2.25007-40-8052Ijmeupi3394163 2.840.1.830960.3.579.2.26475-49-2739Ugkyrgu8810143 2.840.1.313336.3.579.2.99361-77-9735Pytsxji6866226 2.16840.1.086310.3.579.2.02180-22-0171Pbuxpqw5443309 2.16840.1.846036.3.579.2.95814-85-5253Ltfvfef7301322 2.840.1.837431.3.579.2.821972-66-2823Napdraq9867619 2.16840.1.140646.3.579.2.557538-90-0120Gsbxaee4231788 2.16.840.1.957346.3.579.2.211421-76-7960Edaprzx2197459 2.16.840.1.555061.3.579.2.1259 Social History DateTypeDetailFacilityStart: 01-16-2023 End: 92-00-8692Tlr Assigned At [facility] [id number] Other start: 11-01-2017 End: 60-47-1841Bhtgvcd smoking status NHISEx-smokerMercy Health St[facility] Work Phone: Start: 11-19-1974 End: 03-24-2276Gfqryzm of tobacco useCurrent smokerMercy Health St. Anne Hospital Work Phone: Start: 11-19-1974 End: 08-81-3496Qhiykmc of tobacco useCigarette SmokerMercy Health St. Anne Hospital Work Phone: Start: 11-01-2017 End: 46-33-4849Xmlkqcqxyv smoked current (pack per day) - Uyyfixba0Isdwnzeii ClinicStart: 11-01-2017 End: 79-18-9360Gahhgof use and exposureSmokeless tobacco non-userMercy Health St. Anne Hospital Work Phone: Start: 03-05-3262Rjqguap intakeCurrent non-drinker of alcohol (finding)[facility]: 05-58-1575Itd Assigned At [facility] HospitalNot on fileTrilla ClinicStart: 11-16-2022 End: 76-94-5183Xjhktry intakeEx-drinker (finding)[facility] HospitalNational Score (1-100), lower number is lower jodn96Cmqmfajkj[address] [place], [place] [address]tart: 88-22-0001Dclrla orientationHeterosexual (finding)[facility]art: 03-04-2024 End: 77-88-5418Vuuipdr smoking status NHISNever smoked tobaccoNOTN Healthcare Start: 03-26-2024 End: 38-94-4749Ltkopzwou beverage intakeLifetime non-drinker (finding)[facility] HospitalStart: 65-58-3880Orvtjhb Commentcaffeine: noneLOGAN REG[facility] HealthcareSexMale (finding)[facility] Hospitaltart: 36-69-0623Jux Assigned At [facility] Functional Status BmnnOcfolbzfgvRmezocJkvzvaho34-55-0360Jmscybe Health Questionnaire 2 item (PHQ- 2) [Reported][facility] Clinical Notes 09-12-2022 to 04-23-2025 Note Date & JrnfUldfQixnlrin84-80-5549 NoteHNO ID: [id number] Author: WAI BILLINGSLEY MD Service: ? Author Type: Physician Type: Progress Notes Filed: 04/23/2025 18:10 Note Text: [facility] [facility] Department of Cardiovascular Medicine SECTION OF CARDIOVASCULAR IMAGING OUTPATIENT VISIT DATE 04/23/2025 OUTPATIENT VISIT TYPE ESTABLISHED PRIMARY CARE PHYSICIAN: Carter Luna ([facility]) [address] [place] [address] REFERRING PHYSICIAN: Katerin Billingsley [address] [facility] [address] CHIEF COMPLAINT: Follow up HISTORY OF PRESENT ILLNESS: Mr. Garrison is a 74 year old male who presents today for follow-up visit . Since his last visit, he states that he had a ENID and nuclear stress test. He denies chest pain, shortness of breath, orthopnea, cough, edema, palpitations, PND, lightheadedness or syncope. PAST CARDIAC HISTORY: He has been seen in the past for Moderate mitral regurgitation. PAST MEDICAL HISTORY Diagnosis Date Anxiety Chest pain negative stress in 2016 Hyperlipidemia Hypertension Palpitations Panic attacks Sleep apnea on CPAP PAST SURGICAL HISTORY Procedure Laterality Date NONE SOCIAL HISTORY Social History Tobacco Use Smoking status: Former Current packs/day: 0.00 Average packs/day: 1 pack/day for 5.0 years (5.0 ttl pk-yrs) Types: Cigarettes Start date: 11/19/1972 Quit date: 11/19/1977 Years since quittin.4 Smokeless tobacco: Never Substance Use Topics Alcohol use: Not Currently Drug use: Never FAMILY HISTORY Problem Relation Age of Onset Colon Cancer Mother Ischemic Heart Disease Father 65 s/p CABG x 4 Alzheimer's Disease Father Hyperlipidemia Brother Hypertension Brother Heart disease Brother heart infection Ischemic Heart Disease Brother 71 s/p CABG ALLERGIES: ALLERGIES Allergen Reactions Hctz [Thiazides] GI Upset Nausea Penicillin Unknown MEDICATIONS: amLODIPine (NORVASC) 2.5 mg tablet Take 1 tablet by mouth once daily aspirin (ASPIR-81 ORAL) Take 1 tablet by mouth once daily. metoprolol succinate ER (TOPROL XL) 50 mg 24 hr tablet Take 1 tablet by mouth twice daily. LORazepam (ATIVAN) 0.5 mg Take 0.5 mg by mouth three times daily as needed. 0.25mg in the morning and afternoon and 0.5mg in the evening atorvastatin (LIPITOR) 10 mg tablet Take 10 mg by mouth once daily. ZEAXANTHIN, BULK, MISC 20 mg once daily. multivitamin tablet Take 1 tablet by mouth once daily. With 18 mg iron sodium chloride 0.9 %, flush, (BD POSIFLUSH) syringe Inject 2-10 mL intravenously as directed. For Echo procedure (Patient not taking: Reported on 04/23/2025) No data to display REVIEW OF SYSTEMS: PHYSICAL EXAMINATION: BP 135/62 (BP Site: Left Arm, BP Position: Sitting, BP Cuff Size: Regular Adult) Pulse 62 Ht 182.9 cm (6') Wt 72.6 kg (160 lb) SpO2 99% BMI 21.70 kg/m? General: Well appearing, in no acute distress, speaking in complete sentences. Lungs: Clear to auscultation bilaterally, no wheezing or rhonchi. Heart: Regular rhythm, PMI not displaced, S1, S2 normal, no S3, no S4, no heaves, no rub and mid to late systolic apical murmur. Abdomen: Soft, nontender, bowel sounds normal, no palpable organomegaly, no bruits. Extremities: No peripheral edema . Grade 2/4 distal pulses bilaterally. Neuro: Oriented to person, place and time, alert, cooperative, gait coordinated. CARDIOVASCULAR MEDICINE TESTING: Stress Test:Nuclear (Non-PET): 1. SPECT Perfusion Study: Normal. 2. There is no scintigraphic evidence for inducible ischemia. 3. No evidence of scarred myocardium. 4. Left ventricle is normal in size. The left ventricle systolic function is normal. 5. Right ventricle is normal in size. The right ventricle systolic function is normal. 6. This is a low risk scan Last ENID Result Conclusion ECHO TRANSESOPHAGEAL Collected: 02/13/2025 10:58 AM (Final result) Impression: CONCLUSIONS: - Exam indication: AR / MR mechanism study - The left ventricle is normal in size. Left ventricular systolic function is normal. EF = 60 ? 5% (visual est.) - The right ventricle is normal in size. Right ventricular systolic function is normal. - There is moderate (2+) mitral valve regurgitation due to prolapse. Regurgitant orifice area (PISA) is 0.17 cm?. Several small jets of mitral regurgitation, the largest of which is very eccentric and originates near the medial commissure. Mild bileaflet prolapse. - Exam was compared with the prior echocardiographic exam performed on 01/29/25. Similar findings. * * * Final * * * Last EKG Result Conclusion ECG COMPLETE Collected: 01/29/2025 1:50 PM (Final result) Impression: SINUS RHYTHM WITH PREMATURE ATRIAL COMPLEXES OTHERWISE NORMAL ECG Confirmed by OBINNA LANGSTON MD (22) on 02/20/2025 5:00:25 PM IMPRESSION: (more content not included)...[facility]06-05-2025 History of Present illness Narrative* Wai Billingsley MD - 04/23/2025 10:47 AM EDT Images from the original note were not included. [facility] Department of Cardiovascular Medicine SECTION OF CARDIOVASCULAR IMAGING OUTPATIENT VISIT DATE 04/23/2025 OUTPATIENT VISIT TYPE ESTABLISHED PRIMARY CARE PHYSICIAN: Carter Luna ([facility]) [address] [place] [address] REFERRING PHYSICIAN: Katerin Billingsley [address] [address] CHIEF COMPLAINT: Follow up HISTORY OF PRESENT ILLNESS: Mr. Garrison is a 74 year old male who presents today for follow-up visit . Since his last visit, he states that he had a ENID and nuclear stress test. He denies chest pain, shortness of breath, orthopnea, cough, edema, palpitations, PND, lightheadedness or syncope. PAST CARDIAC HISTORY: He has been seen in the past for Moderate mitral regurgitation. PAST MEDICAL HISTORY Diagnosis Date Anxiety Chest pain negative stress in 2016 Hyperlipidemia Hypertension Palpitations Panic attacks Sleep apnea on CPAP PAST SURGICAL HISTORY Procedure Laterality Date NONE SOCIAL HISTORY Social History Tobacco Use Smoking status: Former Current packs/day: 0.00 Average packs/day: 1 pack/day for 5.0 years (5.0 ttl pk-yrs) Types: Cigarettes Start date: 11/19/1972 Quit date: 11/19/1977 Years since quittin.4 Smokeless tobacco: Never Substance Use Topics Alcohol use: Not Currently Drug use: Never FAMILY HISTORY Problem Relation Age of Onset Colon Cancer Mother Ischemic Heart Disease Father 65 s/p CABG x 4 Alzheimer's Disease Father Hyperlipidemia Brother Hypertension Brother Heart disease Brother heart infection Ischemic Heart Disease Brother 71 s/p CABG ALLERGIES: ALLERGIES Allergen Reactions Hctz [Thiazides] GI Upset Nausea Penicillin Unknown MEDICATIONS: amLODIPine (NORVASC) 2.5 mg tablet Take 1 tablet by mouth once daily aspirin (ASPIR-81 ORAL) Take 1 tablet by mouth once daily. metoprolol succinate ER (TOPROL XL) 50 mg 24 hr tablet Take 1 tablet by mouth twice daily. LORazepam (ATIVAN) 0.5 mg Take 0.5 mg by mouth three times daily as needed. 0.25mg in the morning and afternoon and 0.5mg in the evening atorvastatin (LIPITOR) 10 mg tablet Take 10 mg by mouth once daily. ZEAXANTHIN, BULK, MISC 20 mg once daily. multivitamin tablet Take 1 tablet by mouth once daily. With 18 mg iron sodium chloride 0.9 %, flush, (BD POSIFLUSH) syringe Inject 2-10 mL intravenously as directed. For Echo procedure (Patient not taking: Reported on 04/23/2025) No data to display REVIEW OF SYSTEMS: PHYSICAL EXAMINATION: BP 135/62 (BP Site: Left Arm, BP Position: Sitting, BP Cuff Size: Regular Adult) Pulse 62 Ht 182.9 cm (6') Wt 72.6 kg (160 lb) SpO2 99% BMI 21.70 kg/m General: Well appearing, in no acute distress, speaking in complete sentences. Lungs: Clear to auscultation bilaterally, no wheezing or rhonchi. Heart: Regular rhythm, PMI not displaced, S1, S2 normal, no S3, no S4, no heaves, no rub and mid tolate systolic apical murmur. Abdomen: Soft, nontender, bowel sounds normal, no palpable organomegaly, no bruits. Extremities: No peripheral edema . Grade 2/4 distal pulses bilaterally. Neuro: Oriented to person, place and time, alert, cooperative, gait coordinated. CARDIOVASCULAR MEDICINE TESTING: Stress Test:Nuclear (Non-PET): 1. SPECT Perfusion Study: Normal. 2. There is no scintigraphic evidence for inducible ischemia. 3. No evidence of scarred myocardium. 4. Left ventricle is normal in size. The left ventricle systolic function is normal. 5. Right ventricle is normal in size. The right ventricle systolic function is normal. 6. This is a low risk scan Last ENID Result Conclusion ECHO TRANSESOPHAGEAL Collected: 02/13/2025 10:58 AM (Final result) Impression: CONCLUSIONS: - Exam indication: AR / MR mechanism study - The left ventricle is normal in size. Left ventricular systolic function is normal. EF = 60 5% (visual est.) - The right ventricle is normal in size. Right ventricular systolic function is normal. - There is moderate (2+) mitral valve regurgitation due to prolapse. Regurgitant orifice area (PISA) is 0.17 cm . Several small jets of mitral regurgitation, the largest of which is very eccentric and originates near the medial commissure. Mild bileaflet prolapse. - Exam was compared with the prior echocardiographic exam performed on 01/29/25. Similar findings. * * * Final * * * Last EKG Result Conclusion ECG COMPLETE Collected: 01/29/2025 1:50 PM (Final result) Impression: SINUS RHYTHM WITH PREMATURE ATRIAL COMPLEXES OTHERWISE NORMAL ECG Confirmed by OBINNA LANGSTON MD ([id number]) on 02/20/2025 5:00:25 PM IMPRESSION: Mr. Garrison is a 74 year old male with stable, moderate mitral regurgitation. Negative stress testand normal ejection fraction. PLAN AND RECOMMENDATIONS: Follow up with echo in 1 year. CONTACT INFORMATION: Katerin Billingsley MD documented in [facility] encounterMer[facility] Telephone encounter Note * Telephone Encounter - Vivi Harris - 04/03/2025 4:37 PM EDT Call from patient requesting refill. Requested Prescriptions Pending Prescriptions Disp Refills amLODIPine (NORVASC) 2.5 mg tablet [Pharmacy Med Name: amLODIPine Besylate 2.5 MG Oral Tablet] 90 tablet 3 Sig: Take 1 tablet by mouth once daily Patient last seen 01/29/[address] [facility]05-16-2025 Miscellaneous Notes* Telephone Encounter - Vivi Harris - 04/03/2025 4:37 PM EDT Call from patient requesting refill. Requested Prescriptions Pending Prescriptions Disp Refills amLODIPine (NORVASC) 2.5 mg tablet [Pharmacy Med Name: amLODIPine Besylate 2.5 MG Oral Tablet] 90 tablet 3 Sig: Take 1 tablet by mouth once daily Patient last seen 01/29/25 Vivi Harris documented in this encounterMer[facility] History of Present illness Narrative* Carter Luna MD - 03/31/2025 11:51 AM EDTAssociated Problem(s): Medicare annual wellness visit, subsequent Reviewed labs. Discussed proper diet and regular aerobic exercise. Need aerobic exercise 5-6 days aweek for 30 minutes at a time. Smaller portions and limit total calories. Tetanus every 10 years. Advised not to smoke. * Carter Luna MD - 03/31/2025 11:00 AM EDT Images from the original note were not included. Subjective Patient ID: Marshal Garrison is a 74 y.o. male who presents for Medicare Annual Wellness Visit Subsequent (wellness) and Urinary Frequency (Trouble holding it in). Presents for medicare annual wellness visit. Patient feels well today. Weight down 20 pounds in thepast year. Active and walks several days a week. Changed diet and eating better. Increased fruits and vegetables. Smaller portions and limits snacking. Tries to limit total daily calories. Reviewed recent labs. Review of Systems Constitutional: [...] There is no guarding or rebound. Musculoskeletal: General: Normal range of motion. Left lower leg: No edema. Neurological: General: No focal deficit present. Mental Status: He is alert. Cranial Nerves: No cranial nerve deficit. Deep Tendon Reflexes: Reflexes normal. Assessment/Plan Problem List Items Addressed This Visit Medicare annual wellness visit, subsequent - Primary Reviewed labs. Discussed proper diet and regular aerobic exercise. Need aerobic exercise 5-6 days aweek for 30 minutes at a time. Smaller portions and limit total calories. Tetanus every 10 years. Advised not to smoke. documented in this encounterPerry [facility] [id number] Telephone encounter Note* Telephone Encounter - Vivi Harris - 03/23/2025 1:14 PM EDT Call from patient requesting refill. Requested Prescriptions Pending Prescriptions Disp Refills amLODIPine (NORVASC) 2.5 mg tablet [Pharmacy Med Name: amLODIPine Besylate 2.5 MG Oral Tablet] 90 tablet 0 Sig: Take 1 tablet by mouth once daily Patient last seen 01/29/25 Vivi Laura Kimberly [facility]05-05-2025 Miscellaneous Notes* Telephone Encounter - Vivi Harris Laura - 03/23/2025 1:14 PM EDT Call from patient requesting refill. Requested Prescriptions Pending Prescriptions Disp Refills amLODIPine (NORVASC) 2.5 mg tablet [Pharmacy Med Name: amLODIPine Besylate 2.5 MG Oral Tablet] 90 tablet 0 Sig: Take 1 tablet by mouth once daily Patient last seen 01/29/25 Vivi Harris documented in this encounterMer[facility]. [facility]05-[facility] History of Present illness Narrative* Jesus Ervin RT(R) - 03/23/2025 1:00 PM EDT RADIOLOGY SERVICE PROGRESS NOTE SERVICE DATE: 03/23/2025 SERVICE TIME: 1:16 PM PATIENT IDENTITY VERIFICATION COMPLETED USING TWO (2) STANDARD IDENTIFIERS: Name and Date of confirmed by patient verbally and Name and Date of confirmed by identification band FALL SCREENING: Has the patient had 2 falls in the last year or 1 fall with injury or currently using an Ambulatory Assistive Device (Walker, Cane, Wheelchair, Crutches, etc.)? No PATIENT GENDER DATA: .male ALLERGIES: Reviewed and unchanged MEDICATIONS REVIEWED: Yes PATIENT RELEVANT IMPLANT DATA REVIEWED: Not Applicable PATIENT PRESENTS WITH AN IMPLANTABLE OR ATTACHED ENVIRONMENT ARTIST: No CREATININE: Creatinine Date Value Ref Range Status 02/03/2019 1.19 0.73 - 1.22 mg/dL Final eGFR-All Other Races Date Value Ref Range Status 02/03/2019 >60 . Final Comment: eGFR (Estimated GFR) Units of measure: mL/min/1.73 meters squared eGFR is derived from the reexpressed MDRD Study equation using the following parameters: serum creatinine, age, gender and race. The creatinine assay has been calibrated to be traceable to IDMS. An eGFR <60 mL/min/1.73m2 for >3 months is consistent with chronic kidney disease. Refer to KDOQI guidelines for clinical interpretation. In patients with unstable renal function, e.g. those with acute kidney injury, the eGFR may not accurately reflect actual GFR. eGFR- Date Value Ref Range Status 02/03/2019 >60 Final P.O.C.T. RESULTS: N/A March 23, [address] PERFORMED: No IV SITE: Ambulatory: A peripheral IV was started in the Left antecubital site with a Angio cath: 22gauge. POST EXAM PIV STATUS: Discontinued PROCEDURE TYPE: NM Stress: 12.6mCi Xv07x-Bovvwye was administered IV for Rest Imaging at 1310 by Sondra Ramirez. 32 mCi Mf99q-Owpjsdr was administered IV for Stress Imaging at 1403 by jaciel. PATIENT DISCHARGED TO: Ambulatory patient, left NM department area. Is this a therapy: No A Diagnostic radioactive procedure has taken place, with no further precautions necessary other than routine body substance precautions. More information regarding radiation safety can be found usingthis link: [email or web address]%20Medicine%[email or web address] SIGNATURE: Sondra Ramirez PATIENT NAME: Marshal Garrison DATE: March 23, 2025 TIME: 1:16 PM PAGER/CONTACT #: documented in this encounterMer[facility]05-[facility]-2025 NoteHNO ID: [id number] Author: JESUS ERVIN RT(R) Service: Nuclear Medicine Author Type: Juice Mixer Type: Progress Notes Filed: 03/23/2025 14:03 Note Text: RADIOLOGY SERVICE PROGRESS NOTE SERVICE DATE: 03/23/2025 SERVICE TIME: 1:16 PM PATIENT IDENTITY VERIFICATION COMPLETED USING TWO (2) STANDARD IDENTIFIERS: Name and Date of confirmed by patient verbally and Name and Date of confirmed by identification band FALL SCREENING: Has the patient had 2 falls in the last year or 1 fall with injury or currently using an Ambulatory Assistive Device (Walker, Cane, Wheelchair, Crutches, etc.)? No PATIENT GENDER DATA: .male ALLERGIES: Reviewed and unchanged MEDICATIONS REVIEWED: Yes PATIENT RELEVANT IMPLANT DATA REVIEWED: Not Applicable PATIENT PRESENTS WITH AN IMPLANTABLE OR ATTACHED ENVIRONMENT ARTIST: No CREATININE: Creatinine Date Value Ref Range Status 02/03/2019 1.19 0.73 - 1.22 mg/dL Final eGFR-All Other Races Date Value Ref Range Status 02/03/2019 >60 . Final Comment: eGFR (Estimated GFR) Units of measure: mL/min/1.73 meters squared eGFR is derived from the reexpressed MDRD Study equation using the following parameters: serum creatinine, age, gender and race. The creatinine assay has been calibrated to be traceable to IDMS. An eGFR <60 mL/min/1.73m2 for >3 months is consistent with chronic kidney disease. Refer to KDOQI guidelines for clinical interpretation. In patients with unstable renal function, e.g. those with acute kidney injury, the eGFR may not accurately reflect actual GFR. eGFR- Date Value Ref Range Status 02/03/2019 >60 Final P.O.C.T. RESULTS: N/A March 23, [address] PERFORMED: No IV SITE: Ambulatory: A peripheral IV was started in the Left antecubital site with a Angio cath: 22 gauge. POST EXAM PIV STATUS: Discontinued PROCEDURE TYPE: CT Stress: 12.6mCi Hn09u-Ugrefzp was administered IV for Rest Imaging at 1310 by Sondra Ramirez. 32 mCi Dp53u-Kxyyqii was administered IV for Stress Imaging at 1403 by jaciel. PATIENT DISCHARGED TO: Ambulatory patient, left NM department area. Is this a therapy: No A Diagnostic radioactive procedure has taken place, with no further precautions necessary other than routine body substance precautions. More information regarding radiation safety can be found using this link: [email or web address] SIGNATURE: Sondra Ramirez PATIENT NAME: Marshal Garrison DATE: March 23, 2025 TIME: 1:16 PM PAGER/CONTACT #:[facility]03-28-2025 NoteHNO ID: [id number] Author: JULIAN SARMIENTO RN Service: ? Author Type: Registered Nurse Type: Progress Notes Filed: 02/13/2025 12:29 Note Text: AMBULATORY PATIENT EDUCATION TOPIC: ENID READINESS TO LEARN COGNITIVE ABILITY: Alert and oriented MOTIVATION TO LEARN: Interested FAMILY SUPPORT: Unable to assess - Family not present INSTRUCTION PROVIDED TO: Patient PATIENT LEARNS BEST BY: Individual Instruction FACTORS AFFECTING LEARNING: None PHYSICAL LIMITATIONS AFFECTING LEARNING: None LEARNING RESPONSE DIAGNOSIS: Eval MR METHOD OF INSTRUCTION: Individual instruction PATIENT / FAMILY RESPONSE: Verbalizes understanding of: POST-PROCEDURE INSTRUCTIONS-Correct actions to take to reduce post procedure complications PRE-PROCEDURE INSTRUCTIONS-Correct action to take to follow pre-procedure instructions FOLLOW-UP PLAN: Complete - No need for follow-up SUPPLEMENTAL MATERIAL: Post ENID instructions given Post sedation instructions given REFERRAL (RECOMMENDATION): None Electronically Signed By Julian Sarmiento RN In Department: [facility]YMartin [facility]03-28-2025 History of Present illness Narrative* Julian Sarmiento RN - 02/13/2025 10:07 AM EDT AMBULATORY PATIENT EDUCATION TOPIC: ENID READINESS TO LEARN COGNITIVE ABILITY: Alert and oriented MOTIVATION TO LEARN: Interested FAMILY SUPPORT: Unable to assess - Family not present INSTRUCTION PROVIDED TO: Patient PATIENT LEARNS BEST BY: Individual Instruction FACTORS AFFECTING LEARNING: None PHYSICAL LIMITATIONS AFFECTING LEARNING: None LEARNING RESPONSE DIAGNOSIS: Eval MR METHOD OF INSTRUCTION: Individual instruction PATIENT / FAMILY RESPONSE: Verbalizes understanding of: POST-PROCEDURE INSTRUCTIONS-Correct actionsto take to reduce post procedure complications PRE-PROCEDURE INSTRUCTIONS-Correct action to take to follow pre-procedure instructions FOLLOW-UP PLAN: Complete - No need for follow-up SUPPLEMENTAL MATERIAL: Post ENID instructions given Post sedation instructions given REFERRAL (RECOMMENDATION): None Electronically Signed By Julian Sarmiento RN In Department: CARDIOLOGY documented in this encounterMer[facility]03-27-2025 Telephone encounter Note * Telephone Encounter - Veronica Whitfield RN - 02/12/2025 9:59 AM EDT ECHO LAB TELEPHONE INSTRUCTIONS: Learning Response: Instructions provided to: Patient Procedure: ENID Pre procedure education topics: Arrival time, NPO status, Medications, Travel, and Accompanied by aresponsible adult Instructions/Restrictions Patient/Family Response Evaluation: Verbalizes understanding Follow Up Plan and Medication: As directed by physician Instruction/Supplemental Material Given: Appointment Information and Procedure/Test Specific Information: Transesphageal Echocardiogram-ENID Instructed By Veronica Whitfield RN. In Department of CARDIOLOGY. [facility]03-27-2025 Miscellaneous Notes* Telephone Encounter - Veronica Whitfield RN - 02/12/2025 9:59 AM EDT ECHO LAB TELEPHONE INSTRUCTIONS: Learning Response: Instructions provided to: Patient Procedure: ENID Pre procedure education topics: Arrival time, NPO status, Medications, Travel, and Accompanied by aresponsible adult Instructions/Restrictions Patient/Family Response Evaluation: Verbalizes understanding Follow Up Plan and Medication: As directed by physician Instruction/Supplemental Material Given: Appointment Information and Procedure/Test Specific Information: Transesphageal Echocardiogram-ENID Instructed By Veronica Whitfield RN. In Department of CARDIOLOGY. documented in this encounterMer[facility]03-[facility]25 NoteHNO ID: [id number] Author: WAI BILLINGSLEY MD Service: ? Author Type: Physician Type: Progress Notes Filed: 02/01/2025 10:40 Note Text: [facility] [facility] Armando Department of Cardiovascular Medicine SECTION OF CARDIOVASCULAR IMAGING OUTPATIENT VISIT DATE 01/29/2025 OUTPATIENT VISIT TYPE ESTABLISHED PRIMARY CARE PHYSICIAN: Carter Luna ([facility]) [address] [place] [address] REFERRING PHYSICIAN: SELF The patient consented to the use of NemeriX software for draft documentation of the visit consistent with [facility]?s Notice of Privacy Practices. Subjective The patient is a 74-year-old male presenting for follow-up. The patient reports a family history of significant cardiac events. His son, age 59, recently experienced an SD and required stent placement. His father underwent quadruple CABG at age 65. He expresses concern about potential genetic predispositions to cardiac issues. He reports experiencing dyspnea and palpitations after walking across a parking lot to an elevator. He also recalls an exercise stress test six years ago, which he could not complete due to dyspnea and anxiety. He has not engaged in regular exercise this winter and inquires about appropriate heart rate targets during physical activity. He has been consuming two to three eggs daily and questions the impact of this diet on his cholesterol levels. He has lost approximately 15 pounds over the past four months by eating healthier foods. He has one son and four daughters. His son?s mother was adopted, so he is unaware of her family medical history. He is currently taking a daily low-dose aspirin and Lipitor. PAST MEDICAL HISTORY Diagnosis Date Anxiety Chest pain negative stress in 2016 Hyperlipidemia Hypertension Palpitations Panic attacks Sleep apnea on CPAP PAST SURGICAL HISTORY Procedure Laterality Date NONE SOCIAL HISTORY Social History Tobacco Use Smoking status: Former Current packs/day: 0.00 Average packs/day: 1 pack/day for 5.0 years (5.0 ttl pk-yrs) Types: Cigarettes Start date: 11/19/1972 Quit date: 11/19/1977 Years since quittin.2 Smokeless tobacco: Never Substance Use Topics Alcohol [...] tablet Take 1 tablet by mouth once daily aspirin (ASPIR-81 ORAL) Take 1 tablet by mouth once daily. metoprolol succinate ER (TOPROL XL) 50 mg 24 hr tablet Take 1 tablet by mouth twice daily. LORazepam (ATIVAN) 0.5 mg Take 0.5 mg by mouth three times daily as needed. 0.25mg in the morning and afternoon and 0.5mg in the evening atorvastatin (LIPITOR) 10 mg tablet Take 10 mg by mouth once daily. ZEAXANTHIN, BULK, MISC 20 mg once daily. multivitamin tablet Take 1 tablet by mouth once daily. With 18 mg iron sodium chloride 0.9 %, flush, (BD POSIFLUSH) syringe Inject 2-10 mL intravenously as directed. For Echo procedure Constitutional: (+) weight loss Cardiovascular: (+) palpitations Psychiatric: (+) anxiety Objective PHYSICAL EXAMINATION: BP 141/70 (BP Site: Left Arm, BP Position: Sitting) Pulse 64 Ht 182.9 cm (6') Wt 72.6 kg (160 lb) SpO2 98% BMI 21.70 kg/m? General: Well appearing, in no acute distress, speaking in complete sentences. Neck: No jugular venous distention, no carotid bruits, carotids have a normal upstroke, no palpable thyromegaly. Lungs: Clear to auscultation bilaterally, no wheezing or rhonchi. Heart: Regular rhythm, PMI not displaced, S1, S2 normal, no S3, no S4, no heaves, no rub and 3/6 holosystolic apical murmur best heard in lateral decubitus. Abdomen: Soft, nontender, bowel sounds normal, no palpable organomegaly, no bruits. Extremities: No peripheral edema . Grade 2/4 distal pulses bilaterally. Neuro: Oriented to person, place and time, alert, cooperative, gait coordinated. CARDIOVASCULAR MEDICINE TESTING: Last ECHO Result Conclusion ECHO Collected: 01/29/2025 12:38 PM (Final result) Impression: CONCLUSIONS: - Technically difficult exam due to body habitus. - Exam indication: MVP, MR - The left ventricle is normal in size. Left ventricular systolic function is normal. EF = 63 ? 5% (2D biplane) Left ventricular diastolic function was not evaluated due to >2+ MR. - The right ventricle is normal in size. Right ventricular systolic function is normal. - There is moderate (2+) mitral valve regurgitation due to prolapse. Regurgitant orifice area (PISA) is 0.33 cm?. Eccen (more content not included)...[facility]03-13-2025 History of Present illness Narrative* Wai Billingsley MD - 01/29/2025 2:15 PM EDT Images from the original note were not included. [facility] Department of Cardiovascular Medicine SECTION OF CARDIOVASCULAR IMAGING OUTPATIENT VISIT DATE 01/29/2025 OUTPATIENT VISIT TYPE ESTABLISHED PRIMARY CARE PHYSICIAN: Carter Luna ([facility]) [address] [place] [address] REFERRING PHYSICIAN: SELF The patient consented to the use of ambient GrowYo software for draft documentation of the visit consistent with [facility] s Notice of Privacy Practices. Subjective The patient is a 74-year-old male presenting for follow-up. The patient reports a family history of significant cardiac events. His son, age 59, recently experienced an SD and required stent placement. His father underwent quadruple CABG at age 65. He expresses concern about potential genetic predispositions to cardiac issues. He reports experiencing dyspnea and palpitations after walking across a parking lot to an elevator.He also recalls an exercise stress test six years ago, which he could not complete due to dyspnea and anxiety. He has not engaged in regular exercise this winter and inquires about appropriate heart rate targets during physical activity. He has been consuming two to three eggs daily and questions the impact of this diet on his cholesterol levels. He has lost approximately 15 pounds over the past four months by eating healthier foods. He has one son and four daughters. His son s mother was adopted, so he is unaware of her family medical history. He is currently taking a daily low-dose aspirin and Lipitor. PAST MEDICAL HISTORY Diagnosis Date Anxiety Chest pain negative stress in 2016 Hyperlipidemia Hypertension Palpitations Panic attacks Sleep apnea on CPAP PAST SURGICAL HISTORY Procedure Laterality Date NONE SOCIAL HISTORY Social History Tobacco Use Smoking status: Former Current packs/day: 0.00 Average packs/day: 1 pack/day for 5.0 years (5.0 ttl pk-yrs) Types: Cigarettes Start date: 11/19/1972 Quit date: 11/19/1977 Years since quittin.2 Smokeless tobacco: Never Substance Use Topics Alcohol [...] tablet Take 1 tablet by mouth once daily aspirin (ASPIR-81 ORAL) Take 1 tablet by mouth once daily. metoprolol succinate ER (TOPROL XL) 50 mg 24 hr tablet Take 1 tablet by mouth twice daily. LORazepam (ATIVAN) 0.5 mg Take 0.5 mg by mouth three times daily as needed. 0.25mg in the morning and afternoon and 0.5mg in the evening atorvastatin (LIPITOR) 10 mg tablet Take 10 mg by mouth once daily. ZEAXANTHIN, BULK, MISC 20 mg once daily. multivitamin tablet Take 1 tablet by mouth once daily. With 18 mg iron sodium chloride 0.9 %, flush, (BD POSIFLUSH) syringe Inject 2-10 mL intravenously as directed. For Echo procedure Constitutional: (+) weight loss Cardiovascular: (+) palpitations Psychiatric: (+) anxiety Objective PHYSICAL EXAMINATION: BP 141/70 (BP Site: Left Arm, BP Position: Sitting) Pulse 64 Ht 182.9 cm (6') Wt 72.6 kg (160lb) SpO2 98% BMI 21.70 kg/m General: Well appearing, in no acute distress, speaking in complete sentences. Neck: No jugular venous distention, no carotid bruits, carotids have a normal upstroke, no palpablethyromegaly. Lungs: Clear to auscultation bilaterally, no wheezing or rhonchi. Heart: Regular rhythm, PMI not displaced, S1, S2 normal, no S3, no S4, no heaves, no rub and 3/6 holosystolic apical murmur best heard in lateral decubitus. Abdomen: Soft, nontender, bowel sounds normal, no palpable organomegaly, no bruits. Extremities: No peripheral edema . Grade 2/4 distal pulses bilaterally. Neuro: Oriented to person, place and time, alert, cooperative, gait coordinated. CARDIOVASCULAR MEDICINE TESTING: Last ECHO Result Conclusion ECHO Collected: 01/29/2025 12:38 PM (Final result) Impression: CONCLUSIONS: - Technically difficult exam due to body habitus. - Exam indication: MVP, MR - The left ventricle is normal in size. Left ventricular systolic function is normal. EF = 63 5% (2D biplane) Left ventricular diastolic function was not evaluated due to >2+ MR. - The right ventricle is normal in size. Right ventricular systolic function is normal. - There is moderate (2+) mitral valve regurgitation due to prolapse. Regurgitant orifice area (PISA) is 0.33 cm . Eccentric MR jet and multiple jets. - There is mild (1+) tricuspid valve regurgitation. - Estimated right ventricular systolic pressure is 36 mmHg consistent with mild pulmonary hypertension. Estimated right atrial pressure is 8 mmHg based on IVC assessment. - Exam was compared with the prior echocardiographic exam performed on 12/27/2023. Slight increase in mitral regurgitation but not much different compared to 2021. * * * Final * * * I have personally reviewed the Electrocardiogram and Echocardiogram. Last EKG Result Conclusion ECG COMPLETE Collected: 01/29/2025 1:50 PM (Preliminary result) Impression: SINUS RHYTHM WITH PREMATURE ATRIAL COMPLEXES OTHERWISE NORMAL ECG Assessment & Plan Mr. Garrison has mitral regurgitation slightly increased since last echo. Also his son had a recentMI with cardiac arrest and Mr. Garrison is concerned about his risks in this regard. Recommendations: - Continue taking baby aspirin daily in the morning. - Continue taking your cholesterol medication as prescribed. - Reduce egg consumption to no more than four eggs per week. - Schedule and complete a stress test locally within the next three months. - Schedule and complete a transesophageal echocardiogram (ENID) here within the next three months; arrange for a caterpillar driver to accompany you, as you will not be able to drive after the procedure. - Next follow-up appointment in about three months. CONTACT INFORMATION: Katerin Billingsley MD documented in this encounterMer[facility] St[facility]02-24-2025 Telephone encounter Note * Telephone Encounter - Carter Luna MD - 01/12/2025 7:15 PM EST [facility] [id number] Miscellaneous Notes* Telephone Encounter - Carter Luna MD - 01/12/2025 7:15 PM EST documented in this encounterPer[facility] [id number] Telephone encounter Note* Telephone Encounter - Mckenna Steiner - 12/18/2024 9:35 AM EST Call from pharmacy requesting refill. Requested Prescriptions Pending Prescriptions Disp Refills amLODIPine (NORVASC) 2.5 mg tablet [Pharmacy Med Name: amLODIPine Besylate 2.5 MG Oral Tablet] 90 tablet 0 Sig: Take 1 tablet by mouth once daily Patient last seen 12/27/[address] [facility]01-30-2025 Miscellaneous Notes* Telephone Encounter - Mckenna Steiner - 12/18/2024 9:35 AM EST Call from pharmacy requesting refill. Requested Prescriptions Pending Prescriptions Disp Refills amLODIPine (NORVASC) 2.5 mg tablet [Pharmacy Med Name: amLODIPine Besylate 2.5 MG Oral Tablet] 90 tablet 0 Sig: Take 1 tablet by mouth once daily Patient last seen 12/27/2023 Mckenna Steiner documented in this encounterMercy Health St. [facility]12-16-2024 History of Present illness Narrative* Carter Luna MD - 11/03/2024 12:27 PM ESTAssociated Problem(s): Dyslipidemia (CMS/HCC) Reviewed labs. Continue lipitor. * Carter Luna MD - 11/03/2024 12:27 PM ESTAssociated Problem(s): Posterior vitreous degeneration, left Recent symptoms but resolved. Follow with eye doctor. * Carter Luna MD - 11/03/2024 11:15 AM EST Images from the original note were not included. Subjective Patient ID: Marshal Garrison is a 73 y.o. male who presents for Follow-up ([facility] er f/u). ER follow up from 10/23 for vision changes. Developed floaters in left eye then flashing lights. To eye doctor and concerned of potential stroke. To ER and CT head normal. CTA head and neck negative for narrowing and discharged home. Seen by manager eligibility and told patient describing vitreous detachment and [...] Problem List Items Addressed This Visit Dyslipidemia ([facility]) Reviewed labs. Continue lipitor. Posterior vitreous degeneration, left - Primary Recent symptoms but resolved. Follow with eye doctor. documented in this encounterPer[facility] County [facility] [id number] Telephone encounter Note* Telephone Encounter - Coco Samaniego - 09/16/2024 11:12 AM EDT Call from pharmacy requesting refill. Requested Prescriptions Pending Prescriptions Disp Refills amLODIPine (NORVASC) 2.5 mg tablet [Pharmacy Med Name: amLODIPine Besylate 2.5 MG Oral Tablet] 90 tablet 0 Sig: Take 1 tablet by mouth once daily Patient last seen 12/27/[address] [facility]10-29-2024 Miscellaneous Notes* Telephone Encounter - Coco Samaniego - 09/16/2024 11:12 AM EDT Call from pharmacy requesting refill. Requested Prescriptions Pending Prescriptions Disp Refills amLODIPine (NORVASC) 2.5 mg tablet [Pharmacy Med Name: amLODIPine Besylate 2.5 MG Oral Tablet] 90 tablet 0 Sig: Take 1 tablet by mouth once daily Patient last seen 12/27/23 Coco Samaniego documented in this encounterMer[facility] Health St. [facility]08-05-2024 Telephone encounter Note * Telephone Encounter - Vidya Pedersen - 06/23/2024 8:55 AM EDT Call from patient requesting refill. Requested Prescriptions Pending Prescriptions Disp Refills amLODIPine (NORVASC) 2.5 mg tablet 90 tablet 0 Sig: Take 1 tablet by mouth once daily. Patient last seen 12/27/[address] [facility]08-05-2024 Miscellaneous Notes* Telephone Encounter - Vidya Pedersen - 06/23/2024 8:55 AM EDT Call from patient requesting refill. Requested Prescriptions Pending Prescriptions Disp Refills amLODIPine (NORVASC) 2.5 mg tablet 90 tablet 0 Sig: Take 1 tablet by mouth once daily. Patient last seen 12/27/2023 Vidya Pedersen documented in this encounterMercy Health St. [facility]02-08-2024 History of Present illness Narrative* Wai Billingsley MD - 12/27/2023 2:53 PM EST Images from the original note were not included. [facility] [facility] Department of Cardiovascular Medicine SECTION OF CARDIOVASCULAR IMAGING OUTPATIENT VISIT DATE December 27, 2023 OUTPATIENT VISIT TYPE ESTABLISHED PRIMARY CARE PHYSICIAN: Carter Luna MD ([facility]) [address] [place] [address] REFERRING PHYSICIAN: Katerin Billingsley [address] [address] CHIEF COMPLAINT: Follow up HISTORY OF PRESENT [...] bruits, carotids have a normal upstroke, no palpablethyromegaly. Lungs: Clear to auscultation bilaterally, no wheezing [...] NORMAL ECG Confirmed by BILLIE CALLES MD ([id number]) on 03/07/2023 9:46:24 AM IMPRESSION: Mr. Garrison is a 73 year old male with multiple + stable mild to moderate mitral regurgitation. Active, asymptomatic. PLAN AND RECOMMENDATIONS: Continue same medications. Follow-up in 1 year with an echocardiogram. CONTACT INFORMATION: Katerin Billingsley MD documented in this encounterMercy Health St. [facility]04-17-2023 History of Present illness Narrative* Khushboo Lackey, MITA.MANAGER SOCIAL MEDIA - 03/05/2023 2:00 PM EDT Images from the original note were not included. [facility] [facility] Department of Cardiovascular Medicine SECTION OF CARDIOVASCULAR IMAGING OUTPATIENT VISIT DATE February 28, 2023 OUTPATIENT VISIT TYPE ESTABLISHED PRIMARY CARE PHYSICIAN: Carter Luna MD ([facility]) [address] [place] [address] REFERRING PHYSICIAN: Katerin Billingsley [address] [facility] [address] CHIEF COMPLAINT: Follow up HISTORY OF PRESENT [...] or Cold Intolerance, Excessive Sweating, Frequent Urination, FrequentThirst PHYSICAL EXAMINATION: BP 150/69 Pulse 76 Ht [...] BP 150, home BP in the 120s. Patientis feeling well overall. PLAN AND RECOMMENDATIONS: Continue [...] 1:30 PM ECHO J1-5 CARD MAIN CAFLMN Maik J Bldg 05/07/2023 2:45 PM MD NADIA Bergeron J Bldg I personally interviewed, confirmed and edited the above information if obtained by others. CONTACT INFORMATION: Khushboo Lackey DNP, CCNP Desk J1-[address] [place] [address] phone [phone] [facility] Cardiovascular Medicine, Section of Cardiac Imaging [facility] documented in this encounterMercy Health St. [facility]03-07-2023 NoteCONSULTATION CONSULTATION DATE: 01/23/2023 TO: Dr. Luna HISTORY OF PRESENT ILLNESS: Patient returns today [...] He agrees to proceed with the outlined plan.[facility] 01-16-2023 History of Present illness Narrative* Aubrey Ko MD - 01/16/2023 12:07 PM EST [facility] Low Back Pain - Chronic (> 12 weeks) Initial Exam SUBJECTIVE HISTORY OF PRESENT ILLNESS: Marshal Garrison is a 72 year old male who presents with a chief complaint of low back pain. 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 Plantar response are downgoing. 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 If no improvement after epidural steroid injection, would recommend obtaining updated MRI lumbar spine Patient would like to continue his care with his pain management team at [facility], howeverif he would like to transition care to [facility] for injections he was encouraged to contactour office The above plan and management options [...] note. Aubrey Ko MD documented in this encounterMercy Health St. [facility]02-23-2023 NotePAIN MANAGEMENT CONSULTATION CONSULTATION DATE: 01/11/2023 TO: Dr. Luna CHIEF COMPLAINT: Left hip pain. HISTORY OF [...] our office after follow up with the [facility] in regards to his above mentioned pain complaints, and we will follow up with the patient after his consultation there to discuss further options.[facility] [id number] Miscellaneous Notes* Telephone Encounter - Roselia Nolasco APRN.CNP - 12/05/2022 1:41 PM EST SCr drawn in 09/2022 at O[facility]. Scanned into [place]. Normal value. Refill provided. Roselia Nolasco APRN.CNP documented in this encounterMercy Health St. [facility]12-29-2022 History of Present illness Narrative* Wai Billingsley MD - 11/16/2022 12:20 PM EST Images from the original note were not included. [facility] [facility] Department of Cardiovascular Medicine SECTION OF CARDIOVASCULAR IMAGING OUTPATIENT VISIT DATE November 16, 2022 OUTPATIENT VISIT TYPE ESTABLISHED PRIMARY CARE PHYSICIAN: Carter Luna MD ([facility]) [address] [place] [address] REFERRING PHYSICIAN: Katerin Billingsley [address] [address] CHIEF COMPLAINT: Follow up HISTORY OF PRESENT [...] INFORMATION: Katerin Billingsley MD documented in this encounterMercy Health St. [facility]12-28-2022 Miscellaneous Notes* Telephone Encounter - Khushboo Lackey APRN.CNP - 11/15/2022 3:00 PM EST Images from the original note were not included. Spoke with patient regarding Holter results (in Epic), advised patient to continue taking Metoprolol. He is feeling well from a cardiac standpoint. Answered patient's questions and encouraged to call with any further questions or concerns. Khushboo Lackey APRN.APOORVA Holter Monitor documented in this encounterMercy Health St. [facility]12-19-2022 History of Present illness Narrative* Laine ADKINS - 11/06/2022 1:11 PM EST HOLTER MONITOR APPLICATION Patient Name: Marshal Garrison Clinic Number: [id number] Chest is cleansed with alcohol Skin prep [...] or 48 hours 6.) Call with problems [phone] OR [phone] Patient expresses good verbal understanding of instructions Laine ADKINS documented in this encounterMercy Health St. 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 [facility]12-19-2022 History of Present illness Narrative* Denice Carey APRN.CNP - 11/06/2022 12:00 PM EST Images from the original note were not included. [facility] [place] [facility] Department of Cardiovascular Medicine SECTION OF CARDIOVASCULAR IMAGING OUTPATIENT VISIT DATE November 06, 2022 OUTPATIENT VISIT TYPE ESTABLISHED PRIMARY CARE PHYSICIAN: Carter Luna MD ([facility]) [address] [place] [address] REFERRING PHYSICIAN: Denice Carey [address] Desk J[address] [facility] [address] CHIEF COMPLAINT: Increased heart rate HISTORY OF [...] Negative for: Weakness, Paralysis, Numbness, Tingling, Tremor, Nervousness,Depressed mood, Memory loss SKIN: Negative for: Rashes, Itching HEMATOLOGICAL/LYMPHATIC: Negative for: Easy bruising , Easy bleeding ENDOCRINE: Negative for: Heat or cold intolerance, Excessive sweating, Frequent urination, Frequentthirst PHYSICAL EXAMINATION: BP 150/74 Pulse 81 Wt 81.2 kg (179 lb) SpO2 99% BMI 23.62 kg/m General: Well appearing, in no acute distress, speaking in complete sentences. Skin: Warm, dry Eyes: Non-icteric sclerae Neck: No jugular venous distention, no carotid bruits, carotids have a normal upstroke, no palpablethyromegaly. Lungs: Clear to auscultation bilaterally, no wheezing [...] HTN, HPL, palpitations, MVP, anxiety. He has hadback issues since last following up in 2020. [...] INFORMATION: Denice Carey APRN.CNP documented in this encounterMercy Health St. [facility]12-12-2022 History of Present illness Narrative* Alvarez Berry APRN.CNP - 10/30/2022 9:45 AM EST Patient reports he experienced right sided facial [...] could develop into CVA. documented in this encounterMercy Health St. [facility]11-30-2022 NoteCONSULTATION PROCEDURE DATE: 10/18/2022 PREOPERATIVE DIAGNOSIS: Left greater [...] He will be followed up in the clinic.[facility] [id number] NoteCONSULTATION CONSULTATION DATE: 10/18/2022 HISTORY OF PRESENT ILLNESS: [...] followed up in the office thereafter. [facility] [id number] NoteCONSULTATION CONSULTATION DATE: 09/26/2022 CHIEF COMPLAINT: Low back [...] [facility] [facility] with regards to cardiac in October.[facility] [id number] NoteCONSULTATION PROCEDURE DATE: 09/12/2022 PREOPERATIVE DIAGNOSIS: Lumbar paravertebral [...] procedurally, reports having mitigation in his pain symptomatology.[facility] [id number] NoteCONSULTATION CONSULTATION DATE: 09/12/2022 CHIEF COMPLAINT: Chronic low back pain. HISTORY OF PRESENT ILLNESS: This is a 71-year-old gentleman who was referred to us by Dr. Luna. 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 CC: Carter Luna M.D.[facility] noteNo DelivOrogrande [id number] Other evaluation note* Diagnosis Treatment not available- Primary Procedure not carried out for other reasons documented in this encounter [facility] note* Diagnosis Palpitations [facility] Diagnosis Palpitations- Primary Essential hypertension Unspecified essential hypertension [facility] [place] [facility] Diagnosis Palpitations- Primary documented [facility] [place] [facility]* Diagnosis Palpitations- Primary documented [facility] [place] [facility]* Diagnosis Palpitations- Primary documented in [facility] [place] [facility]* Diagnosis Palpitations- Primary [facility] [place] [facility]* Diagnosis Chronic bilateral low back pain with left-sided sciatica- Primary Lumbar radiculitis Thoracic or lumbosacral neuritis or radiculitis, unspecified documented in this encounter [facility] [place] [facility]* Diagnosis Essential hypertension- Primary Unspecified essential hypertension Palpitations Mitral valve insufficiency, unspecified etiology documented in this [facility] [place] [facility]* Diagnosis Mitral valve insufficiency, unspecified etiology- Primary documented in [facility] [place] [facility]* Diagnosis Mitral valve insufficiency, unspecified etiology- Primary documented in this [facility] [place] [facility]* Diagnosis Essential hypertension, [...] Generalized anxiety disorder [facility] Diagnosis Essential hypertension, benign (CMS/HCC)- Primary [...] and unspecified hyperlipidemia documented in this encounter [facility]* Diagnosis Essential hypertension, benign (CMS/HCC)- [...] Primary Dyslipidemia (CMS/HCC) Other and unspecified hyperlipidemia BAN (generalized anxiety disorder) (CMS/HCC) Generalized anxiety disorder documented in this encounter [facility]* Diagnosis EKG abnormalities- Primary Nonspecific abnormal electrocardiogram (ECG) (EKG) [facility] Diagnosis Mitral valve insufficiency, unspecified etiology- Primary SOB (shortness of breath) Shortness of breath [facility] Diagnosis Mitral valve insufficiency, unspecified etiology documented in this [facility] [place] [facility]* Diagnosis Essential hypertension, [...] Primary Dyslipidemia (CMS/HCC) Other and unspecified hyperlipidemia Other chest pain- Primary SOB (shortness of breath) on exertion Shortness of breath Palpitations Family history of coronary artery disease Family history of ischemic heart disease Mitral valve prolapse Mitral valve disorders Dyslipidemia (CMS/HCC) Other and unspecified hyperlipidemia BAN (generalized anxiety disorder) (CMS/HCC) Generalized anxiety disorder documented in this encounter [facility]* Diagnosis SOB (shortness of breath) Shortness of breath [facility] Diagnosis Essential hypertension, benign (CMS/HCC)- Primary [...] Primary Dyslipidemia (CMS/HCC) Other and unspecified hyperlipidemia Other chest pain- Primary SOB (shortness of breath) on exertion Shortness of breath Palpitations Family history of coronary artery disease Family history of ischemic heart disease Mitral valve prolapse Mitral valve disorders Dyslipidemia (CMS/HCC) Other and unspecified hyperlipidemia Medicare annual wellness visit, subsequent- Primary documented in this encounter [facility]* Diagnosis Mitral valve insufficiency, unspecified etiology- Primary [facility]* Diagnosis Essential hypertension, benign- Primary Essential hypertension, benign Dyslipidemia Other and unspecified hyperlipidemia Generalized anxiety disorder Generalized anxiety disorder DDD (degenerative disc disease), lumbar Degeneration of lumbar or lumbosacral intervertebral disc Essential hypertension, benign- Primary Essential hypertension, benign Generalized anxiety disorder Generalized anxiety disorder Degeneration of intervertebral disc of lumbar region with discogenic back pain Encounter for long-term (current) use of medications Encounter for long-term (current) use of other medications Dyslipidemia Other and unspecified hyperlipidemia Hypomagnesemia Disorders of magnesium metabolism Prediabetes Other abnormal glucose Screening PSA (prostate specific antigen) Special screening for malignant neoplasm of prostate Posterior vitreous degeneration, left- Primary Dyslipidemia Other and unspecified hyperlipidemia Other chest pain- Primary SOB (shortness of breath) on exertion Shortness of breath Palpitations Family history of coronary artery disease Family history of ischemic heart disease Mitral valve prolapse Mitral valve disorders Dyslipidemia Other and unspecified hyperlipidemia Medicare annual wellness visit, subsequent- Primary BAN (generalized anxiety disorder) Generalized anxiety disorder documented in this encounter [facility] noteNo assessment information availableKettering Health Behavioral [facility] Work Phone: History general Narrative - Reported* Type Description Date Medical History hypertension Medical HistoryhypercholesterolemiaMedical Historyanxiety [facility] Other reason for referral (narrative)* Outpatient Procedure (Routine) - AuthorizedSpecialtyDiagnoses / ProceduresReferred By Contact Referred To [facility] Diagnoses Palpitations Procedures ECG COMPLETE ECG ROUTINE ECG W/LEAST 12 LDS W/I&R Wai Billingsley MD [address] [place] [address] [address] [place] [address] Referral IDStatusMalikaJohn Paul Jones Hospital DateExpiration DateVisits RequestedVisits [id number] Auto-Generated Referral * Outpatient Procedure (Routine) - AuthorizedSpecialtyDiagnoses / Procedures Referred By ContactReferred To [facility] Diagnoses Palpitations Procedures ECHO ECHO TTHRC R-T 2D W/WOM-MODE COMPL SPEC&COLR D Wai Billingsley MD [address] [place] [address] [address] [place] [address] Referral IDStatSergeykash DateExpiration DateVisits RequestedVisits [id number] Auto-Generated Referral [facility] for referral (narrative)* Outpatient Procedure (Routine) - ClosedSpecialtyDiagnoses / ProceduresReferred By ContactReferred To [facility] Diagnoses Palpitations Procedures ECHO ECHO TTHRC R-T 2D W/WOM-MODE COMPL SPEC&COLR D Wai Billingsley MD [address] [place] [address] [address] [address] [place] [address] Referral IDStatusReasonStart DateExpiration DateVisits RequestedVisits [id number] Auto-Generated Referral * Outpatient Procedure (Routine) - ClosedSpecialtyDiagnoses / ProceduresReferred By ContactReferred To [facility] Diagnoses Palpitations Procedures ECG COMPLETE ECG ROUTINE ECG W/LEAST 12 LDS W/I&R Wai Billingsley MD [address] [place] [address] [address] [place] [address] Referral IDStatusMalikaasonStart DateExpiration DateVisits RequestedVisits [id number] Auto-Generated Referral [facility] for referral (narrative)* Outpatient Procedure (Routine) - AuthorizedSpecialtyDiagnoses / ProceduresReferred By ContactReferred To [facility] Diagnoses Palpitations Procedures ECG COMPLETE ECG ROUTINE ECG W/LEAST 12 LDS W/I&R Wai Billingsley MD [address] [place] [address] [facility] [address] [place] [address] Referral IDStatusReasonStart DateExpiration DateVisits RequestedVisits [id number] Auto-Generated Referral [facility] for referral (narrative)* Outpatient Procedure (Routine) - Pending ReviewSpecialtyDiagnoses / ProceduresReferred By ContactReferred To [facility] Diagnoses Mitral valve insufficiency, unspecified etiology Procedures ECHO ECHO TTHRC R-T 2D W/WOM-MODE COMPL SPEC&COLR Wai Montano MD [address] [place] [address] [address] [place] [address] Referral IDStatus[facility] DateExpiration DateVisits RequestedVisits [id number] Review Auto-Generated Referral / [facility] for referral (narrative)* Outpatient Procedure (Routine) - Pending ReviewSpecialtyDiagnoses / ProceduresReferred By ContactReferred To [facility] Diagnoses Mitral valve insufficiency, unspecified etiology Procedures ECHO ECHO TTHRC R-T 2D W/WOM-MODE COMPL SPEC&COLWai Mcginnis MD [address] [place] [address] [facility] [address] [place] [address] Referral IDStatus[facility] DateExpiration DateVisits RequestedVisits [id number] Review Auto-Generated Referral * Outpatient Procedure (Routine) - Pending ReviewSpecialtyDiagnoses / Procedures Referred By ContactReferred To [facility] Diagnoses Mitral valve insufficiency, unspecified etiology Procedures ECG COMPLETE ECG ROUTINE ECG W/LEAST 12 LDS W/I&R Wai Billingsley MD [address] [place] [address] [facility] [address] [place] [address] Referral IDStatusReasonStart DateExpiration DateVisits RequestedVisits [id number] Review Auto-Generated Referral * Transition of Care (Routine) - Ref Not RequiredSpecialtyDiagnoses / Procedures Referred By ContactReferred To Contact Procedures CARDIOVASCULAR MEDICINE OP FOLLOW UP APPT ORDER Wai Billingsley MD [address] [place] [address] Referral IDStatusReasonStart DateExpiration DateVisits RequestedVisits [id number] Not Required PCP Requested Referral [facility] for referral (narrative)No reason for referral information availableKettering Health Behavioral Medical Center Work Phone: Reason for visit Narrative* Outpatient Procedure (Routine) - ClosedSpecialtyDiagnoses / ProceduresReferred By ContactReferred To [facility] Diagnoses Mitral valve insufficiency, unspecified etiology Procedures ECHO TRANSESOPHAGEAL ECHO TRANSESOPHAG R-T 2D W/PRB IMG ACQUISJ I&R Wai Billingsley MD [address] [place] [id number] Phone: tel: fax: [address] [place] [address] Referral IDStatusReasonStlittle sioux DateExpiration DateVisits RequestedVisits [id number] Auto-Generated Referral / [facility] for visit Narrative* Transition of Care (Routine) - ClosedSpecialtyDiagnoses / ProceduresReferred By ContactReferred To [facility] AND VASCULAR EMMET Procedures CARDIOVASCULAR MEDICINE OP FOLLOW UP APPT ORDER Wai Billingsley MD [address] [place] [address] Phone: tel: fax: [facility] [address] [place] [address] Referral IDStatusReasonStart DateExpiration DateVisits RequestedVisits [id number] PCP Requested Referral / [facility] Summary Purpose Family History Relationship Condition Age at Onset Recorded Date/T jasmine father Malignant neoplasm Unknown Alzheimer's diseaseUnknownmotherMalignant neoplasmUnknown Advance Directives Advance Directive Response Recorded Date/ Time Advance Directives No December 04, 2024 1:38pm Chief Complaint and Reason for Visit Chief Complaint Admit Date Follow up July 16, 2025 2: 46pm Additional Source Comments REASON FOR VISIT (unrecogniz ed section and content) ReasonCommentsTIAReasonCommentsHolter Monitor Cedpcjynctq03 hourReasonComments ResultsHolter ResultsReasonOnset DateCommentsRefill Dkmqpfr0912/05/2022Reason CommentsNew PatientReasonCommentsRefill RequestReasonOnset DateCommentsRefill Jvfcjxm63/16/2024ReasonOnset DateCommentsRefill Meiulbn1406/23/2024easonComments Med RefillReasonCommentsFollow-upTbh er f/uReasonCommentsEstablished Patient Follow-UpSpecialtyDiagnoses / ProceduresReferred By ContactReferred To Contact Cardiology / [facility]ARD [place] Diagnoses Dx: Primary Diagnosis Mitral valve insufficiency, unspecified etiology 1 yr follow up ekg, echo coco [id number] calling to sched - ok to add on Procedures EST HVTI PATIENT Self Wai Billingsley MD [address] [place] [address] Phone: tel: fax: Referral IDStatusReasonStart DateExpiration DateVisits RequestedVisits [id number]/[id number]/[id number] DateCommentsReminder Call02/12/2025TEE instructions 02/13ReasonOnset DateCommentsMed Kyqpth55/ ReasonCommentsRadiology NMSpecialtyDiagnoses / ProceduresReferred By Contact Referred To ContactMO[facility]ULAR [facility] Diagnoses SOB (shortness of breath) Procedures NM CARDIAC PERF STRESS/EXERCISE MYOCARDIAL SPECT MULTIPLE STUDIES Wai Billingsley MD [address] [place] [address] [place] [address] Phone: tel: fax: [facility] [address] [place] [address] Phone: tel: Referral IDStatusReasonStart DateExpiration DateVisits RequestedVisits [id number] Auto-Generated Referral 202522ReasonCommentsMedicare Annual Wellness Visit Subsequent wellnessUrinary FrequencyTrouble holding it inReasonCommentsMed Change Request Source Comments (unrecognize d section and content) In the event this informatio n is protected by the Federal Confidentiality of Alcohol and Drug Abuse Patient Records regulations: The Federal rules restrict any use of the information to criminally investigate or prosecute any alcohol or drug abuse patient.[facility] HospitalIn the event this information is protected by the Federal Confidentiality of Alcohol and Drug Abuse Patient Records regulations: The Federal rules restrict any use of the information to criminally investigate or prosecute any alcohol or drug abuse patient.[facility] HospitalIn the event this information is protected by the Federal Confidentiality of Alcohol and Drug Abuse Patient Records regulations: The Federal rules restrict any use of the information to criminally investigate or prosecute any alcohol or drug abuse patient.[facility] HospitalIn the event this information is protected by the Federal Confidentiality of Alcohol and Drug Abuse Patient Records regulations: The Federal rules restrict any use of the information to criminally investigate or prosecute any alcohol or drug abuse patient.[facility] HospitalIn the event this information is protected by the Federal Confidentiality of Alcohol and Drug Abuse Patient Records regulations: The Federal rules restrict any use of the information to criminally investigate or prosecute any alcohol or drug abuse patient.[facility] HospitalIn the event this information is protected by the Federal Confidentiality of Alcohol and Drug Abuse Patient Records regulations: The Federal rules restrict any use of the information to criminally investigate or prosecute any alcohol or drug abuse patient.[facility] HospitalIn the event this information is protected by the Federal Confidentiality of Alcohol and Drug Abuse Patient Records regulations: The Federal rules restrict any use of the information to criminally investigate or prosecute any alcohol or drug abuse patient.[facility] HospitalIn the event this information is protected by the Federal Confidentiality of Alcohol and Drug Abuse Patient Records regulations: The Federal rules restrict any use of the information to criminally investigate or prosecute any alcohol or drug abuse patient.[facility] HospitalIn the event this information is protected by the Federal Confidentiality of Alcohol and Drug Abuse Patient Records regulations: The Federal rules restrict any use of the information to criminally investigate or prosecute any alcohol or drug abuse patient.[facility] HospitalIn the event this information is protected by the Federal Confidentiality of Alcohol and Drug Abuse Patient Records regulations: The Federal rules restrict any use of the information to criminally investigate or prosecute any alcohol or drug abuse patient.[facility] HospitalIn the event this information is protected by the Federal Confidentiality of Alcohol and Drug Abuse Patient Records regulations: The Federal rules restrict any use of the information to criminally investigate or prosecute any alcohol or drug abuse patient.[facility] HospitalIn the event this information is protected by the Federal Confidentiality of Alcohol and Drug Abuse Patient Records regulations: The Federal rules restrict any use of the information to criminally investigate or prosecute any alcohol or drug abuse patient.[facility] HospitalIn the event this information is protected by the Federal Confidentiality of Alcohol and Drug Abuse Patient Records regulations: The Federal rules restrict any use of the information to criminally investigate or prosecute any alcohol or drug abuse patient.[facility] HospitalIn the event this information is protected by the Federal Confidentiality of Alcohol and Drug Abuse Patient Records regulations: The Federal rules restrict any use of the information to criminally investigate or prosecute any alcohol or drug abuse patient.[facility] HospitalIn the event this information is protected by the Federal Confidentiality of Alcohol and Drug Abuse Patient Records regulations: The Federal rules restrict any use of the information to criminally investigate or prosecute any alcohol or drug abuse patient.[facility] HospitalIn the event this information is protected by the Federal Confidentiality of Alcohol and Drug Abuse Patient Records regulations: The Federal rules restrict any use of the information to criminally investigate or prosecute any alcohol or drug abuse patient.[facility] HospitalIn the event this information is protected by the Federal Confidentiality of Alcohol and Drug Abuse Patient Records regulations: The Federal rules restrict any use of the information to criminally investigate or prosecute any alcohol or drug abuse patient.[facility] HospitalIn the event this information is protected by the Federal Confidentiality of Alcohol and Drug Abuse Patient Records regulations: The Federal rules restrict any use of the information to criminally investigate or prosecute any alcohol or drug abuse patient.[facility] HospitalIn the event this information is protected by the Federal Confidentiality of Alcohol and Drug Abuse Patient Records regulations: The Federal rules restrict any use of the information to criminally investigate or prosecute any alcohol or drug abuse patient.[facility] HospitalIn the event this information is protected by the Federal Confidentiality of Alcohol and Drug Abuse Patient Records regulations: The Federal rules restrict any use of the information to criminally investigate or prosecute any alcohol or drug abuse patient.[facility] HospitalIn the event this information is protected by the Federal Confidentiality of Alcohol and Drug Abuse Patient Records regulations: The Federal rules restrict any use of the information to criminally investigate or prosecute any alcohol or drug abuse patient.[facility] HospitalIn the event this information is protected by the Federal Confidentiality of Alcohol and Drug Abuse Patient Records regulations: The Federal rules restrict any use of the information to criminally investigate or prosecute any alcohol or drug abuse patient.[facility] HospitalIn the event this information is protected by the Federal Confidentiality of Alcohol and Drug Abuse Patient Records regulations: The Federal rules restrict any use of the information to criminally investigate or prosecute any alcohol or drug abuse patient.[facility] HospitalIn the event this information is protected by the Federal Confidentiality of Alcohol and Drug Abuse Patient Records regulations: The Federal rules restrict any use of the information to criminally investigate or prosecute any alcohol or drug abuse patient.[facility] HospitalIn the event this information is protected by the Federal Confidentiality of Alcohol and Drug Abuse Patient Records regulations: The Federal rules restrict any use of the information to criminally investigate or prosecute any alcohol or drug abuse patient.[facility] HospitalIn the event this information is protected by the Federal Confidentiality of Alcohol and Drug Abuse Patient Records regulations: The Federal rules restrict any use of the information to criminally investigate or prosecute any alcohol or drug abuse patient.[facility] HospitalIn the event this information is protected by the Federal Confidentiality of Alcohol and Drug Abuse Patient Records regulations: The Federal rules restrict any use of the information to criminally investigate or prosecute any alcohol or drug abuse patient.[facility] Care Teams (unrecognized sec tion and content) Team MemberRelationshipSpecialtyStart DateEnd Date Carter Luna PCP - [facility]Law[facility] Hnucuujf55/8/17 No, Referral Referring04/22/19 Wai Billingsley MD [address] [place] [address] Primary Staff PhysicianCardiology02/04/19Team MemberRelationshipSpecialtyStart DateEnd Date Carter Luna PCP - GeneralFamily Gsqxnnug50/8/17 No, Referral Referring04/22/19 Wai Billingsley MD [address] [place] [address] Primary Staff PhysicianCardiology02/04/19Team MemberRelationshipSpecialtyStart DateEnd Date Carter Luna PCP - GeneralFamily Iiuennik70/8/17 No, Referral Referring04/22/19 Wai Billingsley MD [address] [address] Primary Staff PhysicianCardiology02/04/19Team MemberRelationshipSpecialtyStart DateEnd Date Carter Luna PCP - [facility] Uapsvvry95/8/17 No, Referral Referring04/22/19 Wai Billingsley MD [address] [address] Primary Staff PhysicianCardiology02/04/19Team MemberRelationshipSpecialtyStart DateEnd Date Carter Luna PCP - [facility]09/26/17 No, Referral Referring04/22/19 Wai Billingsley MD [address] [address] Primary Staff PhysicianCardiology02/04/19Te MemberRelationshipSpecialtyStart DateEnd Date Carter Luna PCP - [facility]09/26/17 No, Referral Referring04/22/19 Wai Billingsley MD [address] [address] Primary Staff PhysicianCardiology02/04/19Team MemberRelationshipSpecialtyStart DateEnd Date Carter Luna PCP - [facility]09/26/17 No, Referral Referring04/22/19 Wai Billingsley MD [address] [address] Primary Staff PhysicianCardiology3/19/19Team MemberRelationshipSpecialtyStart DateEnd Date Carter Luna PCP - [facility]09/26/17 No, Referral Referring04/22/19 Wai Billingsley MD [address] [address] Primary Staff PhysicianCardiology02/04/19Team MemberRelationshipSpecialtyStart DateEnd Date Carter Luna PCP - [facility]09/26/17 No, Referral Referring04/22/19 Wai Billingsley MD [address] [address] Primary Staff PhysicianCardiology3Team MemberRelationshipSpecialtyStart DateEnd Date Carter Luna PCP - [facility]09/26/17 No, Referral Referring04/22/19 Wai Billingsley MD [address] [address] Primary Staff PhysicianCardiology02/04/19Team MemberRelationshipSpecialtyStart DateEnd Date Carter Luna PCP - [facility]09/26/17 No, Referral Referring04/22/19 Wai Billingsley MD [address] [address] Primary Staff PhysicianCardiology02/04/19Team MemberRelationshipSpecialtyStart DateEnd Date [facility] Hugzkksz06/8/17 No, Referral Referring04/22/19 Wai Billingsley MD [address] [place] [address] Primary Staff PhysicianCardiology02/04/19Team MemberRelationshipSpecialtyStart DateEnd Date Carter Luna PCP - [facility] Bzspigxd24/8/17 No, Referral Referring04/22/19 Wai Billingsley MD [address] [address] Primary Staff PhysicianCardiology02/04/19Team MemberRelationshipSpecialtyStart DateEnd Date Carter Luna PCP - [facility] Yndqaerv26/8/17 No, Referral Referring04/22/19 Wai Billingsley MD [address] [place] [address] Primary Staff PhysicianCardiology02/04/19Team MemberRelationshipSpecialtyStart DateEnd Date Carter Luna PCP - [facility] Thriwhkj44/8/17 No, Referral Referring04/22/19 Wai Billingsley MD [address] [address] Primary Staff PhysicianCardiology02/04/19Team MemberRelationshipSpecialtyStart DateEnd Date Carter Luna PCP - [facility] Boxkhrgq68/8/17 No, Referral Referring04/22/19 Wai Billingsley MD [address] [place] [address] Primary Staff PhysicianCardiology02/04/19Team MemberRelationshipSpecialtyStart DateEnd Date Carter Luna MD [address] [place] [phone] PCP - [facility] Medicine03/04/24Team MemberRelationshipSpecialtyStart DateEnd Date Carter Luna MD PCP - [facility]09/26/17 No, Referral Referring04/22/19 Wai Billingsley MD [address] [place] [address] Primary Staff PhysicianCardiology02/04/19Te MemberRelationshipSpecialtyStart DateEnd Date Carter Luna MD [address] [place] [phone] [facility]03/04/24Team MemberRelationshipSpecialtyStart DateEnd Date Carter Luna MD [address] [place] [phone] [facility]03/04/24Team MemberRelationshipSpecialtyStart DateEnd Date Carter Luna MD [address] [place] [phone] PCP - [facility] Medicine03/04/24Te MemberRelationshipSpecialtyStart DateEnd Date Carter Luna MD [address] [place] [address] PCP - [facility]03/04/24Te MemberRelationshipSpecialtyStart DateEnd Date Carter Luna MD PCP - [facility] Uymxxelx48/8/17 No, Referral Referring04/22/19 Wai Billingsley MD [address] [place], [place] [id number] Primary Staff PhysicianCardiology02/04/19Te MemberRelationshipSpecialtyStart DateEnd Date Carter Luna MD [address] [place] [phone] PCP - [facility]03/04/24 Carter Luna MD [address] [place] [address] [facility] - [facility]11/19/24Te MemberRelationshipSpecialtyStart DateEnd Date Carter Luna MD PCP - [facility] Jdkepzuv56/8/17 No, Referral Referring04/22/19 Wai Billingsley MD [address] [place], [place] [id number] Primary Staff PhysicianCardiology02/04/19Team MemberRelationshipSpecialtyStart DateEnd Date Carter Luna MD [facility] Dmarjydo86/8/17 No, Referral Referring04/22/19 Wai Billingsley MD [address] [place] [address] Primary Staff PhysicianCardiology02/04/19Team MemberRelationshipSpecialtyStart DateEnd Date Carter Luna MD [address] [place] [phone] PCP - [facility]03/04/24 Carter Luna MD [address] [place] [phone] [facility]CP - [facility]11/19/24Team MemberRelationshipSpecialtyStart DateEnd Date Carter Luna MD PCP - [facility] Tokhtigl88/8/17 No, Referral Referring04/22/19 Wai Billingsley MD [address] [place] [address] Primary Staff PhysicianCardiology02/04/19Team MemberRelationshipSpecialtyStart DateEnd Date Carter Luna MD [address] [place] [phone] PCP - [facility]03/04/24 Carter Luna MD [address] [place] [address] PCP - [facility]11/19/24Team MemberRelationshipSpecialtyStart DateEnd Date Carter Luna MD [facility] Rqcvkyvy43/8/17 No, Referral Referring04/22/19 Wai Billingsley MD [address] [place] [address] Primary Staff PhysicianCardiology02/04/19Team MemberRelationshipSpecialtyStart DateEnd Date Carter Luna MD PCP - [facility]09/26/17 No, Referral Referring04/22/19 Wai Billingsley MD [address] [place] [address] Primary Staff PhysicianCardiology02/04/19Team MemberRelationshipSpecialtyStart DateEnd Date Carter Luna MD [address] [place] [address] PCP - [facility] Medicine03/04/24 Carter Luna MD [address] [place] [address] PCP - [facility]11/19/24 Team Status: Active Member Role Status Dates Carter Luna MD Primary Care Provider Active Team Status: Inactive Member Role Status Dates Carter Luna MD Primary Care Provider Active S tart: July 16, 2025 End: July 16Vianney Carrillo ProviderActiveStart: July 16, 2025 End: July 16, 2025 (unrecognized sect ion and content) No Status Records FoundNo Status Records FoundNo Status Records Found INFORMATION SOURCE (unrecogn ized section and content) DATE CREATED AUTHOR 02/07/2023 [facility] DATE CREATED AUTHOR AUTHOR'S ORGANIZ ATION 04/01/2025 [facility] DATE CREATED AUTHOR AUTHOR'S ORGANIZ ATION 04/27/2025 [facility] Goals (unrecognized section and content) Goals may be documented in a n alternate section FOR RECORDS PERTAINING TO PATIENTS WHO ARE [...] BE BASED ON THE PRIMARY CLINICAL RECORDS. [employer] provides no warranty or guarantee of the accuracy or completeness of information in this document.
--- OUTSIDE RECORDS SUMMARY | 2025-10-05 07:57 | XMS_ITS | Clinical Summary ---
Author Organization [facility] Address [address] [place] [address] Care Team Providers Care Senior Nuclear Medicine Technologist Name Role Phone Carter Luna MD Primary Care Provider [phone] No, Referral Unavailable Unavailable Wai Billingsley MD Unavailable Allergies Active AllergyReactionsCriticalityNoted DateCommentsThiazidesGI Upset02/03/2019 Nausea SshcrqpbpuJlzisnu15/14/2017 Medications MedicationSigDispense QuantityRefillsLast FilledStart DateEnd DateStatus atorvastatin (LIPITOR) 10 mg tablet Take 10 mg by mouth once daily.Active ZEAXANTHIN, BULK, MISC 20 mg once daily.Active multivitamin tablet Take 1 tablet by mouth once daily. With 18 mg iron Active LORazepam (ATIVAN) 0.5 mg Take 0.5 mg by mouth three times daily as needed. 0.25mg in the morning and afternoon and 0.5mg in the evening Active metoprolol succinate ER (TOPROL XL) 50 mg 24 hr tablet Take 1 tablet by mouth twice daily. 180 tablet 11/23/2022ctive aspirin (ASPIR-81 ORAL) Take 1 tablet by mouth once daily.Active sodium chloride 0.9 %, flush, (BD POSIFLUSH) syringe Inject 2-10 mL intravenously as directed. For Echo procedure 10 mL 506Active Additional Information Patient not taking.Reason: Discontinued by Another Health Care Provider, Reported on 04/23/2025 amLODIPine (NORVASC) 2.5 mg tablet Take 1 tablet by mouth once daily 90 tablet 5Active Active Problems ProblemNoted DateDiagnosed KitqTbjdglakbvpu47/04/2019 Family History Medical HistoryRelationCommentsHeart diseaseBrother 1heart infection HyperlipidemiaBrother 1HypertensionBrother 1Ischemic Heart DiseaseBrother 1s/p CABGAlzheimer's DiseaseFatherIschemic Heart DiseaseFathers/p CABG x 4Colon CancerMotherRelationStatusCommentsBrother 1AliveBrother 2AliveFatherDeceased (Age 76)MotherDeceased (Age 91)SisterAlive Social History Tobacco UseTypesPacks/DayYears UsedDateSmoking Tobacco: VrhletYtomwceele19 11/19/1972 - 11/19/1977Smokeless Tobacco: Never Tobacco Cessation:Counseling Given: Not Answered Alcohol UseStandard Drinks/WeekCommentsNot Currently0 (1 standard drink = 0.6 oz pure alcohol)Area Deprivation IndexAnswerDate RecordedNational Score (1-100), lower number is lower kepd722712/27/2023State Score (1-10), lower number is lower wikh5004Data from: https://www.neighborhoodatlas.[facility].edu/. Last address used for a[address]ve[address]ak[address]/27/2023Sex and Gender Information ValueDate RecordedSex Assigned at BirthNot on fileLegal CvjZfsl36/08/2017 12:34 PM ESTGender IdentityNot on fileSexual WtsgknbvkjpLefkyjeh10/19/2021 12:23 PM EDTOccupationIndustryJob Start DateJob End DateNot on fileNot on fileNot on file Not on file Last Filed Vital Signs Vital SignReadingTime TakenCommentsBlood Nmtmpwum866/6206 10:31 AM EDT Tkwdr8634/05/2025 10:31 AM ZZYIeukjwhimtl59.4 ??C (97.6 ??F)02/13/2025 10:07 AM EDTRespiratory Ihpf694102/13/2025 12:25 PM EDTOxygen Mqddowucuq72%04/23/2025 10:31 AM EDTInhaled Oxygen Concentration--Oymjvg63.6 kg (160 lb)04/23/2025 10:31 AM SLBMbjekk213.9 cm (6')04/23/2025 10:31 AM EDTBody Mass Index21.7004/23/2025 10:31 AM EDT Plan of Treatment Health MaintenanceDue DateLast DoneCommentsAnxiety Baiiqukry55/07/1967Depression Vkkttvjkl69/07/1967Hepatitis C Sqgovajez77/07/1967DTaP,Tdap,Td Vaccine (1 - Tdap)1967Pneumococcal Vaccine: 50+ (1 of 1 - PCV)1998Shingrix Vaccine (1 of 2)1998Diabetes Ridpnzsgp63, 02/03/2019RSV Vaccine (1 - 1-dose 75+ series)2023dvance Directive Wldggylthb55/01/2025 Medicare Advantage Annual Wellness Visit11/19/2024ovid-19 Vaccine ( season)/, 02/08/2021, 01/17/2021Influenza Vaccine (#1) /01/2020, 08/21/2019, 10/31/2016, Additional history existsCologuard (FIT-DNA)Kcqegvqpvuty93/21/2933MmgbtrxkjgfOzqfkedopkti21/08/2019Colorectal Cancer ScreeningDiscontinuedCT ColonographyDiscontinuedFecal Occult Blood DiscontinuedSigmoidoscopyDiscontinued Procedures Procedure NamePriorityDate/TimeAssociated DiagnosisCommentsBASIC METABOLIC PANEL Xtrijam7402/03/2019 3:17 PM EDT Anemia, unspecified type from Last 3 Months or Most Recently Relevant to Health Maintenance Results * (ABNORMAL) BASIC METABOLIC PNL (02/03/2019 3:17 PM EDT)ComponentValueRef Range Test MethodAnalysis TimePerformed AtPathologist JpqobsiylUfuscjf804(H)74 - 99 mg/dL02/03/2019 8:02 PM EDTCleveland Clinic LaboratoriesComment: The [place] Diabetes Association (ADA) provides guidance for cutoff values for fasting glucose and random glucose. The ADA defines fasting as no caloric intake for at least 8 hours. Fasting plasma glucose results between 100 to 125 mg/dL indicate increased risk for diabetes (prediabetes). Fasting plasma glucose results greater than or equal to 126 mg/dL meet the criteria for diagnosis of diabetes. In the absence of unequivocal hyperglycemia, results should be confirmed by repeat testing. In a patient with classic symptoms of hyperglycemia or hyperglycemic crisis, random plasma glucose results greater than or equal to 200 mg/dL meet the criteria for diagnosis of diabetes. Reference: Standards of Medical Care in Diabetes 2016, [place] [employer]. Diabetes Care. 2016.39(Suppl 1). TFP223 - 24 mg/dL02/03/2019 8:02 PM [facility] LaboratoriesCreatinine 1.190.73 - 1.22 mg/dL02/03/2019 8:02 PM [facility] LaboratoriesSodium 486110 - 144 mmol/L02/03/2019 8:02 PM [facility] LaboratoriesPotassium 4.43.7 - 5.1 mmol/L02/03/2019 8:02 PM [facility] MngxswpiancvOqcxuqjb44 97 - 105 mmol/L02/03/2019 8:02 PM [facility] OmspdinlvtfqOU68326 - 30 mmol/L02/03/2019 8:02 PM [facility] LaboratoriesAnion Mde643 - 18 mmol/L02/03/2019 8:02 PM [facility] LaboratoriesCalcium9.88.5 - 10.2 mg/dL02/03/2019 8:02 PM [facility] LaboratorieseGFR->60 02/03/2019 8:02 PM [facility] LaboratorieseGFR-All Other Races>60. 02/03/2019 8:02 PM [facility] LaboratoriesComment: eGFR (Estimated GFR) Units of measure: mL/min/1.73 [...] eGFR may not accurately reflect actual GFR. Specimen (Source)Anatomical Location / LateralityCollection Method / Volume Collection TimeReceived TimeBlood specimen (specimen)BLOOD SPECIMEN / Unknown 02/03/2019 3:17 PM EDT02/03/2019 3:19 PM EDT Narrative Authorizing ProviderResult TypeResult StatusWai Billingsley MDLABORATORYFinal ResultPerforming OrganizationAddressCity/State/ZIP CodePhone Number [facility] [address] [place] [address] [facility] [address] [place] [address] from Last 3 Months or Most Recently Relevant to Health Maintenance Insurance Care Teams Team MemberRelationshipSpecialtyStart DateEnd Date Carter Luna MD PCP - GeneralFamily Txpenxwj60/8/17 No, Referral Referring04/22/19 Wai Billingsley MD [address] [place] [address] Primary Staff PhysicianCardiology02/04/19
[2025-10-05 08:24] LABS: Hematocrit 45.6 % (42.0-54.0); Hemoglobin 14.5 g/dL (14.0-18.0); Immature Granulocytes Abs Auto 0.01 10^3/uL (0.00-0.03); Immature Granulocytes Pct Auto 0.2 % (0.0-0.5); Lymphocytes Absolute Auto 2.0 10^3/uL (1.2-3.8); Mean Corpuscular HGB Conc 31.8 g/dL (29.9-35.2); Mean Corpuscular Hemoglobin 27.9 pg (25.9-34.0); Mean Corpuscular Volume 87.9 fL (80.0-94.0); Platelet Count 243 10^3/uL (150-450); Red Blood Count 5.19 10^6/uL (4.70-6.10); White Blood Count 6.6 10^3/uL (4.0-11.0)
[2025-10-05 10:40] LABS: Alanine Aminotransferase 34 U/L (16-63); Albumin Globulin Ratio 1.1; Albumin Level 3.8 g/dL (3.4-5.0); Alkaline Phosphatase 89 U/L (46-116); Anion Gap 7.9; Aspartate Amino Transferase 20 U/L (15-37); Blood Urea Nitrogen 15.0 mg/dL (7.0-18.0); Calcium 9.2 mg/dL (8.5-10.1); Carbon Dioxide 32.5 mmol/L (21.0-32.0); Chloride 105 mmol/L (98-107); Cholesterol 174 mg/dL (<=200); Estimated GFR (African America >60 (>=60 mL/min/1.73m^2); Estimated GFR (Non-African Ame >60 (>=60 mL/min/1.73m^2); Globulin 3.5 g/dL; Glucose 105 mg/dL (74-106); HDL Cholesterol 71 mg/dL (40-60); Potassium 4.4 mmol/L (3.5-5.1); Sodium 141 mmol/L (136-145); Thyroid Stimulating Hormone 3.496 uIU/mL (0.358-3.740); Total Protein 7.3 g/dL (6.4-8.2); Triglycerides 49 mg/dL (<=150); VLDL CHOLESTEROL 9.8 mg/dL
== END 2025-10-05 07:51 | disposition home or self-care (01) ==
LOC: LAB 07:52
PROVIDERS: PCP Family Medicine; Visit Provider Family Medicine
DX: Z79.899 Other long term (current) drug therapy (principal); E78.5 Hyperlipidemia, unspecified; R73.03 Prediabetes; R53.83 Other fatigue; Z12.5 Encounter for screening for malignant neoplasm of prostate
CPT/HCPCS: 36415; 80053; 80061; 83036; 84443; 85025; G0103